=== PATIENT | female | born 1940 | race Caucasian/White ===

== ENCOUNTER 2017-12-15 08:42 | Emergency (ER) | payer MEDICARE, OTHER, SELFPAY ==
[2017-12-15 08:42] VITALS: BP 161/77; PULSE 96; RESP 15; TEMP 35.7; O2SAT 95; BMI 28.6
--- NOTE | 2017-12-15 08:59 | EKG12_ITS ---
Test Reason : REPEAT Blood Pressure : / mmHG Vent. Rate : 089 BPM Atrial Rate : 089 BPM P-R Int : 190 ms QRS Dur : 106 ms QT Int : 388 ms P-R-T Axes : 029 -43 026 degrees QTc Int : 472 ms Normal sinus rhythm Left axis deviation Voltage criteria for left ventricular hypertrophy Abnormal ECG Confirmed by KUMAR DELGADO, MEKHI ([id number]), film or videotape editor DOLORES GUZMAN ([id number]) on 12/18/2017 3:54:16 PM Referred By: MIRTA Confirmed By:MEKHI HEATH MD
--- NOTE | 2017-12-15 09:00 | RAD_ITS ---
STUDY: X-RAY CHEST REASON FOR EXAM: Female, 77 years old. Chest pain TECHNIQUE: Frontal and lateral views of the chest. COMPARISON: None. FINDINGS: The lungs are clear and expanded. There is no demonstrated pleural abnormality. Normal size heart. Normal mediastinum and douglas. Normal visualized pulmonary arteries. Normal visualized aortic arch and descending thoracic aorta. Normal visualized thoracic spine. Normal visualized ribs, clavicles, and shoulders. There is no demonstrated abnormality of the visualized soft tissue structures of the upper abdomen. RAD/Chest PA and Lateral IMPRESSION: No acute cardiopulmonary disease. Electronically Signed: Alfred Zapata DO at 9:49 EST , Service support ,
--- NOTE | 2017-12-15 09:07 | ED.DCSUM_ITS ---
- ER Visit Summary Date of Service: 12/15/17 Chief Complaint: Anxious feeling and left arm/shoulder pressure History of Present Illness: The patient is a 77 F who presents for 3 days of increased feeling of anxiousness and intermittent left arm and shoulder pressure. Patient had to call 911 for her brother 3 days ago, who then required admission in [place]. Patient has been coordinating the logistics of his hospital stay. Since then she has an anxious feeling and has been belching. She has also had an odd feeling in her left arm that is not pain but is more like an abnormal feeling/pressure. Yesterday she began having brief episodes of the pressure feeling under her left shoulder blade. She had one episode this morning. She denies any shortness of breath. No nausea, vomiting , diarrhea, fever, recent illness, recent travel or surgery. Patient has a remote history of breast cancer. She does not use any hormone replacement or smoke. History of diabetes, hypertension, osteoarthritis, left mastectomy. She has no cardiac history and is not on blood thinners. Physical Examination: Vital signs: afebrile, hemodynamically stable, no hypoxia on room air General: well nourished, well developed, in no distress Skin: warm, dry, no rash, no pallor HEENT: normocephalic and atraumatic; PERRL, EOMI, moist mucous membranes Cardiovascular: regular rate and rhythm without murmurs, 2+ pitting edema in the lower extremities, symmetric, 2+ pulses all distal extremities Respiratory: No increased work of breathing, lungs are clear to auscultation bilaterally, no rales, rhonchi or wheezing Abdominal: Abdomen is soft, nontender with normoactive bowel sounds, no guarding or rebound, no masses MSK: Moves all extremities, no deformities, normal strength Neuro: Awake and alert, oriented ?4. No facial droop, sensation and motor function intact and symmetric Test Results: Abnormal Lab Results 12/15/17 12/15/17 12/15/17 09:10 09:10 09:10 WBC 8.2 RBC 4.37 Hgb 14.7 Hct 42.2 MCV 96.6 MCH 33.6 H MCHC 34.8 RDW 13.1 RDW Differential 45.6 H Plt Count 136 L MPV 8.6 Immature Gran % (Auto) 0.200 Neut % (Auto) 65.6 Lymph % (Auto) 22.1 Hughes % (Auto) 10.0 Eos % (Auto) 1.6 Baso % (Auto) 0.5 Absolute Neuts (auto) 5.4 Absolute Lymphs (auto) 1.82 Total Counted Not Reportable D-Dimer Quant (PE/DVT) Sodium 139 Potassium 3.8 Chloride 103 Carbon Dioxide 28.0 Anion Gap 8 BUN 10 Creatinine 0.92 Estim Creat Clear Calc 44.22 Est GFR (MDRD) Af Amer 76 Est GFR (MDRD) Non-Af 62 BUN/Creatinine Ratio 10.8 Glucose 259 H Calcium 8.5 Total Bilirubin 0.70 AST 34 ALT 35 Alkaline Phosphatase 137 H Troponin I < 0.02 B-Natriuretic Peptide 53.5 Total Protein 7.7 Albumin 3.2 Globulin 4.5 H Albumin/Globulin Ratio 0.7 L TSH 0.94 12/15/17 12/15/17 09:10 12:45 WBC RBC Hgb Hct MCV MCH MCHC RDW RDW Differential Plt Count MPV Immature Gran % (Auto) Neut % (Auto) Lymph % (Auto) Hughes % (Auto) Eos % (Auto) Baso % (Auto) Absolute Neuts (auto) Absolute Lymphs (auto) Total Counted D-Dimer Quant (PE/DVT) 0.42 Sodium Potassium Chloride Carbon Dioxide Anion Gap BUN Creatinine Estim Creat Clear Calc Est GFR (MDRD) Af Amer Est GFR (MDRD) Non-Af BUN/Creatinine Ratio Glucose Calcium Total Bilirubin AST ALT Alkaline Phosphatase Troponin I < 0.02 B-Natriuretic Peptide Total Protein Albumin Globulin Albumin/Globulin Ratio TSH Emergency Department Course and Treatment: Workup for atypical presentation of acute coronary syndrome was initiated. Patient was given aspirin. Patient was also given a GI cocktail because of the complaint of belching. Given her cancer history, age and her heart rate above 90, a d-dimer was performed. She is currently low risk per well's criteria but is PERC positive. D-dimer was negative. Troponin negative. EKG showed no ischemic changes. Chest x-ray showed no acute process. Patient was feeling better but still maintained a low level of anxiousness. Because of her age, history of diabetes, and female gender, she is at a higher risk for atypical acute coronary syndrome, although an alternative diagnosis is more likely. Because of this she was discussed with her primary care doctor, who stated that she does tend to be a little, and this may just be normal for her. He wants her to follow-up on Sunday morning at 9 AM with him in the office. I performed a 3 hour delta troponin and EKG, with no changes from the prior ones. Patient was discharged home with return precautions. She will follow-up on Sunday as instructed with Dr. Ross. Treatment Plan: [] Disposition: [] Impression: Anxiety response, belching This note was generated with [employer] dictation software. It may contain incorrect words, spelling, and punctuation that were not noted in review of the chart prior to signing ED Disposition - Plan for ED Patient: Disposition: Home or Assisted Living Chief Complaint: Chest Other Instructions: [place] to Managing Stress Referrals: Kurtis Ross Chi, MD [Primary Care Provider] - 2 Days Additional Instructions: Your workup for your feelings of anxiousness and the increased belching showed no concerning findings that this is coming from your heart. Please follow-up on Sunday at [address] Ross. Please get plenty of sleep and eat a healthy diet in the meantime to help with your anxiousness. You may use [id number] medication as needed for any heartburn or reflux symptoms. If you have any worsening of your condition or any new concerning symptoms, return immediately to the emergency department for another evaluation.
[2017-12-15 09:13] VITALS: BP 165/72; PULSE 90; RESP 20; O2SAT 96
[2017-12-15] MEDS: Aspirin 81 MG TAB.CHEW 324 MG PO (09:14)
[2017-12-15 09:26] LABS: Absolute Lymphocyte Count 1.82 X10^3/ul (0.83-4.51); Absolute Neutrophil Count 5.4 X10^3/uL (2.0-7.7); Basophil# 0.04 X10^3/uL; Basophil% 0.5 % (0-1); Eosinophil# 0.13 X10^3/uL; Eosinophils% 1.6 % (0-5); Hematocrit 42.2 % (37-47); Hemoglobin 14.7 g/dl (12.0-15.0); Lymphocyte # 1.82 X10^3/ul (4.0); Lymphocyte % 22.1 % (19-41); Mean Corp Hgb Conc 34.8 g/gl (32-36); Mean Corpuscular Hgb 33.6 pg (27.0-32.0); Mean Corpuscular Volume 96.6 fL (81-99); Mean Platelet Vol. 8.6 fl (6.2-12.0); Monocyte# 0.82 X10^3/uL; Neutrophil # 5.41 X10^3/uL (2.7-7.7); Neutrophil % 65.6 % (47-70); POSITIVE COUNT NO; POSITIVE DIFFERENTIAL NO; POSITIVE MORPHOLOGY NO; Platelet Count 136 K/mm3 (150-450); RBC Distribution Width CV 13.1 % (11.6-14.6); RBC Distribution Width SD 45.6 fl (35.1-43.9); Red Blood Count 4.37 M/mm3 (4.2-5.4); White Blood Count 8.2 K/mm3 (4.4-11.0)
[2017-12-15 09:37] LABS: D-Dimer Quantitative (DVT/PE) 0.42 FEU/ug/m (0.27-0.49)
[2017-12-15 09:52] LABS: ALB/GLOB Ratio 0.7 RATIO (0.9-2.4); AST(SGOT) 34 U/L (15-37); Alanine Aminotransfer ALT/SGPT 35 U/L (13-56); Albumin, Serum 3.2 g/dL (3.2-5.0); Alkaline Phosphatase 137 U/L (45-117); Anion Gap 8 (5-15); BUN 10 mg/dL (7-18); BUN/Creat Ratio 10.8 RATIO (10-20); Calcium,Total 8.5 mg/dL (8.5-10.1); Chloride 103 mmol/L (98-107); Creatinine, Serum 0.92 mg/dL (0.55-1.02); EST Glomerular Filtration Rate 62 mL/min (>60); Est Glom Filt Rate - Afr Amer 76 mL/min (>60); Estimated Creatinine Clearance 44.22 ml/min; Globulin 4.5 g/dL (2.2-4.2); Glucose 259 mg/dL (74-106); Potassium 3.8 mmol/L (3.5-5.1); Protein, Total 7.7 g/dL (6.4-8.2); Sodium Level 139 mmol/L (136-145); Thyroid Stim Hormone (TSH) 0.94 uIU/mL (0.358-3.74)
[2017-12-15 10:49] LABS: BNP,B-Type NATRIURETIC PEPTIDE 53.5 pg/mL (0-100)
[2017-12-15 11:29] VITALS: BP 149/77; PULSE 88; RESP 16; O2SAT 98
--- NOTE | 2017-12-15 12:00 | EKG12_ITS ---
Test Reason : CP Blood Pressure : / mmHG Vent. Rate : 089 BPM Atrial Rate : 089 BPM P-R Int : 166 ms QRS Dur : 100 ms QT Int : 376 ms P-R-T Axes : 036 -40 041 degrees QTc Int : 457 ms Sinus rhythm with occasional Premature ventricular complexes Left axis deviation Voltage criteria for left ventricular hypertrophy Abnormal ECG Confirmed by KUMAR DELGADO, MEKHI ([id number]), video editor DOLORES GUZMAN ([id number]) on 12/18/2017 3:54:31 PM Referred By: MIRTA Confirmed By:MEKHI HEATH MD
[2017-12-15 13:20] VITALS: BP 153/61; PULSE 88; RESP 16; O2SAT 98
--- NOTE | 2017-12-15 14:10 | DCINST.ED_ITS ---
ED Disposition - Plan for ED Patient: Disposition: Home or Assisted Living Chief Complaint: Chest Other Instructions: [place] to Managing Stress Referrals: Kurtis Ross Chi, MD [Primary Care Provider] - 2 Days Additional Instructions: Your workup for your feelings of anxiousness and the increased belching showed no concerning findings that this is coming from your heart. Please follow-up on Sunday at [address] Ross. Please get plenty of sleep and eat a healthy diet in the meantime to help with your anxiousness. You may use [id number] medication as needed for any heartburn or reflux symptoms. If you have any worsening of your condition or any new concerning symptoms, return immediately to the emergency department for another evaluation.
[2017-12-15 14:22] VITALS: BP 154/71; PULSE 79; RESP 22; O2SAT 100
--- NOTE | 2017-12-15 14:23 | ED.RN ---
THIS NURSE REVIEWED D/C INSTRUCTIONS WITH PT. PT VERBALIZED UNDERSTANDING OF INSTRUCTIONS. IV D/C. IV CATHETER INTACT. PT TOLERATED WELL. PT DENIES FURTHER NEEDS OR QUESTIONS AT THIS TIME.
== END 2017-12-15 14:24 | disposition home or self-care (01) ==
PROVIDERS: Emergency Provider Emergency Medicine; Family Provider Family Medicine Geriatric Medicine; PCP Family Medicine Geriatric Medicine
DX: F41.9 Anxiety disorder, unspecified (principal); R14.2 Eructation; I49.3 Ventricular premature depolarization; E11.9 Type 2 diabetes mellitus without complications; I10 Essential (primary) hypertension; M19.90 Unspecified osteoarthritis, unspecified site; Z79.4 Long term (current) use of insulin; Z79.899 Other long term (current) drug therapy; Z85.3 Personal history of malignant neoplasm of breast; Z90.12 Acquired absence of left breast and nipple
CPT/HCPCS: 71046; 80053; 83880; 84443; 84484; 85025; 85379; 93005; 99285; A4216

== ENCOUNTER → 2017-12-24 06:49 | Outpatient (CLI) | payer MEDICARE, OTHER, SELFPAY ==
--- NOTE | 2017-12-24 18:02 | STRESSREP ---
Stress Test Report Pharmacologic myocardial perfusion stress test. 77-year-old lady with a history of chest pain. Stress protocol: Resting EKG demonstrates normal sinus rhythm with a rate of 93 bpm. Resting blood pressure is 168/82 mmHg. 0.4 mg regadenoson was infused per usual protocol followed Intravenous saline flush injection. Continuous EKG monitoring was performed. Rest there were no ST or T-wave changes noted suggest abnormal flow reserve at peak infusion no ST or T-wave changes were noted suggest abnormal flow reserve. The maximum heart rate was 122 bpm which was 85% of maximum predicted heart rate the maximum workload attained was 1 metabolic equivalent. The resting blood pressure is 168/82 with a final blood pressure 160/70. Myocardial perfusion protocol. 11.3 mCi of technetium 99m sestamibi was injected at rest. 0.4 mg regadenoson was infused per usual protocol peak infusion 32.7 mCi of technetium 99m sestamibi was injected stress images were obtained stress and rest images were reconstructed and compared in the short axis vertical and horizontal long axis. Gated images were also obtained. Perfusion SPECT analysis: Review of the images demonstrate normal uptake of tracer noted on the stress images in all areas of the myocardium. The resting images similarly demonstrate normal uptake of tracer noted in all areas of myocardium. No areas of reversibility are noted suggest ischemia. Gated SPECT analysis: The gated ejection fraction is noted to be was 68 % Conclusion: Normal pharmacologic myocardial perfusion stress test. Preserved ejection fraction
== END ==
PROVIDERS: Family Provider Family Medicine Geriatric Medicine; PCP Family Medicine Geriatric Medicine; Visit Provider Family Medicine Geriatric Medicine
DX: R07.9 Chest pain, unspecified (principal)
CPT/HCPCS: 78452; 93017; A9500; A4216; J2785

== ENCOUNTER → 2018-01-08 13:45 | Outpatient (CLI) | payer MEDICARE, OTHER, SELFPAY ==
[2018-01-08 16:30] LABS: Absolute Lymphocyte Count 1.79 X10^3/ul (0.83-4.51); Absolute Neutrophil Count 3.8 X10^3/uL (2.0-7.7); Basophil# 0.02 X10^3/uL; Basophil% 0.3 % (0-1); Eosinophil# 0.17 X10^3/uL; Eosinophils% 2.6 % (0-5); Hematocrit 41.4 % (37-47); Hemoglobin 13.8 g/dl (12.0-15.0); Lymphocyte # 1.79 X10^3/ul (4.0); Lymphocyte % 27.8 % (19-41); Mean Corp Hgb Conc 33.3 g/gl (32-36); Mean Corpuscular Hgb 32.8 pg (27.0-32.0); Mean Corpuscular Volume 98.3 fL (81-99); Mean Platelet Vol. 9.5 fl (6.2-12.0); Monocyte# 0.67 X10^3/uL; Monocyte% 10.4 % (0-10); Neutrophil # 3.77 X10^3/uL (2.7-7.7); Neutrophil % 58.7 % (47-70); Platelet Count 108 K/mm3 (150-450); RBC Distribution Width CV 13.5 % (11.6-14.6); RBC Distribution Width SD 47.9 fl (35.1-43.9); Red Blood Count 4.21 M/mm3 (4.2-5.4); White Blood Count 6.4 K/mm3 (4.4-11.0)
[2018-01-08 16:35] LABS: ALB/GLOB Ratio 0.9 RATIO (0.9-2.4); AST(SGOT) 24 U/L (15-37); Alanine Aminotransfer ALT/SGPT 31 U/L (13-56); Albumin, Serum 3.2 g/dL (3.2-5.0); Alkaline Phosphatase 124 U/L (45-117); Anion Gap 9 (5-15); BUN 16 mg/dL (7-18); BUN/Creat Ratio 19.3 RATIO (10-20); Calcium,Total 8.6 mg/dL (8.5-10.1); Chloride 104 mmol/L (98-107); Creatinine, Serum 0.83 mg/dL (0.55-1.02); EST Glomerular Filtration Rate 71 mL/min (>60); Est Glom Filt Rate - Afr Amer 85 mL/min (>60); Globulin 3.6 g/dL (2.2-4.2); Glucose 209 mg/dL (74-106); Potassium 3.7 mmol/L (3.5-5.1); Protein, Total 6.8 g/dL (6.4-8.2); Sodium Level 140 mmol/L (136-145); Thyroid Stim Hormone (TSH) 0.58 uIU/mL (0.358-3.74)
[2018-01-08 16:37] LABS: POSITIVE COUNT NO; POSITIVE DIFFERENTIAL NO; POSITIVE MORPHOLOGY NO
== END ==
PROVIDERS: Family Provider Family Medicine Geriatric Medicine; PCP Family Medicine Geriatric Medicine; Visit Provider Family Medicine Geriatric Medicine
DX: E11.9 Type 2 diabetes mellitus without complications (principal); I10 Essential (primary) hypertension; E55.9 Vitamin D deficiency, unspecified
CPT/HCPCS: 36415; 80053; 82306; 84443; 85025

== ENCOUNTER → 2018-03-01 13:13 | Outpatient (CLI) | payer MEDICARE, OTHER, SELFPAY ==
--- NOTE | 2018-03-01 13:17 | RAD_ITS ---
STUDY: X-RAY CHEST REASON FOR EXAM: Female, 78 years old. Cough and congestion. TECHNIQUE: PA and lateral views of the chest. COMPARISON: December 15, 2017 FINDINGS: There is left mastectomy There is hyperinflation of the lungs consistent with chronic obstructive lung disease (COPD). There is no demonstrated pleural abnormality. Normal size heart. Normal mediastinum and douglas. Normal visualized pulmonary arteries. There is atherosclerotic calcification of the aortic arch with tortuosity. There is demineralization of the osseous structures. Normal visualized ribs, clavicles, and shoulders. Surgical clips in the right upper quadrant of the abdomen. RAD/Chest PA and Lateral IMPRESSION: Degenerative changes, as described above. No demonstrated acute cardiopulmonary process. Stable appearance. Electronically Signed: Marcus Cramer MD at 9:02 EDT , Service support ,
== END ==
PROVIDERS: Family Provider Family Medicine Geriatric Medicine; PCP Family Medicine Geriatric Medicine; Visit Provider Family Medicine Geriatric Medicine
DX: J18.9 Pneumonia, unspecified organism (principal)
CPT/HCPCS: 71046

== ENCOUNTER → 2018-04-05 11:57 | Outpatient (CLI) | payer MEDICARE, OTHER, SELFPAY ==
[2018-04-05 13:39] LABS: Anion Gap 6 (5-15); BUN 13 mg/dL (7-18); BUN/Creat Ratio 16.1 RATIO (10-20); Calcium,Total 9.3 mg/dL (8.5-10.1); Chloride 105 mmol/L (98-107); Creatinine, Serum 0.81 mg/dL (0.55-1.02); EST Glomerular Filtration Rate 73 mL/min (>60); Est Glom Filt Rate - Afr Amer 88 mL/min (>60); Glucose 117 mg/dL (74-106); Potassium 3.6 mmol/L (3.5-5.1); Sodium Level 138 mmol/L (136-145)
== END ==
PROVIDERS: Family Provider Family Medicine Geriatric Medicine; PCP Family Medicine Geriatric Medicine; Visit Provider Family Medicine Geriatric Medicine
DX: N18.3 Chronic kidney disease, stage 3 (moderate) (principal)
CPT/HCPCS: 36415; 80048

== ENCOUNTER → 2018-04-10 14:28 | Outpatient (CLI) | payer MEDICARE, OTHER, SELFPAY ==
[2018-04-10 17:50] LABS: Anion Gap 10 (5-15); BUN 11 mg/dL (7-18); Calcium,Total 8.9 mg/dL (8.5-10.1); Chloride 102 mmol/L (98-107); Creatinine, Serum 0.92 mg/dL (0.55-1.02); EST Glomerular Filtration Rate 63 mL/min (>60); Est Glom Filt Rate - Afr Amer 76 mL/min (>60); Glucose 230 mg/dL (74-106); Potassium 4.1 mmol/L (3.5-5.1); Sodium Level 135 mmol/L (136-145)
== END ==
PROVIDERS: Family Provider Family Medicine Geriatric Medicine; PCP Family Medicine Geriatric Medicine; Visit Provider Family Medicine Geriatric Medicine
DX: N18.3 Chronic kidney disease, stage 3 (moderate) (principal)
CPT/HCPCS: 36415; 80048

== ENCOUNTER → 2018-06-10 11:51 | Outpatient (CLI) | payer MEDICARE, OTHER, SELFPAY ==
[2018-06-10 13:35] LABS: Absolute Lymphocyte Count 2.93 X10^3/ul (0.83-4.51); Absolute Neutrophil Count 11.4 X10^3/uL (2.0-7.7); Basophil# 0.07 X10^3/uL; Basophil% 0.4 % (0-1); Differential Indicated SCAN CRITERIA MET; Eosinophil# 0.23 X10^3/uL; Eosinophils% 1.5 % (0-5); Hematocrit 41.3 % (37-47); Hemoglobin 14.1 g/dl (12.0-15.0); Lymphocyte # 2.93 X10^3/ul (4.0); Lymphocyte % 18.5 % (19-41); Mean Corp Hgb Conc 34.1 g/gl (32-36); Mean Corpuscular Hgb 33.3 pg (27.0-32.0); Mean Corpuscular Volume 97.4 fL (81-99); Mean Platelet Vol. 9.2 fl (6.2-12.0); Monocyte# 1.21 X10^3/uL; Monocyte% 7.6 % (0-10); Neutrophil # 11.37 X10^3/uL (2.7-7.7); Neutrophil % 71.7 % (47-70); POSITIVE COUNT NO; POSITIVE DIFFERENTIAL NO; POSITIVE MORPHOLOGY YES; Platelet Count 167 K/mm3 (150-450); RBC Distribution Width CV 13.3 % (11.6-14.6); RBC Distribution Width SD 46.4 fl (35.1-43.9); Red Blood Count 4.24 M/mm3 (4.2-5.4); White Blood Count 15.9 K/mm3 (4.4-11.0)
[2018-06-10 14:01] LABS: ALB/GLOB Ratio 0.6 RATIO (0.9-2.4); AST(SGOT) 27 U/L (15-37); Alanine Aminotransfer ALT/SGPT 41 U/L (13-56); Albumin, Serum 2.9 g/dL (3.2-5.0); Alkaline Phosphatase 149 U/L (45-117); Anion Gap 14 (5-15); BUN 11 mg/dL (7-18); BUN/Creat Ratio 12.7 RATIO (10-20); Calcium,Total 8.8 mg/dL (8.5-10.1); Chloride 101 mmol/L (98-107); Creatinine, Serum 0.86 mg/dL (0.55-1.02); EST Glomerular Filtration Rate 67 mL/min (>60); Est Glom Filt Rate - Afr Amer 82 mL/min (>60); Globulin 4.7 g/dL (2.2-4.2); Glucose 216 mg/dL (74-106); Potassium 3.7 mmol/L (3.5-5.1); Protein, Total 7.6 g/dL (6.4-8.2); Sodium Level 139 mmol/L (136-145); Thyroid Stim Hormone (TSH) 0.43 uIU/mL (0.358-3.74)
[2018-06-10 14:09] LABS: Differential Comment SCANNED
== END ==
PROVIDERS: Family Provider Family Medicine Geriatric Medicine; PCP Family Medicine Geriatric Medicine; Visit Provider Family Medicine Geriatric Medicine
DX: R14.2 Eructation (principal); R53.83 Other fatigue
CPT/HCPCS: 36415; 74019; 80053; 84443; 85025

== ENCOUNTER → 2018-07-10 10:29 | Outpatient (CLI) | payer MEDICARE, OTHER, SELFPAY ==
[2018-07-10 12:37] LABS: Absolute Lymphocyte Count 2.59 X10^3/ul (0.83-4.51); Absolute Neutrophil Count 4.5 X10^3/uL (2.0-7.7); Basophil# 0.02 X10^3/uL; Basophil% 0.3 % (0-1); Eosinophil# 0.17 X10^3/uL; Eosinophils% 2.2 % (0-5); Hemoglobin 14.2 g/dl (12.0-15.0); Lymphocyte # 2.59 X10^3/ul (4.0); Lymphocyte % 32.9 % (19-41); Mean Corp Hgb Conc 33.8 g/gl (32-36); Mean Corpuscular Hgb 32.3 pg (27.0-32.0); Mean Corpuscular Volume 95.5 fL (81-99); Mean Platelet Vol. 9.5 fl (6.2-12.0); Monocyte# 0.64 X10^3/uL; Monocyte% 8.1 % (0-10); Neutrophil # 4.45 X10^3/uL (2.7-7.7); Neutrophil % 56.5 % (47-70); Platelet Count 89 K/mm3 (150-450); RBC Distribution Width CV 13.3 % (11.6-14.6); RBC Distribution Width SD 46.7 fl (35.1-43.9); White Blood Count 7.9 K/mm3 (4.4-11.0)
[2018-07-10 12:45] LABS: POSITIVE COUNT NO; POSITIVE DIFFERENTIAL NO; POSITIVE MORPHOLOGY NO
[2018-07-10 12:52] LABS: Vitamin D,25 Hydroxy 47.9 ng/mL (29.95-100.01)
[2018-07-10 12:57] LABS: ALB/GLOB Ratio 0.8 RATIO (0.9-2.4); AST(SGOT) 20 U/L (15-37); Alanine Aminotransfer ALT/SGPT 35 U/L (13-56); Alkaline Phosphatase 125 U/L (45-117); Anion Gap 9 (5-15); BUN 11 mg/dL (7-18); Chloride 102 mmol/L (98-107); Creatinine, Serum 0.91 mg/dL (0.55-1.02); EST Glomerular Filtration Rate 63 mL/min (>60); Est Glom Filt Rate - Afr Amer 77 mL/min (>60); Globulin 3.8 g/dL (2.2-4.2); Glucose 296 mg/dL (74-106); Potassium 3.3 mmol/L (3.5-5.1); Protein, Total 6.8 g/dL (6.4-8.2); Sodium Level 139 mmol/L (136-145); Thyroid Stim Hormone (TSH) 0.22 uIU/mL (0.358-3.74)
== END ==
PROVIDERS: Family Provider Family Medicine Geriatric Medicine; PCP Family Medicine Geriatric Medicine; Visit Provider Family Medicine Geriatric Medicine
DX: E11.9 Type 2 diabetes mellitus without complications (principal); I10 Essential (primary) hypertension; E55.9 Vitamin D deficiency, unspecified
CPT/HCPCS: 36415; 80053; 82306; 84443; 85025

== ENCOUNTER → 2018-07-16 11:54 | Outpatient (CLI) | payer MEDICARE, OTHER, SELFPAY ==
[2018-07-16 12:34] LABS: Absolute Lymphocyte Count 3.03 X10^3/ul (0.83-4.51); Absolute Neutrophil Count 4.3 X10^3/uL (2.0-7.7); Basophil# 0.03 X10^3/uL; Basophil% 0.4 % (0-1); Eosinophil# 0.17 X10^3/uL; Hematocrit 46.2 % (37-47); Hemoglobin 15.5 g/dl (12.0-15.0); Lymphocyte # 3.03 X10^3/ul (4.0); Lymphocyte % 36.5 % (19-41); Mean Corp Hgb Conc 33.5 g/gl (32-36); Mean Corpuscular Hgb 32.4 pg (27.0-32.0); Mean Corpuscular Volume 96.7 fL (81-99); Mean Platelet Vol. 9.5 fl (6.2-12.0); Monocyte% 9.6 % (0-10); Neutrophil # 4.27 X10^3/uL (2.7-7.7); Neutrophil % 51.4 % (47-70); POSITIVE COUNT NO; POSITIVE DIFFERENTIAL NO; POSITIVE MORPHOLOGY NO; Platelet Count 101 K/mm3 (150-450); RBC Distribution Width CV 13.3 % (11.6-14.6); RBC Distribution Width SD 47.1 fl (35.1-43.9); Red Blood Count 4.78 M/mm3 (4.2-5.4); White Blood Count 8.3 K/mm3 (4.4-11.0)
[2018-07-16 13:07] LABS: Anion Gap 8 (5-15); BUN 11 mg/dL (7-18); BUN/Creat Ratio 12.8 RATIO (10-20); Chloride 104 mmol/L (98-107); Creatinine, Serum 0.86 mg/dL (0.55-1.02); EST Glomerular Filtration Rate 68 mL/min (>60); Est Glom Filt Rate - Afr Amer 82 mL/min (>60); Glucose 171 mg/dL (74-106); Potassium 3.7 mmol/L (3.5-5.1); Sodium Level 138 mmol/L (136-145)
--- NOTE | 2018-07-16 14:00 | RAD_ITS ---
STUDY: X-RAY - ABDOMEN/PELVIS REASON FOR EXAM: Female, 78 years old. Right upper quadrant pain. TECHNIQUE: AP supine and upright views of the abdomen and pelvis. COMPARISON: None. FINDINGS: Elevation of the right hemidiaphragm. There is a moderate amount of colonic fecal material. There is no demonstrated free abdominal air. The visualized liver, spleen and kidneys are grossly normal in size and morphology. The patient is status post cholecystectomy. There are mild degenerative changes of the visualized lumbar spine. RAD/Abd Inc Decub and/or Erect IMPRESSION: Moderate amount of fecal material is seen in the colon. Electronically Signed: Micheal Guardado MD at 14:40 EDT Tel [phone], Service support ,
== END ==
LOC: POLAB3 11:54 → RAD 13:59
PROVIDERS: Family Provider Family Medicine Geriatric Medicine; PCP Family Medicine Geriatric Medicine; Referring Provider Family Medicine Geriatric Medicine; Visit Provider Family Medicine Geriatric Medicine
DX: E87.6 Hypokalemia (principal); R10.9 Unspecified abdominal pain
CPT/HCPCS: 36415; 74019; 80048; 85025

== ENCOUNTER → 2018-09-02 10:10 | Outpatient (CLI) | payer MEDICARE, OTHER, SELFPAY ==
[2018-09-02 17:39] LABS: Thyroid Stim Hormone (TSH) 1.21 uIU/mL (0.358-3.74)
== END ==
PROVIDERS: Family Provider Family Medicine Geriatric Medicine; PCP Family Medicine Geriatric Medicine; Visit Provider Family Medicine Geriatric Medicine
DX: E03.9 Hypothyroidism, unspecified (principal)
CPT/HCPCS: 36415; 84443

== ENCOUNTER → 2018-10-09 14:49 | Outpatient (CLI) | payer MEDICARE, OTHER, SELFPAY ==
[2018-10-09 18:02] LABS: Absolute Lymphocyte Count 2.22 X10^3/ul (0.83-4.51); Absolute Neutrophil Count 2.8 X10^3/uL (2.0-7.7); Basophil# 0.03 X10^3/uL; Basophil% 0.5 % (0-1); Eosinophils% 1.8 % (0-5); Hematocrit 41.5 % (37-47); Hemoglobin 13.7 g/dl (12.0-15.0); Lymphocyte # 2.22 X10^3/ul (4.0); Lymphocyte % 39.1 % (19-41); Mean Corpuscular Hgb 32.8 pg (27.0-32.0); Mean Corpuscular Volume 99.3 fL (81-99); Mean Platelet Vol. 9.3 fl (6.2-12.0); Monocyte# 0.54 X10^3/uL; Monocyte% 9.5 % (0-10); Neutrophil # 2.79 X10^3/uL (2.7-7.7); Neutrophil % 49.1 % (47-70); Platelet Count 104 K/mm3 (150-450); RBC Distribution Width CV 13.8 % (11.6-14.6); RBC Distribution Width SD 49.3 fl (35.1-43.9); Red Blood Count 4.18 M/mm3 (4.2-5.4); White Blood Count 5.7 K/mm3 (4.4-11.0)
[2018-10-09 18:09] LABS: POSITIVE COUNT NO; POSITIVE DIFFERENTIAL NO; POSITIVE MORPHOLOGY NO
[2018-10-09 18:15] LABS: ALB/GLOB Ratio 0.8 RATIO (0.9-2.4); AST(SGOT) 22 U/L (15-37); Alanine Aminotransfer ALT/SGPT 27 U/L (13-56); Albumin, Serum 3.3 g/dL (3.2-5.0); Alkaline Phosphatase 126 U/L (45-117); Anion Gap 7 (5-15); BUN 12 mg/dL (7-18); BUN/Creat Ratio 14.5 RATIO (10-20); Calcium,Total 8.8 mg/dL (8.5-10.1); Chloride 104 mmol/L (98-107); Creatinine, Serum 0.83 mg/dL (0.55-1.02); EST Glomerular Filtration Rate 71 mL/min (>60); Est Glom Filt Rate - Afr Amer 86 mL/min (>60); Globulin 3.9 g/dL (2.2-4.2); Glucose 228 mg/dL (74-106); Potassium 4.5 mmol/L (3.5-5.1); Protein, Total 7.2 g/dL (6.4-8.2); Sodium Level 137 mmol/L (136-145); Thyroid Stim Hormone (TSH) 3.08 uIU/mL (0.358-3.74)
[2018-10-09 18:18] LABS: Vitamin D,25 Hydroxy 47.4 ng/mL (29.95-100.01)
== END ==
PROVIDERS: Family Provider Family Medicine Geriatric Medicine; PCP Family Medicine Geriatric Medicine; Visit Provider Family Medicine Geriatric Medicine
DX: E11.9 Type 2 diabetes mellitus without complications (principal); I10 Essential (primary) hypertension; E55.9 Vitamin D deficiency, unspecified
CPT/HCPCS: 36415; 80053; 82306; 84443; 85025

== ENCOUNTER → 2018-11-15 10:00 | Outpatient (CLI) | payer MEDICARE, OTHER, SELFPAY ==
--- NOTE | 2018-11-15 10:06 | RAD_ITS ---
STUDY: X-RAY - LUMBAR SPINE REASON FOR EXAM: Female, 78 years old. Low back pain without known injury TECHNIQUE: 3 view(s) of the lumbar spine were obtained. COMPARISON: None FINDINGS: Normal lumbar lordosis. There is no substantial scoliosis. There is a normal alignment of the vertebrae. There is diffuse demineralization with multi-level endplate spondylosis. Mild loss of disc space at multiple lower thoracic and upper lumbar vertebral body levels with relative preservation in the mid to lower lumbar spine. Moderate facet arthropathy at L4-L5 and L5-S1. Mild compression deformity of T11 is felt to be either chronic or physiologic. No distinct fracture line is evident. There is atherosclerotic calcification of the abdominal aorta without a demonstrated aneurysm. RAD/Lumbar Spine 2 or 3 Views IMPRESSION: 1. Facet dominant degenerative changes of the lower lumbar spine. 2. Mild degenerative disc disease of the thoracolumbar spine. 3. Osteopenia. 4. Minimal compression of T11 is of doubtful clinical significance. Electronically Signed: Merlin Cedeno MD at 6:54 EST , Service support ,
== END ==
PROVIDERS: Family Provider Family Medicine Geriatric Medicine; PCP Family Medicine Geriatric Medicine; Referring Provider Family Medicine Geriatric Medicine; Visit Provider Family Medicine Geriatric Medicine
DX: M54.5 Low back pain (principal)
CPT/HCPCS: 72100

== ENCOUNTER → 2018-12-19 10:41 | Outpatient (CLI) | payer MEDICARE, OTHER, SELFPAY ==
--- NOTE | 2018-12-19 10:51 | RAD_ITS ---
STUDY: X-RAY - LUMBAR SPINE REASON FOR EXAM: Female, 78 years old. Lower back pain intermittently radiating into the right leg. No recent injury. TECHNIQUE: 3 view(s) of the lumbar spine were obtained. COMPARISON: None FINDINGS: Normal lumbar lordosis. There is no substantial scoliosis. There is a normal alignment of the vertebrae. There is generalized demineralization of the vertebral bodies. Normal disc space heights. There is no acute fracture, dislocation or destructive osseous pathology. There appears to be a compression deformity with vertebral augmentation at T11. The soft tissue structures are unremarkable. RAD/Lumbar Spine 2 or 3 Views IMPRESSION: Osteopenia of the lumbar spine without acute abnormality Electronically Signed: Sharath Matthews DO at 22:27 EST Tel [phone], Service support ,
== END ==
PROVIDERS: Family Provider Family Medicine Geriatric Medicine; PCP Family Medicine Geriatric Medicine; Referring Provider Anesthesiology Pain Medicine; Visit Provider Anesthesiology Pain Medicine
DX: M54.9 Dorsalgia, unspecified (principal)
CPT/HCPCS: 72100

== ENCOUNTER → 2018-12-26 10:04 | Outpatient (CLI) | payer MEDICARE, OTHER, SELFPAY ==
[2018-12-26 13:05] LABS: Absolute Lymphocyte Count 1.71 X10^3/ul (0.83-4.51); Absolute Neutrophil Count 4.7 X10^3/uL (2.0-7.7); Basophil# 0.03 X10^3/uL; Basophil% 0.4 % (0-1); Eosinophil# 0.09 X10^3/uL; Eosinophils% 1.2 % (0-5); Hematocrit 43.4 % (37-47); Hemoglobin 14.4 g/dl (12.0-15.0); Lymphocyte # 1.71 X10^3/ul (4.0); Lymphocyte % 23.2 % (19-41); Mean Corp Hgb Conc 33.2 g/gl (32-36); Mean Corpuscular Hgb 33.1 pg (27.0-32.0); Mean Corpuscular Volume 99.8 fL (81-99); Mean Platelet Vol. 9.4 fl (6.2-12.0); Monocyte# 0.88 X10^3/uL; Monocyte% 11.9 % (0-10); Neutrophil # 4.65 X10^3/uL (2.7-7.7); Neutrophil % 63.2 % (47-70); Platelet Count 127 K/mm3 (150-450); RBC Distribution Width CV 14.2 % (11.6-14.6); RBC Distribution Width SD 52.4 fl (35.1-43.9); Red Blood Count 4.35 M/mm3 (4.2-5.4); White Blood Count 7.4 K/mm3 (4.4-11.0)
[2018-12-26 13:09] LABS: POSITIVE COUNT NO; POSITIVE DIFFERENTIAL NO; POSITIVE MORPHOLOGY NO
[2018-12-26 13:24] LABS: Anion Gap 8 (5-15); BUN 18 mg/dL (7-18); BUN/Creat Ratio 20.2 RATIO (10-20); Calcium,Total 9.2 mg/dL (8.5-10.1); Chloride 102 mmol/L (98-107); Creatinine, Serum 0.89 mg/dL (0.55-1.02); EST Glomerular Filtration Rate 65 mL/min (>60); Est Glom Filt Rate - Afr Amer 79 mL/min (>60); Glucose 213 mg/dL (74-106); Potassium 4.4 mmol/L (3.5-5.1); Sodium Level 135 mmol/L (136-145)
== END ==
PROVIDERS: Family Provider Family Medicine Geriatric Medicine; PCP Family Medicine Geriatric Medicine; Visit Provider Family Medicine Geriatric Medicine
DX: L03.119 Cellulitis of unspecified part of limb (principal)
CPT/HCPCS: 36415; 80048; 85025

== ENCOUNTER → 2018-12-30 15:12 | Outpatient (CLI) | payer MEDICARE, OTHER, SELFPAY ==
[2018-12-30 17:19] LABS: Anion Gap 7 (5-15); BUN 20 mg/dL (7-18); Calcium,Total 8.9 mg/dL (8.5-10.1); Chloride 102 mmol/L (98-107); Creatinine, Serum 1.05 mg/dL (0.55-1.02); EST Glomerular Filtration Rate 54 mL/min (>60); Est Glom Filt Rate - Afr Amer 65 mL/min (>60); Glucose 236 mg/dL (74-106); Sodium Level 135 mmol/L (136-145)
== END ==
PROVIDERS: Family Provider Family Medicine Geriatric Medicine; PCP Family Medicine Geriatric Medicine; Visit Provider Family Medicine Geriatric Medicine
DX: N18.3 Chronic kidney disease, stage 3 (moderate) (principal)
CPT/HCPCS: 36415; 80048

== ENCOUNTER → 2019-01-03 12:53 | Outpatient (CLI) | payer MEDICARE, OTHER, SELFPAY ==
[2019-01-03 13:49] LABS: Anion Gap 7 (5-15); BUN 18 mg/dL (7-18); BUN/Creat Ratio 17.6 RATIO (10-20); Calcium,Total 9.1 mg/dL (8.5-10.1); Chloride 100 mmol/L (98-107); Creatinine, Serum 1.02 mg/dL (0.55-1.02); EST Glomerular Filtration Rate 56 mL/min (>60); Est Glom Filt Rate - Afr Amer 67 mL/min (>60); Glucose 214 mg/dL (74-106); Potassium 3.8 mmol/L (3.5-5.1); Sodium Level 133 mmol/L (136-145)
== END ==
PROVIDERS: Family Provider Family Medicine Geriatric Medicine; PCP Family Medicine Geriatric Medicine; Visit Provider Family Medicine Geriatric Medicine
DX: N18.3 Chronic kidney disease, stage 3 (moderate) (principal)
CPT/HCPCS: 36415; 80048

== ENCOUNTER → 2019-01-08 14:26 | Outpatient (CLI) | payer MEDICARE, OTHER, SELFPAY ==
[2019-01-08 15:35] LABS: Absolute Lymphocyte Count 2.21 X10^3/ul (0.83-4.51); Basophil# 0.03 X10^3/uL; Basophil% 0.4 % (0-1); Eosinophil# 0.14 X10^3/uL; Eosinophils% 1.9 % (0-5); Hematocrit 41.6 % (37-47); Hemoglobin 14.2 g/dl (12.0-15.0); Lymphocyte # 2.21 X10^3/ul (4.0); Lymphocyte % 30.7 % (19-41); Mean Corp Hgb Conc 34.1 g/gl (32-36); Mean Corpuscular Volume 96.7 fL (81-99); Mean Platelet Vol. 9.5 fl (6.2-12.0); Monocyte# 0.76 X10^3/uL; Monocyte% 10.6 % (0-10); Neutrophil # 4.04 X10^3/uL (2.7-7.7); Neutrophil % 56.3 % (47-70); Platelet Count 114 K/mm3 (150-450); RBC Distribution Width CV 13.7 % (11.6-14.6); RBC Distribution Width SD 48.5 fl (35.1-43.9); White Blood Count 7.2 K/mm3 (4.4-11.0)
[2019-01-08 15:48] LABS: POSITIVE COUNT NO; POSITIVE DIFFERENTIAL NO; POSITIVE MORPHOLOGY NO
[2019-01-08 16:10] LABS: Vitamin D,25 Hydroxy 66.2 ng/mL (29.95-100.01)
[2019-01-08 16:14] LABS: ALB/GLOB Ratio 0.8 RATIO (0.9-2.4); AST(SGOT) 31 U/L (15-37); Alanine Aminotransfer ALT/SGPT 35 U/L (13-56); Albumin, Serum 3.3 g/dL (3.2-5.0); Alkaline Phosphatase 133 U/L (45-117); Anion Gap 11 (5-15); BUN 14 mg/dL (7-18); BUN/Creat Ratio 13.2 RATIO (10-20); Calcium,Total 8.8 mg/dL (8.5-10.1); Chloride 96 mmol/L (98-107); Creatinine, Serum 1.06 mg/dL (0.55-1.02); EST Glomerular Filtration Rate 53 mL/min (>60); Est Glom Filt Rate - Afr Amer 64 mL/min (>60); Globulin 4.1 g/dL (2.2-4.2); Glucose 183 mg/dL (74-106); Protein, Total 7.4 g/dL (6.4-8.2); Sodium Level 132 mmol/L (136-145); Thyroid Stim Hormone (TSH) 8.04 uIU/mL (0.358-3.74)
== END ==
PROVIDERS: Family Provider Family Medicine Geriatric Medicine; PCP Family Medicine Geriatric Medicine; Visit Provider Family Medicine Geriatric Medicine
DX: E11.9 Type 2 diabetes mellitus without complications (principal); I10 Essential (primary) hypertension; E55.9 Vitamin D deficiency, unspecified
CPT/HCPCS: 36415; 80053; 82306; 84443; 85025

== ENCOUNTER → 2019-01-30 11:06 | Outpatient (CLI) | payer MEDICARE, OTHER, SELFPAY ==
[2019-01-30 12:32] LABS: Anion Gap 7 (5-15); BUN 18 mg/dL (7-18); BUN/Creat Ratio 16.8 RATIO (10-20); Chloride 97 mmol/L (98-107); Creatinine, Serum 1.07 mg/dL (0.55-1.02); EST Glomerular Filtration Rate 53 mL/min (>60); Est Glom Filt Rate - Afr Amer 64 mL/min (>60); Glucose 304 mg/dL (74-106); Potassium 4.5 mmol/L (3.5-5.1); Sodium Level 132 mmol/L (136-145)
== END ==
PROVIDERS: Family Provider Family Medicine Geriatric Medicine; PCP Family Medicine Geriatric Medicine; Visit Provider Family Medicine Geriatric Medicine
DX: N18.3 Chronic kidney disease, stage 3 (moderate) (principal)
CPT/HCPCS: 36415; 80048

== ENCOUNTER 2019-01-31 09:17 | Emergency (ER) | payer MEDICARE, OTHER, SELFPAY ==
[2019-01-31 09:24] VITALS: BP 153/88; PULSE 92; RESP 16; TEMP 37.1; O2SAT 98; BMI 27.5
--- NOTE | 2019-01-31 09:47 | ED.VIS.GEN ---
History of Present Illness Chief Complaint: Cellulitis Informant: Patient Onset: Days, Weeks, - - Patient is a poor informant. Redness anterior left leg noted greater than 2 weeks ago. The wound posterior left leg noted 7-10 days ago. Patient states the wound improved with Neosporin ointment. She now reports drainage. She also reports blister medial right heel noted 5-7 days ago. Timing: Continuous Quality: Lymphedema bilaterally, wound right heel and left calf Location: Previously reported Current Severity: Mild Maximum Severity: Moderate Worsened by: Improvement of wound after using Neosporin left leg Relieved by: Nothing Associated Symptoms: Elevated blood sugar after steroid injection Narrative: Patient is an elderly woman who reports swelling of both lower extremities and placed on high-dose Lasix 7-10 days ago. She also reports wound posterior left leg 7-10 days ago, which improved with Neosporin ointment. She was concerned because she has a blister that spontaneously ruptured medial right heel. She denies fever, chills night sweats. She states her blood sugar this morning was 170. She states she has had elevated blood sugar since receiving steroid injection by her pain management physician. She does report frequency secondary to Lasix. She denies dysuria or hematuria. She denies ocular, visual or auditory symptoms. Prior similar symptoms: Yes Recent Illness/Hospitalization: Yes - Past Medical History (1) History of type 1 diabetes mellitus Status: Chronic (2) Lymphedema Status: Acute Past Medical History - Allergies and Home Meds Allergies/Adverse Reactions: Allergies No Known Allergies Allergy (Verified 01/31/19 09:17) Primary Care Physician: Kurtis Ross Chi, MD [Primary Care Provider] - Prior records reviewed: Yes Surgical History: noncontributory Lives: Spouse/ Significant Other Smoking Status: Former smoker Alcohol: None Drugs: None Review of Systems General: Denies: Chills, Fever, Malaise, Subjective, Sweats, Weight loss, - Eyes: Denies: Visual changes - bilaterally, Blurred Vision - bilaterally, Diplopia ENT: Denies: Rhinorrhea, Sore throat Cardiovascular: Denies: Chest pain, Palpitations Respiratory: Denies: Dyspnea, Cough, Dyspnea on exertion Gastrointestinal: Denies: Abdominal pain, Nausea, Vomiting, Diarrhea, Melena, Hematochezia Genitourinary: Reports: Frequency. Denies: Dysuria, Hematuria Musculoskeletal: Reports: Swelling - Swelling lower extremities bilaterally. Denies: Myalgias, Arthralgias, Neck pain, Back pain, Extremity Pain Skin: Reports: Rash, Wounds. Denies: Abscess, Abrasions Neurological: Denies: Headache, Weakness, Numbness Hematologic: Denies: Easy bruising, Easy bleeding, Lymphadenopathy Allergy: Denies: Uticaria, Swelling of the mouth Physical Exam Vital Signs/Narrative: Vital Signs Temp Pulse Resp BP Pulse Ox 01/31/19 09:24 98.8 F 92 16 153/88 H 98 Inital Vital Signs reviewed: Yes General: Well nourished, Well developed, Obese, No Acute Distress Head: Normocephalic, Atraumatic Eyes: Perrl, EOMI ENT: Moist mucous membranes, No rhinorrhea Neck: Supple, Nontender Cardiovascular: Regular rate, Regular rhythm, No murmurs Respiratory: No distress, CTA bilaterally, Chest nontender Abdomen: Soft, Nontender, Nondistended, Normal bowel sounds Back: Nontender, Normal Inspection Extremities: Nontender, Edema - 3+ pitting edema bilaterally Skin: Normal color, Rash - There is a wound with pustules noted mid left calf. There is no popliteal or inguinal lymphadenopathy. There is no lymphangitis. There is erythema anteriorly without warmth, induration or lymphangitis. There is serous drainage noted. There is a Renato that spontaneous ruptured medial right heel. Fluid is clear straw-colored. There is no lymphangitis, lymphadenopathy appreciated on the right. Neurological: Alert, Oriented x3, Cranial nerves II-XII grossly intact, Normal Strength, Normal Sensation Psychological: Normal affect, Normal Mood Diagnostic/Tx/Re-eval Laboratory Results 01/31/19 01/31/19 01/31/19 10:04 10:04 10:04 WBC 8.1 RBC 4.16 L Hgb 13.9 Hct 39.8 MCV 95.7 MCH 33.4 H MCHC 34.9 RDW 13.3 RDW Differential 46.1 H Plt Count 109 L MPV 9.2 Immature Gran % (Auto) 0.200 Neut % (Auto) 70.7 H Lymph % (Auto) 17.3 L Blaine % (Auto) 10.9 H Eos % (Auto) 0.7 Baso % (Auto) 0.2 Absolute Neuts (auto) 5.7 Absolute Lymphs (auto) 1.41 Total Counted Not Reportable Sodium Cancelled Potassium Cancelled Chloride Cancelled Carbon Dioxide Cancelled Anion Gap Cancelled BUN Cancelled Creatinine Cancelled Estim Creat Clear Calc Cancelled Est GFR (MDRD) Af Amer Cancelled Est GFR (MDRD) Non-Af Cancelled BUN/Creatinine Ratio Cancelled Glucose Cancelled Lactic Acid Cancelled Calcium Cancelled 01/31/19 01/31/19 11:09 11:09 WBC RBC Hgb Hct MCV MCH MCHC RDW RDW Differential Plt Count MPV Immature Gran % (Auto) Neut % (Auto) Lymph % (Auto) Blaine % (Auto) Eos % (Auto) Baso % (Auto) Absolute Neuts (auto) Absolute Lymphs (auto) Total Counted Sodium 134 L Potassium 3.8 Chloride 97 L Carbon Dioxide 32.0 Anion Gap 5 BUN 17 Creatinine 0.90 Estim Creat Clear Calc 44.49 Est GFR (MDRD) Af Amer 78 Est GFR (MDRD) Non-Af 64 BUN/Creatinine Ratio 18.9 Glucose 226 H Lactic Acid 1.1 Calcium 9.0 - Medical Decision Making Patient has bilateral lymphedema. Patient reports the swelling is worse at night and better in the morning. She also has venous stasis changes left anterior leg. It is my opinion this is not cellulitis. I am concerned that the wound on the posterior left lower extremity is an infection. The margins were outlined. Because she is diabetic a BMP was obtained to assess electrolytes, renal function and glucose. Because of concern for infection CBC was obtained. If laboratory workup is negative she is a candidate for outpatient treatment. Patient received first dose of doxycycline department. ED Disposition - Plan for ED Patient: Disposition: Home or Assisted Living Diagnosis: Cellulitis of left leg without foot, Type 2 diabetes mellitus with hyperglycemia Instructions: Discharge Instructions for Cellulitis Prescriptions: Doxycycline 100 mg PO BID #14 capsule Referrals: Kurtis Ross Chi, MD [Primary Care Provider] - 2 Days for wound check Additional Instructions: Your prescription was electronically transmitted to [facility]. Call Dr. Ross's office to be seen on Sunday.
[2019-01-31 10:15] LABS: Absolute Lymphocyte Count 1.41 X10^3/ul (0.83-4.51); Absolute Neutrophil Count 5.7 X10^3/uL (2.0-7.7); Basophil# 0.02 X10^3/uL; Basophil% 0.2 % (0-1); Eosinophil# 0.06 X10^3/uL; Eosinophils% 0.7 % (0-5); Hematocrit 39.8 % (37-47); Hemoglobin 13.9 g/dl (12.0-15.0); Lymphocyte # 1.41 X10^3/ul (4.0); Lymphocyte % 17.3 % (19-41); Mean Corp Hgb Conc 34.9 g/gl (32-36); Mean Corpuscular Hgb 33.4 pg (27.0-32.0); Mean Corpuscular Volume 95.7 fL (81-99); Mean Platelet Vol. 9.2 fl (6.2-12.0); Monocyte# 0.89 X10^3/uL; Monocyte% 10.9 % (0-10); Neutrophil # 5.74 X10^3/uL (2.7-7.7); Neutrophil % 70.7 % (47-70); Platelet Count 109 K/mm3 (150-450); RBC Distribution Width CV 13.3 % (11.6-14.6); RBC Distribution Width SD 46.1 fl (35.1-43.9); Red Blood Count 4.16 M/mm3 (4.2-5.4); White Blood Count 8.1 K/mm3 (4.4-11.0)
[2019-01-31 10:16] LABS: POSITIVE COUNT NO; POSITIVE DIFFERENTIAL NO; POSITIVE MORPHOLOGY NO
[2019-01-31 11:36] LABS: Anion Gap 5 (5-15); BUN 17 mg/dL (7-18); BUN/Creat Ratio 18.9 RATIO (10-20); Chloride 97 mmol/L (98-107); EST Glomerular Filtration Rate 64 mL/min (>60); Est Glom Filt Rate - Afr Amer 78 mL/min (>60); Estimated Creatinine Clearance 44.49 ml/min; Glucose 226 mg/dL (74-106); Potassium 3.8 mmol/L (3.5-5.1); Sodium Level 134 mmol/L (136-145)
[2019-01-31 11:50] LABS: Lactic Acid 1.1 mmol/L (0.4-2.0)
[2019-01-31] MEDS: Doxycycline 100 MG CAPSULE PO (14:13)
== END 2019-01-31 14:22 | disposition home or self-care (01) ==
PROVIDERS: Emergency Provider Emergency Medicine; Family Provider Family Medicine Geriatric Medicine; PCP Family Medicine Geriatric Medicine
DX: L03.116 Cellulitis of left lower limb (principal); E11.65 Type 2 diabetes mellitus with hyperglycemia; I89.0 Lymphedema, not elsewhere classified; Z79.4 Long term (current) use of insulin; Z79.84 Long term (current) use of oral hypoglycemic drugs; Z79.899 Other long term (current) drug therapy
CPT/HCPCS: 36415; 80048; 83605; 85025; 99285; A4216

== ENCOUNTER → 2019-02-03 14:52 | Outpatient (CLI) | payer MEDICARE, OTHER, SELFPAY ==
[2019-01-31 09:24] VITALS: BMI 27.5
[2019-02-03 17:20] LABS: Anion Gap 8 (5-15); BUN 19 mg/dL (7-18); BUN/Creat Ratio 18.1 RATIO (10-20); Calcium,Total 9.4 mg/dL (8.5-10.1); Chloride 100 mmol/L (98-107); Creatinine, Serum 1.05 mg/dL (0.55-1.02); EST Glomerular Filtration Rate 54 mL/min (>60); Est Glom Filt Rate - Afr Amer 65 mL/min (>60); Glucose 227 mg/dL (74-106); Potassium 3.6 mmol/L (3.5-5.1); Sodium Level 133 mmol/L (136-145)
== END ==
PROVIDERS: Family Provider Family Medicine Geriatric Medicine; PCP Family Medicine Geriatric Medicine; Visit Provider Family Medicine Geriatric Medicine
DX: E87.6 Hypokalemia (principal)
CPT/HCPCS: 36415; 80048

== ENCOUNTER 2019-02-07 09:01 | Emergency (ER) | payer MEDICARE, OTHER, SELFPAY ==
[2019-02-07 09:02] VITALS: BP 158/77; PULSE 90; RESP 16; TEMP 36.6; O2SAT 99; BMI 26.8
--- NOTE | 2019-02-07 09:20 | ED.VIS.GEN ---
History of Present Illness Chief Complaint: General Illness Detail of Chief Complaint: I do not feel right Informant: Patient Onset: Days Context: Gradual Onset Timing: Continuous Quality: Not normal self Location: Generalized feeling of unwellness Current Severity: Mild Maximum Severity: Moderate Worsened by: Patient is concerned symptoms secondary to new medications Relieved by: None Associated Symptoms: Uneasiness, tremors, thirst, dry mouth, increased urination Narrative: Patient is a pleasant elderly woman who was seen last week and diagnosed with cellulitis posterior left leg and placed on antibiotics. Anabolic's were changed by Dr. Cherry. She was placed on clindamycin. She also was prescribed Lasix 40 mg, Zaroxolyn and potassium chloride. Patient states her leg appears better. She reports increased urination, increased thirst and dry mouth. She reports feeling anxious with tremors and not her normal self. She states she is unable to describe it. She states I feel something is wrong. Prior similar symptoms: No Recent Illness/Hospitalization: Yes - Past Medical History (1) Lymphedema Status: Chronic (2) History of type 1 diabetes mellitus Status: Chronic Past Medical History - Allergies and Home Meds Allergies/Adverse Reactions: Allergies No Known Allergies Allergy (Verified 02/07/19 09:02) Primary Care Physician: Kurtis Ross Chi, MD [Primary Care Provider] - Prior records reviewed: Yes Surgical History: noncontributory Lives: Spouse/ Significant Other Smoking Status: Former smoker Alcohol: None Drugs: None Review of Systems General: Denies: Chills, Fever, Malaise, Sweats Eyes: Denies: Visual changes - bilaterally, Blurred Vision - bilaterally, Diplopia ENT: Denies: Bilateral ear pain, Rhinorrhea, Sore throat Cardiovascular: Denies: Chest pain, Palpitations Respiratory: Denies: Dyspnea, Cough, Dyspnea on exertion Gastrointestinal: Denies: Abdominal pain, Nausea, Vomiting, Diarrhea, Melena, Hematochezia Genitourinary: Reports: Frequency. Denies: Dysuria, Hematuria Musculoskeletal: Denies: Myalgias, Arthralgias, Neck pain, Back pain, Extremity Pain Skin: Denies: Rash, Wounds Neurological: Reports: Weakness, Parasthesia, Numbness, - - Uneasiness and shaking Psych: Reports: Anxiety Allergy: Denies: Uticaria, Swelling of the mouth Physical Exam Vital Signs/Narrative: Vital Signs Temp Pulse Resp BP Pulse Ox 02/07/19 09:02 97.8 F 90 16 158/77 H 99 Inital Vital Signs reviewed: Yes General: Well nourished, Well developed, No Acute Distress Head: Normocephalic, Atraumatic Eyes: Perrl, EOMI. Negative for: Pale conjunctiva, Scleral icterus ENT: Moist mucous membranes, No rhinorrhea Neck: Supple, Nontender Cardiovascular: Regular rate, Regular rhythm, No murmurs, Normal S1, Normal S2 Respiratory: No distress, CTA bilaterally, Chest nontender Abdomen: Soft, Nontender, Nondistended, Normal bowel sounds Back: Nontender, Normal Inspection Extremities: Nontender, Edema - 2-3+ pitting edema with venous stasis dermatitis. Infected area has improved markedly. There is no pustules noted. There is no warmth. Skin: Pallor, Rash - Venous stasis dermatitis right and left leg Neurological: Alert, Oriented x3, Cranial nerves II-XII grossly intact, Normal Strength, Normal Sensation, Normal DTR Psychological: Normal affect Diagnostic/Tx/Re-eval Laboratory Results 02/07/19 02/07/19 09:30 09:30 WBC 7.9 RBC 4.19 L Hgb 14.0 Hct 39.2 MCV 93.6 MCH 33.4 H MCHC 35.7 RDW 13.3 RDW Differential 45.3 H Plt Count 131 L MPV 9.0 Immature Gran % (Auto) 0.300 Neut % (Auto) 65.7 Lymph % (Auto) 22.7 [place] % (Auto) 9.6 Eos % (Auto) 1.4 Baso % (Auto) 0.3 Absolute Neuts (auto) 5.2 Absolute Lymphs (auto) 1.79 Total Counted Not Reportable Sodium 135 L Potassium 2.8 L Chloride 96 L Carbon Dioxide 30.0 Anion Gap 9 BUN 21 H Creatinine 1.24 H Estim Creat Clear Calc 32.29 Est GFR (MDRD) Af Amer 54 L Est GFR (MDRD) Non-Af 44 L BUN/Creatinine Ratio 16.9 Glucose 190 H Calcium 9.4 - Medical Decision Making Patient with multiple vague generalized symptoms. Will assess electrolytes since patient was recently prescribed Lasix and Zaroxolyn. With complaint of weakness and she appears pale will obtain CBC to assess H&H. Patient's potassium is 2.8. Will administer 50 mEq of potassium liquid p.o. now and repeat in 1 hour. Since patient's creatinine has risen from 0.9-1.24 will have her discontinue Zaroxolyn. Patient tolerated p.o. potassium. She will be discharged home to have repeat blood work next week. ED Disposition - Plan for ED Patient: Disposition: Home or Assisted Living Diagnosis: Hypokalemia due to loss of potassium, Acute renal insufficiency, Mild dehydration, Lymphedema of both lower extremities Instructions: ED Potassium Deficiency, ED Lymphedema Referrals: Kurtis Ross Chi, MD [Primary Care Provider] - 5-7 Days Additional Instructions: 1. Discontinue Zaroxolyn 2. Contact wound center at [phone] evaluation to treat your lymphedema 3. Continue taking antibiotics until gone 4. Contact Dr. Ross's office for blood work next week to assess your potassium and renal function
[2019-02-07 09:43] LABS: Absolute Lymphocyte Count 1.79 X10^3/ul (0.83-4.51); Absolute Neutrophil Count 5.2 X10^3/uL (2.0-7.7); Basophil# 0.02 X10^3/uL; Basophil% 0.3 % (0-1); Eosinophil# 0.11 X10^3/uL; Eosinophils% 1.4 % (0-5); Hematocrit 39.2 % (37-47); Lymphocyte # 1.79 X10^3/ul (4.0); Lymphocyte % 22.7 % (19-41); Mean Corp Hgb Conc 35.7 g/gl (32-36); Mean Corpuscular Hgb 33.4 pg (27.0-32.0); Mean Corpuscular Volume 93.6 fL (81-99); Monocyte# 0.76 X10^3/uL; Monocyte% 9.6 % (0-10); Neutrophil # 5.19 X10^3/uL (2.7-7.7); Neutrophil % 65.7 % (47-70); Platelet Count 131 K/mm3 (150-450); RBC Distribution Width CV 13.3 % (11.6-14.6); RBC Distribution Width SD 45.3 fl (35.1-43.9); Red Blood Count 4.19 M/mm3 (4.2-5.4); White Blood Count 7.9 K/mm3 (4.4-11.0)
[2019-02-07 09:47] LABS: POSITIVE COUNT NO; POSITIVE DIFFERENTIAL NO; POSITIVE MORPHOLOGY NO
[2019-02-07 09:49] LABS: Anion Gap 9 (5-15); BUN 21 mg/dL (7-18); BUN/Creat Ratio 16.9 RATIO (10-20); Calcium,Total 9.4 mg/dL (8.5-10.1); Chloride 96 mmol/L (98-107); Creatinine, Serum 1.24 mg/dL (0.55-1.02); EST Glomerular Filtration Rate 44 mL/min (>60); Est Glom Filt Rate - Afr Amer 54 mL/min (>60); Estimated Creatinine Clearance 32.29 ml/min; Glucose 190 mg/dL (74-106); Potassium 2.8 mmol/L (3.5-5.1); Sodium Level 135 mmol/L (136-145)
[2019-02-07 12:09] VITALS: BP 121/63; PULSE 96; RESP 17; O2SAT 99
== END 2019-02-07 12:26 | disposition home or self-care (01) ==
PROVIDERS: Emergency Provider Emergency Medicine; Family Provider Family Medicine Geriatric Medicine; PCP Family Medicine Geriatric Medicine
DX: E87.6 Hypokalemia (principal); E86.0 Dehydration; N28.9 Disorder of kidney and ureter, unspecified; I89.0 Lymphedema, not elsewhere classified; E10.9 Type 1 diabetes mellitus without complications; R25.1 Tremor, unspecified; F41.9 Anxiety disorder, unspecified; Z79.4 Long term (current) use of insulin; Z79.899 Other long term (current) drug therapy; Z87.891 Personal history of nicotine dependence
CPT/HCPCS: 80048; 85025; 99284; A4216

== ENCOUNTER → 2019-02-13 11:04 | Outpatient (CLI) | payer MEDICARE, OTHER, SELFPAY ==
[2019-02-07 09:02] VITALS: BMI 26.8
[2019-02-13 13:16] LABS: Anion Gap 7 (5-15); BUN 23 mg/dL (7-18); BUN/Creat Ratio 19.8 RATIO (10-20); Calcium,Total 9.3 mg/dL (8.5-10.1); Chloride 100 mmol/L (98-107); Creatinine, Serum 1.16 mg/dL (0.55-1.02); EST Glomerular Filtration Rate 48 mL/min (>60); Est Glom Filt Rate - Afr Amer 58 mL/min (>60); Glucose 174 mg/dL (74-106); Potassium 3.4 mmol/L (3.5-5.1); Sodium Level 134 mmol/L (136-145)
== END ==
PROVIDERS: Family Provider Family Medicine Geriatric Medicine; PCP Family Medicine Geriatric Medicine; Visit Provider Family Medicine Geriatric Medicine
DX: N18.3 Chronic kidney disease, stage 3 (moderate) (principal)
CPT/HCPCS: 36415; 80048

== ENCOUNTER 2019-02-20 07:48 | Outpatient (RCR) | payer MEDICARE, OTHER, SELFPAY ==
--- NOTE | 2019-02-25 14:38 | HP.OTEVAL ---
Patient's Visit Information TORY LY is a 78 year old F, referred to Occupational Therapy by Kurtis Ross MD, with a diagnosis of bilateral LE lymphedema. Date of Evaluation: 02/20/19 Occupational Therapist: More Conway, OTR/Didi, CHT - Subjective Subjective: This 78 year old female was seen for OT eval with dx with LE lymphedema. pts dtr states she has had bigger ankles and in Oct. had increase swelling and was dx with cellulitis. pt states she is using cream on her LE, and arrives with circaid compression alternatives. would like to know how to use them. pt with dtr. - Pain bilateral LE 2 Pain Intensity Range: 0, 3 - Lymphedema (Circumferential Measure) Mid-foot: right 23cm left 23cm Ankle: right 29cm left 29cm Lower calf: right 31cm left 32cm Largest calf: right 45cm left 47cm Below knee: right 45cm left 46cm Lower Exremity Comments: pt demo with edema in bilateral LE- need of compression device to assist with mtg of LE edema - Lower Limb Functional Index Lower Extremity Functional Score: 38 - Goals Demonstrate a 20% reduction in edema by d/c: Yes Demonstrate adequate knowledge skin care/prec by 2nd week: Yes Demonstrate adequate knowledge therapeutic exercises by d/c: Yes Select approp compression garment w/donning/care/wear by d/c: Yes Voice need to replace compression garment every 4-6mo by dc: Yes - Rehabilitation General Assessment: PT demo with stage II- pt demo need for skilled OT services to ed. pt on mtg of lymphedema- pt would benefit from 1-2 visit to ensure understanding of HEP. Today pt and family were ed. on lymph stim ex, skin care and donning of compression device with velcro closures.therapist ed. pt on use of circaide- therapist voiced concerns with short compression sock that comes with the juxtalight- rec'd pt to use long compression sock to prevent digging in to her skin, dtr and pt demo understanding- pt ed. on donning circaide pt demo understanding. pt left with new compression gament on and no questions at this time. family and pt demo understanding and given handouts and agree to POC. Rehabilitation Potential: Good - Anticipated Interventions Anticipated Interventions: Education re Diagnosis, Manual Lymph Drainage, Education re Life-long lymphedema Management, Education re Self-Bandaging Techniques, Education re Skin Care and Precautions, Education re Self Massage Techniques, Education re Correct Donning Tech,Care&Wearing Sched Comp Garments - Visit Plan TEXT: Thank you for the opportunity to evaluate your patient. For Medicare and Medicare HMO plans, please review the plan of care and approve it. It will need to be FAXED BACK to us at [phone] for Medicare purposes. Please let me know if there are questions or concerns regarding this plan of care. Physician Signature: Date:
--- NOTE | 2019-04-30 15:29 | HP.OT.NRP ---
HP - Discharge Summary - Patient Information TORY LY was seen in my office for initial evaluation on 02/20/19. The following Plan of Care was established for this patient: - Anticipated Interventions Anticipated Interventions: Education re Diagnosis, Manual Lymph Drainage, Education re Life-long lymphedema Management, Education re Self-Bandaging Techniques, Education re Skin Care and Precautions, Education re Self Massage Techniques, Education re Correct Donning Tech,Care&Wearing Sched Comp Garments This patient was last seen in our office 02/20/19. Pertinent comments regarding their Occupational therapy will appear below: PT seen for OT eval only- pt did not schedule follow up visit and due to time lapse in therapy services pt d/c. At this point I will be discontinuing this patient from occupational therapy. I would be happy to see this patient again in the future if found appropriate by the physician. Thank you! More Conway, OTR/L, CHT
== END 2019-02-20 19:00 | disposition home or self-care (01) ==
LOC: OT 07:48
PROVIDERS: Family Provider Family Medicine Geriatric Medicine; PCP Family Medicine Geriatric Medicine; Referring Provider Family Medicine Geriatric Medicine; Visit Provider Family Medicine Geriatric Medicine
DX: I89.0 Lymphedema, not elsewhere classified (principal)
CPT/HCPCS: 97110; 97166; 97530

== ENCOUNTER → 2019-02-21 10:08 | Outpatient (CLI) | payer MEDICARE, OTHER, SELFPAY ==
[2019-02-07 09:02] VITALS: BMI 26.8
[2019-02-21 12:23] LABS: Anion Gap 6 (5-15); BUN 9 mg/dL (7-18); BUN/Creat Ratio 9.7 RATIO (10-20); Calcium,Total 8.5 mg/dL (8.5-10.1); Chloride 103 mmol/L (98-107); Creatinine, Serum 0.93 mg/dL (0.55-1.02); EST Glomerular Filtration Rate 62 mL/min (>60); Est Glom Filt Rate - Afr Amer 75 mL/min (>60); Glucose 208 mg/dL (74-106); Potassium 4.2 mmol/L (3.5-5.1); Sodium Level 138 mmol/L (136-145); Thyroid Stim Hormone (TSH) 3.09 uIU/mL (0.358-3.74)
== END ==
PROVIDERS: Family Provider Family Medicine Geriatric Medicine; PCP Family Medicine Geriatric Medicine; Referring Provider Family Medicine Geriatric Medicine; Visit Provider Family Medicine Geriatric Medicine
DX: E03.9 Hypothyroidism, unspecified (principal); E87.6 Hypokalemia
CPT/HCPCS: 36415; 80048; 84443

== ENCOUNTER → 2019-02-25 16:55 | Outpatient (CLI) | payer MEDICARE, OTHER, SELFPAY ==
[2019-02-07 09:02] VITALS: BMI 26.8
[2019-02-25 17:32] LABS: Erythrocyte Sedimentation Rate 20 mm/hr (0-30)
[2019-02-25 17:33] LABS: Absolute Lymphocyte Count 2.28 X10^3/ul (0.83-4.51); Basophil# 0.01 X10^3/uL; Basophil% 0.1 % (0-1); Eosinophils% 1.4 % (0-5); Hematocrit 38.2 % (37-47); Hemoglobin 12.8 g/dl (12.0-15.0); Lymphocyte # 2.28 X10^3/ul (4.0); Lymphocyte % 31.4 % (19-41); Mean Corp Hgb Conc 33.5 g/gl (32-36); Mean Corpuscular Hgb 32.2 pg (27.0-32.0); Mean Platelet Vol. 8.9 fl (6.2-12.0); Monocyte# 0.89 X10^3/uL; Monocyte% 12.3 % (0-10); Neutrophil # 3.97 X10^3/uL (2.7-7.7); Neutrophil % 54.7 % (47-70); Platelet Count 111 K/mm3 (150-450); RBC Distribution Width CV 13.2 % (11.6-14.6); RBC Distribution Width SD 46.1 fl (35.1-43.9); Red Blood Count 3.98 M/mm3 (4.2-5.4); White Blood Count 7.3 K/mm3 (4.4-11.0)
[2019-02-25 17:48] LABS: POSITIVE COUNT NO; POSITIVE DIFFERENTIAL NO; POSITIVE MORPHOLOGY NO
[2019-02-25 18:10] LABS: Anion Gap 4 (5-15); BUN 9 mg/dL (7-18); BUN/Creat Ratio 9.9 RATIO (10-20); Calcium,Total 8.8 mg/dL (8.5-10.1); Chloride 106 mmol/L (98-107); Creatinine, Serum 0.91 mg/dL (0.55-1.02); EST Glomerular Filtration Rate 63 mL/min (>60); Est Glom Filt Rate - Afr Amer 77 mL/min (>60); Glucose 130 mg/dL (74-106); Potassium 4.5 mmol/L (3.5-5.1); Sodium Level 139 mmol/L (136-145)
== END ==
PROVIDERS: Family Provider Family Medicine Geriatric Medicine; PCP Family Medicine Geriatric Medicine; Referring Provider Family Medicine Geriatric Medicine; Visit Provider Family Medicine Geriatric Medicine
DX: E87.6 Hypokalemia (principal); L03.90 Cellulitis, unspecified; N17.9 Acute kidney failure, unspecified
CPT/HCPCS: 36415; 80048; 85025; 85652; 86140

== ENCOUNTER → 2019-02-28 11:56 | Outpatient (CLI) | payer MEDICARE, OTHER, SELFPAY ==
[2019-02-07 09:02] VITALS: BMI 26.8
[2019-02-28 13:32] LABS: Anion Gap 9 (5-15); BUN 13 mg/dL (7-18); BUN/Creat Ratio 14.8 RATIO (10-20); Calcium,Total 8.6 mg/dL (8.5-10.1); Chloride 103 mmol/L (98-107); Creatinine, Serum 0.88 mg/dL (0.55-1.02); EST Glomerular Filtration Rate 66 mL/min (>60); Est Glom Filt Rate - Afr Amer 80 mL/min (>60); Glucose 172 mg/dL (74-106); Potassium 3.6 mmol/L (3.5-5.1); Sodium Level 139 mmol/L (136-145)
== END ==
PROVIDERS: Family Provider Family Medicine Geriatric Medicine; PCP Family Medicine Geriatric Medicine; Visit Provider Family Medicine Geriatric Medicine
DX: N17.9 Acute kidney failure, unspecified (principal)
CPT/HCPCS: 36415; 80048

== ENCOUNTER → 2019-03-07 10:57 | Outpatient (CLI) | payer MEDICARE, OTHER, SELFPAY ==
[2019-02-07 09:02] VITALS: BMI 26.8
[2019-03-07 12:12] LABS: Anion Gap 4 (5-15); BUN 15 mg/dL (7-18); BUN/Creat Ratio 13.8 RATIO (10-20); Chloride 102 mmol/L (98-107); Creatinine, Serum 1.09 mg/dL (0.55-1.02); EST Glomerular Filtration Rate 52 mL/min (>60); Est Glom Filt Rate - Afr Amer 62 mL/min (>60); Glucose 140 mg/dL (74-106); Potassium 4.3 mmol/L (3.5-5.1); Sodium Level 136 mmol/L (136-145)
== END ==
PROVIDERS: Family Provider Family Medicine Geriatric Medicine; PCP Family Medicine Geriatric Medicine; Referring Provider Family Medicine Geriatric Medicine; Visit Provider Family Medicine Geriatric Medicine
DX: N17.9 Acute kidney failure, unspecified (principal); E87.6 Hypokalemia
CPT/HCPCS: 36415; 80048

== ENCOUNTER → 2019-04-08 11:09 | Outpatient (CLI) | payer MEDICARE, OTHER, SELFPAY ==
[2019-04-08 12:42] LABS: Absolute Lymphocyte Count 1.69 X10^3/ul (0.83-4.51); Absolute Neutrophil Count 2.8 X10^3/uL (2.0-7.7); Basophil# 0.02 X10^3/uL; Basophil% 0.4 % (0-1); Eosinophil# 0.12 X10^3/uL; Eosinophils% 2.3 % (0-5); Hematocrit 35.9 % (37-47); Hemoglobin 12.3 g/dl (12.0-15.0); Lymphocyte # 1.69 X10^3/ul (4.0); Lymphocyte % 32.3 % (19-41); Mean Corp Hgb Conc 34.3 g/gl (32-36); Mean Corpuscular Hgb 31.5 pg (27.0-32.0); Mean Corpuscular Volume 92.1 fL (81-99); Mean Platelet Vol. 9.2 fl (6.2-12.0); Monocyte# 0.59 X10^3/uL; Monocyte% 11.3 % (0-10); Neutrophil % 53.5 % (47-70); Platelet Count 101 K/mm3 (150-450); RBC Distribution Width CV 12.7 % (11.6-14.6); RBC Distribution Width SD 41.4 fl (35.1-43.9); White Blood Count 5.2 K/mm3 (4.4-11.0)
[2019-04-08 12:45] LABS: POSITIVE COUNT NO; POSITIVE DIFFERENTIAL NO; POSITIVE MORPHOLOGY NO
[2019-04-08 13:02] LABS: Vitamin D,25 Hydroxy 40.6 ng/mL (29.95-100.01)
[2019-04-08 13:05] LABS: ALB/GLOB Ratio 0.8 RATIO (0.9-2.4); AST(SGOT) 23 U/L (15-37); Alanine Aminotransfer ALT/SGPT 17 U/L (13-56); Albumin, Serum 3.1 g/dL (3.2-5.0); Alkaline Phosphatase 120 U/L (45-117); Anion Gap 12 (5-15); BUN 20 mg/dL (7-18); BUN/Creat Ratio 15.5 RATIO (10-20); Calcium,Total 9.3 mg/dL (8.5-10.1); Chloride 99 mmol/L (98-107); Creatinine, Serum 1.29 mg/dL (0.55-1.02); EST Glomerular Filtration Rate 42 mL/min (>60); Est Glom Filt Rate - Afr Amer 51 mL/min (>60); Glucose 147 mg/dL (74-106); Potassium 4.4 mmol/L (3.5-5.1); Protein, Total 7.1 g/dL (6.4-8.2); Sodium Level 133 mmol/L (136-145); Thyroid Stim Hormone (TSH) 9.62 uIU/mL (0.358-3.74)
== END ==
PROVIDERS: Family Provider Family Medicine Geriatric Medicine; PCP Family Medicine Geriatric Medicine; Visit Provider Family Medicine Geriatric Medicine
DX: E11.9 Type 2 diabetes mellitus without complications (principal); I10 Essential (primary) hypertension; E55.9 Vitamin D deficiency, unspecified
CPT/HCPCS: 36415; 80053; 82306; 84443; 85025

== ENCOUNTER 2019-04-29 15:24 | Emergency (ER) | payer MEDICARE, OTHER, SELFPAY ==
[2019-04-29 15:25] VITALS: BP 149/7; PULSE 97; RESP 17; TEMP 37; O2SAT 98; BMI 27.3
--- NOTE | 2019-04-29 15:59 | ED.VIS.GEN ---
History of Present Illness Chief Complaint: Lower Extremity Injury Detail of Chief Complaint: Bilateral lower extremity pain Informant: Patient, Family Onset: Today Current Severity: Moderate Maximum Severity: Moderate Narrative: Patient sees Dr. Salas for management of back pain secondary to spinal stenosis. 3 months ago she had a epidural injection. Following that injection she had pain below the knees bilaterally for 3 days that slowly improved. Patient went for her second epidural injection today. Immediately following the injection she complained of severe pain below the knees bilaterally again. Patient reportedly was given Dilaudid in the office but pain was not managed and she was sent to the emergency room. She states her back feels fine and her thighs are not painful. Patient does state that before her procedure today she was having some tingling in the lower legs bilaterally. - Past Medical History (1) Spinal stenosis Status: Acute (2) Segmental and somatic dysfunction of lumbar region Status: Acute (3) Segmental and somatic dysfunction of pelvic region Status: Acute (4) Segmental and somatic dysfunction of thoracic region Status: Acute (5) DDD (degenerative disc disease), lumbar Status: Chronic (6) History of type 1 diabetes mellitus Status: Chronic (7) Lymphedema Status: Chronic Past Medical History - Allergies and Home Meds Allergies/Adverse Reactions: Allergies No Known Allergies Allergy (Verified 04/29/19 15:28) Primary Care Physician: Yonis Salas MD [STAFF PHYSICIAN] - 5-7 Days Prior records reviewed: Yes Past Medical History: - - Reviewed Surgical History: noncontributory Smoking Status: Former smoker Review of Systems General: Denies: Chills, Fever ENT: Denies: Bilateral ear pain Cardiovascular: Denies: Chest pain, Palpitations Respiratory: Denies: Dyspnea, Cough, Sputum Gastrointestinal: Denies: Abdominal pain, Nausea, Vomiting Musculoskeletal: Reports: Arthralgias. Denies: Back pain Neurological: Denies: Parasthesia Physical Exam Vital Signs/Narrative: Vital Signs Temp Pulse Resp BP Pulse Ox 04/29/19 15:25 98.6 F 97 17 149/7 H 98 General: Well nourished, Well developed ENT: Moist mucous membranes Neck: Supple Cardiovascular: Regular rate, Regular rhythm Respiratory: No distress, CTA bilaterally Abdomen: Soft, Nontender, Nondistended Extremities: - - Mild tenderness with palpation over the lower legs. She has mild skin thickening from chronic lymphedema. No sign of cellulitis. Strong distal pulses are noted. No tenderness is noted over the thighs. Neurological: Alert, Oriented x3 Diagnostic/Tx/Re-eval - Medical Decision Making Patient was initially given 0.5 mg of Dilaudid and Zofran. On repeat evaluation she reported mild improvement. She was given 300 mg of gabapentin. At this time patient states the periods of time between her spikes of pain have lengthened. She has been able to get up to the bathroom several times. At this time she will be sent home with a short course of gabapentin as well as Percocet which she will use instead of her [place]. ED Disposition - Plan for ED Patient: Disposition: Home or Assisted Living Diagnosis: Neuropathy Instructions: NEUROPATHY, Peripheral Prescriptions: Gabapentin [Neurontin] 300 mg PO DAILY #5 cap Prescription Printed Oxycodone HCl/Acetaminophen [Percocet 5/325] 1 tab PO Q6H PRN PRN 3 Days #12 tab PRN Reason: Pain Prescription Printed Referrals: Yonis Salas MD [STAFF PHYSICIAN] - 5-7 Days Additional Instructions: You can take Percocet in place of your [place], but do not take them both!
[2019-04-29] MEDS: HYDROmorphone 1 MG/ML Syringe 0.5 MG IV (16:31)
[2019-04-29 16:47] VITALS: PULSE 99; RESP 15; O2SAT 94
[2019-04-29] MEDS: Gabapentin 300 MG Capsule PO (17:30)
[2019-04-29 19:05] VITALS: BP 135/71; PULSE 66; RESP 15; O2SAT 95
== END 2019-04-29 19:06 | disposition home or self-care (01) ==
PROVIDERS: Emergency Provider Emergency Medicine; Family Provider Family Medicine Geriatric Medicine; PCP Family Medicine Geriatric Medicine
DX: G62.9 Polyneuropathy, unspecified (principal); M99.03 Segmental and somatic dysfunction of lumbar region; M99.05 Segmental and somatic dysfunction of pelvic region; M99.02 Segmental and somatic dysfunction of thoracic region; M51.36 Other intervertebral disc degeneration, lumbar region; I89.0 Lymphedema, not elsewhere classified; Z79.4 Long term (current) use of insulin; Z79.899 Other long term (current) drug therapy; Z87.891 Personal history of nicotine dependence
CPT/HCPCS: 96374; 99284; A4216

== ENCOUNTER → 2019-05-26 09:52 | Outpatient (CLI) | payer MEDICARE, OTHER, SELFPAY ==
[2019-04-29 15:25] VITALS: BMI 27.3
[2019-05-26 11:38] LABS: Thyroid Stim Hormone (TSH) 3.21 uIU/mL (0.358-3.74)
[2019-05-26 12:10] LABS: Anion Gap 5 (5-15); BUN 14 mg/dL (7-18); BUN/Creat Ratio 13.3 RATIO (10-20); Calcium,Total 8.9 mg/dL (8.5-10.1); Chloride 97 mmol/L (98-107); Creatinine, Serum 1.05 mg/dL (0.55-1.02); EST Glomerular Filtration Rate 54 mL/min (>60); Est Glom Filt Rate - Afr Amer 65 mL/min (>60); Glucose 182 mg/dL (74-106); Potassium 4.1 mmol/L (3.5-5.1); Sodium Level 131 mmol/L (136-145)
== END ==
PROVIDERS: Family Provider Family Medicine Geriatric Medicine; PCP Family Medicine Geriatric Medicine; Referring Provider Family Medicine Geriatric Medicine; Visit Provider Family Medicine Geriatric Medicine
DX: E03.9 Hypothyroidism, unspecified (principal)
CPT/HCPCS: 36415; 80048; 84443

== ENCOUNTER 2019-06-18 11:30 | Outpatient (RCR) | payer MEDICARE, OTHER, SELFPAY ==
--- NOTE | 2019-06-02 09:25 | HP.PTEVAL_ITS ---
Patient's Visit Information TORY LY is a 79 year old F referred to Physical Therapy by Yonis Salas MD with a diagnosis of Back Pain. Date of Evaluation: 05/21/19 Physical Therapist: Laura Segovia DPT - Visit Plan Frequency: 2x /Week Duration: 4 Weeks Plan: PLan to talk to JEFF about using US as pt has a history of cancer (masectomy) If applicable try US to LB Therapeutic exercises and activities targeting BLE, core and back strength, ROM and flexibiltiy. Modalities and Manual as needed to increase ROM and decrease pain. Stair and gait training for improved mobility. If patient demonstrates increased pain or decrease tolerance to land exercises discussed transitioning to pool. - Subjective Findings: Pt presents with low back pain that has been going on since October 2018. Saw a chirproctor and saw a fx had a compond to fuse it and has been receiving shots. Try to not get shots and decided to try therapy. Pain mainly in low back area and does not travel. Pain worsens in standing and prolonged si tting. Pt taking pain pill to help alleviate pain, ibuprofen. Reports no numbess or tingling down legs. Pain stays consistent throughout the day. It worsens with activity resulting in increased seated rest breaks. Pt ambulates with walker at night in the house and throughout community. She has difficulty with stairs. Pt reports Jesikai put on lifting restriction around 5# - Pain back pain (lumbar) Pain Intensity (Out of 10): 5 Pain Intensity Range: 1, 10 Comment: L worse than R - Objective Posture: sitting in chair with decreased lumbar lordosis moderate posterior pelvic rotation; increased kyphotic thoracic posturing. ROM: Lumbar ROM WFL with mild limitations in flexion, sidebending bilaterally and rotation and moderate limitation in extension: BLE WFL. Strength: BLE grossly 4/5 strength with decreased strength of B hip extension and abduction; core strength 3-/5; low back strength grossly 4/5. Palpation: Tenderness to palpation along bilateral paraspinals, L>R; tenderness along left flank area and buttock area near piriformis. Flexibility: hamstring L leg 30* flexion tightness; R leg 20* flexion tightness; moderate piriformis tightness bilaterally. Repeated movements: No change in back pain with repeated extension or flexion. Gait: Ambulating with increased lateral sway to the right and mild hip drop on the left. Stairs: Ascend/descend using step to pattern with two handhold on handrail. Functional Mobility: Picking items up from lower surfaces pt demonstrated limit LE involvement and relied on back. During the evaluation patient had no increase in pain and just change in comfort level to left side compared to right when transitioning supine to sitting, palpation and standing repeated extension - Goals Goal 1:: Pt will increase BLE, core and back strength by 1 muscle grade Goal Time Frame: 6-8 Weeks Goal 2:: Pt will ascend/descend 5+ stairs with single handrail support Goal Time Frame: 6-8 Weeks Goal 3:: Pt will increase, pain free lumbar ROM in all planes Goal Time Frame: 6-8 Weeks Goal 4:: Pt will be independent with HEP Goal Time Frame: 4-6 Weeks Goal 5:: Pt will increase B hamstring flexibility by 10* Goal Time Frame: 4-6 Weeks Goal 6:: Pt will sit with neutral pelvis position and maintain for 5 minutes Goal Time Frame: 4-6 Weeks - Rehabilitation Potential Physical Therapy Diagnosis: Muscle Weakness; Impaired Mobility Rehabilitation Potential: Good - Anticipated Interventions Patient/Client Instruction: Educate patient on: Condition, Plan of Care For the Purpose of:: To increase ROM, To improve muscle performance and motor function, To improve ability to perform ADL's, To improve performance and independence with ADL's, To improve ability of physical actions for home/community/work/leisure, To improve gait and locomotor functions, To increase flexibility/ROM, To improve endurance Therapeutic Exercise to Include: Strength training, Endurance training, Body mechanics, Postural training, Flexibilty training, Gait and locomotor training, Passive ROM, Active ROM, Dynamic Lumbar Stabilization For the Purpose of:: To increase ROM, To improve muscle performance and motor function, To improve ability to perform ADL's, To improve performance and independence with ADL's, To improve ability of physical actions for home/community/work/leisure, To improve gait and locomotor functions, To increase flexibility/ROM, To improve endurance Functional Training to Include: ADL Training For the Purpose of:: To increase tolerance to activity/condition/position, To improve performance and independence with ADL's, To improve ability of physical actions for home/community/work/leisure, To improve gait and locomotor functions Manual Therapy Techniques to Include: Mobilization, Manipulation, Passive ROM, Soft tissue mobilization Comment: massage not covered For the Purpose of:: To decrease pain, To increase ROM, To decrease soft tissue restriction Iontophoresis (with Dexamethozone, with Acetic acid): No - not covered For the Purpose of:: To decrease pain, To increase ROM, To decrease soft tissue restriction Thank you for the opportunity to evaluate your patient. For Medicare and Medicare HMO plans, please review the plan of care and approve it. It will need to be FAXED BACK to us at [phone] for Medicare purposes. For Medicare only, by signing this I certify the plan of care. Please let me know if there are questions or concerns regarding this plan of care. Physician Signature: Date:
--- NOTE | 2019-06-18 12:15 | HP.PTDCSUM ---
HP - PT D/C Summary It has been my pleasure to treat TORY LY under orders from Yonis Rothman MD, for the diagnosis of Back Pain for a total of 7 visit(s). Discharge Date: Please see the following information for a summary of their discharge status. - Subjective Subjective: PATIENT REPORTS SHE IS STILL GETTING UP TO 9/10 BACK PAIN. I DO HAVE A LEG PROBLEM - LYMPHADEMA. PATIENT REPORTS THAT TAKING CARE OF HER IS REALLY HARD ON HER AND MAKES IT HARD TO KNOW IF ANYTHING IS HELPING HER. SHE RELATES INCREASED BACK PAIN TO PULLING ON VELCRO FOR HER . SHE FEELS THERAPY INCREASES HER PAIN. PATIENT IS STILL RELUCTANT TO TRY AQUATIC THERAPY DUE TO HX OF HAVING A BREAST REMOVED AND NOT HAVING ANY CLOTHES SHE FEELS COMFORTABLE WEARING IN THE POOL. SHE DOESN'T THINK IT WILL REALLY HELP EITHER. THINKS ULTRASOUND MIGHT AGGITATE IT TOO. FOLLOWING UP WITH DR. ROTHMAN NEXT WEEK. - Pain back pain (lumbar) Pain Intensity (Out of 10): 5 - Overall Improvement % Improvement: 40 - Objective Objective/Function: PATIENT IS NOT IMPROVING. SHE IS NOT TOLERATING LIGHT EX WELL BUT HAS LEARNED SOME HOME EX'S, POSTURE CONTROL AND ACTIVITY MODIFICATIONS THAT SHE USES TOLERATED. - Goals Goal 1:: Pt will increase BLE, core and back strength by 1 muscle grade Goal Progress: Not Progressing Goal 2:: Pt will ascend/descend 5+ stairs with single handrail support Goal Progress: Not Progressing Goal 3:: Pt will increase, pain free lumbar ROM in all planes Goal Progress: Not Progressing Goal 4:: Pt will be independent with HEP Goal Progress: Not Progressing Goal 5:: Pt will increase B hamstring flexibility by 10* Goal Progress: Not Progressing Goal 6:: Pt will sit with neutral pelvis position and maintain for 5 minutes Goal Progress: Not Progressing - Plan Plan: D/C. PATIENT AGREEABLE - D/C Information If there are questions or concerns regarding this patient's physical therapy, please feel free to call me at [phone]. Thank you for the referral of this patient. Sincerely, Margarita Guillen, PT, Cert MDT
== END 2019-06-18 19:00 | disposition home or self-care (01) ==
LOC: PT 11:30
PROVIDERS: Family Provider Family Medicine Geriatric Medicine; PCP Family Medicine Geriatric Medicine; Referring Provider Anesthesiology Pain Medicine; Visit Provider Anesthesiology Pain Medicine
DX: M54.9 Dorsalgia, unspecified (principal)
CPT/HCPCS: 97035; 97110; 97161; 97162; 97530

== ENCOUNTER 2019-07-05 06:42 | Emergency (ER) | payer MEDICARE, OTHER, SELFPAY ==
[2019-07-05 06:43] VITALS: BP 173/78; PULSE 107; RESP 20; TEMP 36.7; O2SAT 97; BMI 26.4
--- NOTE | 2019-07-05 07:22 | EKG12_ITS ---
Test Reason : Blood Pressure : / mmHG Vent. Rate : 099 BPM Atrial Rate : 099 BPM P-R Int : 170 ms QRS Dur : 102 ms QT Int : 354 ms P-R-T Axes : 041 -37 052 degrees QTc Int : 454 ms Normal sinus rhythm Left axis deviation Voltage criteria for left ventricular hypertrophy Cannot rule out Septal infarct , age undetermined Abnormal ECG Confirmed by KUMAR DELGADO, MEKHI ([id number]), supervising editor news reel MONIQUE TERESA ([id number]) on 07/07/2019 8:57:37 AM Referred By: DAMASO Confirmed By:MEKHI HEATH MD
--- NOTE | 2019-07-05 07:34 | ED.VISSUMM ---
- ER Visit Summary Date of Service: 07/05/19 Chief Complaint: I do not feel well History of Present Illness: The patient is a 79 F states she has been under stress recently as her is having GI bleeding. This morning she feels like she just does not feel well. She is really unable to characterize it any further. States she was very shaky. She thought maybe her blood sugar was low but it was 74 at home and she took orange juice and for EMS blood sugar was up to 121. She has not had her Percocet this morning that she takes 3 times a day but is not due until 8:00. She denies any new pain at the current time. She has not had breakfast. No fevers. No URI symptoms. No vomiting diarrhea. No urinary symptoms Physical Examination: Afebrile vital signs are stable noted tachycardia around 100 Gen: Well-nourished well-developed Head: Normocephalic atraumatic Eyes: Perrl EOMI ENT: TMs clear no rhinorrhea moist mucous membranes Neck: Supple no lymphadenopathy no JVD nontender CVS: Regular rate tachycardic rhythm no murmurs normal S1-S2 Respiratory: No distress clear to auscultation bilaterally chest nontender Abdomen: Soft nontender nondistended normal bowel sounds no masses Back: Nontender Extremity: Nontender no edema Skin: Normal color no rash Neuro: alert orientated ?3 CN II-XII intact normal strength sensation reflexes gait cerebellar she appears to have a tremor but it resolves when she talks. Psych: Anxious Test Results: EKG demonstrates a normal sinus rhythm at a rate of 99. CBC and chemistry showed a glucose of 131. Urinalysis is normal. Chest x-ray shows no acute findings and showed chronic changes Emergency Department Course and Treatment: Patient was given a meal tray. She is feeling better heart rate is down. I think this is most likely stress reaction due to her who is being admitted for GI bleeding. Patient to return if worsening or concerns Impression: 1. Anxiety reaction This note was generated with [employer] dictation software. It may contain incorrect words, spelling, and punctuation that were not noted in review of the chart prior to signing ED Disposition - Plan for ED Patient: Disposition: Home or Assisted Living Instructions: Anxiety Reaction Referrals: Kurtis Ross Chi, MD [Primary Care Provider] - As Needed
--- NOTE | 2019-07-05 07:45 | RAD_ITS ---
STUDY: X-RAY CHEST REASON FOR EXAM: Female, 79 years old. Shaking, weakness TECHNIQUE: Single AP portable view of the chest. COMPARISON: 03/01/2018 FINDINGS: EKG leads overlie the chest. Evidence of previous left mastectomy The lungs are clear and expanded. There is no demonstrated pleural abnormality. Normal size heart. Normal mediastinum and douglas. Normal visualized pulmonary arteries. There is atherosclerotic calcification of the aortic arch with tortuosity. There are diffuse degenerative changes of the visualized thoracic spine. There is degenerative osteoarthritis of the bilateral shoulders. There is no demonstrated abnormality of the visualized soft tissue structures of the upper abdomen. RAD/Chest 1 View (Portable) IMPRESSION: No acute pulmonary process Electronically Signed: Dereck Regalado MD at 8:10 EDT , Service support ,
[2019-07-05 07:50] LABS: Absolute Lymphocyte Count 1.38 X10^3/uL (0.83-4.51); Absolute Neutrophil Count 3.5 X10^3/uL (2.0-7.7); Basophil# 0.04 X10^3/uL; Basophil% 0.7 % (0-1); Eosinophil# 0.08 X10^3/uL; Eosinophils% 1.4 % (0-5); Hematocrit 39.6 % (37-47); Hemoglobin 13.5 g/dL (12.0-15.0); Lymphocyte # 1.38 X10^3/ul (4.0); Lymphocyte % 24.6 % (19-41); Mean Corp Hgb Conc 34.1 g/dL (32-36); Mean Corpuscular Hgb 31.5 pg (27.0-32.0); Mean Corpuscular Volume 92.5 fL (81-99); Mean Platelet Vol. 8.5 fl (6.2-12.0); Monocyte# 0.62 X10^3/uL; Monocyte% 11.1 % (0-10); NRBC Flagged by Analyzer 0 % (0-5); Neutrophil # 3.48 X10^3/uL (2.7-7.7); Platelet Count 84 K/mm3 (150-450); RBC Distribution Width CV 13.8 % (11.6-14.6); RBC Distribution Width SD 47.1 fl (35.1-43.9); Red Blood Count 4.28 M/mm3 (4.2-5.4); White Blood Count 5.6 K/mm3 (4.4-11.0)
[2019-07-05] MEDS: oxyCODONE 5 MG Tablet PO (07:57)
[2019-07-05 08:02] LABS: Anion Gap 10 (5-15); BUN 14 mg/dL (7-18); Calcium,Total 9.3 mg/dL (8.5-10.1); Chloride 100 mmol/L (98-107); Creatinine, Serum 0.93 mg/dL (0.55-1.02); EST Glomerular Filtration Rate 62 mL/min (>60); Est Glom Filt Rate - Afr Amer 75 mL/min (>60); Estimated Creatinine Clearance 42.36 ml/min; Glucose 131 mg/dL (74-106); Potassium 4.1 mmol/L (3.5-5.1); Sodium Level 138 mmol/L (136-145)
[2019-07-05 08:08] LABS: Bacteria 0 SEEN /hpf (None Seen); Mucous, Urine 0 SEEN /hpf (<or=2+); Red Blood Cells-Urine 0 SEEN /hpf (0-5); Squamous Epithelial Cells - UA 0 SEEN /hpf (5-10); White Blood Cells 0 SEEN /hpf (0-5)
[2019-07-05 08:09] LABS: Color, Urine Yellow (Yellow); Glucose, Dipstick Normal (Normal); Ketone-Dipstick Negative (Negative); Leukocyte Esterase-Dipstick Negative /ul (Negative); Nitrite-Dipstick Negative (Negative); Occult Blood-Urine Negative /ul (Negative); Protein-Dipstick Negative (Negative); Urine Bilirubin Dipstick Negative (Negative); Urine Clarity Clear (Clear); Urine Urobilinogen Normal (Normal)
[2019-07-05 09:12] VITALS: BP 187/86; PULSE 90; RESP 16; O2SAT 99
== END 2019-07-05 09:13 | disposition home or self-care (01) ==
PROVIDERS: Emergency Provider Emergency Medicine; Family Provider Family Medicine Geriatric Medicine; PCP Family Medicine Geriatric Medicine
DX: F41.1 Generalized anxiety disorder (principal); E11.40 Type 2 diabetes mellitus with diabetic neuropathy, unspecified; I10 Essential (primary) hypertension; Z79.899 Other long term (current) drug therapy; Z87.891 Personal history of nicotine dependence
CPT/HCPCS: 71045; 80048; 81001; 85025; 93005; 99285

== ENCOUNTER → 2019-07-11 09:18 | Outpatient (CLI) | payer MEDICARE, OTHER, SELFPAY ==
[2019-07-05 06:43] VITALS: BMI 26.4
[2019-07-11 13:06] LABS: Absolute Lymphocyte Count 1.44 X10^3/uL (0.83-4.51); Absolute Neutrophil Count 2.3 X10^3/uL (2.0-7.7); Basophil# 0.03 X10^3/uL; Basophil% 0.6 % (0-1); Eosinophil# 0.17 X10^3/uL; Eosinophils% 3.7 % (0-5); Hematocrit 37.2 % (37-47); Hemoglobin 12.4 g/dL (12.0-15.0); Lymphocyte # 1.44 X10^3/ul (4.0); Mean Corp Hgb Conc 33.3 g/dL (32-36); Mean Platelet Vol. 9.1 fl (6.2-12.0); Monocyte# 0.67 X10^3/uL; Monocyte% 14.4 % (0-10); NRBC Flagged by Analyzer 0 % (0-5); Neutrophil # 2.31 X10^3/uL (2.7-7.7); Neutrophil % 49.9 % (47-70); Platelet Count 97 K/mm3 (150-450); RBC Distribution Width SD 47.8 fl (35.1-43.9); White Blood Count 4.6 K/mm3 (4.4-11.0)
[2019-07-11 13:22] LABS: Vitamin D,25 Hydroxy 42.1 ng/mL (29.95-100.01)
[2019-07-11 13:38] LABS: ALB/GLOB Ratio 0.9 RATIO (0.9-2.4); AST(SGOT) 19 U/L (15-37); Alanine Aminotransfer ALT/SGPT 19 U/L (13-56); Albumin, Serum 3.4 g/dL (3.2-5.0); Alkaline Phosphatase 98 U/L (45-117); Anion Gap 8 (5-15); BUN 18 mg/dL (7-18); BUN/Creat Ratio 17.6 RATIO (10-20); Chloride 96 mmol/L (98-107); Creatinine, Serum 1.02 mg/dL (0.55-1.02); EST Glomerular Filtration Rate 56 mL/min (>60); Est Glom Filt Rate - Afr Amer 67 mL/min (>60); Globulin 3.8 g/dL (2.2-4.2); Glucose 151 mg/dL (74-106); Potassium 4.5 mmol/L (3.5-5.1); Protein, Total 7.2 g/dL (6.4-8.2); Sodium Level 132 mmol/L (136-145); Thyroid Stim Hormone (TSH) 2.93 uIU/mL (0.358-3.74)
== END ==
PROVIDERS: Family Provider Family Medicine Geriatric Medicine; PCP Family Medicine Geriatric Medicine; Visit Provider Family Medicine Geriatric Medicine
DX: E11.9 Type 2 diabetes mellitus without complications (principal); E55.9 Vitamin D deficiency, unspecified; I10 Essential (primary) hypertension
CPT/HCPCS: 36415; 80053; 82306; 84443; 85025

== ENCOUNTER → 2019-07-23 10:25 | Outpatient (CLI) | payer MEDICARE, OTHER, SELFPAY ==
[2019-07-05 06:43] VITALS: BMI 26.4
[2019-07-23 11:35] LABS: Amphetamine Urine VISTA NEGATIVE (<1000 ng/mL); Barbiturate Urine VISTA NEGATIVE (< 200 ng/mL); Benzodiazepine Urine VISTA NEGATIVE (< 200 ng/mL); Cocaine Urine VISTA NEGATIVE (< 300 ng/mL); Ecstacy Urine VISTA NEGATIVE (< 500 ng/mL); Methadone Urine VISTA NEGATIVE (< 300 ng/mL); PCP Urine VISTA NEGATIVE (< 25 ng/mL); THC Urine VISTA NEGATIVE (< 50 ng/mL); Vista UDS pH Range 6
== END ==
PROVIDERS: Family Provider Family Medicine Geriatric Medicine; PCP Family Medicine Geriatric Medicine; Referring Provider Anesthesiology Pain Medicine; Visit Provider Anesthesiology Pain Medicine
DX: F11.20 Opioid dependence, uncomplicated (principal)
CPT/HCPCS: 80307

== ENCOUNTER 2019-08-26 05:50 | Day surgery (SDC) | payer MEDICARE, OTHER, SELFPAY ==
--- NOTE | 2019-08-14 04:06 | HP_ITS ---
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 Is patient in pain?: No Allergies No Known Allergies Allergy (Verified 08/14/19 13:36) Medications Ascorbic Acid [Vitamin C] 500 mg PO DAILY@0800 07/05/19 [History Confirmed 08/14/19] Atorvastatin Calcium 40 mg PO DAILY 07/05/19 [History Confirmed 08/14/19] Baclofen 5 mg PO DAILY 07/05/19 [History Confirmed 08/14/19] Calcium Citrate/Vitamin D3 [Calcium Citrate-Vit D3 Caplet] 1 ea PO DAILY 07/05/19 [History Confirmed 08/14/19] Famotidine [Pepcid] 40 mg PO DAILY 07/05/19 [History Confirmed 08/14/19] Furosemide [Lasix] 60 mg PO BID 07/05/19 [History Confirmed 08/14/19] Gabapentin [Neurontin] 300 mg PO DAILY 07/05/19 [History Confirmed 08/14/19] Glimepiride [Amaryl] 4 mg PO DAILY 07/05/19 [History Confirmed 08/14/19] Levothyroxine [Synthroid] 150 mcg PO DAILY 07/05/19 [History Confirmed 08/14/19] Metoprolol Tartrate [Lopressor (Beta Nena)] 25 mg PO BID 07/05/19 [History Confirmed 08/14/19] Multivitamins,Therapeutic [Multivitamin] 1 tab PO DAILY 07/05/19 [History Confirmed 08/14/19] Oxycodone HCl/Acetaminophen [Endocet 5-325 Tablet] 1 ea PO TID 07/05/19 [History Confirmed 08/14/19] Polyethylene Glycol 3350 [Miralax] 17 gm PO DAILY 07/05/19 [History Confirmed 08/14/19] Potassium Chloride 2 tab PO BID 07/05/19 [History Confirmed 08/14/19] Sitagliptin Phosphate [Januvia] 50 mg PO DAILY 07/05/19 [History Confirmed 08/14/19] PFS Medical History HTN (hypertension) (Chronic) Arthritis (Acute) Cancer (Acute) Kidney disease (Acute) Diabetes (Acute) Diarrhea (Acute) Thyroid disease (Acute) Hypercholesterolemia (Acute) Acid reflux (Acute) Back problem (Acute) H/O transfusion of whole blood (Acute) Breast cancer (Acute) Cataracts, bilateral (Acute) Chronic headaches (Chronic) High triglycerides (Acute) Hypothyroidism (Acute) History of type 1 diabetes mellitus (Chronic) Lymphedema (Chronic) Spinal stenosis (Acute) Segmental and somatic dysfunction of pelvic region (Acute) Segmental and somatic dysfunction of thoracic region (Acute) DDD (degenerative disc disease), lumbar (Chronic) Segmental and somatic dysfunction of lumbar region (Acute) Surgical History Hx of colonoscopy (Acute) Hx of section (Acute) H/O tubal ligation (Acute) History of hysterectomy (Acute) Hx of cholecystectomy (Acute) H/O mastectomy (Acute) History of cataract surgery (Acute) Family History Grandfather CVA (cerebral vascular accident) Mother Hypertension Breast cancer Father Diabetes Heart disease Brother CVA (cerebral vascular accident) Diabetes Dementia Social History (Updated 08/14/19 @ 16:07 by Jeremi Wu MD) Smoking Status: Former smoker second hand exposure: No alcohol intake: never substance use type: does not use caffeine: Yes what type of physical activity do you participate in: none frequency: does not exercise HPI HPI HPI: TORY LY, is a 79 F who presents to the office today for HPI HPI Surgical H&P: Yes HPI: TORY LY, is a 79 F who presents to the office today for Evaluation for endoscopy. Back in 2008 she underwent a colonoscopy in which she was noted to have polyps. She has not had any further colonoscopies or endoscopic evaluation or radiologic evaluation since then. Patient notes to complain of constipation and at times she has diarrhea all dependent on how much MiraLAX she takes. ROS General General: Yes breast cancer; no weight change, appetite, fatigue, colon cancer or weakness HEENT HEENT: Yes eye surgery; no difficulty swallowing, eye injury, swollen glands or hoarseness Endo Endocrine: Yes diabetes mellitus; no thyroid disease, thyroid cancer, Hair loss, heat intolerance or cold intolerance Skin Skin: No rash or changing moles Musc Musculoskeletal: Yes back problems and arthritis; no rheumatoid arthritis, gout or joint pain Cardio Cardiovascular: Yes high blood pressure; no murmur, pacemaker, heart disease, atrial fibrillation, heart attack, heart stent, palpitations, shortness of breat with exertion or chest pain Psych Psychiatric: No depression, anxiety or hearing voices Resp Respiratory: No shortness of breath, No sleep apnea, No cough, No COPD, No asthma, No emphysema, No wheezing Gastro Gastrointestinal: No abdominal pain, No nausea or vomiting, No diarrhea, No constipation, No blood in stool, Yes acid reflux, Yes hemorrhoids, No ulcers, No gallbladder problem, No black,tarry stools Robinson Hematologic: No blood thinners, No blood disorders, No bleeding, No anemia, No blood clots Neuro Neurologic: No system reviewed and no additional complaints, except as docu, No as per HPI, No abnormal walking, No abnormal hearing, No abnormal movements, No abnormal speech, No behavioral changes, No burning sensations, No confusion, No seizure-like activity, No unsteadiness, No dizziness, No localized weakness, No frequent falls, No headache(s), No lack of coordination, No loss of vision, No memory loss, No numbness, No other visual disturbances, No radiating pain, No restless legs, No sensory deficit, No fainting, No tingling, No tremor(s), No weakness, No other Exam Const General: no acute distress, well developed, well hydrated Orientation: oriented to person, oriented to place, oriented to time [facility] Head: normocephalic, atraumatic Ears: external ears normal Mouth: moist mucous membranes Eyes Sclera: sclerae normal Pupils: normal by confrontation Neck Neck: no lymphadenopathy noted Neck mass: No Thyroid: thyroid normal, symmetrical Chest Chest palpation & inspection: normal inspection of the chest Resp Effort & Inspection: normal respiratory effort Auscultation: clear to auscultation bilaterally Percussion: percussion normal Cardio Rate: regular rate Rhythm: regular rhythm Heart Sounds: no murmurs GI Palpation: soft, no hepatosplenomegaly, no masses, nontender Rectal Exam: other Other: Rectal exam deferred. Extrem General: normal to inspection, no clubbing, cyanosis or edema Assessment & Plan Problems 1. Personal history of colonic polyps Z86.010 Plan I have discussed the above with the patient. I have offered the patient colonoscopy for evaluation. I have explained the risks/benefits of the procedure and described the procedure. I have discussed the risks with the patient, including but not limited to: infection, bleeding, perforation of the GI tract requiring emergency surgery, inability to complete the procedure, injury to any internal organs, complications of anesthesia, etc. - the patient understands and agrees to proceed. I have answered all the patient's questions to the patient's satisfaction and the patient has no further questions. The patient has been given instructions for the colon cleansing preparation. Plan Detail Goals Decrease pain and spasm Decrease inflammation Barriers DDD Coding Level of Care Code Off vis,new,level 3 Diagnoses Personal history of colonic polyps Z86.010 08/14/19 1607 <Electronically signed by Jeremi case MD> Date _ Jeremi Wu MD I have re-examined the patient. There are no clinical changes since date of exam.
[2019-08-14 13:39] VITALS: BMI 26.4
[2019-08-19 14:08] VITALS: BMI 26.4
[2019-08-26 06:15] VITALS: BP 173/88; PULSE 85; RESP 18; TEMP 36.2; O2SAT 100; BMI 25.0
[2019-08-26] MEDS: Lactated Ringers 1,000 ML 75 ML IV (06:31)
[2019-08-26 06:35] LABS: Bedside Glucose 166 mg/dL (70-110)
[2019-08-26 07:22] VITALS: BP 118/51; BP 173/88; PULSE 83; RESP 84; TEMP 36.2; O2SAT 99
--- NOTE | 2019-08-26 07:23 | OP.COLON_ITS ---
Patient Name: Zulay Kuhn Procedure Date: 08/26/2019 6:57 AM Date of : 1940 Age: 79 Procedure: Colonoscopy Indications: High risk colon cancer surveillance: Personal history of colonic polyps Providers: Jeremi Wu MD Referring MD: Kurtis Ross MD Medicines: See the Anesthesia note for documentation of the administered medications Patient Profile: This is a 79 year old female. Refer to note in patient chart for documentation of history and physical. Last Colonoscopy: 2008. Complications: No immediate complications. Procedure: Pre-Anesthesia Assessment: - Prior to the procedure, a History and Physical was performed, and patient medications and allergies were reviewed. The patient's tolerance of previous anesthesia was also reviewed. The risks and benefits of the procedure and the sedation options and risks were discussed with the patient. All questions were answered, and informed consent was obtained. Prior Anticoagulants: The patient has taken no previous anticoagulant or antiplatelet agents. ASA Grade Assessment: III - A patient with severe systemic disease. After reviewing the risks and benefits, the patient was deemed in satisfactory condition to undergo the procedure. After I obtained informed consent, the scope was passed under direct vision. Throughout the procedure, the patient's blood pressure, pulse, and oxygen saturations were monitored continuously. The colonoscope was introduced through the anus and advanced to the cecum, identified by appendiceal orifice and ileocecal valve. The colonoscopy was performed without difficulty. The patient tolerated the procedure well. The quality of the bowel preparation was good. Scope In: 7:06:50 AM Scope Withdrawal Time 0 hours 6 minutes 20 seconds Scope Out: 7:19:37 AM Total Procedure Duration Time 0 hours 12 minutes 47 seconds Findings: Non-bleeding internal hemorrhoids were found during retroflexion. The hemorrhoids were mild and small. The exam was otherwise without abnormality. Impression: - Non-bleeding internal hemorrhoids. - The examination was otherwise normal. - No specimens collected. Recommendation: - Discharge patient to home. - Resume previous diet. - Continue present medications. - Repeat colonoscopy is not recommended for screening purposes. - Return to primary care physician in 1 week. Procedure Code(s): --- Professional --- G0105, Colorectal cancer screening; colonoscopy on individual at high risk Diagnosis Code(s): --- Professional --- Z86.010, Personal history of colonic polyps K64.8, Other hemorrhoids CPT copyright 2017 [employer]. All rights reserved. The codes documented in this report are preliminary and upon coil binder review may be revised to meet current compliance requirements. MD Jeremi Rivera MD 08/26/2019 7:22:58 AM This report has been signed electronically. Number of Addenda: 0 Note Initiated On: 08/26/2019 6:57 AM
[2019-08-26 07:30] VITALS: BP 153/59; BP 173/88; PULSE 93; RESP 16; O2SAT 98
[2019-08-26 07:35] VITALS: BP 153/59; BP 173/88; PULSE 88; RESP 16; O2SAT 99
[2019-08-26 07:37] VITALS: BP 156/66; BP 173/88; PULSE 89; RESP 16; TEMP 36.2; O2SAT 100
[2019-08-26 08:21] VITALS: BP 173/88
== END 2019-08-26 08:21 | disposition home or self-care (01) ==
LOC: EN 05:51 → AC 05:52
PROVIDERS: Family Provider Family Medicine Geriatric Medicine; PCP Family Medicine Geriatric Medicine; Referring Provider Family Medicine Geriatric Medicine; Visit Provider Surgery
PROC: 0DJD8ZZ Inspection of Lower Intestinal Tract, Via Natural or Artificial Opening Endoscopic (ICD-10-PCS; CPT 45378; principal; 2019-08-26 06:55)
DX: Z12.11 Encounter for screening for malignant neoplasm of colon (principal); Z86.010 Personal history of colon polyps; K64.8 Other hemorrhoids; K59.00 Constipation, unspecified; E11.9 Type 2 diabetes mellitus without complications; I10 Essential (primary) hypertension; E03.9 Hypothyroidism, unspecified; K21.9 Gastro-esophageal reflux disease without esophagitis; M54.5 Low back pain; M19.90 Unspecified osteoarthritis, unspecified site; Z79.84 Long term (current) use of oral hypoglycemic drugs; Z79.899 Other long term (current) drug therapy; Z87.891 Personal history of nicotine dependence
CPT/HCPCS: G0105; 82962; J7120; J1610

== ENCOUNTER → 2019-10-10 10:17 | Outpatient (CLI) | payer MEDICARE, OTHER, SELFPAY ==
[2019-10-10 12:23] LABS: Absolute Lymphocyte Count 1.34 X10^3/uL (0.83-4.51); Absolute Neutrophil Count 2.2 X10^3/uL (2.0-7.7); Basophil# 0.02 X10^3/uL; Basophil% 0.5 % (0-1); Eosinophil# 0.24 X10^3/uL; Eosinophils% 5.4 % (0-5); Hematocrit 38.2 % (37-47); Hemoglobin 12.6 g/dL (12.0-15.0); Lymphocyte # 1.34 X10^3/ul (4.0); Lymphocyte % 30.3 % (19-41); Mean Corpuscular Volume 94.1 fL (81-99); Mean Platelet Vol. 9.7 fl (6.2-12.0); Monocyte% 13.6 % (0-10); NRBC Flagged by Analyzer 0 % (0-5); Neutrophil # 2.21 X10^3/uL (2.7-7.7); POSITIVE COUNT YES; Platelet Count 88 K/mm3 (150-450); RBC Distribution Width CV 13.5 % (11.6-14.6); RBC Distribution Width SD 47.2 fl (35.1-43.9); Red Blood Count 4.06 M/mm3 (4.2-5.4); White Blood Count 4.4 K/mm3 (4.4-11.0)
[2019-10-10 12:33] LABS: Vitamin D,25 Hydroxy 36.5 ng/mL (29.95-100.01)
[2019-10-10 12:48] LABS: ALB/GLOB Ratio 0.9 RATIO (0.9-2.4); AST(SGOT) 21 U/L (15-37); Alanine Aminotransfer ALT/SGPT 22 U/L (13-56); Albumin, Serum 3.5 g/dL (3.2-5.0); Alkaline Phosphatase 96 U/L (45-117); Anion Gap 6 (5-15); BUN 21 mg/dL (7-18); BUN/Creat Ratio 20.4 RATIO (10-20); Calcium,Total 9.5 mg/dL (8.5-10.1); Chloride 102 mmol/L (98-107); Creatinine, Serum 1.03 mg/dL (0.55-1.02); EST Glomerular Filtration Rate 55 mL/min (>60); Est Glom Filt Rate - Afr Amer 66 mL/min (>60); Globulin 3.7 g/dL (2.2-4.2); Glucose 159 mg/dL (74-106); Potassium 4.7 mmol/L (3.5-5.1); Protein, Total 7.2 g/dL (6.4-8.2); Sodium Level 137 mmol/L (136-145); Thyroid Stim Hormone (TSH) 0.91 uIU/mL (0.358-3.74)
[2019-10-10 12:51] LABS: Differential Indicated SCAN CRITERIA MET
== END ==
PROVIDERS: Family Provider Family Medicine Geriatric Medicine; PCP Family Medicine Geriatric Medicine; Visit Provider Family Medicine Geriatric Medicine
DX: E11.9 Type 2 diabetes mellitus without complications (principal); E55.9 Vitamin D deficiency, unspecified; I10 Essential (primary) hypertension
CPT/HCPCS: 36415; 80053; 82306; 84443; 85025

== ENCOUNTER → 2020-01-12 09:39 | Outpatient (CLI) | payer MEDICARE, OTHER, SELFPAY ==
[2019-12-02 10:58] VITALS: BMI 25.0
[2020-01-12 12:42] LABS: Absolute Lymphocyte Count 1.42 X10^3/uL (0.83-4.51); Absolute Neutrophil Count 8.1 X10^3/uL (2.0-7.7); Basophil# 0.02 X10^3/uL; Basophil% 0.2 % (0-1); Eosinophil# 0.02 X10^3/uL; Eosinophils% 0.2 % (0-5); Hematocrit 38.6 % (37-47); Hemoglobin 13.4 g/dL (12.0-15.0); Lymphocyte # 1.42 X10^3/ul (4.0); Lymphocyte % 13.3 % (19-41); Mean Corp Hgb Conc 34.7 g/dL (32-36); Mean Corpuscular Hgb 32.2 pg (27.0-32.0); Mean Corpuscular Volume 92.8 fL (81-99); Mean Platelet Vol. 9.2 fl (6.2-12.0); Monocyte# 1.06 X10^3/uL; Monocyte% 9.9 % (0-10); NRBC Flagged by Analyzer 0 % (0-5); Neutrophil % 75.8 % (47-70); POSITIVE COUNT YES; Platelet Count 74 K/mm3 (150-450); RBC Distribution Width CV 13.4 % (11.6-14.6); RBC Distribution Width SD 45.7 fl (35.1-43.9); Red Blood Count 4.16 M/mm3 (4.2-5.4); White Blood Count 10.7 K/mm3 (4.4-11.0)
[2020-01-12 12:43] LABS: Differential Indicated SCAN CRITERIA MET
[2020-01-12 12:53] LABS: AST(SGOT) 32 U/L (15-37); Alanine Aminotransfer ALT/SGPT 43 U/L (13-56); Albumin, Serum 3.4 g/dL (3.2-5.0); Alkaline Phosphatase 82 U/L (45-117); Anion Gap 5 (5-15); BUN 17 mg/dL (7-18); BUN/Creat Ratio 16.2 RATIO (10-20); Chloride 95 mmol/L (98-107); Creatinine, Serum 1.05 mg/dL (0.55-1.02); EST Glomerular Filtration Rate 54 mL/min (>60); Est Glom Filt Rate - Afr Amer 65 mL/min (>60); Globulin 3.5 g/dL (2.2-4.2); Glucose 149 mg/dL (74-106); Potassium 4.2 mmol/L (3.5-5.1); Protein, Total 6.9 g/dL (6.4-8.2); Sodium Level 127 mmol/L (136-145); Thyroid Stim Hormone (TSH) 0.46 uIU/mL (0.358-3.74)
[2020-01-12 13:03] LABS: Platelet Estimate MOD DEC (ADEQ); Platelet Morphology LARGE
== END ==
PROVIDERS: PCP Family Medicine Geriatric Medicine; Referring Provider Family Medicine Geriatric Medicine; Visit Provider Family Medicine Geriatric Medicine
DX: N39.0 Urinary tract infection, site not specified (principal); R53.83 Other fatigue; R50.9 Fever, unspecified
CPT/HCPCS: 36415; 80053; 84443; 85025; 87077; 87086; 87088; 87186; 87633

== ENCOUNTER → 2020-01-13 11:49 | Outpatient (CLI) | payer MEDICARE, OTHER, SELFPAY ==
[2019-12-02 10:58] VITALS: BMI 25.0
[2020-01-13 12:46] LABS: Urine Sodium 77 mmol/L (Not Establ.)
[2020-01-13 12:47] LABS: Anion Gap 6 (5-15); BUN 12 mg/dL (7-18); BUN/Creat Ratio 13.9 RATIO (10-20); Calcium,Total 9.3 mg/dL (8.5-10.1); Chloride 95 mmol/L (98-107); Creatinine, Serum 0.86 mg/dL (0.55-1.02); EST Glomerular Filtration Rate 67 mL/min (>60); Est Glom Filt Rate - Afr Amer 82 mL/min (>60); Glucose 159 mg/dL (74-106); Potassium 4.5 mmol/L (3.5-5.1); Sodium Level 127 mmol/L (136-145)
[2020-01-13 13:09] LABS: Osmolality, Serum 266 mOsm/KG (280-301)
[2020-01-13 13:10] LABS: Osmolality, Urine 209 mOsm/KG
== END ==
PROVIDERS: PCP Family Medicine Geriatric Medicine; Visit Provider Family Medicine Geriatric Medicine
DX: E87.6 Hypokalemia (principal)
CPT/HCPCS: 36415; 80048; 83930; 83935; 84300

== ENCOUNTER → 2020-01-14 13:58 | Outpatient (CLI) | payer MEDICARE, OTHER, SELFPAY ==
[2019-12-02 10:58] VITALS: BMI 25.0
[2020-01-14 16:23] LABS: Anion Gap 8 (5-15); BUN 14 mg/dL (7-18); BUN/Creat Ratio 16.3 RATIO (10-20); Calcium,Total 8.5 mg/dL (8.5-10.1); Chloride 93 mmol/L (98-107); Creatinine, Serum 0.86 mg/dL (0.55-1.02); EST Glomerular Filtration Rate 68 mL/min (>60); Est Glom Filt Rate - Afr Amer 82 mL/min (>60); Glucose 164 mg/dL (74-106); Potassium 4.4 mmol/L (3.5-5.1); Sodium Level 128 mmol/L (136-145)
== END ==
PROVIDERS: PCP Family Medicine Geriatric Medicine; Visit Provider Family Medicine Geriatric Medicine
DX: E87.1 Hypo-osmolality and hyponatremia (principal)
CPT/HCPCS: 36415; 80048

== ENCOUNTER → 2020-04-12 09:18 | Outpatient (CLI) | payer MEDICARE, OTHER, SELFPAY ==
[2019-12-02 10:58] VITALS: BMI 25.0
[2020-04-12 12:48] LABS: Absolute Lymphocyte Count 2.37 X10^3/uL (0.83-4.51); Absolute Neutrophil Count 3.2 X10^3/uL (2.0-7.7); Basophil# 0.02 X10^3/uL; Basophil% 0.3 % (0-1); Eosinophil# 0.24 X10^3/uL; Eosinophils% 3.7 % (0-5); Hematocrit 44.4 % (37-47); Hemoglobin 15.1 g/dL (12.0-15.0); Lymphocyte # 2.37 X10^3/ul (4.0); Lymphocyte % 36.5 % (19-41); Mean Corpuscular Hgb 32.3 pg (27.0-32.0); Mean Corpuscular Volume 94.9 fL (81-99); Mean Platelet Vol. 9.7 fl (6.2-12.0); Monocyte# 0.66 X10^3/uL; Monocyte% 10.2 % (0-10); NRBC Flagged by Analyzer 0 % (0-5); Neutrophil # 3.18 X10^3/uL (2.7-7.7); POSITIVE COUNT YES; Platelet Count 84 K/mm3 (150-450); RBC Distribution Width CV 13.2 % (11.6-14.6); Red Blood Count 4.68 M/mm3 (4.2-5.4); White Blood Count 6.5 K/mm3 (4.4-11.0)
[2020-04-12 13:11] LABS: ALB/GLOB Ratio 0.9 RATIO (0.9-2.4); AST(SGOT) 21 U/L (15-37); Alanine Aminotransfer ALT/SGPT 28 U/L (13-56); Albumin, Serum 3.5 g/dL (3.2-5.0); Alkaline Phosphatase 85 U/L (45-117); Anion Gap 6 (5-15); BUN 11 mg/dL (7-18); BUN/Creat Ratio 13.5 RATIO (10-20); Chloride 103 mmol/L (98-107); Creatinine, Serum 0.81 mg/dL (0.55-1.02); EST Glomerular Filtration Rate 72 mL/min (>60); Est Glom Filt Rate - Afr Amer 87 mL/min (>60); Globulin 3.9 g/dL (2.2-4.2); Glucose 155 mg/dL (74-106); Potassium 4.3 mmol/L (3.5-5.1); Protein, Total 7.4 g/dL (6.4-8.2); Sodium Level 134 mmol/L (136-145); Thyroid Stim Hormone (TSH) 2.39 uIU/mL (0.358-3.74)
== END ==
PROVIDERS: PCP Family Medicine Geriatric Medicine; Visit Provider Family Medicine Geriatric Medicine
DX: E11.9 Type 2 diabetes mellitus without complications (principal); E55.9 Vitamin D deficiency, unspecified; I10 Essential (primary) hypertension
CPT/HCPCS: 36415; 80053; 82306; 84443; 85025

== ENCOUNTER → 2020-05-07 12:56 | Outpatient (CLI) | payer MEDICARE, OTHER, SELFPAY ==
[2020-05-03 11:40] VITALS: BMI 25.0
[2020-05-07 13:10] VITALS: BP 155/80; PULSE 96; RESP 16; TEMP 36.9; O2SAT 95; BMI 24.7
[2020-05-07] MEDS: DENOSUMAB 60 MG/ML SQ (13:13)
== END ==
PROVIDERS: PCP Family Medicine Geriatric Medicine; Referring Provider Internal Medicine Endocrinology, Diabetes & Metabolism; Visit Provider Internal Medicine Endocrinology, Diabetes & Metabolism
DX: M81.0 Age-related osteoporosis without current pathological fracture (principal)
CPT/HCPCS: 96372; J0897

== ENCOUNTER 2020-05-08 04:05 | Emergency (ER) | payer MEDICARE, OTHER, SELFPAY ==
[2020-05-07 13:10] VITALS: BMI 24.7
[2020-05-08 04:06] VITALS: BP 191/103; PULSE 86; RESP 22; TEMP 36.9; O2SAT 93; BMI 24.7
[2020-05-08 04:09] VITALS: BP 191/103; PULSE 83; RESP 22; TEMP 36.9; O2SAT 94
--- NOTE | 2020-05-08 04:22 | ED.VIS.GEN ---
History of Present Illness Chief Complaint: Complaint Narrative: Patient presents with frequency and slight dysuria as well as chills. She denies any fevers but she tells me her temperature is higher than normal. She denies any abdominal pain or flank pain. She has no shortness of breath chest pain cough or congestion. All this started earlier tonight. Past Medical History - Allergies and Home Meds Allergies/Adverse Reactions: Allergies No Known Allergies Allergy (Verified 05/08/20 04:09) Primary Care Physician: Kurtis Ross Chi, MD [Primary Care Provider] - Past Medical History: - - Hypertension, hypercholesterolemia. Surgical History: noncontributory Smoking Status: Former smoker Review of Systems All systems negative except as indicated General: Denies: Fever Eyes: Denies: Visual changes - bilaterally Cardiovascular: Denies: Chest pain, Palpitations Respiratory: Denies: Dyspnea, Cough, Sputum Gastrointestinal: Denies: Abdominal pain, Nausea, Vomiting Genitourinary: Reports: Dysuria, Frequency Musculoskeletal: Denies: Myalgias, Arthralgias, Back pain Skin: Denies: Rash Neurological: Denies: Headache, Weakness Psych: Denies: Depression Hematologic: Denies: Easy bruising Physical Exam Vital Signs/Narrative: Vital Signs Temp Pulse Resp BP Pulse Ox 05/08/20 04:09 98.5 F 83 22 H 191/103 H 94 05/08/20 04:06 98.5 F 86 22 H 191/103 H 93 General: - - She appears in some distress she has some chills as I am in the room. Head: Normocephalic Eyes: Perrl ENT: - - Slightly dry mucous membranes Cardiovascular: Regular rhythm, No murmurs, Tachycardia Respiratory: No distress, CTA bilaterally Abdomen: Soft, Nontender Back: Nontender, Normal Inspection. Negative for: CVA tenderness Extremities: Nontender, - - Chronic bilateral symmetric lower extremity edema Skin: Normal color, No rash Neurological: Alert, Normal Strength Psychological: Normal affect Diagnostic/Tx/Re-eval - Medical Decision Making Patient is found to have a significant urinary tract infection and I gave her Rocephin. I went and reevaluated her she has no suprapubic pain and she has no CVA tenderness therefore CT flank is not warranted even though she has blood in her urine this is likely hemorrhagic cystitis. She appears well does not have leukocytosis and wants to be discharged home. After her Rocephin finishes I will discharge her if she worsens, if she has fever chills she needs to come back right away, otherwise I will place her on oral antibiotics ED Disposition - Plan for ED Patient: Disposition: Home or Assisted Living Diagnosis: UTI (urinary tract infection) Instructions: ED CYSTITIS Female Adult, ED Hematuria Prescriptions: Smz/Tmp Ds [Bactrim Ds] 1 tab PO BID #20 tab Transmission Status: Pending to [facility] Referrals: Kurtis Ross Chi, MD [Primary Care Provider] - 3-5 Days
[2020-05-08 04:47] LABS: Bacteria 0 SEEN /hpf (None Seen); Mucous, Urine 0 SEEN /hpf (<or=2+); Squamous Epithelial Cells - UA 0 SEEN /hpf (5-10)
[2020-05-08 04:48] LABS: Color, Urine Yellow (Yellow); Glucose, Dipstick Normal (Normal); Ketone-Dipstick Negative (Negative); Leukocyte Esterase-Dipstick 500 /ul (Negative); Nitrite-Dipstick Negative (Negative); Occult Blood-Urine 250 /ul (Negative); Protein-Dipstick 100 mg/dl (Negative); Urine Bilirubin Dipstick Negative (Negative); Urine Clarity Sl. Cloudy (Clear); Urine Urobilinogen Normal (Normal); Urine pH 6.5 (5.0 - 8.0)
[2020-05-08 04:54] LABS: Red Blood Cells-Urine > 100 SEEN /hpf (0-5); White Blood Cells >100 SEEN /hpf (0-5)
[2020-05-08 05:00] LABS: Absolute Lymphocyte Count 0.85 X10^3/uL (0.83-4.51); Absolute Neutrophil Count 6.4 X10^3/uL (2.0-7.7); Basophil# 0.02 X10^3/uL; Basophil% 0.3 % (0-1); Eosinophil# 0.07 X10^3/uL; Eosinophils% 0.9 % (0-5); Hematocrit 43.8 % (37-47); Hemoglobin 15.2 g/dL (12.0-15.0); Lymphocyte # 0.85 X10^3/ul (4.0); Lymphocyte % 11.3 % (19-41); Mean Corp Hgb Conc 34.7 g/dL (32-36); Mean Corpuscular Hgb 32.7 pg (27.0-32.0); Mean Corpuscular Volume 94.2 fL (81-99); Mean Platelet Vol. 9.2 fl (6.2-12.0); Monocyte# 0.13 X10^3/uL; Monocyte% 1.7 % (0-10); NRBC Flagged by Analyzer 0 % (0-5); Neutrophil % 85.5 % (47-70); POSITIVE COUNT YES; Platelet Count 67 K/mm3 (150-450); RBC Distribution Width CV 13.3 % (11.6-14.6); RBC Distribution Width SD 45.8 fl (35.1-43.9); Red Blood Count 4.65 M/mm3 (4.2-5.4); White Blood Count 7.5 K/mm3 (4.4-11.0)
[2020-05-08 05:10] LABS: ALB/GLOB Ratio 0.9 RATIO (0.9-2.4); AST(SGOT) 35 U/L (15-37); Alanine Aminotransfer ALT/SGPT 28 U/L (13-56); Albumin, Serum 3.7 g/dL (3.2-5.0); Alkaline Phosphatase 98 U/L (45-117); Anion Gap 4 (5-15); BUN 13 mg/dL (7-18); BUN/Creat Ratio 16.2 RATIO (10-20); Calcium,Total 9.2 mg/dL (8.5-10.1); Chloride 99 mmol/L (98-107); EST Glomerular Filtration Rate 73 mL/min (>60); Est Glom Filt Rate - Afr Amer 88 mL/min (>60); Estimated Creatinine Clearance 44.36 ml/min; Globulin 3.9 g/dL (2.2-4.2); Glucose 127 mg/dL (74-106); Potassium 4.2 mmol/L (3.5-5.1); Protein, Total 7.6 g/dL (6.4-8.2); Sodium Level 135 mmol/L (136-145)
[2020-05-08] MEDS: Ceftriaxone 1 GM/50 ML BAG IV (05:39)
[2020-05-08 06:51] VITALS: BP 121/57; PULSE 119; RESP 18; TEMP 37.4; O2SAT 94
== END 2020-05-08 06:53 | disposition home or self-care (01) ==
PROVIDERS: Emergency Provider Emergency Medicine; PCP Family Medicine Geriatric Medicine
DX: N39.0 Urinary tract infection, site not specified (principal); I10 Essential (primary) hypertension; E78.00 Pure hypercholesterolemia, unspecified; Z87.891 Personal history of nicotine dependence
CPT/HCPCS: 80053; 81001; 85025; 96361; 96365; 99283; J7030

== ENCOUNTER 2020-05-09 12:15 | Emergency (ER) | payer MEDICARE, OTHER, SELFPAY ==
[2020-05-08 04:06] VITALS: BMI 24.7
[2020-05-09 12:16] VITALS: BP 160/82; PULSE 91; RESP 20; TEMP 36.4; O2SAT 96; BMI 24.3
--- NOTE | 2020-05-09 12:37 | EKG12_ITS ---
Test Reason : DYSRHYTHMIA Blood Pressure : / mmHG Vent. Rate : 092 BPM Atrial Rate : 092 BPM P-R Int : 196 ms QRS Dur : 102 ms QT Int : 356 ms P-R-T Axes : 063 -45 072 degrees QTc Int : 440 ms Normal sinus rhythm Left anterior fascicular block Voltage criteria for left ventricular hypertrophy Cannot rule out Septal infarct , age undetermined Abnormal ECG Confirmed by KUMAR DELGADO, MEKHI ([id number]), editor continuity and script DOLORES GUZMAN ([id number]) on 05/10/2020 1:20:08 PM Referred By: NILS Confirmed By:MEKHI HEATH MD
--- NOTE | 2020-05-09 12:38 | ED.VIS.GEN ---
History of Present Illness Chief Complaint: General Illness Informant: Patient Onset: Yesterday Current Severity: Mild Maximum Severity: Moderate Narrative: Patient states she woke early yesterday morning not feeling well with slight burning with urination. She was seen in the ER and diagnosed with a UTI. She was given a dose of Rocephin in the ER and felt well upon discharge. She took a dose of Bactrim last evening. She woke up at 3 AM this morning with a headache and feeling shaky. She states her blood sugar was only 67. She drank some juice and brought it up to 148. When she woke later in the morning she states she still felt shaky and had a mild headache. She called her PCP who switched her antibiotic from Bactrim to Cipro. She did take 1 dose of that and 20 minutes later started feeling shaky and had a warm tight sensation across her upper abdomen. She denies having fever or cough. No URI symptoms. She reports chronic diarrhea. No nausea or vomiting. - Past Medical History (1) Acid reflux Status: Chronic (2) Breast cancer Status: Chronic (3) Diabetes Status: Chronic (4) Diarrhea Status: Chronic (5) H/O mastectomy Status: Chronic Comment: - 2007 (6) H/O tubal ligation Status: Chronic Comment: 1969 (7) History of hysterectomy Status: Chronic Comment: 1984 (8) Hx of cholecystectomy Status: Chronic Comment: 12/2006 (9) Hypercholesterolemia Status: Chronic (10) Hypothyroidism Status: Chronic (11) HTN (hypertension) Status: Chronic (12) History of type 1 diabetes mellitus Status: Chronic Past Medical History - Allergies and Home Meds Allergies/Adverse Reactions: Allergies No Known Allergies Allergy (Verified 05/09/20 12:20) Primary Care Physician: Kurtis Ross Chi, MD [Primary Care Provider] - Prior records reviewed: Yes Surgical History: noncontributory Smoking Status: Former smoker Review of Systems General: Denies: Chills, Fever Eyes: Denies: Visual changes - bilaterally ENT: Denies: Bilateral ear pain Cardiovascular: Denies: Chest pain Respiratory: Denies: Dyspnea, Cough Gastrointestinal: Reports: Abdominal pain - Upper abdominal burning and tightness, Diarrhea - Chronic diarrhea Genitourinary: Reports: Dysuria Musculoskeletal: Reports: Back pain - Back pain, unchanged from prior. Denies: Extremity Pain Skin: Denies: Rash Neurological: Reports: Headache Hematologic: Denies: Easy bruising, Easy bleeding Allergy: Denies: Uticaria Physical Exam Vital Signs/Narrative: Vital Signs Temp Pulse Resp BP Pulse Ox 05/09/20 12:16 97.5 F L 91 20 H 160/82 H 96 Inital Vital Signs reviewed: Yes General: Well nourished, Well developed Head: Normocephalic ENT: Moist mucous membranes Neck: Supple Cardiovascular: Regular rate, Regular rhythm Respiratory: No distress, CTA bilaterally Abdomen: Soft, Nontender, Normal bowel sounds Back: Negative for: CVA tenderness Extremities: Nontender, Edema - 2+ bilateral lower extremity edema, symmetric Skin: Normal color Neurological: Alert, Oriented x3 Psychological: Normal affect Diagnostic/Tx/Re-eval Impressions Chest X-Ray 05/09/20 14:00 IMPRESSION: No acute thoracic pathology. Electronically Signed: Misael Ning, at 15:00 EDT Tel , Service support , 05/09/20 14:00 Chest 1 View (Portable) [RAD] Stat Laboratory Results 05/09/20 05/09/20 05/09/20 12:35 12:35 12:35 WBC 9.0 RBC 4.47 Hgb 14.5 Hct 41.4 MCV 92.6 MCH 32.4 H MCHC 35.0 RDW Std Deviation 45.6 H RDW Coeff of [place] 13.4 Plt Count 89 L MPV 8.7 Immature Gran % (Auto) 0.200 Neut % (Auto) 71.9 H Lymph % (Auto) 17.3 L [place] % (Auto) 8.6 Eos % (Auto) 1.8 Baso % (Auto) 0.2 Absolute Neuts (auto) 6.5 Absolute Lymphs (auto) 1.55 Nucleated RBC % 0 Sodium 129 L Potassium 3.9 Chloride 95 L Carbon Dioxide 27.0 Anion Gap 7 BUN 14 Creatinine 0.94 Estim Creat Clear Calc 39.49 Est GFR (MDRD) Af Amer 74 Est GFR (MDRD) Non-Af 61 BUN/Creatinine Ratio 14.9 Glucose 160 H Lactic Acid 1.8 Calcium 8.7 Total Bilirubin 1.00 AST 29 ALT 27 Alkaline Phosphatase 83 Troponin I 0.019 Total Protein 7.7 Albumin 3.4 Globulin 4.3 H Albumin/Globulin Ratio 0.8 L Lipase 62 L Urine Color Urine Clarity Urine pH Ur Specific Gilbert Urine Protein Urine Glucose (UA) Urine Ketones Urine Occult Blood Urine Nitrite Urine Bilirubin Urine Urobilinogen Ur Leukocyte Esterase Urine RBC Urine WBC Ur Squamous Epith Cells Urine Bacteria Urine Mucus 05/09/20 13:03 WBC RBC Hgb Hct MCV MCH MCHC RDW Std Deviation RDW Coeff of [place] Plt Count MPV Immature Gran % (Auto) Neut % (Auto) Lymph % (Auto) [place] % (Auto) Eos % (Auto) Baso % (Auto) Absolute Neuts (auto) Absolute Lymphs (auto) Nucleated RBC % Sodium Potassium Chloride Carbon Dioxide Anion Gap BUN Creatinine Estim Creat Clear Calc Est GFR (MDRD) Af Amer Est GFR (MDRD) Non-Af BUN/Creatinine Ratio Glucose Lactic Acid Calcium Total Bilirubin AST ALT Alkaline Phosphatase Troponin I Total Protein Albumin Globulin Albumin/Globulin Ratio Lipase Urine Color Yellow Urine Clarity Clear Urine pH 7.0 Ur Specific Gilbert 1.005 Urine Protein Negative Urine Glucose (UA) Normal Urine Ketones Negative Urine Occult Blood Negative Urine Nitrite Negative Urine Bilirubin Negative Urine Urobilinogen Normal Ur Leukocyte Esterase Negative Urine RBC 0 SEEN Urine WBC 0 SEEN Ur Squamous Epith Cells 0-5 SEEN Urine Bacteria 0 SEEN Urine Mucus 0 SEEN - EKG Initial EKG Interpretation: Sinus Rhythm - Sinus at 92. Left anterior fascicular block. No acute ST change noted. - Medical Decision Making Labs are repeated and compared to yesterday. White count remains normal. Renal function is good and blood sugar is 160. His urine today is clear with no bacteria. Blood and urine cultures were sent. Covid test was sent and pending at this time. At this time I suspect that her shakiness may be secondary to the antibiotics that she has been taking over the past 2 days. Daughter does raise question of the pain medication that she is taking doing this to her, however this was started last week and she did not have any symptoms until yesterday. At this time I think it is prudent to stop the antibiotic to see if her symptoms resolve. I will speak with her PCP to update him as well. ED Disposition - Plan for ED Patient: Disposition: Home or Assisted Living Diagnosis: Medication side effect Instructions: ED Drug React Adverse Other Referrals: Kurtis Ross Chi, MD [Primary Care Provider] -
[2020-05-09 13:13] LABS: Bacteria 0 SEEN /hpf (None Seen); Mucous, Urine 0 SEEN /hpf (<or=2+); Red Blood Cells-Urine 0 SEEN /hpf (0-5); White Blood Cells 0 SEEN /hpf (0-5)
[2020-05-09 13:15] LABS: Color, Urine Yellow (Yellow); Glucose, Dipstick Normal (Normal); Ketone-Dipstick Negative (Negative); Leukocyte Esterase-Dipstick Negative /ul (Negative); Nitrite-Dipstick Negative (Negative); Occult Blood-Urine Negative /ul (Negative); Protein-Dipstick Negative (Negative); Specific Gravity, Urine 1.005 (1.002-1.030); Urine Bilirubin Dipstick Negative (Negative); Urine Clarity Clear (Clear); Urine Urobilinogen Normal (Normal)
[2020-05-09 13:17] LABS: Absolute Lymphocyte Count 1.55 X10^3/uL (0.83-4.51); Absolute Neutrophil Count 6.5 X10^3/uL (2.0-7.7); Basophil# 0.02 X10^3/uL; Basophil% 0.2 % (0-1); Eosinophil# 0.16 X10^3/uL; Eosinophils% 1.8 % (0-5); Hematocrit 41.4 % (37-47); Hemoglobin 14.5 g/dL (12.0-15.0); Lymphocyte # 1.55 X10^3/ul (4.0); Lymphocyte % 17.3 % (19-41); Mean Corpuscular Hgb 32.4 pg (27.0-32.0); Mean Corpuscular Volume 92.6 fL (81-99); Mean Platelet Vol. 8.7 fl (6.2-12.0); Monocyte# 0.77 X10^3/uL; Monocyte% 8.6 % (0-10); NRBC Flagged by Analyzer 0 % (0-5); Neutrophil # 6.46 X10^3/uL (2.7-7.7); Neutrophil % 71.9 % (47-70); POSITIVE COUNT YES; Platelet Count 89 K/mm3 (150-450); RBC Distribution Width CV 13.4 % (11.6-14.6); RBC Distribution Width SD 45.6 fl (35.1-43.9); Red Blood Count 4.47 M/mm3 (4.2-5.4)
[2020-05-09 13:23] LABS: Squamous Epithelial Cells - UA 0-5 SEEN /hpf (5-10)
[2020-05-09 13:27] LABS: ALB/GLOB Ratio 0.8 RATIO (0.9-2.4); AST(SGOT) 29 U/L (15-37); Alanine Aminotransfer ALT/SGPT 27 U/L (13-56); Albumin, Serum 3.4 g/dL (3.2-5.0); Alkaline Phosphatase 83 U/L (45-117); Anion Gap 7 (5-15); BUN 14 mg/dL (7-18); BUN/Creat Ratio 14.9 RATIO (10-20); Calcium,Total 8.7 mg/dL (8.5-10.1); Chloride 95 mmol/L (98-107); Creatinine, Serum 0.94 mg/dL (0.55-1.02); EST Glomerular Filtration Rate 61 mL/min (>60); Est Glom Filt Rate - Afr Amer 74 mL/min (>60); Estimated Creatinine Clearance 39.49 ml/min; Globulin 4.3 g/dL (2.2-4.2); Glucose 160 mg/dL (74-106); Lipase 62 U/L (73-393); Potassium 3.9 mmol/L (3.5-5.1); Protein, Total 7.7 g/dL (6.4-8.2); Sodium Level 129 mmol/L (136-145)
[2020-05-09 13:35] LABS: Lactic Acid 1.8 mmol/L (0.4-1.9)
--- NOTE | 2020-05-09 14:00 | RAD_ITS ---
STUDY: X-RAY CHEST REASON FOR EXAM: Female, 80 years old. Urinary tract infection. TECHNIQUE: Frontal view of the chest COMPARISON: 07/05/2019 FINDINGS: There are stable increased interstitial markings in the lungs. The lungs are otherwise clear. There are no pleural effusions. There is no pneumothorax. The heart is stable in size. The visualized osseous structures are within normal limits. Again noted are surgical clips in the left axilla. RAD/Chest 1 View (Portable) IMPRESSION: No acute thoracic pathology. Electronically Signed: Misael Barclay, at 15:00 EDT Tel , Service support ,
[2020-05-09 15:27] LABS: Probe Check PASS; Specimen Processing Control PASS
[2020-05-09 15:47] VITALS: RESP 18; TEMP 36.8
== END 2020-05-09 15:50 | disposition home or self-care (01) ==
PROVIDERS: Emergency Provider Emergency Medicine; PCP Family Medicine Geriatric Medicine
DX: G25.1 Drug-induced tremor (principal); R51 Headache; T36.8X5A Adverse effect of other systemic antibiotics, initial encounter; Y92.9 Unspecified place or not applicable; N39.0 Urinary tract infection, site not specified; I10 Essential (primary) hypertension; E10.9 Type 1 diabetes mellitus without complications; E78.00 Pure hypercholesterolemia, unspecified; E03.9 Hypothyroidism, unspecified; K21.9 Gastro-esophageal reflux disease without esophagitis; Z79.84 Long term (current) use of oral hypoglycemic drugs; Z79.899 Other long term (current) drug therapy; Z87.891 Personal history of nicotine dependence
CPT/HCPCS: 71045; 80053; 81001; 83605; 83690; 84484; 85025; 87040; 87086; 87635; 93005; 94799; 96360; 99283; J7030; U0003

== ENCOUNTER → 2020-05-10 10:33 | Outpatient (CLI) | payer MEDICARE, OTHER, SELFPAY ==
[2020-05-09 12:16] VITALS: BMI 24.3
== END ==
PROVIDERS: PCP Family Medicine Geriatric Medicine; Visit Provider Family Medicine Geriatric Medicine
DX: N39.0 Urinary tract infection, site not specified (principal)
CPT/HCPCS: 87086

== ENCOUNTER → 2020-07-13 11:35 | Outpatient (CLI) | payer MEDICARE, OTHER, SELFPAY ==
[2020-07-13 12:38] LABS: Absolute Lymphocyte Count 1.81 X10^3/uL (0.83-4.51); Absolute Neutrophil Count 2.1 X10^3/uL (2.0-7.7); Basophil# 0.04 X10^3/uL; Basophil% 0.8 % (0-1); Eosinophil# 0.82 X10^3/uL; Eosinophils% 15.7 % (0-5); Hematocrit 40.2 % (37-47); Hemoglobin 13.9 g/dL (12.0-15.0); Lymphocyte # 1.81 X10^3/ul (4.0); Lymphocyte % 34.6 % (19-41); Mean Corp Hgb Conc 34.6 g/dL (32-36); Mean Corpuscular Hgb 32.9 pg (27.0-32.0); Mean Corpuscular Volume 95.3 fL (81-99); Monocyte# 0.49 X10^3/uL; Monocyte% 9.4 % (0-10); NRBC Flagged by Analyzer 0 % (0-5); Neutrophil # 2.06 X10^3/uL (2.7-7.7); Neutrophil % 39.3 % (47-70); POSITIVE COUNT YES; Platelet Count 90 K/mm3 (150-450); RBC Distribution Width CV 12.9 % (11.6-14.6); RBC Distribution Width SD 44.8 fl (35.1-43.9); Red Blood Count 4.22 M/mm3 (4.2-5.4); White Blood Count 5.2 K/mm3 (4.4-11.0)
[2020-07-13 12:52] LABS: Differential Indicated SCAN CRITERIA MET
[2020-07-13 13:16] LABS: ALB/GLOB Ratio 0.9 RATIO (0.9-2.4); AST(SGOT) 28 U/L (15-37); Alanine Aminotransfer ALT/SGPT 24 U/L (13-56); Albumin, Serum 3.5 g/dL (3.2-5.0); Alkaline Phosphatase 79 U/L (45-117); Anion Gap 5 (5-15); BUN 13 mg/dL (7-18); BUN/Creat Ratio 16.1 RATIO (10-20); Chloride 103 mmol/L (98-107); Creatinine, Serum 0.81 mg/dL (0.55-1.02); EST Glomerular Filtration Rate 73 mL/min (>60); Est Glom Filt Rate - Afr Amer 88 mL/min (>60); Globulin 4.1 g/dL (2.2-4.2); Glucose 138 mg/dL (74-106); Potassium 4.5 mmol/L (3.5-5.1); Protein, Total 7.6 g/dL (6.4-8.2); Sodium Level 133 mmol/L (136-145); Thyroid Stim Hormone (TSH) 3.01 uIU/mL (0.358-3.74)
[2020-07-13 13:37] LABS: Differential Comment SCANNED; Platelet Estimate MOD DEC (ADEQ)
== END ==
PROVIDERS: PCP Family Medicine Geriatric Medicine; Visit Provider Family Medicine Geriatric Medicine
DX: E11.9 Type 2 diabetes mellitus without complications (principal); E55.9 Vitamin D deficiency, unspecified; I10 Essential (primary) hypertension
CPT/HCPCS: 36415; 80053; 82306; 84443; 85025

== ENCOUNTER → 2020-10-11 09:39 | Outpatient (CLI) | payer MEDICARE, OTHER, SELFPAY ==
[2020-10-11 13:38] LABS: Absolute Neutrophil Count 2.9 X10^3/uL (2.0-7.7); Basophil# 0.02 X10^3/uL; Basophil% 0.4 % (0-1); Eosinophil# 0.18 X10^3/uL; Eosinophils% 3.4 % (0-5); Hematocrit 43.8 % (37-47); Hemoglobin 14.5 g/dL (12.0-15.0); Lymphocyte % 32.5 % (19-41); Mean Corp Hgb Conc 33.1 g/dL (32-36); Mean Corpuscular Hgb 32.1 pg (27.0-32.0); Mean Corpuscular Volume 96.9 fL (81-99); Mean Platelet Vol. 9.8 fl (6.2-12.0); Monocyte# 0.45 X10^3/uL; Monocyte% 8.6 % (0-10); NRBC Flagged by Analyzer 0 % (0-5); Neutrophil # 2.87 X10^3/uL (2.7-7.7); Neutrophil % 54.9 % (47-70); POSITIVE COUNT YES; Platelet Count 71 K/mm3 (150-450); RBC Distribution Width CV 13.6 % (11.6-14.6); RBC Distribution Width SD 48.7 fl (35.1-43.9); Red Blood Count 4.52 M/mm3 (4.2-5.4); White Blood Count 5.2 K/mm3 (4.4-11.0)
[2020-10-11 14:10] LABS: ALB/GLOB Ratio 0.9 RATIO (0.9-2.4); AST(SGOT) 27 U/L (15-37); Alanine Aminotransfer ALT/SGPT 32 U/L (13-56); Albumin, Serum 3.5 g/dL (3.2-5.0); Alkaline Phosphatase 89 U/L (45-117); Anion Gap 6 (5-15); BUN 15 mg/dL (7-18); BUN/Creat Ratio 16.9 RATIO (10-20); Calcium,Total 8.5 mg/dL (8.5-10.1); Chloride 100 mmol/L (98-107); Creatinine, Serum 0.89 mg/dL (0.55-1.02); EST Glomerular Filtration Rate 65 mL/min (>60); Est Glom Filt Rate - Afr Amer 78 mL/min (>60); Globulin 3.9 g/dL (2.2-4.2); Glucose 192 mg/dL (74-106); Potassium 4.3 mmol/L (3.5-5.1); Protein, Total 7.4 g/dL (6.4-8.2); Sodium Level 136 mmol/L (136-145)
== END ==
PROVIDERS: PCP Family Medicine Geriatric Medicine; Visit Provider Family Medicine Geriatric Medicine
DX: I10 Essential (primary) hypertension (principal); E11.9 Type 2 diabetes mellitus without complications; E55.9 Vitamin D deficiency, unspecified
CPT/HCPCS: 36415; 80053; 82306; 84443; 85025

== ENCOUNTER → 2020-11-05 12:49 | Outpatient (CLI) | payer MEDICARE, OTHER, SELFPAY ==
[2020-05-03 11:40] VITALS: BMI 25.0
[2020-11-01 11:39] VITALS: BMI 24.0
[2020-11-05 12:57] VITALS: BP 173/79; PULSE 88; RESP 16; TEMP 36.6; O2SAT 96; BMI 24.0
[2020-11-05] MEDS: DENOSUMAB 60 MG/ML SQ (13:04)
== END ==
PROVIDERS: PCP Family Medicine Geriatric Medicine; Referring Provider Internal Medicine Endocrinology, Diabetes & Metabolism; Visit Provider Internal Medicine Endocrinology, Diabetes & Metabolism
DX: M81.0 Age-related osteoporosis without current pathological fracture (principal)
CPT/HCPCS: 96372; J0897

== ENCOUNTER → 2021-01-10 10:45 | Outpatient (CLI) | payer MEDICARE, OTHER, SELFPAY ==
[2020-11-05 12:57] VITALS: BMI 24.0
[2021-01-10 12:26] LABS: Absolute Lymphocyte Count 2.36 X10^3/uL (0.83-4.51); Absolute Neutrophil Count 3.3 X10^3/uL (2.0-7.7); Basophil# 0.03 X10^3/uL; Basophil% 0.5 % (0-1); Eosinophil# 0.19 X10^3/uL; Eosinophils% 2.9 % (0-5); Hematocrit 45.2 % (37-47); Hemoglobin 14.9 g/dL (12.0-15.0); Lymphocyte # 2.36 X10^3/ul (4.0); Lymphocyte % 36.1 % (19-41); Mean Corpuscular Volume 100.2 fL (81-99); Mean Platelet Vol. 9.2 fl (6.2-12.0); Monocyte# 0.63 X10^3/uL; Monocyte% 9.6 % (0-10); NRBC Flagged by Analyzer 0.5 % (0-5); Neutrophil # 3.31 X10^3/uL (2.7-7.7); Neutrophil % 50.6 % (47-70); POSITIVE COUNT YES; Platelet Count 88 K/mm3 (150-450); RBC Distribution Width CV 13.3 % (11.6-14.6); RBC Distribution Width SD 49.4 fl (35.1-43.9); Red Blood Count 4.51 M/mm3 (4.2-5.4); White Blood Count 6.5 K/mm3 (4.4-11.0)
[2021-01-10 12:28] LABS: Differential Indicated SCAN CRITERIA MET
[2021-01-10 12:43] LABS: Vitamin D,25 Hydroxy 42.2 ng/mL
[2021-01-10 12:47] LABS: Platelet Estimate MOD DEC (ADEQ)
[2021-01-10 12:54] LABS: ALB/GLOB Ratio 0.8 RATIO (0.9-2.4); AST(SGOT) 26 U/L (15-37); Alanine Aminotransfer ALT/SGPT 35 U/L (13-56); Albumin, Serum 3.2 g/dL (3.2-5.0); Alkaline Phosphatase 85 U/L (45-117); Anion Gap 4 (5-15); BUN 12 mg/dL (7-18); Calcium,Total 8.9 mg/dL (8.5-10.1); Chloride 102 mmol/L (98-107); Creatinine, Serum 0.86 mg/dL (0.55-1.02); EST Glomerular Filtration Rate 68 mL/min (>60); Est Glom Filt Rate - Afr Amer 82 mL/min (>60); Globulin 3.9 g/dL (2.2-4.2); Glucose 147 mg/dL (74-106); Potassium 4.3 mmol/L (3.5-5.1); Protein, Total 7.1 g/dL (6.4-8.2); Sodium Level 133 mmol/L (136-145)
== END ==
PROVIDERS: PCP Family Medicine Geriatric Medicine; Visit Provider Family Medicine Geriatric Medicine
DX: E11.9 Type 2 diabetes mellitus without complications (principal); E55.9 Vitamin D deficiency, unspecified; I10 Essential (primary) hypertension
CPT/HCPCS: 36415; 80053; 82306; 84443; 85025

== ENCOUNTER → 2021-01-12 10:47 | Outpatient (CLI) | payer MEDICARE, OTHER, SELFPAY ==
[2020-11-05 12:57] VITALS: BMI 24.0
[2021-01-12 12:43] LABS: Amphetamine Urine VISTA NEGATIVE (<1000 ng/mL); Barbiturate Urine VISTA NEGATIVE (< 200 ng/mL); Benzodiazepine Urine VISTA NEGATIVE (< 200 ng/mL); Cocaine Urine VISTA NEGATIVE (< 300 ng/mL); Ecstacy Urine VISTA NEGATIVE (< 500 ng/mL); Methadone Urine VISTA NEGATIVE (< 300 ng/mL); PCP Urine VISTA NEGATIVE (< 25 ng/mL); THC Urine VISTA NEGATIVE (< 50 ng/mL); Vista UDS pH Range 6
== END ==
PROVIDERS: PCP Family Medicine Geriatric Medicine; Referring Provider Anesthesiology Pain Medicine; Visit Provider Anesthesiology Pain Medicine
DX: F11.20 Opioid dependence, uncomplicated (principal)
CPT/HCPCS: 80307

== ENCOUNTER → 2021-04-13 09:21 | Outpatient (CLI) | payer MEDICARE, OTHER, SELFPAY ==
[2020-11-05 12:57] VITALS: BMI 24.0
[2021-04-13 12:32] LABS: Absolute Lymphocyte Count 1.87 X10^3/uL (0.83-4.51); Absolute Neutrophil Count 2.3 X10^3/uL (2.0-7.7); Basophil# 0.02 X10^3/uL; Basophil% 0.4 % (0-1); Eosinophil# 0.39 X10^3/uL; Eosinophils% 7.6 % (0-5); Hematocrit 41.1 % (37-47); Hemoglobin 14.3 g/dL (12.0-15.0); Lymphocyte # 1.87 X10^3/ul (0.83-4.51); Lymphocyte % 36.7 % (19-41); Mean Corp Hgb Conc 34.8 g/dL (32-36); Mean Corpuscular Hgb 32.6 pg (27.0-32.0); Mean Corpuscular Volume 93.6 fL (81-99); Mean Platelet Vol. 9.7 fl (6.2-12.0); Monocyte# 0.47 X10^3/uL; Monocyte% 9.2 % (0-10); NRBC Flagged by Analyzer 0 % (0-5); Neutrophil # 2.34 X10^3/uL (2.7-7.7); Neutrophil % 45.9 % (47-70); POSITIVE COUNT YES; Platelet Count 83 K/mm3 (150-450); RBC Distribution Width SD 44.9 fl (35.1-43.9); Red Blood Count 4.39 M/mm3 (4.2-5.4); White Blood Count 5.1 K/mm3 (4.4-11.0)
[2021-04-13 12:47] LABS: Vitamin D,25 Hydroxy 47.4 ng/mL
[2021-04-13 12:59] LABS: ALB/GLOB Ratio 0.9 RATIO (0.9-2.4); AST(SGOT) 25 U/L (15-37); Alanine Aminotransfer ALT/SGPT 25 U/L (13-56); Albumin, Serum 3.5 g/dL (3.2-5.0); Alkaline Phosphatase 80 U/L (45-117); Anion Gap 5 (5-15); BUN 13 mg/dL (7-18); BUN/Creat Ratio 15.3 RATIO (10-20); Chloride 102 mmol/L (98-107); Creatinine, Serum 0.85 mg/dL (0.55-1.02); EST Glomerular Filtration Rate 68 mL/min (>60); Est Glom Filt Rate - Afr Amer 83 mL/min (>60); Globulin 3.8 g/dL (2.2-4.2); Glucose 161 mg/dL (74-106); Potassium 4.4 mmol/L (3.5-5.1); Protein, Total 7.3 g/dL (6.4-8.2); Sodium Level 133 mmol/L (136-145); Thyroid Stim Hormone (TSH) 3.26 uIU/mL (0.358-3.74)
== END ==
PROVIDERS: PCP Family Medicine Geriatric Medicine; Visit Provider Family Medicine Geriatric Medicine
DX: E11.9 Type 2 diabetes mellitus without complications (principal); E55.9 Vitamin D deficiency, unspecified; I10 Essential (primary) hypertension
CPT/HCPCS: 36415; 80053; 82306; 84443; 85025

== ENCOUNTER → 2021-05-06 12:52 | Outpatient (CLI) | payer MEDICARE, OTHER, SELFPAY ==
[2020-11-01 11:39] VITALS: BMI 24.0
[2021-05-02 11:06] VITALS: BMI 25.2
[2021-05-06 12:59] VITALS: BP 163/62; PULSE 80; RESP 16; TEMP 36.3; BMI 24.5
[2021-05-06] MEDS: DENOSUMAB 60 MG/ML SC (13:01)
== END ==
PROVIDERS: PCP Family Medicine Geriatric Medicine; Referring Provider Internal Medicine Endocrinology, Diabetes & Metabolism; Visit Provider Internal Medicine Endocrinology, Diabetes & Metabolism
DX: M81.0 Age-related osteoporosis without current pathological fracture (principal)
CPT/HCPCS: 96372; J0897

== ENCOUNTER 2021-06-17 02:37 | Inpatient (IN) | payer MEDICARE, OTHER, SELFPAY ==
[2021-06-17] VITALS (15 sets, daily range): BP systolic 83–168; BP diastolic 46–84; PULSE 93–135; RESP 14–24; TEMP 36.8–37.7; O2SAT 96–98; BMI 25.6; BMI 26.0
--- NOTE | 2021-06-17 02:55 | EDS_ITS ---
HPI HPI - Female History of Present Illness Chief Complaint: Complaint Informant: patient Narrative Narrative: Patient presents with urinary frequency. She states she woke up to urinate this morning. Commonly she gets up once. But she states she got up about 4 more times. This is not normal. She does not know if it was cloudy or malodorous. She is somewhat incontinent she usually urinates into a depends before she can get to the bathroom. She also about a set of chills/rigors at home. She does not know if she had a fever. Its not clear if she got diaphoretic. She denies chest pain shortness of breath or coughing. She denies any abdominal back or flank pain. She has chronic lower back pain but that is unchanged. Her sole complaint is urinary frequency and the set of chills. She is concerned that she had Covid. She had her first Materna vaccine approximately December. She did not get a second 1 because she got sick for 3 days after that. Nothing makes today's symptoms better or worse. Although her heart rate is fast she has no sensation of this. She states she does get very nervous when she is around doctors and hospitals. [facility] Medical History (Updated 06/17/21 @ 07:[address] Darrell Morse MD) Acid reflux Arthritis Back problem Breast cancer Cancer Cataracts, bilateral Chronic headaches DDD (degenerative disc disease), lumbar Diabetes Diarrhea H/O transfusion of whole blood High triglycerides History of type 1 diabetes mellitus HTN (hypertension) Hypercholesterolemia Hypothyroidism Kidney disease Lymphedema Segmental and somatic dysfunction of lumbar region Segmental and somatic dysfunction of pelvic region Segmental and somatic dysfunction of thoracic region Spinal stenosis Thyroid disease Home Medications ascorbic acid (vitamin C) 500 mg PO DAILY@0800 07/05/19 [History Last Taken Unknown] atorvastatin 40 mg PO QHS 07/05/19 [History Last Taken Unknown] baclofen 5 mg PO DAILY 07/05/19 [History Last Taken Unknown] calcium citrate-vitamin D3 1 ea PO DAILY 07/05/19 [History Last Taken Unknown] famotidine 40 mg PO DAILY 07/05/19 [History Last Taken 08/26/19] gabapentin 300 mg PO DAILY 07/05/19 [History Last Taken Unknown] metoprolol tartrate 25 mg PO BID 07/05/19 [History Last Taken 08/26/19] multivitamin with folic acid 1 tab PO DAILY 07/05/19 [History Last Taken Unknown] oxycodone-acetaminophen 5 mg-325 mg tablet 1 tab PO BID tab 12/02/19 [History Last Taken Unknown] polyethylene glycol 3350 17 gram/dose oral powder 17 g PO DAILY 05/03/20 [History Last Taken Unknown] glimepiride 2 mg tablet 1 mg PO QAM #45 tablet 01/11/21 [Rx Last Taken Unknown] levothyroxine 137 mcg tablet 137 mcg PO DAILY #90 tab 02/10/21 [Rx Last Taken Unknown] denosumab 60 mg/mL subcutaneous syringe 60 mg SUBCUT [id number] #1 ml 05/06/21 [Rx Last Taken Unknown] Allergy/AdvReac Type Severity Reaction Status Date / Time No Known Allergies Allergy Verified 06/17/21 02:42 Family History Grandfather CVA (cerebral vascular accident) Mother Hypertension Breast cancer Father Diabetes Heart disease Brother CVA (cerebral vascular accident) Diabetes Dementia Surgical History H/O mastectomy H/O tubal ligation History of cataract surgery History of hysterectomy Hx of section Hx of cholecystectomy Hx of colonoscopy Social History Smoking Status: Never smoker second hand exposure: No alcohol intake: never substance use type: does not use caffeine: Yes what type of physical activity do you participate in: none frequency: does not exercise ROS ROS ED Constitutional Constitutional ED: Reports chills, fever(s) and subjective Eyes Eyes: Denies change in vision ENT ENT ED: Denies rhinorrhea or sore throat Cardiovascular Cardiovascular: Denies chest pain, palpitations or racing heartbeat Respiratory/Chest Respiratory/Chest: Denies cough or dyspnea Gastrointestinal Gastrointestinal: Denies abdominal pain, diarrhea, nausea or vomiting Genitourinary Genitourinary ED: Reports urinary frequency; Denies dysuria or hematuria Musculoskeletal Musculoskeletal: Denies arthralgias or myalgias Integumentary Denies rash Neurologic Neurologic: Denies headache(s), paresthesias or weakness Psychiatric Psychiatric: Reports anxiety Hematologic/Lymphatic Hematologic/Lymphatic: Denies easy bruising Allergic/Immunologic Allergic/Immunologic ED: Denies urticaria EXAM Physical Exam Const Vital Signs: 06/17/21 02:39 06/17/21 02:43 06/17/21 04:49 Temperature 99.9 F H Temperature Source Oral Pulse Rate 135 H 115 H Respiratory Rate 16 24 H Respiratory Pattern Normal Blood Pressure 168/84 H 122/60 H Blood Pressure Mean 112 80 Pulse Ox 98 Oxygen Delivery Method Room Air 06/17/21 06:50 06/17/21 07:15 06/17/21 07:32 Temperature Temperature Source Pulse Rate 93 100 Respiratory Rate 18 18 18 Respiratory Pattern Blood Pressure 92/46 L 83/52 L 103/51 L Blood Pressure Mean 61 62 68 Pulse Ox 96 96 Oxygen Delivery Method Room Air Positive well nourished and well developed General Appearance ED: well developed and NAD HEENT Reports dry mucous membranes Negative for trauma or tenderness Mouth ED: Yes dry mucous membranes Mouth: dry mucous membranes Chest Wall inspection of chest normal Resp normal respiratory effort and clear to auscultation bilaterally Auscultation: Negative for rales, rhonchi or wheezes Cardio regular rhythm Rate: tachycardic GI normal to inspection, nondistended, normoactive bowel sounds, soft to palpation and non-tender no CVA tenderness Back/Spine no CVA tenderness Extremity General Extremety ED: Negative for tenderness Neuro oriented x3 Sensorium / Orientation: alert Psych mental status grossly normal Skin no rashes or lesions noted MDM MDM MDM Narrative Medical decision making narrative: Patient's blood work shows normal CBC. Electrolytes are overall unremarkable. Minimal elevation of glucose. Troponin is elevated at 101. Urine is clean. TSH was normal. Lactate was 2.0. I talk with the patient. She is not having chest pain. She just felt like she went to the bathroom multiple times and felt hot and did not feel right. It sounds like she may have had some rigors. Is very difficult to get all the specifics from her. I do not know if she was diaphoretic when she felt hot. I did do a D- dimer because she was so tachycardic. This was positive so I have added a CTA. We have given her aspirin. Her heart rate is now down to 115 then came down to about 108 with some fluids. She is on metoprolol so I was going to give her some but her heart rate is already coming down well. Patient's heart rate is about 100 now. Blood pressure is little bit down at about 100/54. She does feel better now. She again states that she had no chest pain or shortness of breath or any pulmonary or cardiac symptoms. She has no history of cardiac disease. She states sometimes her heart runs fast but does not know what rate that would be. She states her brother is does that even worse. She did see Dr. Deng for something in the past but does not recall what it was. Is also of her CTA. Her CTA shows trace pericardial effusion but this is tiny. I do not think in any way this is the cause of her symptoms. No PE. Patient has been very tachycardic. She lives with her . She was 100% sure when she took her metoprolol. We gave her a small dose because she was persistently tachycardic after fluids. Her blood pressure was great at that time. Her heart rate is now come down to about 100. But her blood pressure dropped to as low as about 89. Is now up to 108 when I was just in the room. She never had any symptoms of chest pain or dyspnea with this. This patient presented as though she could be infected. She had borderline elevated temperature but not actually a fever. She had what could have been rigors or could have been an episode of diaphoresis at home. Troponin is mildly elevated. Lactate is really just high normal. She does not have an elevated white count. She has not spiked a fever here. No sign of urine infection. She is not given antibiotics at this time. I discussed the case with hospitalist and she will be brought in to PCU. Lab Data Attestation: I reviewed the patient's lab results. Labs: Laboratory Results - last 24 hr 06/17/21 06/17/21 06/17/21 03:00 03:10 03:10 WBC 7.4 RBC 4.45 Hgb 14.8 Hct 42.5 MCV 95.5 MCH 33.3 H MCHC 34.8 RDW Std Deviation 46.8 H RDW Coeff of [place] 13.2 Plt Count 60 L MPV 8.9 Immature Gran % (Auto) 0.400 Neut % (Auto) 85.1 H Lymph % (Auto) 10.2 L [place] % (Auto) 3.5 Eos % (Auto) 0.7 Baso % (Auto) 0.1 Absolute Neuts (auto) 6.3 Absolute Lymphs (auto) 0.76 L Nucleated RBC % 0 D-Dimer Quant (PE/DVT) Sodium 136 Potassium 4.2 Chloride 99 Carbon Dioxide 30.0 Anion Gap 7 BUN 14 Creatinine 0.77 Estim Creat Clear Calc 38.10 Est GFR (MDRD) Af Amer 93 Est GFR (MDRD) Non-Af 77 BUN/Creatinine Ratio 18.3 Glucose 166 H Lactic Acid Calcium 8.9 Troponin I High Sens 101 H TSH Urine Color Yellow Urine Clarity Clear Urine pH 6.0 Ur Specific [place] 1.015 Urine Protein 15 H Urine Glucose (UA) Normal Urine Ketones Negative Urine Occult Blood 25 H Urine Nitrite Negative Urine Bilirubin Negative Urine Urobilinogen Normal Ur Leukocyte Esterase Negative Urine RBC 0-5 SEEN Urine WBC 0 SEEN Ur Squamous Epith Cells 0 SEEN Urine Bacteria 0 SEEN Urine Mucus 0 SEEN 06/17/21 06/17/21 06/17/21 03:10 03:10 04:38 WBC RBC Hgb Hct MCV MCH MCHC RDW Std Deviation RDW Coeff of [place] Plt Count MPV Immature Gran % (Auto) Neut % (Auto) Lymph % (Auto) [place] % (Auto) Eos % (Auto) Baso % (Auto) Absolute Neuts (auto) Absolute Lymphs (auto) Nucleated RBC % D-Dimer Quant (PE/DVT) 1.82 H* Sodium Potassium Chloride Carbon Dioxide Anion Gap BUN Creatinine Estim Creat Clear Calc Est GFR (MDRD) Af Amer Est GFR (MDRD) Non-Af BUN/Creatinine Ratio Glucose Lactic Acid 2.0 Calcium Troponin I High Sens TSH 0.89 Urine Color Urine Clarity Urine pH Ur Specific [place] Urine Protein Urine Glucose (UA) Urine Ketones Urine Occult Blood Urine Nitrite Urine Bilirubin Urine Urobilinogen Ur Leukocyte Esterase Urine RBC Urine WBC Ur Squamous Epith Cells Urine Bacteria Urine Mucus Radiography Diagnostic Testing: Radiology Impression Chest X-Ray 06/17/21 03:15 IMPRESSION: Mild cardiomegaly. Evidence of prior granulomatous disease. Electronically Signed: Lucia Dorsey MD at 4:52 EDT Tel , Service support , Chest CTA 06/17/21 05:12 IMPRESSION: No pulmonary embolism. There is a pulmonary nodule within the left upper lobe. There is a pulmonary nodule right lower lobe that has a spiculated border. Although these may represent sequelae of prior inflammatory change, metastatic disease should be excluded. There is nonspecific mediastinal lymphadenopathy Small pericardial effusion Cardiomegaly. Aberrant right subclavian artery. Atherosclerotic disease of the aorta with nonaneurysmal dilatation of the suprarenal aorta. There is kyphosis. There is chronic loss of height and kyphoplasty at the level of T10-T11. A comparison to a prior study would be helpful. With angulation and wedging at the level of T10. Electronically Signed: Lucia Dorsey MD at 7:31 EDT Tel , Service support , Discharge Plan Dx/Rx/DC Orders Clinical Impression: Elevated troponin, Tachycardia, Transient hypotension Disposition Disposition: Acute Care Hospital [facility]
[2021-06-17 03:06] LABS: Bacteria 0 SEEN /hpf (None Seen); Mucous, Urine 0 SEEN /hpf (<or=2+); Squamous Epithelial Cells - UA 0 SEEN /hpf (5-10); White Blood Cells 0 SEEN /hpf (0-5)
[2021-06-17 03:10] LABS: Color, Urine Yellow (Yellow); Glucose, Dipstick Normal (Normal); Ketone-Dipstick Negative (Negative); Leukocyte Esterase-Dipstick Negative /ul (Negative); Nitrite-Dipstick Negative (Negative); Occult Blood-Urine 25 /ul (Negative); Protein-Dipstick 15 mg/dl (Negative); Specific Gravity, Urine 1.015 (1.002-1.030); Urine Bilirubin Dipstick Negative (Negative); Urine Clarity Clear (Clear); Urine Urobilinogen Normal (Normal)
--- NOTE | 2021-06-17 03:15 | RAD_ITS ---
STUDY: X-RAY CHEST REASON FOR EXAM: Female, 81 years old. Fever TECHNIQUE: Single AP portable view of the chest. COMPARISON: April 09, 2020 chest x-ray FINDINGS: The patient rotated minimally towards the left. Postoperative changes in the left axilla left chest wall. There is no demonstrated pleural abnormality. There is mild cardiac enlargement. There are calcified mediastinal lymph nodes. Normal visualized pulmonary arteries. There is atherosclerotic calcification of the aortic arch with tortuosity. There are diffuse degenerative changes of the visualized thoracic spine. Normal visualized ribs, clavicles, and shoulders. There is no demonstrated abnormality of the visualized soft tissue structures of the upper abdomen. RAD/Chest 1 View (Portable) IMPRESSION: Mild cardiomegaly. Evidence of prior granulomatous disease. Electronically Signed: Lucia Dorsey MD at 4:52 EDT Tel , Service support ,
[2021-06-17 03:22] LABS: Red Blood Cells-Urine 0-5 SEEN /hpf (0-5)
[2021-06-17 03:27] LABS: Absolute Lymphocyte Count 0.76 X10^3/uL (0.83-4.51); Absolute Neutrophil Count 6.3 X10^3/uL (2.0-7.7); Basophil# 0.01 X10^3/uL; Basophil% 0.1 % (0-1); Eosinophil# 0.05 X10^3/uL; Eosinophils% 0.7 % (0-5); Hematocrit 42.5 % (37-47); Hemoglobin 14.8 g/dL (12.0-15.0); Lymphocyte # 0.76 X10^3/ul (0.83-4.51); Lymphocyte % 10.2 % (19-41); Mean Corp Hgb Conc 34.8 g/dL (32-36); Mean Corpuscular Hgb 33.3 pg (27.0-32.0); Mean Corpuscular Volume 95.5 fL (81-99); Mean Platelet Vol. 8.9 fl (6.2-12.0); Monocyte# 0.26 X10^3/uL; Monocyte% 3.5 % (0-10); NRBC Flagged by Analyzer 0 % (0-5); Neutrophil # 6.31 X10^3/uL (2.7-7.7); Neutrophil % 85.1 % (47-70); POSITIVE COUNT YES; Platelet Count 60 K/mm3 (150-450); RBC Distribution Width CV 13.2 % (11.6-14.6); RBC Distribution Width SD 46.8 fl (35.1-43.9); Red Blood Count 4.45 M/mm3 (4.2-5.4); White Blood Count 7.4 K/mm3 (4.4-11.0)
[2021-06-17 03:48] LABS: Anion Gap 7 (5-15); BUN 14 mg/dL (7-18); BUN/Creat Ratio 18.3 RATIO (10-20); Calcium,Total 8.9 mg/dL (8.5-10.1); Chloride 99 mmol/L (98-107); Creatinine, Serum 0.77 mg/dL (0.55-1.02); EST Glomerular Filtration Rate 77 mL/min (>60); Est Glom Filt Rate - Afr Amer 93 mL/min (>60); Glucose 166 mg/dL (74-106); Potassium 4.2 mmol/L (3.5-5.1); Sodium Level 136 mmol/L (136-145); Troponin-I HS 101 pg/mL (3.0-54.0)
--- NOTE | 2021-06-17 03:52 | EKG12_ITS ---
Test Reason : TACHYCARDIA Blood Pressure : / mmHG Vent. Rate : 129 BPM Atrial Rate : 129 BPM P-R Int : 160 ms QRS Dur : 104 ms QT Int : 308 ms P-R-T Axes : 038 -44 108 degrees QTc Int : 451 ms Sinus tachycardia Left axis deviation Left ventricular hypertrophy with repolarization abnormality Abnormal ECG Confirmed by CORI DELGADO, ELEN ([id number]), magazine editor MONIQUE TERESA ([id number]) on 06/21/2021 8:36:50 AM Referred By: PL Confirmed By:MARISA PERSAUD MD
[2021-06-17] MEDS: Aspirin 81 MG TAB.CHEW 324 MG PO (04:26)
[2021-06-17 04:47] LABS: Thyroid Stim Hormone (TSH) 0.89 uIU/mL (0.358-3.74)
[2021-06-17] MEDS: Metoprolol Tartrate 5 MG/5 ML Vial IV (04:52)
[2021-06-17 05:06] LABS: D-Dimer Quantitative (DVT/PE) 1.82 FEU/ug/m (0.27-0.49)
--- NOTE | 2021-06-17 05:12 | CT_ITS ---
STUDY: CTA CHEST REASON FOR EXAM: Female, 81 years old. Tachycardia elevated d-dimer -- ?PE RADIATION DOSAGE (If Supplied By Facility): CTDIvol = ( 12.71 ) mGy, DLP = ( 343.57 ) mGycm TECHNIQUE: The examination was performed with the intravenous administration of IV 75mL [id number]-370. Post-processing of the angiographic images was performed, with multiplanar reformation and 3D reconstruction. Individualized dose optimization techniques were used for this CT. COMPARISON: May 09, 2020 chest x-ray FINDINGS: Normal enhancement of the main pulmonary artery and right and left pulmonary arteries. Normal enhancement of the bilateral peripheral pulmonary arteries. There is no demonstrated pulmonary embolism. There is an aberrant right subclavian artery. There is a common takeoff of the bilateral carotid arteries. Aorta is tortuous and partially calcified is no dissection. There is mild to moderate cardiac enlargement. There are coronary calcifications. There is a small pericardial effusion. There is a lymph node measuring 1.2 and 0.7 cm in the precarinal space. Normal hilar regions. Normal visualized trachea and bronchi. There is increased AP diameter of the chest. There is severe kyphosis which is centered at the level of T11 where there is been severe loss of height and kyphoplasty material. There is a loss of height at the level of T10 is well. There is angulation. Within the anterior aspect of the left upper lobe there is a small nodule measuring 6.7 x 5.3 mm. There is a small focus of lingular atelectasis. There is a spiculated nodule within the right lower lobe measuring 7.5 x 6.7 mm. There is minimal left lower lobe atelectasis. Normal pleura. Normal chest wall structures. The bones are osteopenic. There is multilevel degenerative change. There is kyphosis centered at an abnormal focus of kyphoplasty severe loss of height at T11 and T10. The aorta at the hiatus measures 3 x 2.4 cm. Is mild bilateral left greater than right perinephric stranding that is partially visualized cyst in the right kidney measuring 1.[address]/CTA Chest W/WO Contrast IMPRESSION: No pulmonary embolism. There is a pulmonary nodule within the left upper lobe. There is a pulmonary nodule right lower lobe that has a spiculated border. Although these may represent sequelae of prior inflammatory change, metastatic disease should be excluded. There is nonspecific mediastinal lymphadenopathy Small pericardial effusion Cardiomegaly. Aberrant right subclavian artery. Atherosclerotic disease of the aorta with nonaneurysmal dilatation of the suprarenal aorta. There is kyphosis. There is chronic loss of height and kyphoplasty at the level of T10-T11. A comparison to a prior study would be helpful. With angulation and wedging at the level of T10. Electronically Signed: Lucia Dorsey MD at 7:31 EDT Tel , Service support ,
--- NOTE | 2021-06-17 07:14 | ED.RN ---
this rn assumes care. bp low. pt checked .vital checked. dr aware bp 83/42. fluids ordered and i nitiated
[2021-06-17 07:21] LABS: Reflex Lactate? Y
--- NOTE | 2021-06-17 08:02 | PCM.HP.STD ---
HPI - General HPI Narrative TORY LY, is a 81 F who presents with rigors. Woke her this morning. With the restroom to urinate and will back to bed still having rigors. Just was feeling unwell and EMS was contacted. Patient was noted to be in sinus tachycardia when she arrived did receive dose of IV metoprolol which dropped her blood pressure. Patient did receive fluids. Patient just feels unwell. She denies any chest pain or any palpitations. No shortness of breath. Patient has only been partially vaccinated for COVID-19 as she felt ill after getting the first dose of 1 during a vaccine. She denies any contact with anyone COVID-19. The hospital service was contacted because of elevated troponins and her other symptoms. The remainder of her work-up was unremarkable. [facility]LY [facility] Medical History Acid reflux Arthritis Back problem Breast cancer Cancer Cataracts, bilateral Chronic headaches DDD (degenerative disc disease), lumbar Diabetes Diarrhea H/O transfusion of whole blood High triglycerides History of type 1 diabetes mellitus HTN (hypertension) Hypercholesterolemia Hypothyroidism Kidney disease Lymphedema Segmental and somatic dysfunction of lumbar region Segmental and somatic dysfunction of pelvic region Segmental and somatic dysfunction of thoracic region Spinal stenosis Thyroid disease Home Medications ascorbic acid (vitamin C) 500 mg PO DAILY@0800 07/05/19 [History Last Taken Unknown] atorvastatin 40 mg PO QHS 07/05/19 [History Last Taken Unknown] baclofen 5 mg PO DAILY 07/05/19 [History Last Taken Unknown] calcium citrate-vitamin D3 1 ea PO DAILY 07/05/19 [History Last Taken Unknown] famotidine 40 mg PO DAILY 07/05/19 [History Last Taken 08/26/19] gabapentin 300 mg PO DAILY 07/05/19 [History Last Taken Unknown] metoprolol tartrate 25 mg PO BID 07/05/19 [History Last Taken 08/26/19] multivitamin with folic acid 1 tab PO DAILY 07/05/19 [History Last Taken Unknown] oxycodone-acetaminophen 5 mg-325 mg tablet 1 tab PO BID tab 12/02/19 [History Last Taken Unknown] polyethylene glycol 3350 17 gram/dose oral powder 17 g PO DAILY 05/03/20 [History Last Taken Unknown] glimepiride 2 mg tablet 1 mg PO QAM #45 tablet 01/11/21 [Rx Last Taken Unknown] levothyroxine 137 mcg tablet 137 mcg PO DAILY #90 tab 02/10/21 [Rx Last Taken Unknown] denosumab 60 mg/mL subcutaneous syringe 60 mg SUBCUT [id number] #1 ml 05/06/21 [Rx Last Taken Unknown] Allergy/AdvReac Type Severity Reaction Status Date / Time No Known Allergies Allergy Verified 06/17/21 02:42 Family History Grandfather CVA (cerebral vascular accident) Mother Hypertension Breast cancer Father Diabetes Heart disease Brother CVA (cerebral vascular accident) Diabetes Dementia Surgical History H/O mastectomy H/O tubal ligation History of cataract surgery History of hysterectomy Hx of section Hx of cholecystectomy Hx of colonoscopy Social History Smoking Status: Never smoker second hand exposure: No alcohol intake: never substance use type: does not use caffeine: Yes what type of physical activity do you participate in: none frequency: does not exercise ROS ROS Narrative Does have a chronic lower extremity edema which she wraps occasionally. States that usually gets better at night. Is been no other acute changes associated with that. Denies any anosmia nor dysgeusia. Denies any contacts with COVID-19 that she is aware of. All review of systems were negative except as mentioned above in the history of present illness and the other review of systems. . Vital Signs Vital Signs Vital Signs: 06/17/21 02:39 06/17/21 02:43 06/17/21 04:49 Temperature 37.7 C H Temperature Source Oral Pulse Rate 135 H 115 H Respiratory Rate 16 24 H Respiratory Pattern Normal Blood Pressure 168/84 H 122/60 H Blood Pressure Mean 112 80 Pulse Ox 98 Oxygen Delivery Method Room Air 06/17/21 06:50 06/17/21 07:15 06/17/21 07:32 Temperature Temperature Source Pulse Rate 93 100 Respiratory Rate 18 18 18 Respiratory Pattern Blood Pressure 92/46 L 83/52 L 103/51 L Blood Pressure Mean 61 62 68 Pulse Ox 96 96 Oxygen Delivery Method Room Air Weight Weight: 67.8 kg Body Mass Index (BMI) 25.6 Physical Exam Const alert Constitutional Narrative: Hard of hearing. Afebrile. General Appearance: cooperative HEENT normocephalic and head/scalp atraumatic Eyes Eyes Narrative: No scleral icterus Neck no lymphadenopathy Resp normal respiratory effort, no retractions and no use of accessory muscles Cardio regular rate, regular rhythm, S1 normal heart sound and S2 normal heart sound GI normal to inspection, nondistended, normoactive bowel sounds, soft to palpation, non-tender and non-distended Extremity Extremity Narrative: Bilateral lower extremity edema Skin Skin Narrative: Venous stasis dermatitis to the lower extremities on anterior shins. No evidence of any cellulitis. Neuro Sensorium / Orientation: awake and alert Results Medical Records Data Attestation: I reviewed the patient's medical records Lab / Micro Data Result Diagrams: 06/17/21 03:10 06/17/21 03:10 Labs: Laboratory Results - last 24 hr 06/17/21 03:00: Urine Color Yellow, Urine Clarity Clear, Urine pH 6.0, Ur Specific [place] 1.015, Urine Protein 15 H, Urine Glucose (UA) Normal, Urine Ketones Negative, Urine Occult Blood 25 H, Urine Nitrite Negative, Urine Bilirubin Negative, Urine Urobilinogen Normal, Ur Leukocyte Esterase Negative, Urine RBC 0-5 SEEN, Urine WBC 0 SEEN, Ur Squamous Epith Cells 0 SEEN, Urine Bacteria 0 SEEN, Urine Mucus 0 SEEN 06/17/21 03:10: WBC 7.4, RBC 4.45, Hgb 14.8, Hct 42.5, MCV 95.5, MCH 33.3 H, MCHC 34.8, RDW Std Deviation 46.8 H, RDW Coeff of [place] 13.2, Plt Count 60 L, MPV 8.9, Immature Gran % (Auto) 0.400, Neut % (Auto) 85.1 H, Lymph % (Auto) 10.2 L, Green % (Auto) 3.5, Eos % (Auto) 0.7, Baso % (Auto) 0.1, Absolute Neuts (auto) 6.3, Absolute Lymphs (auto) 0.76 L, Nucleated RBC % 0 06/17/21 03:10: Sodium 136, Potassium 4.2, Chloride 99, Carbon Dioxide 30.0, Anion Gap 7, BUN 14, Creatinine 0.77, Estim Creat Clear Calc 38.10, Est GFR (MDRD) Af Amer 93, Est GFR (MDRD) Non-Af 77, BUN/Creatinine Ratio 18.3, Glucose 166 H, Calcium 8.9, Troponin I High Sens 101 H 06/17/21 03:10: Lactic Acid 2.0 06/17/21 03:10: TSH 0.89 06/17/21 04:38: D-Dimer Quant (PE/DVT) 1.82 H* Micro: Microbiology 06/17/21 03:00 Nasal Secretion SARS-CoV-2 Antigen (Rapid) - Final EKG Initial EKG: Attestation: I personally reviewed and interpreted this EKG as follows: Prior EKG tracings: available for review EKG Rhythm Intrepretation: Sinus Tachycardia (LVH. No acute changes other than tachycardia from May 09, 2020.) Radiology Impression Chest X-Ray 06/17/21 03:15 IMPRESSION: Mild cardiomegaly. Evidence of prior granulomatous disease. Electronically Signed: Lucia Dorsey MD at 4:52 EDT Tel , Service support , Chest CTA 06/17/21 05:12 IMPRESSION: No pulmonary embolism. There is a pulmonary nodule within the left upper lobe. There is a pulmonary nodule right lower lobe that has a spiculated border. Although these may represent sequelae of prior inflammatory change, metastatic disease should be excluded. There is nonspecific mediastinal lymphadenopathy Small pericardial effusion Cardiomegaly. Aberrant right subclavian artery. Atherosclerotic disease of the aorta with nonaneurysmal dilatation of the suprarenal aorta. There is kyphosis. There is chronic loss of height and kyphoplasty at the level of T10-T11. A comparison to a prior study would be helpful. With angulation and wedging at the level of T10. Electronically Signed: Lucia Dorsey MD at 7:31 EDT Tel , Service support , Assessment & Plan Assessment/Plan (1) Elevated troponin: (2) Tachycardia: (3) Transient hypotension: PLAN: 1. Elevated troponins We will continue to cycle. Unclear significance at this time. We will perform a stress test as well as echocardiogram Given the patient's chronic thrombocytopenia that may be prohibitive for antiplatelet medications if she does have ACS or a non-ST elevation myocardial infarction 2. Tachycardia Unclear significance. Patient did receive IV metoprolol in the emergency room which did seem to help. Continue to monitor and work-up as above No evidence of infection at this time 3. Transient hypotension Likely iatrogenic from IV metoprolol Continue to monitor 4. Diabetes mellitus type 2 Continue with glyburide Sliding scale insulin 5. VTE prophylaxis: Not indicated at this time 6. CODE STATUS: Discussed with patient. Patient wished to be full CODE STATUS. 7. COVID-19 vaccine discussion: Patient is only partially vaccinated. Explained the patient given her age and other comorbidities as she is high risk for significant morbility mobility or even mortality with COVID-19 and advised that she get the second dose of her Moderna. 8. Thrombocytopenia: Appears chronic though lower than baseline. Continue to monitor. Charges/Coding Visit Charges OBSV E&M: 63013 Initial observation care L3
[2021-06-17 08:06] LABS: Lactic Acid 2.1 mmol/L (0.4-1.9)
--- NOTE | 2021-06-17 08:06 | NURSING ---
call from lab, Lactic acid 2.1. Dr. Morse made aware.
--- NOTE | 2021-06-17 09:16 | ECHOD_ITS ---
Reason For Study: EDEMA, TACHYCARDIA Procedure This was a 2D Doppler, Color Flow transthoracic echocardiogram. Exam performed portable in patient room. Left Ventricle Normal LV size. The estimated ejection fraction is 55 %. Unable to assess diastolic dysfunction. No regional wall motion abnormalities noted. Right Ventricle Normal RV size. Normal systolic function. Atria The left atrium is moderately enlarged. Normal right atrium. No doppler evidence for ASD. Mitral Valve Bileaflet diffuse mitral valve thickening. There is moderate mitral annular calcification. Moderate mitral valve stenosis. Mild (1+) mitral valve insufficiency. Tricuspid Valve No significant tricuspid stenosis. Trivial tricuspid valve insufficiency. Pulmonary artery systolic pressure is 30 mmHg. Aortic Valve Trisinus/trileaflet aortic valve. Moderate diffuse aortic valve thickening. Mild aortic stenosis. No aortic valve insufficiency. Pulmonic Valve There is no pulmonic valvular stenosis. Trivial pulmonic valve insufficiency. Great Vessels Normal aortic root. Pericardium/Pleural Small pericardial effusion. MMode/2D Measurements & Calculations LVIDd: 4.7 cm IVSd: 1.1 cm LVOT diam: 2.0 cm LVIDs: 3.4 cm LVPWd: 1.1 cm LVOT area: 3.0 cm2 RVDd: 3.5 cm FS: 27.9 % Ao root diam: 3.4 cm LAV(MOD-bp): 82.1 ml LVAd ap4: 28.5 cm2 LAV(MOD-bp) Indexed: 48.0 ml/m2 LVLd ap4: 7.4 cm LAV(MOD-sp2): 81.1 ml EDV(MOD-sp4): 89.0 ml LAV(MOD-sp4): 80.0 ml EDV(sp4-el): 92.9 ml LVAs ap4: 17.2 cm2 LVLs ap4: 6.1 cm ESV(MOD-sp4): 41.2 ml ESV(sp4-el): 40.8 ml EF(MOD-sp4): 53.8 % EF(sp4-el): 56.1 % LVAd ap2: 31.7 cm2 SV(MOD-sp4): 47.9 ml SV(MOD-sp2): 48.1 ml LVLd ap2: 8.0 cm EDV(MOD-sp2): 101.4 ml EDV(sp2-el): 105.9 ml LVAs ap2: 20.7 cm2 LVLs ap2: 6.7 cm ESV(MOD-sp2): 53.4 ml ESV(sp2-el): 54.5 ml EF(MOD-sp2): 47.4 % SV(sp4-el): 52.1 ml Aortic Valve Planimetry: 2.1 cm2 LA A4 area: 24.3 cm2 LA dimension(2D): 4.9 cm RA A4 area: 17.7 cm2 Time Measurements MV dec time: 0.36 sec Doppler Measurements & Calculations MV E max mack: 136.0 cm/sec Lat Peak E' Mack: 5.4 cm/sec Med Peak E' Mack: 3.2 cm/sec MV A max mack: 194.2 cm/sec E/E' lat: 25.1 E/E' med: 43.0 MV E/A: 0.70 MV V2 max: 204.6 cm/sec Ao V2 max: 173.9 cm/sec PA V2 max: 100.9 cm/sec MV max P.8 mmHg Ao max P.1 mmHg MV V2 mean: 132.2 cm/sec Ao V2 mean: 122.8 cm/sec MV mean P.8 mmHg Ao mean P.7 mmHg MV V2 VTI: 43.9 cm Ao V2 VTI: 31.5 cm PI end-d mack: 124.4 cm/sec TR max mack: 245.8 cm/sec MV P1/2t-pr_phl: 154.5 msec TR max P.2 mmHg ECHO/Echo Complete Interpretation Summary The estimated ejection fraction is 55 %. Unable to assess diastolic dysfunction. Bileaflet diffuse mitral valve thickening. Moderate mitral valve stenosis. Mild (1+) mitral valve insufficiency. Moderate diffuse aortic valve thickening. Mild aortic stenosis. Small pericardial effusion. Ordering Physician: Christian Salcedo Referring Physician: DANIELLE GONZALEZ Performed By: Nikia Rivera, RDCS, RVT
--- NOTE | 2021-06-17 09:16 | EKG12_ITS ---
Test Reason : Blood Pressure : / mmHG Vent. Rate : 094 BPM Atrial Rate : 094 BPM P-R Int : 172 ms QRS Dur : 108 ms QT Int : 374 ms P-R-T Axes : 043 -44 -18 degrees QTc Int : 467 ms Normal sinus rhythm Left axis deviation Voltage criteria for left ventricular hypertrophy Poor R wave progression Abnormal ECG Confirmed by MOUNIKA DELGADO, FREDRICK ([id number]), automobile salesman MONIQUE TERESA ([id number]) on 06/22/2021 9:35:02 AM Referred By: STEPHENIE Confirmed By:FREDRICK RIBERA MD
--- NOTE | 2021-06-17 09:17 | PCS.PANDOC ---
PANDEMIC DOCUMENTATION INITIATED: Date: 06/17/2021 Time: 916
[2021-06-17 10:03] LABS: Troponin-I HS 328 pg/mL (3.0-54.0)
[2021-06-17] MEDS: Calcium Carb/Vitamin D 1 TABLET Tablet PO (10:21)
[2021-06-17] MEDS: oxyCODONE 5 MG Tablet PO ×2 (10:21→20:06)
[2021-06-17] MEDS: Gabapentin 300 MG Capsule PO (10:21)
[2021-06-17] MEDS: Metoprolol Tartrate 25 MG Tablet PO ×2 (10:21→20:06)
[2021-06-17] MEDS: Polyethylene Glycol 3350 17 GM PACKET PO (10:21)
[2021-06-17] MEDS: Ascorbic Acid 500 MG Tablet PO (10:22)
[2021-06-17] MEDS: Multivitamins,Ther W-Minerals Tablet 1 TABLET PO (10:22)
[2021-06-17] MEDS: Famotidine 20 MG Tablet 40 MG PO (10:22)
[2021-06-17] MEDS: Baclofen 10 MG Tablet 5 MG PO (10:22)
[2021-06-17] MEDS: Glimepiride 1 MG Tablet PO (10:22)
[2021-06-17] MEDS: Levothyroxine 137 MCG Tablet PO (10:25)
[2021-06-17 10:35] LABS: Bedside Glucose 108 mg/dL (70-110)
[2021-06-17 12:02] LABS: Troponin-I HS 328 pg/mL (3.0-54.0)
--- NOTE | 2021-06-17 13:55 | PCM.CONS.C ---
Assessment & Plan Assessment/Plan (1) Elevated troponin: PLAN: The significance of her elevated troponin is unclear. Her echocardiogram showed a normal ejection fraction and no regional wall motion abnormalities. She denies chest pain or shortness of breath suggestive of angina. She states he has been active at home without symptoms prior to today. At this time, we will continue medical management with beta-andrew and statin medication. We will continue to monitor. We will continue to follow on an outpatient basis and can reconsider stress test or other testing as indicated. (2) Thrombocytopenia: PLAN: Because of her reduced platelet count, we will avoid aspirin at this time as well as not proceed with heart catheterization to assess abnormal troponin. She may benefit from outpatient hematology/oncology evaluation to assess chronically low platelets as well as CTA findings noting pulmonary nodule. (3) HTN (hypertension): QUALIFIERS: Hypertension type: unspecified Qualified Code(s): I10 - Essential (primary) hypertension PLAN: Her blood pressure has fluctuated but more recently has been well controlled. She will continue current medical therapy with metoprolol. (4) Hypercholesterolemia: PLAN: She will continue statin medication, atorvastatin 40 mg p.o. nightly. (5) Bilateral lower extremity edema: PLAN: She does acknowledge bilateral lower extreme edema that appears chronic for at least 1 year. She states previously this was felt to be lymphedema related. She denies any shortness of breath and her lung govea are clear on examination. Given her exam findings and lower blood pressure, we will not initiate diuretic therapy, but this too can be reconsidered on an outpatient basis. (6) Nonrheumatic mitral valve stenosis with insufficiency: PLAN: Her echocardiogram today showed an ejection fraction of 55% with moderate mitral valve stenosis and mild mitral valve insufficiency. At this time, she will continue beta-andrew therapy. We will adjust medications over time and consider diuretic therapy as indicated. It is encouraging that she is active without exertional symptoms. (7) Nonrheumatic aortic (valve) stenosis: PLAN: Her echocardiogram today showed mild aortic valve stenosis. She will continue current medical therapy and we will continue to follow on outpatient basis with repeat echocardiograms as needed. 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 Her initial troponin was elevated at 101. She was noted to be tachycardic with sinus tachycardia. She received IV metoprolol and subsequently had lower blood pressure. Her D-dimer was elevated. She proceeded with a chest CTA that was negative for pulmonary embolism and showed trace pericardial effusion. Her white blood cell count was normal and her platelet count was low at 60,000. She was admitted for further evaluation. Her second troponin was noted be elevated at 328 and her third troponin was also noted be elevated at 328. Originally, she was going to undergo a stress test, but this was canceled on account of increased troponin. Cardiology was consulted for input. [facility] Medical History (Updated 06/17/21 @ 14:12 by Yogesh Dawkins NP, CARDIOLOGY TEACHER-C) Acid reflux Arthritis Back problem Breast cancer Cancer Cataracts, bilateral Chronic headaches DDD (degenerative disc disease), lumbar Diabetes Diarrhea H/O transfusion of whole blood High triglycerides History of type 1 diabetes mellitus HTN (hypertension) Hypercholesterolemia Hypothyroidism Kidney disease Lymphedema Segmental and somatic dysfunction of lumbar region Segmental and somatic dysfunction of pelvic region Segmental and somatic dysfunction of thoracic region Spinal stenosis Thyroid disease Home Medications ascorbic acid (vitamin C) 500 mg PO DAILY@0800 07/05/19 [History Last Taken Unknown] atorvastatin 40 mg PO QHS 07/05/19 [History Last Taken Unknown] baclofen 5 mg PO DAILY 07/05/19 [History Last Taken Unknown] calcium citrate-vitamin D3 1 ea PO DAILY 07/05/19 [History Last Taken Unknown] famotidine 40 mg PO DAILY 07/05/19 [History Last Taken 08/26/19] gabapentin 300 mg PO DAILY 07/05/19 [History Last Taken Unknown] metoprolol tartrate 25 mg PO BID 07/05/19 [History Last Taken 08/26/19] multivitamin with folic acid 1 tab PO DAILY 07/05/19 [History Last Taken Unknown] oxycodone-acetaminophen 5 mg-325 mg tablet 1 tab PO BID tab 12/02/19 [History Last Taken Unknown] polyethylene glycol 3350 17 gram/dose oral powder 17 g PO DAILY 05/03/20 [History Last Taken Unknown] glimepiride 2 mg tablet 1 mg PO QAM #45 tablet 01/11/21 [Rx Last Taken Unknown] levothyroxine 137 mcg tablet 137 mcg PO DAILY #90 tab 02/10/21 [Rx Last Taken Unknown] denosumab 60 mg/mL subcutaneous syringe 60 mg SUBCUT [id number] #1 ml 05/06/21 [Rx Last Taken Unknown] Allergy/AdvReac Type Severity Reaction Status Date / Time No Known Allergies Allergy Verified 06/17/21 02:42 Family History Grandfather CVA (cerebral vascular accident) Mother Hypertension Breast cancer Father Diabetes Heart disease Brother CVA (cerebral vascular accident) Diabetes Dementia Surgical History H/O mastectomy H/O tubal ligation History of cataract surgery History of hysterectomy Hx of section Hx of cholecystectomy Hx of colonoscopy Social History Smoking Status: Never smoker second hand exposure: No alcohol intake: never substance use type: does not use caffeine: Yes what type of physical activity do you participate in: none frequency: does not exercise ROS Constitutional Constitutional: Reports chills; Denies fatigue or lethargy Eyes Eyes: Reports none ENT HEENT: Reports none Cardiovascular Cardiovascular: Reports edema and leg edema; Denies chest pain, chest pain at rest, chest pain with activity, claudication, diaphoresis, dizziness, dyspnea, dyspnea at rest, dyspnea on exertion, easily tiring during activity, fatigue, flutter in chest, irregular heart rhythm, lightheadedness, nausea, orthopnea, paroxysmal nocturnal dyspnea, rapid heart rate, slow heart rate or syncope Respiratory/Chest Respiratory/Chest: Denies chest tightness, cough, dyspnea, dyspnea on exertion, shortness of breath at rest or shortness of breath with exertion Gastrointestinal Gastrointestinal: Reports none Musculoskeletal Musculoskeletal: Reports none Integumentary Integumentary: Reports none Neurologic Neurologic: Reports none Psychiatric Psychiatric: Reports none Endocrine Endocrinology: Reports none Physical Exam Narrative Patient examined in room. She does appear somewhat lethargic, but answers all questions appropriately. Const alert, oriented x3 and no apparent distress Orientation / Consciousness: awake HEENT normocephalic Neck no JVD Carotids: normal carotid upstroke; Negative for bruit Lymph Lymphatic: lymphedema Chest inspection of chest normal Resp normal respiratory effort and clear to auscultation bilaterally Cardio regular rate, S2 normal heart sound, no rub, no gallops and peripheral pulses 2+ throughout; Negative for no murmurs Jugular Venous Distention: Negative for JVD Heart Sounds: murmur systolic II/ soft left sternal border Peripheral Pulses: pulses 2+ throughout Back/Spine Back/Spine Narrative: Kyphosis Extremity normal to inspection Neuro oriented x3 and moves all extremities Psych mental status grossly normal Objective Data Vital Signs: Vital Signs Temp Pulse Resp BP Pulse Ox 99.3 F H 102 H 18 116/48 L 98 06/17/21 09:25 06/17/21 10:38 06/17/21 09:25 06/17/21 10:21 06/17/21 10:00 Oxygen Delivery Method Room Air Weight: 147 lb 0.773 oz Body Mass Index (BMI) 26.0 Intake & Output: Intake and Output for Last 24 Hours 06/15/21 06/16/21 06/17/21 23:59 23:59 23:59 Intake Total 1500 / 1500 Balance 1500 / 1500 Lab / Micro Data Result Diagrams: 06/17/21 03:10 06/17/21 03:10 Labs: Laboratory Results - last 24 hr 06/17/21 03:00: Urine Color Yellow, Urine Clarity Clear, Urine pH 6.0, Ur Specific Jones 1.015, Urine Protein 15 H, Urine Glucose (UA) Normal, Urine Ketones Negative, Urine Occult Blood 25 H, Urine Nitrite Negative, Urine Bilirubin Negative, Urine Urobilinogen Normal, Ur Leukocyte Esterase Negative, Urine RBC 0-5 SEEN, Urine WBC 0 SEEN, Ur Squamous Epith Cells 0 SEEN, Urine Bacteria 0 SEEN, Urine Mucus 0 SEEN 06/17/21 03:10: WBC 7.4, RBC 4.45, Hgb 14.8, Hct 42.5, MCV 95.5, MCH 33.3 H, MCHC 34.8, RDW Std Deviation 46.8 H, RDW Coeff of [place] 13.2, Plt Count 60 L, MPV 8.9, Immature Gran % (Auto) 0.400, Neut % (Auto) 85.1 H, Lymph % (Auto) 10.2 L, [place] % (Auto) 3.5, Eos % (Auto) 0.7, Baso % (Auto) 0.1, Absolute Neuts (auto) 6.3, Absolute Lymphs (auto) 0.76 L, Nucleated RBC % 0 06/17/21 03:10: Sodium 136, Potassium 4.2, Chloride 99, Carbon Dioxide 30.0, Anion Gap 7, BUN 14, Creatinine 0.77, Estim Creat Clear Calc 38.10, Est GFR (MDRD) Af Amer 93, Est GFR (MDRD) Non-Af 77, BUN/Creatinine Ratio 18.3, Glucose 166 H, Calcium 8.9, Troponin I High Sens 101 H 06/17/21 03:10: Lactic Acid 2.0 06/17/21 03:10: TSH 0.89 06/17/21 04:38: D-Dimer Quant (PE/DVT) 1.82 H* 06/17/21 07:28: Lactic Acid 2.1 H* 06/17/21 09:30: Troponin I High Sens 328 H* 06/17/21 10:29: POC Glucose 108 06/17/21 11:30: Troponin I High Sens 328 H* Micro: Microbiology 06/17/21 03:00 Nasal Secretion SARS-CoV-2 Antigen (Rapid) - Final Cardiology Labs/Tests 06/17/21 03:00: Urine Color Yellow, Urine Clarity Clear, Urine pH 6.0, Ur Specific Jones 1.015, Urine Protein 15 H, Urine Glucose (UA) Normal, Urine Ketones Negative, Urine Occult Blood 25 H, Urine Nitrite Negative, Urine Bilirubin Negative, Urine Urobilinogen Normal, Ur Leukocyte Esterase Negative, Urine RBC 0-5 SEEN, Urine WBC 0 SEEN 06/17/21 03:10: WBC 7.4, RBC 4.45, Hgb 14.8, Hct 42.5, MCV 95.5, MCH 33.3 H, MCHC 34.8, Plt Count 60 L, MPV 8.9, Immature Gran % (Auto) 0.400, Neut % (Auto) 85.1 H, Lymph % (Auto) 10.2 L, [place] % (Auto) 3.5, Eos % (Auto) 0.7, Baso % (Auto) 0.1, Absolute Neuts (auto) 6.3, Nucleated RBC % 0 06/17/21 03:10: Sodium 136, Potassium 4.2, Chloride 99, Carbon Dioxide 30.0, Anion Gap 7, BUN 14, Creatinine 0.77, Est GFR (MDRD) Af Amer 93, Est GFR (MDRD) Non-Af 77, BUN/Creatinine Ratio 18.3, Glucose 166 H, Calcium 8.9 06/17/21 03:10: Lactic Acid 2.0 06/17/21 04:38: D-Dimer Quant (PE/DVT) 1.82 H* 06/17/21 07:28: Lactic Acid 2.1 H* Rhythm: Sinus rhythm/sinus tachycardia EKG: ECHO: 06/17/2021: Interpretation Summary The estimated ejection fraction is 55 %. Unable to assess diastolic dysfunction. [place] diffuse mitral valve thickening. Moderate mitral valve stenosis. Mild (1+) mitral valve insufficiency. Moderate diffuse aortic valve thickening. Mild aortic stenosis. Small pericardial effusion. Stress Test: Cardiac Cath: PCI: CT Surgery: Holter monitor: EPS: PPM: CXR: Chest CT Scan: Radiography Diagnostic Testing: Radiology Impression Chest X-Ray 06/17/21 03:15 IMPRESSION: Mild cardiomegaly. Evidence of prior granulomatous disease. Electronically Signed: Lucia Dorsey MD at 4:52 EDT Tel , Service support , Chest CTA 06/17/21 05:12 IMPRESSION: No pulmonary embolism. There is a pulmonary nodule within the left upper lobe. There is a pulmonary nodule right lower lobe that has a spiculated border. Although these may represent sequelae of prior inflammatory change, metastatic disease should be excluded. There is nonspecific mediastinal lymphadenopathy Small pericardial effusion Cardiomegaly. Aberrant right subclavian artery. Atherosclerotic disease of the aorta with nonaneurysmal dilatation of the suprarenal aorta. There is kyphosis. There is chronic loss of height and kyphoplasty at the level of T10-T11. A comparison to a prior study would be helpful. With angulation and wedging at the level of T10. Electronically Signed: Lucia Dorsey MD at 7:31 EDT Tel , Service support , Echocardiogram 06/17/21 09:16 Interpretation Summary The estimated ejection fraction is 55 %. Unable to assess diastolic dysfunction. [place] diffuse mitral valve thickening. Moderate mitral valve stenosis. Mild (1+) mitral valve insufficiency. Moderate diffuse aortic valve thickening. Mild aortic stenosis. Small pericardial effusion. Ordering Physician: Christian Salcedo Referring Physician: DANIELLE GONZALEZ Performed By: Nikia Rivear, DAIANACS, RVT
[2021-06-17 15:40] LABS: Troponin-I HS 264 pg/mL (3.0-54.0)
[2021-06-17] MEDS: Insulin Lispro 100 UNIT/ML INSULN.PEN SC (15:58)
[2021-06-17] MEDS: 0.9% Saline Lock 10 ML Syringe IV ×2 (15:58→20:06)
[2021-06-17 16:16] LABS: Bedside Glucose 204 mg/dL (70-110)
[2021-06-17] MEDS: Atorvastatin Calcium 40 MG Tablet PO (20:06)
[2021-06-18] VITALS (12 sets, daily range): BP systolic 108–145; BP diastolic 48–67; PULSE 80–110; RESP 12–18; TEMP 36.7–36.9; O2SAT 94–98
[2021-06-18 06:18] LABS: Absolute Lymphocyte Count 1.19 X10^3/uL (0.83-4.51); Absolute Neutrophil Count 8.7 X10^3/uL (2.0-7.7); Basophil# 0.03 X10^3/uL; Basophil% 0.3 % (0-1); Eosinophil# 0.02 X10^3/uL; Eosinophils% 0.2 % (0-5); Hematocrit 36.1 % (37-47); Hemoglobin 12.4 g/dL (12.0-15.0); Lymphocyte # 1.19 X10^3/ul (0.83-4.51); Lymphocyte % 11.1 % (19-41); Mean Corp Hgb Conc 34.3 g/dL (32-36); Mean Corpuscular Hgb 33.2 pg (27.0-32.0); Mean Corpuscular Volume 96.5 fL (81-99); Mean Platelet Vol. 9.3 fl (6.2-12.0); Monocyte% 6.5 % (0-10); NRBC Flagged by Analyzer 0 % (0-5); Neutrophil # 8.71 X10^3/uL (2.7-7.7); Neutrophil % 80.9 % (47-70); POSITIVE COUNT YES; POSITIVE MORPHOLOGY YES; Platelet Count 57 K/mm3 (150-450); RBC Distribution Width CV 13.9 % (11.6-14.6); RBC Distribution Width SD 49.5 fl (35.1-43.9); Red Blood Count 3.74 M/mm3 (4.2-5.4); White Blood Count 10.8 K/mm3 (4.4-11.0)
[2021-06-18 06:27] LABS: Differential Indicated SCAN CRITERIA MET
[2021-06-18] MEDS: Levothyroxine 137 MCG Tablet PO (06:31)
[2021-06-18 06:36] LABS: Bedside Glucose 128 mg/dL (70-110)
[2021-06-18 07:00] LABS: Differential Comment SCANNED
[2021-06-18 07:09] LABS: Cholesterol < 50 mg/dL (200); High Density Lipoprotein 41 mg/dL; Triglycerides 44 mg/dL; Very Low Density Lipoprotein 9 mg/dL (5-40)
[2021-06-18] MEDS: Gabapentin 300 MG Capsule PO (08:42)
[2021-06-18] MEDS: Metoprolol Tartrate 25 MG Tablet PO ×2 (08:42→20:53)
[2021-06-18] MEDS: Calcium Carb/Vitamin D 1 TABLET Tablet PO (08:42)
[2021-06-18] MEDS: Baclofen 10 MG Tablet 5 MG PO (08:43)
[2021-06-18] MEDS: Glimepiride 1 MG Tablet PO (08:43)
[2021-06-18] MEDS: Famotidine 20 MG Tablet 40 MG PO (08:43)
[2021-06-18] MEDS: Aspirin 81 MG TAB.CHEW PO (08:44)
[2021-06-18] MEDS: Ascorbic Acid 500 MG Tablet PO (08:44)
[2021-06-18] MEDS: Multivitamins,Ther W-Minerals Tablet 1 TABLET PO (08:44)
[2021-06-18] MEDS: oxyCODONE 5 MG Tablet PO ×2 (08:47→21:02)
--- NOTE | 2021-06-18 09:55 | CASEMGMT ---
RN MELVA Face to Face with patient for initial transition planning/care coordination assessment. RN CM introduced self and role at [facility]. Patient lying in bed, alert and oriented. Patient willing to participate in assessment and is able to answer all questions appropriately. Care providers, pharmacy, and demographics verified. Patient wishes to discharge home, denies need for home health at this time. Patient states she has no further needs or concerns at this time. CM to follow for discharge planning needs that may arise. PCP: [facility] Specialists: Josue, pain; , endocrinology; Harshal, cloth picker Preferred Pharmacy: [facility] Insurance: [employer] Prescription Benefit: yes Living Will/HPOA: none LNOK: Living Arrangements: Patient lives with in a 1.5 story home with bed and bath on first level. Patient states she is independent at home. Transportation: self/ DME/HHC: Patient states she has shower chair, cane, walker, and grab bars. Patient denies previous HHC. Disposition Plan: Patient to discharge home with family support and follow-up plans in place. Maira STEVENS, RN, CM
[2021-06-18] MEDS: Furosemide 40 MG Tablet PO (11:03)
[2021-06-18] MEDS: Insulin Lispro 100 UNIT/ML INSULN.PEN SC (11:07)
[2021-06-18 11:31] LABS: Bedside Glucose 200 mg/dL (70-110)
--- NOTE | 2021-06-18 12:07 | PN.HOSP_ITS ---
Documented by User: Yogesh PIERCE 06/18/21 12:22 Subjective Subjective Patient is an 81-year-old female comfortably resting in a chair, alert and oriented x3. Patient denies any complaints or development of symptoms in the past 24 hours. Denies chest pain, shortness of breath, palpitations, hemoptysis, sputum production, fever, chills, N/V/D. Objective Data Objective Data Vital Signs: Vital Signs Temp Pulse Resp BP Pulse Ox 98.4 F 110 H 18 132/53 H 98 06/18/21 08:56 06/18/21 08:56 06/18/21 08:56 06/18/21 08:56 06/18/21 08:56 Oxygen Delivery Method Room Air Weight: 147 lb 0.773 oz Body Mass Index (BMI) 26.0 Intake & Output: Intake and Output for Last 24 Hours 06/16/21 06/17/21 06/18/21 23:59 23:59 23:59 Intake Total 1500 / 1620 320 / 320 Output Total 300 / 300 Balance 1500 / 1320 Lab / Micro Data Result Diagrams: 06/18/21 05:17 06/17/21 03:10 Labs: Laboratory Results - last 24 hr 06/17/21 14:55: Troponin I High Sens 264 H* 06/17/21 15:52: POC Glucose 204 H 06/18/21 05:17: WBC 10.8, RBC 3.74 L, Hgb 12.4, Hct 36.1 L, MCV 96.5, MCH 33.2 H , MCHC 34.3, RDW Std Deviation 49.5 H, RDW Coeff of [place] 13.9, Plt Count 57 L, MPV 9.3, Immature Gran % (Auto) 1.000 H, Neut % (Auto) 80.9 H, Lymph % (Auto) 11.1 L, [place] % (Auto) 6.5, Eos % (Auto) 0.2, Baso % (Auto) 0.3, Absolute Neuts (auto) 8.7 H, Absolute Lymphs (auto) 1.19, Nucleated RBC % 0, Differential Comment SCANNED 06/18/21 05:17: Triglycerides 44, Cholesterol < 50, LDL Cholesterol TNP, VLDL Cholesterol 9, HDL Cholesterol 41 06/18/21 06:30: POC Glucose 128 H 06/18/21 11:06: POC Glucose 200 H Micro: Microbiology 06/17/21 03:19 Blood Culture (Wb) - Right Hand Blood Culture - Preliminary 06/17/21 03:10 Blood Culture (Wb) - Anticubital Right Blood Culture - Preliminary GNR Poss Pseudomonas sp 06/17/21 03:00 Nasal Secretion SARS-CoV-2 Antigen (Rapid) - Final Radiography Diagnostic Testing: Radiology Impression Echocardiogram 06/17/21 09:16 Interpretation Summary The estimated ejection fraction is 55 %. Unable to assess diastolic dysfunction. [place] diffuse mitral valve thickening. Moderate mitral valve stenosis. Mild (1+) mitral valve insufficiency. Moderate diffuse aortic valve thickening. Mild aortic stenosis. Small pericardial effusion. Ordering Physician: Christian Salcedo Referring Physician: DANIELLE GONZALEZ Performed By: Nikia Rivera, BRYANT, RVT Physical Exam Const alert, oriented x3 and no apparent distress HEENT head/scalp atraumatic and moist oral mucous membranes Head and Scalp: normocephalic Eyes PERRL, EOMs intact bilaterally and conjunctivae normal Neck no lymphadenopathy, supple and no JVD Resp normal respiratory effort, no retractions, no use of accessory muscles and clear to auscultation bilaterally Cardio regular rate, regular rhythm, no murmurs and no JVD GI normal to inspection, nondistended, normoactive bowel sounds, soft to palpation and non-tender Extremity normal to inspection, full ROM and no clubbing, cyanosis or edema Skin no rashes or lesions noted, no wounds, skin turgor normal and no jaundice Neuro CN's II-XII intact bilaterally Psych affect normal Assessment & Plan Assessment/Plan (1) Elevated troponin: (2) Tachycardia: (3) Transient hypotension: (4) Bacteremia due to Gram-negative bacteria: PLAN: Day 2 Discharge planning: Patient to discharge home when medically ready, no home health care needs or additional therapies identified. 1) elevated troponins Elevated on admission, unclear significance at this time. Cardiology consulted and recommends continued medical management. Echocardiogram obtained on 06/17 and demonstrated an EF of 55%, and indeterminate diastolic dysfunction, moderate aortic valve thickening and a small pericardial effusion. Plan; remain admitted to PCU for cardiac telemetry monitoring, continue metoprolol and aspirin, nitroglycerin as needed, cardiology following. 2) tachycardia As above. 3) transient hypotension Possibly secondary to metoprolol, continue to monitor. 4) DM2 Continue glipizide, Accu-Cheks with sliding scale insulin ordered. 5) bacteremia Blood cultures obtained on admission grew gram-negative rods, suspicious for Pseudomonas. Unclear significance at this time as patient's presentation is actually improved from admission. Patient is afebrile, although is with tachycardia. CBC does not demonstrate a leukocytosis. Chest imaging does demonstrate a pulmonary nodule, but does not show any acute infectious process. Plan; continue Zosyn, Continue to monitor. 6) Pulmonary nodule Chest CTA was significant for a pulmonary nodule within the left upper lobe with a spiculated border. Possible etiologies are malignancy or sequelae of prior inflammatory change. Recommend outpatient follow-up. DVT prophylaxis - low risk, not indicated. Patient seen by Yogesh Villarreal PA-C, under the supervision of Dr. Salcedo. Documented by User: Dr. Christian Salcedo, 06/18/21 13:37 Subjective Subjective Feeling better. Objective Data Lab / Micro Data Result Diagrams: 06/18/21 05:17 06/17/21 03:10 Physical Exam Narrative More comfortable today. Resp normal respiratory effort, no retractions, no use of accessory muscles and clear to auscultation bilaterally Cardio regular rate, regular rhythm, S1 normal heart sound and S2 normal heart sound GI normal to inspection, nondistended, normoactive bowel sounds, soft to palpation, non-tender and non-distended Assessment & Plan Assessment/Plan (1) Bacteremia due to Gram-negative bacteria: (2) NSTEMI, initial episode of care: PLAN: 1. Bacteremia possible Psuedomonas UA negative. Unclear source (translocation from gut?) continue pip/tazo, adjust abx accordingly 2. Sepsis POA qSOFA 2 on admission 2/2 Bacteremia improved 3. NSTEMI type 2 given bacteramia Elevated troponins We will continue to cycle. Unclear significance at this time. Echo shows EF 55% with mild and small pericardial effusion Follow up with cardiology as outpt. Continue metoprolol tartrate and atorvastatin. 4. Tachycardia Improved 2/2 Sepsis/bacteremia Unclear significance. Patient did receive IV metoprolol in the emergency room which did seem to help. Continue to monitor and work-up as above No evidence of infection at this time 5. Transient hypotension Likely iatrogenic from IV metoprolol Continue to monitor 6. Diabetes mellitus type 2 Continue with glyburide Sliding scale insulin 7. VTE prophylaxis: Not indicated at this time 8. CODE STATUS: Discussed with patient. Patient wished to be full CODE STATUS. 9. COVID-19 vaccine discussion: Patient is only partially vaccinated. Expla ined the patient given her age and other comorbidities as she is high risk for significant morbility mobility or even mortality with COVID-19 and advised that she get the second dose of her Moderna. 8. Thrombocytopenia: Continue to monitor. Charges/Coding Visit Charges Inpatient E&M: 86254 Subs Hosp L2
[2021-06-18] MEDS: Acetaminophen 325 MG Tablet 650 MG PO (12:46)
[2021-06-18] MEDS: 0.9% Saline Lock 10 ML Syringe IV (14:09)
[2021-06-18 16:35] LABS: Bedside Glucose 136 mg/dL (70-110)
[2021-06-18] MEDS: Atorvastatin Calcium 40 MG Tablet PO (20:53)
[2021-06-18 21:10] LABS: Bedside Glucose 159 mg/dL (70-110)
[2021-06-19 02:46] VITALS: BP 135/64; PULSE 91; RESP 16; TEMP 36.6; O2SAT 96
[2021-06-19] MEDS: Acetaminophen 325 MG Tablet 650 MG PO ×2 (02:58→09:19)
[2021-06-19 03:00] VITALS: PULSE 98
[2021-06-19] MEDS: Levothyroxine 137 MCG Tablet PO (06:23)
[2021-06-19 06:51] LABS: Bedside Glucose 94 mg/dL (70-110)
[2021-06-19 06:59] VITALS: PULSE 95
[2021-06-19 07:39] LABS: Absolute Lymphocyte Count 1.23 X10^3/uL (0.83-4.51); Absolute Neutrophil Count 8.6 X10^3/uL (2.0-7.7); Basophil# 0.02 X10^3/uL; Basophil% 0.2 % (0-1); Eosinophil# 0.17 X10^3/uL; Eosinophils% 1.6 % (0-5); Hematocrit 37.7 % (37-47); Lymphocyte # 1.23 X10^3/ul (0.83-4.51); Lymphocyte % 11.3 % (19-41); Mean Corp Hgb Conc 34.5 g/dL (32-36); Mean Corpuscular Hgb 32.8 pg (27.0-32.0); Mean Corpuscular Volume 95.2 fL (81-99); Mean Platelet Vol. 9.1 fl (6.2-12.0); Monocyte# 0.74 X10^3/uL; Monocyte% 6.8 % (0-10); NRBC Flagged by Analyzer 0 % (0-5); Neutrophil # 8.55 X10^3/uL (2.7-7.7); Neutrophil % 78.8 % (47-70); POSITIVE COUNT YES; Platelet Count 66 K/mm3 (150-450); RBC Distribution Width CV 13.6 % (11.6-14.6); Red Blood Count 3.96 M/mm3 (4.2-5.4); White Blood Count 10.9 K/mm3 (4.4-11.0)
[2021-06-19 08:03] LABS: Anion Gap 6 (5-15); BUN 23 mg/dL (7-18); BUN/Creat Ratio 25.9 RATIO (10-20); Calcium,Total 8.5 mg/dL (8.5-10.1); Chloride 101 mmol/L (98-107); Creatinine, Serum 0.89 mg/dL (0.55-1.02); EST Glomerular Filtration Rate 65 mL/min (>60); Est Glom Filt Rate - Afr Amer 78 mL/min (>60); Estimated Creatinine Clearance 41.01 ml/min; Glucose 93 mg/dL (74-106); Potassium 3.6 mmol/L (3.5-5.1); Sodium Level 133 mmol/L (136-145)
[2021-06-19 08:04] VITALS: PULSE 99
[2021-06-19] MEDS: Metoprolol Tartrate 25 MG Tablet PO (08:04)
[2021-06-19] MEDS: Gabapentin 300 MG Capsule PO (08:05)
[2021-06-19] MEDS: Aspirin 81 MG TAB.CHEW PO (08:05)
[2021-06-19] MEDS: Famotidine 20 MG Tablet 40 MG PO (08:05)
[2021-06-19] MEDS: Baclofen 10 MG Tablet 5 MG PO (08:05)
[2021-06-19] MEDS: Multivitamins,Ther W-Minerals Tablet 1 TABLET PO (08:05)
[2021-06-19] MEDS: Calcium Carb/Vitamin D 1 TABLET Tablet PO (08:06)
[2021-06-19] MEDS: Glimepiride 1 MG Tablet PO (08:06)
[2021-06-19] MEDS: Ascorbic Acid 500 MG Tablet PO (08:06)
[2021-06-19 08:12] VITALS: BP 149/74; PULSE 99; RESP 16; TEMP 36.9; O2SAT 98
[2021-06-19] MEDS: oxyCODONE 5 MG Tablet PO (09:22)
[2021-06-19] MEDS: levoFLOXacin 500 MG Tablet PO (10:13)
--- NOTE | 2021-06-19 10:49 | DCINST_ITS ---
Discharge Instructions Diet Discharge Diet: No restrictions Activity Discharge Activity: Return to Normal Activity Weight Bearing Status: Weight bearing as tolerated Dressing / Incision Call your doctor if you observe: Fever of 101 or Higher, Numbness or Tingling, Shortness of breath, Dizziness, Chest pain, Increased palpitations (irregular heartbeat) and Calf discomfort Follow Up Care Please Follow Up With: Primary care provider When: Within the next two weeks. Test Results: Test results from this visit will be discussed in further detail at your follow-up appointment, if applicable. Discharge Plan Admission Admit Date/Time: 06/17/21 11:45 Primary Reason for Your Visit: Elevated troponin Attending Provider: Christian Salcedo Primary Care Provider: Kurtis Ross Chi Consulting Providers: Christian Salcedo Discharge Orders/Prescriptions Prescriptions: New levofloxacin 250 mg tablet 250 mg PO DAILY Qty: 7 RF: 0 Continued polyethylene glycol 3350 [Miralax] 17 gram/dose powder 17 g PO DAILY RF: 0 atorvastatin 40 MG tablet 40 mg PO QHS RF: 0 famotidine 40 MG tablet 40 mg PO DAILY RF: 0 ascorbic acid (vitamin C) 500 MG tablet 500 mg PO DAILY@0800 RF: 0 gabapentin 300 MG capsule 300 mg PO DAILY RF: 0 metoprolol tartrate 25 MG tablet 25 mg PO BID RF: 0 calcium citrate-vitamin D3 1 EACH tablet 1 ea PO DAILY RF: 0 multivitamin with folic acid 1 TABLET tablet 1 tab PO DAILY RF: 0 baclofen 5 MG tablet 5 mg PO DAILY RF: 0 oxycodone-acetaminophen 5-325 mg tablet 1 tab PO BID RF: 0 glimepiride 2 mg tablet 1 mg PO QAM Qty: 45 RF: 1 levothyroxine 137 mcg tablet 137 mcg PO DAILY Qty: 90 RF: 2 denosumab 60 mg/mL syringe 60 mg subcut [id number] Qty: 1 RF: 1 Referrals / Follow Up: Kenan Bailey MD [STAFF PHYSICIAN] - Within 2 Weeks (See for work up of pul monary nodule seen on CT-A.) Sri Starkey MD [STAFF PHYSICIAN] - Within 2 Weeks Kurtis Ross Chi, MD [Primary Care Provider] - Within 2 Weeks Disposition Disposition (needs filled in before D/C Order can be placed): Home, Self Care
[2021-06-19] MEDS: Insulin Lispro 100 UNIT/ML INSULN.PEN SC (11:51)
[2021-06-19 12:05] LABS: Bedside Glucose 176 mg/dL (70-110)
[2021-06-19 13:30] VITALS: BP 149/74; PULSE 99; RESP 18; TEMP 36.9; O2SAT 98
--- NOTE | 2021-06-19 13:44 | DS.PCM_ITS ---
Documented by User: Yogesh PIERCE 06/19/21 13:56 Providers Date of Admission: 06/17/21 Primary Care Physician: Dr. Kurtis Ross MD Consultations 06/17/21 13:28 Consult: Cardiology Routine Consulting Provider: Christian Salcedo Reason for Consult: Elevated Troponin EMERGENT Consult: No MD Notified: Yes Date Notified: 06/17/21 Time Notified: 13:28 Method of Notification: Cortext Reason For Visit: ELEVATED TROPONIN Diagnosis Discharge Diagnosis (1) Bacteremia due to Gram-negative bacteria: Status: Acute Code(s): R78.81 - Bacteremia (2) NSTEMI, initial episode of care: Status: Acute Code(s): I21.4 - Non-ST elevation (NSTEMI) myocardial infarction Medications at Discharge Home Medications ascorbic acid (vitamin C) 500 mg PO DAILY@0800 07/05/19 atorvastatin 40 mg PO QHS 07/05/19 baclofen 5 mg PO DAILY 07/05/19 calcium citrate-vitamin D3 1 ea PO DAILY 07/05/19 famotidine 40 mg PO DAILY 07/05/19 gabapentin 300 mg PO DAILY 07/05/19 metoprolol tartrate 25 mg PO BID 07/05/19 multivitamin with folic acid 1 tab PO DAILY 07/05/19 oxycodone-acetaminophen 5 mg-325 mg tablet 1 tab PO BID tab 12/02/19 polyethylene glycol 3350 17 gram/dose oral powder 17 g PO DAILY 05/03/20 glimepiride 2 mg tablet 1 mg PO QAM #45 tablet 01/11/21 levothyroxine 137 mcg tablet 137 mcg PO DAILY #90 tab 02/10/21 denosumab 60 mg/mL subcutaneous syringe 60 mg SUBCUT [id number] #1 ml 05/06/21 levofloxacin 250 mg PO DAILY #7 tab 06/19/21 Hospital Course Procedures 2-D Echocardiogram Summary of Care Provided Minutes Spent on Discharge: 35 Hospital Course: Disposition: Patient to discharge home, no home health care needs or additional therapies identified. 1) NSTEMI Elevated troponins on admission. Cardiology consulted and recommends continued medical management. Echocardiogram obtained on 06/17 and demonstrated an EF of 55%, and indeterminate diastolic dysfunction, moderate aortic valve thickening and a small pericardial effusion. Plan; discharge home, follow-up with Dr. Harding, continue metoprolol and statin. Aspirin not initiated due to thrombocytopenia. 2) tachycardia As above. 3) transient hypotension Stable. 4) DM2 Continue glipizide, Accu-Cheks with sliding scale insulin ordered. 5) bacteremia w/ Sepsis 2/2 blood cultures obtained on admission grew Pseudomonas aeruginosa, with susceptibility to levofloxacin. qSOFA was 2 on admission. Unclear significance at this time as patient's presentation is actually improved from admission. Patient is afebrile, although is with tachycardia. CBC does not demonstrate a leukocytosis. Urine culture demonstrates no growth. chest imaging does demo nstrate a pulmonary nodule, but does not show any acute infectious process. Plan; initiate levofloxacin x7 days to complete 10-day course, follow-up with primary care provider in the next 2 weeks. 6) Pulmonary nodule Chest CTA was significant for a pulmonary nodule within the left upper lobe with a spiculated border. Possible etiologies are malignancy or sequelae of prior inflammatory change. Patient is to follow-up with Dr. Bailey for outpatient pulmonology follow-up. Patient seen by Yogesh Villarreal PA-C, under the supervision of Dr. Salcedo. Physical Exam Narrative Patient is an 81-year-old female comfortably resting in bed, alert and oriented x3. Patient reports resolution of her symptoms from mission, denies development of any new symptoms in the past 24 hours. Denies chest pain, shortness of breath, palpitations, hemoptysis, sputum production, fever, chills, N/V/D. Const alert, oriented x3 and no apparent distress HEENT normocephalic, head/scalp atraumatic and hearing grossly normal bilaterally Eyes PERRL, EOMs intact bilaterally and conjunctivae normal Neck no lymphadenopathy, supple and no JVD Resp normal respiratory effort, no retractions, no use of accessory muscles and clear to auscultation bilaterally Cardio regular rate, regular rhythm, no murmurs and no JVD GI normal to inspection, nondistended, normoactive bowel sounds, soft to palpation and non-tender Extremity normal to inspection, full ROM and no clubbing, cyanosis or edema Skin no rashes or lesions noted, no wounds and skin turgor normal Neuro CN's II-XII intact bilaterally Psych affect normal Weight / BMI Weight Weight: 147 lb 0.773 oz Body Mass Index (BMI) 26.0 ABG / Lab / Microbiology Data Result Diagrams: 06/19/21 07:03 06/19/21 07:03 Laboratory: Laboratory Results - last 24 hr 06/18/21 15:54: POC Glucose 136 H 06/18/21 21:01: POC Glucose 159 H 06/19/21 06:22: POC Glucose 94 06/19/21 07:03: WBC 10.9, RBC 3.96 L, Hgb 13.0, Hct 37.7, MCV 95.2, MCH 32.8 H, MCHC 34.5, RDW Std Deviation 48.0 H, RDW Coeff of [place] 13.6, Plt Count 66 L, MPV 9.1, Immature Gran % (Auto) 1.300 H, Neut % (Auto) 78.8 H, Lymph % (Auto) 11.3 L , [place] % (Auto) 6.8, Eos % (Auto) 1.6, Baso % (Auto) 0.2, Absolute Neuts (auto) 8.6 H, Absolute Lymphs (auto) 1.23, Nucleated RBC % 0 06/19/21 07:03: Sodium 133 L, Potassium 3.6, Chloride 101, Carbon Dioxide 26.0, Anion Gap 6, BUN 23 H, Creatinine 0.89, Estim Creat Clear Calc 41.01, Est GFR (MDRD) Af Amer 78, Est GFR (MDRD) Non-Af 65, BUN/Creatinine Ratio 25.9 H, Glucose 93, Calcium 8.5 06/19/21 11:49: POC Glucose 176 H Microbiology: Microbiology 06/17/21 03:00 Urine, Catheterized Urine Culture - Final Culture exhibits no growth. 06/17/21 03:19 Blood Culture (Wb) - Right Hand Blood Culture - Final GNR Poss Pseudomonas sp 06/17/21 03:10 Blood Culture (Wb) - Anticubital Right Blood Culture - Final Pseudomonas aeroginosa 06/17/21 03:00 Nasal Secretion SARS-CoV-2 Antigen (Rapid) - Final D/C Instructions Discharge Diet: No restrictions Weight Bearing Status: Weight bearing as tolerated Call your doctor if you observe: Fever of 101 or Higher, Numbness or Tingling, Shortness of breath, Dizziness, Chest pain, Increased palpitations (irregular heartbeat) and Calf discomfort Please Follow Up With: Primary care provider When: Within the next two weeks. Meaningful Use Info Meaningful Use Diagnoses (Choose all that apply): None applicable Discharge Plan Admission Admit Date/Time: 06/17/21 11:45 Primary Reason for Your Visit: Elevated troponin. Sepsis. Bacteremia. Attending Provider: Christian Salcedo Primary Care Provider: Kurtis Ross Chi Consulting Providers: Christian Salcedo Discharge Orders/Prescriptions Prescriptions: New levofloxacin 250 mg tablet 250 mg PO DAILY Qty: 7 RF: 0 Continued polyethylene glycol 3350 [Miralax] 17 gram/dose powder 17 g PO DAILY RF: 0 atorvastatin 40 MG tablet 40 mg PO QHS RF: 0 famotidine 40 MG tablet 40 mg PO DAILY RF: 0 ascorbic acid (vitamin C) 500 MG tablet 500 mg PO DAILY@0800 RF: 0 gabapentin 300 MG capsule 300 mg PO DAILY RF: 0 metoprolol tartrate 25 MG tablet 25 mg PO BID RF: 0 calcium citrate-vitamin D3 1 EACH tablet 1 ea PO DAILY RF: 0 multivitamin with folic acid 1 TABLET tablet 1 tab PO DAILY RF: 0 baclofen 5 MG tablet 5 mg PO DAILY RF: 0 oxycodone-acetaminophen 5-325 mg tablet 1 tab PO BID RF: 0 glimepiride 2 mg tablet 1 mg PO QAM Qty: 45 RF: 1 levothyroxine 137 mcg tablet 137 mcg PO DAILY Qty: 90 RF: 2 denosumab 60 mg/mL syringe 60 mg subcut [id number] Qty: 1 RF: 1 Referrals / Follow Up: Kenan Bailey MD [STAFF PHYSICIAN] - Within 2 Weeks (See for work up of pulmonary nodule seen on CT-A.) Sri Starkey MD [STAFF PHYSICIAN] - Within 2 Weeks Kurtis Ross Chi, MD [Primary Care Provider] - Within 2 Weeks Disposition Disposition (needs filled in before D/C Order can be placed): Home, Self Care Documented by User: Dr. Christian Salcedo DO 06/19/21 13:58 Providers Date of Admission: 06/17/21 Date of Discharge: 06/19/21 Reason For Visit: ELEVATED TROPONIN Medications at Discharge Home Medications ascorbic acid (vitamin C) 500 mg PO DAILY@0800 07/05/19 atorvastatin 40 mg PO QHS 07/05/19 baclofen 5 mg PO DAILY 07/05/19 calcium citrate-vitamin D3 1 ea PO DAILY 07/05/19 famotidine 40 mg PO DAILY 07/05/19 gabapentin 300 mg PO DAILY 07/05/19 metoprolol tartrate 25 mg PO BID 07/05/19 multivitamin with folic acid 1 tab PO DAILY 07/05/19 oxycodone-acetaminophen 5 mg-325 mg tablet 1 tab PO BID tab 12/02/19 polyethylene glycol 3350 17 gram/dose oral powder 17 g PO DAILY 05/03/20 glimepiride 2 mg tablet 1 mg PO QAM #45 tablet 01/11/21 levothyroxine 137 mcg tablet 137 mcg PO DAILY #90 tab 02/10/21 denosumab 60 mg/mL subcutaneous syringe 60 mg SUBCUT [id number] #1 ml 05/06/21 levofloxacin 250 mg PO DAILY #7 tab 06/19/21 Hospital Course Summary of Care Provided Minutes Spent on Discharge: 32 Hospital Course: Patient seen and examined independently. Data and vitals reviewed. I agree with the above note by the physician material assistant. 1. Bacteremia Psuedomonas UA negative. Unclear source (translocation from gut?) Discharged with Levaquin to complete a 10-day course of antibiotics Patient was on Pipracil and/tazobactam and then had just general malaise. That has been added to her allergy list but not as a true allergy but as an adverse reaction. Patient apparently had an issue with some other antibiotic that she does not recall. I suspect it may been a penicillin but cannot confirm. 2. Sepsis POA qSOFA 2 on admission 2/2 Bacteremia improved 3. NSTEMI type 2 given bacteramia and sepsis Elevated troponins We will continue to cycle. Unclear significance at this time. Echo shows EF 55% with mild and small pericardial effusion Follow up with cardiology as outpt. Continue metoprolol tartrate and atorvastatin. 4. Tachycardia Improved 2/2 Sepsis/bacteremia Unclear significance. Patient did receive IV metoprolol in the emergency room which did seem to help. Continue to monitor and work-up as above No evidence of infection at this time 5. Transient hypotension Likely iatrogenic from IV metoprolol Continue to monitor 6. Diabetes mellitus type 2 Continue with glyburide Sliding scale insulin 7. VTE prophylaxis: Not indicated at this time 8. CODE STATUS: Discussed with patient. Patient wished to be full CODE STATUS. 9. COVID-19 vaccine discussion: Patient is only partially vaccinated. Explained the patient given her age and other comorbidities as she is high risk for significant morbility mobility or even mortality with COVID-19 and advised that she get the second dose of her Moderna. 8. Thrombocytopenia: Continue to monitor.. Physical Exam Const alert Resp normal respiratory effort and no retractions Cardio regular rate, regular rhythm, S1 normal heart sound and S2 normal heart sound GI normal to inspection, nondistended, normoactive bowel sounds, soft to palpation, non-tender and non-distended Extremity normal to inspection ABG / Lab / Microbiology Data Result Diagrams: 06/19/21 07:03 06/19/21 07:03 Meaningful Use Info Meaningful Use Diagnoses (Choose all that apply): None applicable Discharge Plan Admission Admit Date/Time: 06/17/21 11:45 Primary Reason for Your Visit: Elevated troponin. Sepsis. Bacteremia. Attending Provider: Christian Salcedo Primary Care Provider: Kurtis Ross Chi Consulting Providers: Christian Salcedo Discharge Orders/Prescriptions Prescriptions: New levofloxacin 250 mg tablet 250 mg PO DAILY Qty: 7 RF: 0 Continued polyethylene glycol 3350 [Miralax] 17 gram/dose powder 17 g PO DAILY RF: 0 atorvastatin 40 MG tablet 40 mg PO QHS RF: 0 famotidine 40 MG tablet 40 mg PO DAILY RF: 0 ascorbic acid (vitamin C) 500 MG tablet 500 mg PO DAILY@0800 RF: 0 gabapentin 300 MG capsule 300 mg PO DAILY RF: 0 metoprolol tartrate 25 MG tablet 25 mg PO BID RF: 0 calcium citrate-vitamin D3 1 EACH tablet 1 ea PO DAILY RF: 0 multivitamin with folic acid 1 TABLET tablet 1 tab PO DAILY RF: 0 baclofen 5 MG tablet 5 mg PO DAILY RF: 0 oxycodone-acetaminophen 5-325 mg tablet 1 tab PO BID RF: 0 glimepiride 2 mg tablet 1 mg PO QAM Qty: 45 RF: 1 levothyroxine 137 mcg tablet 137 mcg PO DAILY Qty: 90 RF: 2 denosumab 60 mg/mL syringe 60 mg subcut [id number] Qty: 1 RF: 1 Referrals / Follow Up: Kenan Bailey MD [STAFF PHYSICIAN] - Within 2 Weeks (See for work up of pulmonary nodule seen on CT-A.) Sri Starkey MD [STAFF PHYSICIAN] - Within 2 Weeks Kurtis Ross Chi, MD [Primary Care Provider] - Within 2 Weeks Disposition Disposition (needs filled in before D/C Order can be placed): Home, Self Care Charges/Coding Visit Charges Inpatient E&M: 97345 Disch Hosp
--- NOTE | 2021-06-21 14:48 | CASEMGMT ---
ANNE FRYE Discharge Follow-up Phone Call: TISHIssa: Sanjiv Strata: 3 Call Date: 06/21/21 Discharge Date: 06/19/21 Time of Call: 1442 Duration: 7 min Admitting Diagnosis: Elevated troponin ANNE FRYE completed follow-up phone call after recent hospitalization. Patient states she was not feeling well yesterday and had a headache. Patient followed up today with her PCP and is doing additional testing. Patient was able to fill prescriptions without any issues. Patient has follow-up appt scheduled with rug dyer. Patient had no further questions or concerns at this time.
== END 2021-06-19 13:35 | disposition home or self-care (01) | DRG 871 ==
LOC: ED 07:49 → PCU 08:37
PROVIDERS: Physician Assistant; Emergency Provider Emergency Medicine; PCP Family Medicine Geriatric Medicine
DX: A41.9 Sepsis, unspecified organism (principal); I21.A1 Myocardial infarction type 2; I31.3 Pericardial effusion (noninflammatory); B96.5 Pseudomonas (aeruginosa) (mallei) (pseudomallei) as the cause of diseases classified elsewhere; R91.1 Solitary pulmonary nodule; R00.0 Tachycardia, unspecified; D69.6 Thrombocytopenia, unspecified; I95.89 Other hypotension; E03.9 Hypothyroidism, unspecified; I10 Essential (primary) hypertension; E78.00 Pure hypercholesterolemia, unspecified; E78.1 Pure hyperglyceridemia; F03.90 Unspecified dementia, unspecified severity, without behavioral disturbance, psychotic disturbance, mood disturbance, and anxiety; F41.9 Anxiety disorder, unspecified; G89.29 Other chronic pain; I35.0 Nonrheumatic aortic (valve) stenosis; I34.8 Other nonrheumatic mitral valve disorders; E11.36 Type 2 diabetes mellitus with diabetic cataract; I89.0 Lymphedema, not elsewhere classified; K21.9 Gastro-esophageal reflux disease without esophagitis; M51.36 Other intervertebral disc degeneration, lumbar region; M19.90 Unspecified osteoarthritis, unspecified site; M48.00 Spinal stenosis, site unspecified; M99.03 Segmental and somatic dysfunction of lumbar region; M99.02 Segmental and somatic dysfunction of thoracic region; M99.05 Segmental and somatic dysfunction of pelvic region; Z85.3 Personal history of malignant neoplasm of breast; Z79.4 Long term (current) use of insulin; Z79.899 Other long term (current) drug therapy
CPT/HCPCS: 36415; 71045; 71275; 80048; 80061; 81001; 82962; 83605; 84443; 84484; 85025; 85379; 87040; 87077; 87086; 87184; 87186; 87426; 93005; 93306; 99285; J7030; J7040; P9612; Q9967; A4216

== ENCOUNTER → 2021-06-21 11:23 | Outpatient (CLI) | payer MEDICARE, OTHER, SELFPAY | PROVIDERS: PCP Family Medicine Geriatric Medicine; Referring Provider Family Medicine Geriatric Medicine; Visit Provider Family Medicine Geriatric Medicine | DX: R19.7 Diarrhea, unspecified (principal); R78.81 Bacteremia | CPT/HCPCS: 36415; 87040; 87493 ==

== ENCOUNTER → 2021-07-19 10:34 | Outpatient (CLI) | payer MEDICARE, OTHER, SELFPAY ==
[2021-07-19 12:35] LABS: Absolute Lymphocyte Count 1.71 X10^3/uL (0.83-4.51); Absolute Neutrophil Count 2.5 X10^3/uL (2.0-7.7); Basophil# 0.04 X10^3/uL; Basophil% 0.8 % (0-1); Eosinophil# 0.18 X10^3/uL; Eosinophils% 3.7 % (0-5); Hematocrit 39.2 % (37-47); Hemoglobin 13.3 g/dL (12.0-15.0); Lymphocyte # 1.71 X10^3/ul (0.83-4.51); Lymphocyte % 34.8 % (19-41); Mean Corp Hgb Conc 33.9 g/dL (32-36); Mean Corpuscular Hgb 32.8 pg (27.0-32.0); Mean Corpuscular Volume 96.6 fL (81-99); Monocyte# 0.53 X10^3/uL; Monocyte% 10.8 % (0-10); NRBC Flagged by Analyzer 0 % (0-5); Neutrophil # 2.45 X10^3/uL (2.7-7.7); Neutrophil % 49.7 % (47-70); POSITIVE COUNT YES; Platelet Count 76 K/mm3 (150-450); RBC Distribution Width CV 13.8 % (11.6-14.6); Red Blood Count 4.06 M/mm3 (4.2-5.4); White Blood Count 4.9 K/mm3 (4.4-11.0)
[2021-07-19 12:49] LABS: Vitamin D,25 Hydroxy 36.5 ng/mL
[2021-07-19 13:02] LABS: ALB/GLOB Ratio 0.8 RATIO (0.9-2.4); AST(SGOT) 23 U/L (15-37); Alanine Aminotransfer ALT/SGPT 25 U/L (13-56); Albumin, Serum 3.2 g/dL (3.2-5.0); Alkaline Phosphatase 94 U/L (45-117); Anion Gap 8 (5-15); BUN 11 mg/dL (7-18); BUN/Creat Ratio 14.1 RATIO (10-20); Chloride 99 mmol/L (98-107); Creatinine, Serum 0.78 mg/dL (0.55-1.02); EST Glomerular Filtration Rate 75 mL/min (>60); Est Glom Filt Rate - Afr Amer 91 mL/min (>60); Globulin 4.2 g/dL (2.2-4.2); Glucose 205 mg/dL (74-106); Potassium 4.4 mmol/L (3.5-5.1); Protein, Total 7.4 g/dL (6.4-8.2); Sodium Level 135 mmol/L (136-145)
== END ==
PROVIDERS: PCP Family Medicine Geriatric Medicine; Visit Provider Family Medicine Geriatric Medicine
DX: E11.9 Type 2 diabetes mellitus without complications (principal); E55.9 Vitamin D deficiency, unspecified; I10 Essential (primary) hypertension
CPT/HCPCS: 36415; 80053; 82306; 84443; 85025

== ENCOUNTER → 2021-08-16 15:09 | Outpatient (CLI) | payer MEDICARE, OTHER, SELFPAY ==
[2021-08-16 16:26] LABS: Amphetamine Urine VISTA NEGATIVE (<1000 ng/mL); Barbiturate Urine VISTA NEGATIVE (< 200 ng/mL); Benzodiazepine Urine VISTA NEGATIVE (< 200 ng/mL); Cocaine Urine VISTA NEGATIVE (< 300 ng/mL); Ecstacy Urine VISTA NEGATIVE (< 500 ng/mL); Methadone Urine VISTA NEGATIVE (< 300 ng/mL); PCP Urine VISTA NEGATIVE (< 25 ng/mL); THC Urine VISTA NEGATIVE (< 50 ng/mL); Vista UDS pH Range 4
== END ==
PROVIDERS: PCP Family Medicine Geriatric Medicine; Visit Provider Anesthesiology Pain Medicine
DX: F11.20 Opioid dependence, uncomplicated (principal)
CPT/HCPCS: 80307

== ENCOUNTER → 2021-09-21 11:02 | Outpatient (CLI) | payer MEDICARE, OTHER, SELFPAY ==
--- NOTE | 2021-09-21 11:05 | CT_ITS ---
STUDY: CT CHEST WITHOUT CONTRAST REASON FOR EXAM: Female, 81 years old. B/L Lung Nodules RADIATION DOSAGE (If Supplied By Facility): CTDIvol = ( 7.48 ) mGy, DLP = ( 241.08 ) mGycm TECHNIQUE: Transaxial imaging was performed without the administration of intravenous contrast material. Multiplanar coronal and sagittal images were reformatted. Individualized dose optimization techniques were used for this CT. COMPARISON: Comparison is made with prior study dated 06/17/2021. FINDINGS: Stable small benign appearing bilateral axillary lymph nodes. Stable 6 mm x 5.5 mm nodule in the anterior aspect of the left upper lobe as seen on axial image #47. Stable slightly irregular nodule measuring 7 mm in the anterior lateral aspect of the right lower lobe as seen on axial image #62. There is no demonstrated pleural abnormality. There are calcifications of the coronary arteries. Small pericardial effusion. Calcification of the mitral valve annulus. There are multiple small lymph nodes within the mediastinum, which are normal in size and morphology most compatible with reactive lymph hyperplasia. Normal hilar regions. Normal unenhanced pulmonary arteries. There is atherosclerotic calcification of the aortic arch with tortuosity and elongation of the aortic arch and descending thoracic aorta. 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 There are multi-level degenerative changes of the thoracic spine. Kyphosis. Prior vertebroplasty and marked degree of loss of height of the T11 and T10 vertebrae. There is no demonstrated abnormality of the visualized upper abdomen. CT/Chest without Contrast IMPRESSION: Stable examination. A six-month follow-up examination is recommended. Electronically Signed: Micheal Guardado MD at 15:04 EST , Service support ,
== END ==
PROVIDERS: PCP Family Medicine Geriatric Medicine; Referring Provider Internal Medicine Critical Care Medicine; Visit Provider Internal Medicine Critical Care Medicine
DX: R91.1 Solitary pulmonary nodule (principal)
CPT/HCPCS: 71250

== ENCOUNTER 2021-10-26 12:01 | Outpatient (CLI) | payer MEDICARE, OTHER, SELFPAY ==
[2021-10-26 12:42] LABS: Absolute Lymphocyte Count 1.97 X10^3/uL (0.83-4.51); Absolute Neutrophil Count 4.4 X10^3/uL (2.0-7.7); Basophil# 0.03 X10^3/uL; Basophil% 0.4 % (0-1); Eosinophils% 1.4 % (0-5); Hematocrit 39.7 % (37-47); Hemoglobin 13.8 g/dL (12.0-15.0); Lymphocyte # 1.97 X10^3/ul (0.83-4.51); Lymphocyte % 27.2 % (19-41); Mean Corp Hgb Conc 34.8 g/dL (32-36); Mean Corpuscular Hgb 33.1 pg (27.0-32.0); Mean Corpuscular Volume 95.2 fL (81-99); Mean Platelet Vol. 9.4 fl (6.2-12.0); Monocyte% 9.7 % (0-10); NRBC Flagged by Analyzer 0 % (0-5); Neutrophil # 4.42 X10^3/uL (2.7-7.7); POSITIVE COUNT YES; Platelet Count 86 K/mm3 (150-450); RBC Distribution Width CV 13.4 % (11.6-14.6); RBC Distribution Width SD 47.3 fl (35.1-43.9); Red Blood Count 4.17 M/mm3 (4.2-5.4); White Blood Count 7.2 K/mm3 (4.4-11.0)
[2021-10-26 12:49] LABS: Vitamin D,25 Hydroxy 36.7 ng/mL
[2021-10-26 12:58] LABS: ALB/GLOB Ratio 0.8 RATIO (0.9-2.4); AST(SGOT) 19 U/L (15-37); Alanine Aminotransfer ALT/SGPT 34 U/L (13-56); Albumin, Serum 3.3 g/dL (3.2-5.0); Alkaline Phosphatase 84 U/L (45-117); Anion Gap 7 (5-15); BUN 16 mg/dL (7-18); BUN/Creat Ratio 18.8 RATIO (10-20); Calcium,Total 9.1 mg/dL (8.5-10.1); Chloride 99 mmol/L (98-107); Creatinine, Serum 0.85 mg/dL (0.55-1.02); EST Glomerular Filtration Rate 68 mL/min (>60); Est Glom Filt Rate - Afr Amer 82 mL/min (>60); Glucose 229 mg/dL (74-106); Potassium 4.1 mmol/L (3.5-5.1); Protein, Total 7.3 g/dL (6.4-8.2); Sodium Level 135 mmol/L (136-145); Thyroid Stim Hormone (TSH) 1.49 uIU/mL (0.358-3.74)
== END 2021-10-26 23:59 | disposition short-term general hospital (02) ==
LOC: POLAB3 12:02
PROVIDERS: PCP Family Medicine Geriatric Medicine; Visit Provider Family Medicine Geriatric Medicine
DX: E11.9 Type 2 diabetes mellitus without complications (principal); E55.9 Vitamin D deficiency, unspecified; I10 Essential (primary) hypertension
CPT/HCPCS: 36415; 80053; 82306; 84443; 85025

== ENCOUNTER 2021-11-04 12:52 | Outpatient (CLI) | payer MEDICARE, OTHER, SELFPAY ==
[2021-05-02 11:06] VITALS: BMI 25.2
[2021-11-04 13:01] VITALS: BP 149/57; PULSE 79; RESP 16; TEMP 35.9; O2SAT 100; BMI 24.7
[2021-11-04] MEDS: DENOSUMAB 60 MG/ML SC (13:06)
== END 2021-11-04 23:59 | disposition short-term general hospital (02) ==
LOC: MEDOUTP 12:55
PROVIDERS: PCP Family Medicine Geriatric Medicine; Referring Provider Internal Medicine Endocrinology, Diabetes & Metabolism; Visit Provider Internal Medicine Endocrinology, Diabetes & Metabolism
DX: M81.0 Age-related osteoporosis without current pathological fracture (principal)
CPT/HCPCS: 96372; J0897

== ENCOUNTER 2021-12-10 10:28 | Inpatient (IN) | payer MEDICARE, OTHER, SELFPAY ==
[2021-12-10] VITALS (10 sets, daily range): BP systolic 104–159; BP diastolic 49–80; PULSE 96–111; RESP 16–19; TEMP 36.3–37.9; O2SAT 95–98; BMI 26.9; BMI 27.1
--- NOTE | 2021-12-10 10:37 | EKG12_ITS ---
Test Reason : GENERAL Blood Pressure : / mmHG Vent. Rate : 109 BPM Atrial Rate : 109 BPM P-R Int : 178 ms QRS Dur : 110 ms QT Int : 336 ms P-R-T Axes : 061 -42 090 degrees QTc Int : 452 ms Sinus tachycardia Left axis deviation Left ventricular hypertrophy with repolarization abnormality Abnormal ECG Confirmed by KUMAR DELGADO, MEKHI ([id number]), design editor MONIQUE TERESA ([id number]) on 12/12/2021 12:19:12 PM Referred By: SHANI Confirmed By:MEKHI HEATH MD
--- NOTE | 2021-12-10 10:37 | RAD_ITS ---
STUDY: X-RAY CHEST REASON FOR EXAM: Female, 81 years old. Coronary artery disease. TECHNIQUE: Single AP portable view of the chest. COMPARISON: 06/17/2021. FINDINGS: Stranding/scarring in the right upper lobe unchanged. No focal filtrate is seen. There is no demonstrated pleural abnormality. There is mild cardiac enlargement. Retrocardiac calcifications again seen unchanged. Normal visualized pulmonary arteries. There is atherosclerotic calcification of the aortic arch with tortuosity. Stable soft tissues and osseous structures. Clinical clips in the left lower chest. There is no demonstrated abnormality of the visualized soft tissue structures of the upper abdomen. RAD/Chest 1 View (Portable) IMPRESSION: No significant change. No active pulmonary disease. Electronically Signed: Sohail Moreno, at 11:44 EST ,
--- NOTE | 2021-12-10 10:39 | EX.ED.DYSGE1 ---
HPI History of Present Illness Chief Complaint: General Illness Narrative Narrative: Patient presents via EMS with malaise and fatigue, generalized weakness that started today. She simply states I don't feel well. She denies any fevers or chills. No cough. No dysuria or hematuria, no urinary frequency. She denies any pain. She lives at home with her and they called EMS because states she did not feel well today. She may have had chills according to EMS but feels generally weak and not right. She states that she has received 2 of her COVID immunizations and is due for her booster shot. Additionally she is going to see her pain management doctor for her chronic back pain on Sunday. [facility] Medical History Acid reflux Arthritis Back problem Bacteremia due to Gram-negative bacteria Bilateral lower extremity edema Breast cancer Cancer Cataracts, bilateral Chronic headaches DDD (degenerative disc disease), lumbar Diabetes Diarrhea Elevated troponin H/O transfusion of whole blood High triglycerides History of type 1 diabetes mellitus HTN (hypertension) Hypercholesterolemia Hypothyroidism Kidney disease Lymphedema Nonrheumatic aortic (valve) stenosis Nonrheumatic mitral valve stenosis with insufficiency NSTEMI, initial episode of care Segmental and somatic dysfunction of lumbar region Segmental and somatic dysfunction of pelvic region Segmental and somatic dysfunction of thoracic region Spinal stenosis Thrombocytopenia Thyroid disease Home Medications ascorbic acid (vitamin C) 500 mg PO DAILY@0800 07/05/19 [History Last Taken Unknown] atorvastatin 40 mg PO QHS 07/05/19 [History Last Taken Unknown] baclofen 5 mg PO DAILY 07/05/19 [History Last Taken Unknown] calcium citrate-vitamin D3 1 ea PO DAILY 07/05/19 [History Last Taken Unknown] famotidine 40 mg PO DAILY 07/05/19 [History Last Taken 08/26/19] gabapentin 300 mg PO DAILY 07/05/19 [History Last Taken Unknown] metoprolol tartrate 25 mg PO BID 07/05/19 [History Last Taken 08/26/19] multivitamin with folic acid 1 tab PO DAILY 07/05/19 [History Last Taken Unknown] oxycodone-acetaminophen 5 mg-325 mg tablet 1 tab PO TID tab 12/02/19 [History Last Taken Unknown] polyethylene glycol 3350 17 gram/dose oral powder 17 g PO DAILY 05/03/20 [History Last Taken Unknown] denosumab 60 mg/mL subcutaneous syringe 60 mg SUBCUT [id number] #1 ml 05/06/21 [Rx Last Taken Unknown] amlodipine 2.5 mg tablet 2.5 mg PO DAILY 09/16/21 [History Last Taken Unknown] levothyroxine 137 mcg tablet 137 mcg PO DAILY #30 tab 11/28/21 [Rx Last Taken Unknown] glimepiride 2 mg PO DAILY 12/10/21 [History Last Taken Unknown] Allergy/AdvReac Type Severity Reaction Status Date / Time piperacillin [From Zosyn] AdvReac Mild malaise, Verified 12/10/21 10:34 myalgias tazobactam [From Zosyn] AdvReac Mild malaise, Verified 12/10/21 10:34 myalgias Family History Grandfather CVA (cerebral vascular accident) Mother Hypertension Breast cancer Father Diabetes Heart disease Brother CVA (cerebral vascular accident) Diabetes Dementia Surgical History H/O mastectomy H/O tubal ligation History of cataract surgery History of hysterectomy Hx of section Hx of cholecystectomy Hx of colonoscopy Social History Smoking Status: Never smoker second hand exposure: No alcohol intake: never substance use type: does not use caffeine: Yes what type of physical activity do you participate in: none frequency: does not exercise ROS ROS ED ROS Narrative Constitutional: No fever, no chills. Positive malaise, fatigue. HEENT: No sore throat. No neck pain. No loss of vision. No rhinorrhea. Cardiovascular: No chest pain. No palpitations. No pedal edema. Respiratory: No cough, no shortness of breath. Abdominal: No abdominal pain. No nausea. No vomiting. Genitourinary: No dysuria. No hematuria. Musculoskeletal: No myalgias. No arthralgias. Neurologic: No headaches. No dizziness. No lightheadedness. Generalized weakness. Skin: No rash. No change in color. Psychiatric: No depression. No anxiety. EXAM Physical Exam Narrative Exam Narrative: Afebrile. Vital signs noted. HEENT: Normocephalic. Atraumatic. PERRL, EOMI. Neck soft and supple. No point tenderness or step off. Cardiovascular: Regular rate and rhythm. No murmurs, rubs, or gallops appreciated. Respiratory: No tachypnea. Lungs clear to auscultation bilaterally. Gastrointestinal: Abdomen soft, nontender, with normoactive bowel sounds. No rebound or guarding. Neurological: Awake. Alert. Nonfocal, nonlateralizing. Skin: No rash. Chronic lymphedema skin changes bilateral lower extremities. No pallor. Musculoskeletal: Bilateral, symmetric, chronic pedal edema. Full range of motion extremities. Const Vital Signs: 12/10/21 10:29 12/10/21 10:38 12/10/21 10:52 Temperature 97.3 F L 100.3 F H Temperature Source Temporal Oral Pulse Rate 111 H Respiratory Rate 18 Respiratory Effort Normal Respiratory Pattern Normal Blood Pressure 159/69 H Blood Pressure Mean 99 Pulse Ox 97 Oxygen Delivery Method Room Air 12/10/21 12:46 Temperature 99.2 F H Temperature Source Oral Pulse Rate 100 Respiratory Rate 19 H Respiratory Effort Respiratory Pattern Blood Pressure 110/58 L Blood Pressure Mean 75 Pulse Ox 98 Oxygen Delivery Method Room Air MDM MDM MDM Narrative Medical decision making narrative: Comprehensive work-up was pursued. Patient spiked a fever of 100.3 ?F/had elevated temperature. She was administered Tylenol. She has normal white count of 5.2, hemoglobin stable at 12.8. Platelet count low at 58. She has a low sodium of 135, lactic acid elevated 2.1. LFTs are grossly unremarkable. High-sensitivity troponin negative at 29. Urinalysis shows no evidence of infection. Chest x-ray is negative. I am unsure as to the source of her elevated temperature as she has a negative Covid swab and a negative influenza swab. She was started on antibiotics in the form of vancomycin and aztreonam given her allergy to Zosyn which is more malaise and myalgias. I discussed patient with Dr. Morin. It was felt that given her elevated temperature and lactic acidosis that she could be admitted safely to the progressive care unit. Disposition is admit. Patient is in stable condition. Lab Data Labs: Laboratory Results - last 24 hr 12/10/21 12/10/21 12/10/21 10:45 10:45 10:45 WBC 5.2 RBC 3.70 L Hgb 12.8 Hct 35.7 L MCV 96.5 MCH 34.6 H MCHC 35.9 RDW Std Deviation 48.1 H RDW Coeff of [place] 13.4 Plt Count 58 L MPV 8.5 Sodium 135 L Potassium 4.8 Chloride 103 Carbon Dioxide 28.0 Anion Gap 4 L BUN 13 Creatinine 0.87 Estim Creat Clear Calc 43.79 Est GFR (MDRD) Af Amer 81 Est GFR (MDRD) Non-Af 67 BUN/Creatinine Ratio 15.0 Glucose 209 H Lactic Acid Calcium 8.6 Magnesium 1.3 L Total Bilirubin 1.20 H AST 78 H ALT 46 Alkaline Phosphatase 70 Troponin I High Sens 29 Total Protein 6.4 Albumin 2.8 L Globulin 3.6 Albumin/Globulin Ratio 0.8 L Urine Color Urine Clarity Urine pH Ur Specific [place] Urine Protein Urine Glucose (UA) Urine Ketones Urine Occult Blood Urine Nitrite Urine Bilirubin Urine Urobilinogen Ur Leukocyte Esterase Urine RBC Urine WBC Ur Squamous Epith Cells Urine Bacteria Urine Mucus 12/10/21 12/10/21 11:12 12:20 WBC RBC Hgb Hct MCV MCH MCHC RDW Std Deviation RDW Coeff of [place] Plt Count MPV Sodium Potassium Chloride Carbon Dioxide Anion Gap BUN Creatinine Estim Creat Clear Calc Est GFR (MDRD) Af Amer Est GFR (MDRD) Non-Af BUN/Creatinine Ratio Glucose Lactic Acid 2.1 H* Calcium Magnesium Total Bilirubin AST ALT Alkaline Phosphatase Troponin I High Sens Total Protein Albumin Globulin Albumin/Globulin Ratio Urine Color Yellow Urine Clarity Clear Urine pH 6.0 Ur Specific [place] 1.010 Urine Protein Negative Urine Glucose (UA) Normal Urine Ketones Negative Urine Occult Blood 10 H Urine Nitrite Negative Urine Bilirubin Negative Urine Urobilinogen Normal Ur Leukocyte Esterase 25 H Urine RBC 0 SEEN Urine WBC 0-5 SEEN Ur Squamous Epith Cells 0 SEEN Urine Bacteria 0 SEEN Urine Mucus 0 SEEN Radiography Diagnostic Testing: Clinical Impression(s) from Imaging Studies Chest X-Ray 12/10/21 10:37 IMPRESSION: No significant change. No active pulmonary disease. Electronically Signed: Sohail Moreno, at 11:44 EST , Discharge Plan Dx/Rx/DC Orders Clinical Impression: Fever, Malaise and fatigue, Lactic acidosis, Thrombocytopenia, Sepsis Disposition Disposition: Acute Care Hospital [facility] Discharge Date/Time: 12/10/21 14:16
[2021-12-10 11:01] LABS: Hematocrit 35.7 % (37-47); Hemoglobin 12.8 g/dL (12.0-15.0); Mean Corp Hgb Conc 35.9 g/dL (32-36); Mean Corpuscular Hgb 34.6 pg (27.0-32.0); Mean Corpuscular Volume 96.5 fL (81-99); Mean Platelet Vol. 8.5 fl (6.2-12.0); POSITIVE COUNT YES; Platelet Count 58 K/mm3 (150-450); RBC Distribution Width CV 13.4 % (11.6-14.6); RBC Distribution Width SD 48.1 fl (35.1-43.9); White Blood Count 5.2 K/mm3 (4.4-11.0)
[2021-12-10] MEDS: Acetaminophen 325 MG Tablet 650 MG PO (11:06)
[2021-12-10 11:19] LABS: ALB/GLOB Ratio 0.8 RATIO (0.9-2.4); AST(SGOT) 78 U/L (15-37); Alanine Aminotransfer ALT/SGPT 46 U/L (13-56); Albumin, Serum 2.8 g/dL (3.2-5.0); Alkaline Phosphatase 70 U/L (45-117); Anion Gap 4 (5-15); BUN 13 mg/dL (7-18); Calcium,Total 8.6 mg/dL (8.5-10.1); Chloride 103 mmol/L (98-107); Creatinine, Serum 0.87 mg/dL (0.55-1.02); EST Glomerular Filtration Rate 67 mL/min (>60); Est Glom Filt Rate - Afr Amer 81 mL/min (>60); Estimated Creatinine Clearance 43.79 ml/min; Globulin 3.6 g/dL (2.2-4.2); Glucose 209 mg/dL (74-106); Potassium 4.8 mmol/L (3.5-5.1); Protein, Total 6.4 g/dL (6.4-8.2); Sodium Level 135 mmol/L (136-145); Troponin-I HS 29 pg/mL (3.0-54.0)
[2021-12-10 11:48] LABS: Lactic Acid 2.1 mmol/L (0.4-1.9)
[2021-12-10 12:25] LABS: Bacteria 0 SEEN /hpf (None Seen); Mucous, Urine 0 SEEN /hpf (<or=2+); Red Blood Cells-Urine 0 SEEN /hpf (0-5); Squamous Epithelial Cells - UA 0 SEEN /hpf (5-10)
[2021-12-10 12:37] LABS: Color, Urine Yellow (Yellow); Glucose, Dipstick Normal (Normal); Ketone-Dipstick Negative (Negative); Leukocyte Esterase-Dipstick 25 /ul (Negative); Nitrite-Dipstick Negative (Negative); Occult Blood-Urine 10 /ul (Negative); Protein-Dipstick Negative (Negative); Urine Bilirubin Dipstick Negative (Negative); Urine Clarity Clear (Clear); Urine Urobilinogen Normal (Normal)
[2021-12-10 12:44] LABS: White Blood Cells 0-5 SEEN /hpf (0-5)
--- NOTE | 2021-12-10 13:52 | PCM.HP.STD ---
HPI - General General Date of Admission: 12/10/21 Date of Service: 12/10/21 Chief Complaint: Generalized weakness, fever, not feeling good HPI Narrative TORY LY, is a 81 F with multiple comorbidities as listed below, lives with her , brought by EMS for generalized weakness, malaise, fatigue, low-grade fever and nonspecific not feeling good. Patient had chills and cold and found to be febrile, T-max 100.3, 99.2 Fahrenheit Fahrenheit. She has sinus tachycardia but no hypoxia or tachypnea. Although not charted the vitals but on the bus driver/monitor patient blood pressure was 1 time 86 systolic which on recycling it is systolic 98. Patient had just 500 mL normal saline in ED. Had 1 dose of vancomycin and cefepime. Patient is awake and alert and able to give history by herself. She denies cough, URI symptoms, sinus congestion headache or increasing shortness of breath. She has chronic bilateral leg swelling which she states improved after lumbar injection given for chronic pain by Dr. Salas. She had last spinal injection in first half of October 2021. She has seen PCP less than a month ago, does not remember the exact date and had antibiotic course for presumed UTI. At that time she had burning micturition but currently she denies dysuria, increased frequency or urgency. She has chronic urinary incontinence. Preliminary work-up in ED including chest x-ray and UA does not show focus of infection. Lactic acid elevated. Labs reviewed and mentioned in assessment plan Patient was last admitted in June 2021 for gram-negative parveen bacteremia with unknown source similar presentation. Her PCP is Dr. Ross. She follows Dr. Marte for lung nodule [facility] Medical History Acid reflux Arthritis Back problem Bacteremia due to Gram-negative bacteria Bilateral lower extremity edema Breast cancer Cancer Cataracts, bilateral Chronic headaches DDD (degenerative disc disease), lumbar Diabetes Diarrhea Elevated troponin H/O transfusion of whole blood High triglycerides History of type 1 diabetes mellitus HTN (hypertension) Hypercholesterolemia Hypothyroidism Kidney disease Lymphedema Nonrheumatic aortic (valve) stenosis Nonrheumatic mitral valve stenosis with insufficiency NSTEMI, initial episode of care Segmental and somatic dysfunction of lumbar region Segmental and somatic dysfunction of pelvic region Segmental and somatic dysfunction of thoracic region Spinal stenosis Thrombocytopenia Thyroid disease Home Medications ascorbic acid (vitamin C) 500 mg PO DAILY@0800 07/05/19 [History Last Taken Unknown] atorvastatin 40 mg PO QHS 07/05/19 [History Last Taken Unknown] baclofen 5 mg PO DAILY 07/05/19 [History Last Taken Unknown] calcium citrate-vitamin D3 1 ea PO DAILY 07/05/19 [History Last Taken Unknown] famotidine 40 mg PO DAILY 07/05/19 [History Last Taken 08/26/19] gabapentin 300 mg PO DAILY 07/05/19 [History Last Taken Unknown] metoprolol tartrate 25 mg PO BID 07/05/19 [History Last Taken 08/26/19] multivitamin with folic acid 1 tab PO DAILY 07/05/19 [History Last Taken Unknown] oxycodone-acetaminophen 5 mg-325 mg tablet 1 tab PO TID tab 12/02/19 [History Last Taken Unknown] polyethylene glycol 3350 17 gram/dose oral powder 17 g PO DAILY 05/03/20 [History Last Taken Unknown] denosumab 60 mg/mL subcutaneous syringe 60 mg SUBCUT [id number] #1 ml 05/06/21 [Rx Last Taken Unknown] amlodipine 2.5 mg tablet 2.5 mg PO DAILY 09/16/21 [History Last Taken Unknown] levothyroxine 137 mcg tablet 137 mcg PO DAILY #30 tab 11/28/21 [Rx Last Taken Unknown] glimepiride 2 mg PO DAILY 12/10/21 [History Last Taken Unknown] Allergy/AdvReac Type Severity Reaction Status Date / Time piperacillin [From Zosyn] AdvReac Mild malaise, Verified 12/10/21 10:34 myalgias tazobactam [From Zosyn] AdvReac Mild malaise, Verified 12/10/21 10:34 myalgias Family History Grandfather CVA (cerebral vascular accident) Mother Hypertension Breast cancer Father Diabetes Heart disease Brother CVA (cerebral vascular accident) Diabetes Dementia Surgical History H/O mastectomy H/O tubal ligation History of cataract surgery History of hysterectomy Hx of section Hx of cholecystectomy Hx of colonoscopy Social History Smoking Status: Never smoker second hand exposure: No alcohol intake: never substance use type: does not use caffeine: Yes what type of physical activity do you participate in: none frequency: does not exercise ROS ROS Narrative Constitutional: Reports fatigue and weakness. Mild fever HEENT: Reports systems reviewed and no addt'l complaints, except as documented Respiratory/Chest: Denies chest pain, shortness of breath at rest. Mild chronic shortness of breath on exertion Gastrointestinal: Denies coffee ground emesis, hematemesis or vomiting Genitourinary: Denies burning urination or new urinary tract symptoms Musculoskeletal: Reports joint pain and limited range of motion. Chronic arthritis of hip and knee joints Extremities: Bilateral leg swelling, chronic. Neurologic: Denies seizure-like activity skin: No ulcer. No rash Endocrinology: Denies diabetes type 2 reports systems reviewed and no addt'l complaints, except as documented Hematologic/Lymphatic: Reports systems reviewed and no addt'l complaints, except as documented Rest 14 ROS are negative except as mentioned in HPI Vital Signs Vital Signs Vital Signs: 12/10/21 10:29 12/10/21 10:38 12/10/21 10:52 Temperature 97.3 F L 100.3 F H Temperature Source Temporal Oral Pulse Rate 111 H Respiratory Rate 18 Respiratory Effort Normal Respiratory Pattern Normal Blood Pressure 159/69 H Blood Pressure Mean 99 Pulse Ox 97 Oxygen Delivery Method Room Air 12/10/21 12:46 Temperature 99.2 F H Temperature Source Oral Pulse Rate 100 Respiratory Rate 19 H Respiratory Effort Respiratory Pattern Blood Pressure 110/58 L Blood Pressure Mean 75 Pulse Ox 98 Oxygen Delivery Method Room Air Weight Weight: 156 lb 11.979 oz Body Mass Index (BMI) 26.9 Physical Exam Narrative General: Alert, Oriented x3, Cooperative HEENT: Atraumatic, PERRLA, EOMI, Normocephalic. Mild hearing loss. Oral: No Gingival or Mucosal Lesions/ Ulcerations Neck: Supple, No JVD, Negative Carotid Bruits Lungs: Air entry diminished in bilateral lung bases. No crepitation/rhonchi Cardiovascular: Sinus tachycardia, Normal S1, Normal S2, early diastolic ejection systolic murmur over right and left second ICS, LLSB and cardiac apex. Grade 4/6 Abdomen: Bowel Sounds Present, Soft, Non Tender, Non-Distended : No renal angle tenderness. No suprapubic tenderness. Extremities: Bilateral pitting 2+ below-knee edema, Capillary Refill Less than 3 Seconds Skin: No rashes, No breakdown Musculoskeletal: No Tenderness to Palpation of Joints or Extremities. Bilateral hip and knee joints arthritis. ROM limited Neurological: Cranial nerves II-XII grossly intact, DTR 2+/4. No neck rigidity. Babinski sign negative Psych/Mental Status: Flat affect. Results Lab / Micro Data Result Diagrams: 12/10/21 10:45 12/10/21 10:45 Labs: Laboratory Results - last 24 hr 12/10/21 10:45: WBC 5.2, RBC 3.70 L, Hgb 12.8, Hct 35.7 L, MCV 96.5, MCH 34.6 H, MCHC 35.9, RDW Std Deviation 48.1 H, RDW Coeff of [place] 13.4, Plt Count 58 L, MPV 8.5 12/10/21 10:45: Sodium 135 L, Potassium 4.8, Chloride 103, Carbon Dioxide 28.0, Anion Gap 4 L, BUN 13, Creatinine 0.87, Estim Creat Clear Calc 43.79, Est GFR (MDRD) Af Amer 81, Est GFR (MDRD) Non-Af 67, BUN/Creatinine Ratio 15.0, Glucose 209 H, Calcium 8.6, Total Bilirubin 1.20 H, AST 78 H, ALT 46, Alkaline Phosphatase 70, Troponin I High Sens 29, Total Protein 6.4, Albumin 2.8 L, Globulin 3.6, Albumin/Globulin Ratio 0.8 L 12/10/21 11:12: Lactic Acid 2.1 H* 12/10/21 12:20: Urine Color Yellow, Urine Clarity Clear, Urine pH 6.0, Ur Specific [place] 1.010, Urine Protein Negative, Urine Glucose (UA) Normal, Urine Ketones Negative, Urine Occult Blood 10 H, Urine Nitrite Negative, Urine Bilirubin Negative, Urine Urobilinogen Normal, Ur Leukocyte Esterase 25 H, Urine RBC 0 SEEN, Urine WBC 0-5 SEEN, Ur Squamous Epith Cells 0 SEEN, Urine Bacteria 0 SEEN, Urine Mucus 0 SEEN Micro: Microbiology 12/10/21 10:45 Mucosa - Nasopharyngeal Influenza Types A,B Direct FA (ROSE) - Final 12/10/21 10:45 Nasal Secretion SARS-CoV-2 Antigen (Rapid) - Final Radiology Impression Chest X-Ray 12/10/21 10:37 IMPRESSION: No significant change. No active pulmonary disease. Electronically Signed: Sohail Moreno, at 11:44 EST , Assessment & Plan Assessment/Plan (1) Fever: PLAN: 1. Fever with suspicion of infection/bacteremia of unclear source: Patient is being admitted in PCU. qSOFA score 1 of transient hypotension corrected with IV fluid. Mild lactic acidosis, acute on chronic thrombocytopenia. I will treat Ringer lactate 1 L bolus and then 50 mill per hour. Troponin normal. UA negative for pyuria, nitrate. LE 25. PT/INR, PTT ordered. Blood cultures x2, urine culture, MRSA nasal screen ordered. Continue IV cefepime. I do not think patient is high risk of MRSA with patient had 1 dose of vancomycin in ED. Follow cultures. Patient had nonspecific reaction with Zosyn last time including feeling not well but no allergic rash, angioedema or severe reaction. Patient was last admitted in June 2021 for Pseudomonas bacteremia of unclear source and was discharged on Levaquin to complete a total of 10-day course. 2. Electrolyte abnormalities: Hypomagnesemia: Magnesium is 1.3 and is getting replaced. Serum phosphorus ordered. Serum potassium level is normal. Mild hyponatremia, chronic on baseline. Serum sodium is 135 in October 2021 and in JuneJuly 2021. 3. Diabetes mellitus type 2: Glucose is 209, uncontrolled hyperglycemia. Lantus insulin 5 units subcutaneous at bedtime daily. Hold oral hypoglycemic agent. Accu-Chek insulin is covered with below sliding scale. Titrate the dose of insulin according to Accu-Cheks 4. Chronic diastolic heart failure and valvular heart disease, aortic stenosis and MR: Patient had last echo in June 2021 which shows EF 55%, mild MR, moderate diffuse aortic valve thickening, mild aortic stenosis. LA moderately enlarged suggestive of mild chronic HFpEF/diastolic heart failure. Patient has chronic leg swelling. 5. Lung nodule: Patient had CT chest in July 05 which showed 2 subcentimeter pulmonary nodules in the left upper lobe and right lower lobe and follows Dr. Marte last seen July 2021 but she missed appointment in October 2021. 6.. Acute on chronic thrombocytopenia: Patient usually runs platelet count 75 thousand?85,000. Today 58,000. Monitor CBC daily. 7. CKD stage G3a: Patient creatinine is on baseline. Estimated creatinine clearance 43 mils per minute. UA does not show proteinuria. 8. Hypothyroidism: Levothyroxine continued. 9 multiple comorbidities including chronic disc degenerative arthritis of lumbar spine, knee and hip joints, spinal stenosis, bilateral lower extremities lymphedema, GERD, dyslipidemia history of breast cancer status post mastectomy: Home medication reconciliation done. PT and OT, rn case manager software controls engineer consult. 10. VTE prophylaxis: Lovenox 40 mg subcu daily. Discontinue if platelet count drops less than 50,000 or hemoglobin less than 8 g% Living will/advanced directive/end of life care: Patient does not have living will or advanced directive. She lives with her . Her daughter is next to kin. After discussion of benefits/risks procedures involved with full code, DNR CC arrest and DNR CC, the patient her daughter agreed for DNR CCA with no intubation. Patient doesn't want artificial life support including intubation, tube feed, ventilator and/chest compression, central venous catheter, vasopressor and DC shock if needed Total time spent in [id number] encounter in discussion of advanced directive 16 minutes. Charges/Coding Visit Charges Inpatient E&M: 02947 Init Hosp L3 Procedures Hospitalists Procedures: 32059 Advncd Care Plan 30 Min
[2021-12-10] MEDS: Lactated Ringers 1,000 ML 999 ML IV (13:58)
[2021-12-10 14:04] LABS: Magnesium 1.3 mg/dL (1.6-2.6)
[2021-12-10 14:29] LABS: CPK Total, Creatine Kinase 47 U/L (26-192)
[2021-12-10 14:40] LABS: Magnesium 1.3 mg/dL (1.6-2.6); Phosphorus 1.2 mg/dL (2.5-4.9)
[2021-12-10] MEDS: Lactated Ringers 1,000 ML 50 ML IV (14:56)
[2021-12-10] MEDS: Lactated Ringers 500 ML IV.SOLN. 1000 ML IV (14:57)
[2021-12-10 15:16] LABS: Reflex Lactate? Y
[2021-12-10 15:50] LABS: International Normalized Ratio 1.5; Partial Thromboplast Time 36.9 Seconds (24.1-36.2); Prothrombin Time (Protime)PT. 17.8 SECONDS (11.7-14.9)
[2021-12-10 16:28] LABS: Lactic Acid 2.1 mmol/L (0.4-1.9)
[2021-12-10] MEDS: Insulin Lispro 100 UNIT/ML INSULN.PEN SC ×2 (16:46→21:47)
[2021-12-10] MEDS: oxyCODONE 5 MG Tablet PO ×2 (18:11→22:08)
[2021-12-10] MEDS: Atorvastatin Calcium 40 MG Tablet PO (21:49)
[2021-12-10 22:09] LABS: M R Staph aureus DNA By PCR Negative (Negative); Probe Check PASS; Specimen Processing Control PASS
[2021-12-10 23:31] LABS: Bedside Glucose 158 mg/dL (70-110)
[2021-12-10 23:31] LABS: Bedside Glucose 213 mg/dL (70-110)
[2021-12-11] VITALS (9 sets, daily range): BP systolic 106–147; BP diastolic 48–68; PULSE 87–110; RESP 16–18; TEMP 36.7–37; O2SAT 95–100
[2021-12-11 06:22] LABS: Absolute Lymphocyte Count 2.17 X10^3/uL (0.83-4.51); Absolute Neutrophil Count 10.3 X10^3/uL (2.0-7.7); Basophil# 0.04 X10^3/uL; Basophil% 0.3 % (0-1); Eosinophil# 0.04 X10^3/uL; Eosinophils% 0.3 % (0-5); Hematocrit 31.4 % (37-47); Hemoglobin 11.1 g/dL (12.0-15.0); Lymphocyte # 2.17 X10^3/ul (0.83-4.51); Lymphocyte % 15.6 % (19-41); Mean Corp Hgb Conc 35.4 g/dL (32-36); Mean Corpuscular Hgb 33.6 pg (27.0-32.0); Mean Corpuscular Volume 95.2 fL (81-99); Mean Platelet Vol. 9.9 fl (6.2-12.0); Monocyte# 1.34 X10^3/uL; Monocyte% 9.6 % (0-10); NRBC Flagged by Analyzer 0 % (0-5); Neutrophil # 10.27 X10^3/uL (2.7-7.7); Neutrophil % 73.6 % (47-70); POSITIVE COUNT YES; Platelet Count 56 K/mm3 (150-450); RBC Distribution Width CV 13.8 % (11.6-14.6); RBC Distribution Width SD 47.9 fl (35.1-43.9)
[2021-12-11] MEDS: Levothyroxine 137 MCG Tablet PO (06:33)
[2021-12-11 06:36] LABS: ALB/GLOB Ratio 0.7 RATIO (0.9-2.4); AST(SGOT) 50 U/L (15-37); Alanine Aminotransfer ALT/SGPT 50 U/L (13-56); Albumin, Serum 2.3 g/dL (3.2-5.0); Alkaline Phosphatase 56 U/L (45-117); Anion Gap 5 (5-15); BUN 15 mg/dL (7-18); BUN/Creat Ratio 21.5 RATIO (10-20); Chloride 105 mmol/L (98-107); EST Glomerular Filtration Rate 85 mL/min (>60); Est Glom Filt Rate - Afr Amer 103 mL/min (>60); Globulin 3.1 g/dL (2.2-4.2); Glucose 86 mg/dL (74-106); Potassium 3.6 mmol/L (3.5-5.1); Protein, Total 5.4 g/dL (6.4-8.2); Sodium Level 137 mmol/L (136-145)
[2021-12-11 06:55] LABS: Bedside Glucose 97 mg/dL (70-110)
[2021-12-11] MEDS: Metoprolol Tartrate 25 MG Tablet PO ×2 (08:13→23:04)
[2021-12-11] MEDS: Gabapentin 300 MG Capsule PO (08:13)
[2021-12-11] MEDS: Polyethylene Glycol 3350 17 GM PACKET PO (08:13)
[2021-12-11] MEDS: Famotidine 20 MG Tablet PO (08:14)
[2021-12-11] MEDS: Multivitamins,Ther W-Minerals Tablet 1 TABLET PO (08:14)
[2021-12-11] MEDS: Ascorbic Acid 500 MG Tablet PO ×2 (08:14)
[2021-12-11] MEDS: oxyCODONE 5 MG Tablet PO ×3 (08:23→23:27)
[2021-12-11 08:32] LABS: Phosphorus 2.3 mg/dL (2.5-4.9)
[2021-12-11 09:04] LABS: Lactic Acid 1.4 mmol/L (0.4-1.9)
[2021-12-11] MEDS: Na Biphos/Potassium Phosphate PACKET 1 PACKET PO ×3 (10:16→23:05)
[2021-12-11] MEDS: amLODIPine 2.5 MG Tablet PO (10:17)
[2021-12-11 11:16] LABS: Bedside Glucose 149 mg/dL (70-110)
[2021-12-11] MEDS: Ceftriaxone 1 GM/50 ML BAG IV (13:14)
[2021-12-11] MEDS: Acetaminophen 325 MG Tablet 650 MG PO (14:19)
--- NOTE | 2021-12-11 14:29 | PN.HOSP_ITS ---
Subjective Subjective Seen and examined. Follow-up for generalized weakness and fever and electrolyte abnormality, hypomagnesemia and hypophosphatemia. Most likely source of infection is UTI Overall patient is feeling better with improvement in strength. No fever spike since evening of admission Objective Data Objective Data Vital Signs: Vital Signs Temp Pulse Resp BP Pulse Ox 98.1 F 91 18 138/68 H 100 12/11/21 14:15 12/11/21 14:15 12/11/21 14:15 12/11/21 14:15 12/11/21 14:15 Oxygen Delivery Method Room Air Weight: 153 lb 7.068 oz Body Mass Index (BMI) 27.1 Intake & Output: Intake and Output for Last 24 Hours 12/09/21 12/10/21 12/11/21 23:59 23:59 23:59 Intake Total 2699 / 2699 1580 / 1580 Balance 2699 / 2699 1580 / 1580 Lab / Micro Data Result Diagrams: 12/11/21 05:43 12/11/21 05:43 Labs: Laboratory Results - last 24 hr 12/10/21 14:03: Total Creatine Kinase 47 12/10/21 14:03: Phosphorus 1.2 L, Magnesium 1.3 L 12/10/21 15:32: PT 17.8 H, INR 1.5, APTT 36.9 H 12/10/21 15:32: Lactic Acid 2.1 H* 12/10/21 15:40: MRSA (PCR) Cancelled 12/10/21 16:15: MRSA (PCR) Negative 12/10/21 16:43: POC Glucose 158 H 12/10/21 21:44: POC Glucose 213 H 12/11/21 05:43: WBC 14.0 H, RBC 3.30 L, Hgb 11.1 L, Hct 31.4 L, MCV 95.2, MCH 33.6 H, MCHC 35.4, RDW Std Deviation 47.9 H, RDW Coeff of [place] 13.8, Plt Count 56 L, MPV 9.9, Immature Gran % (Auto) 0.600, Neut % (Auto) 73.6 H, Lymph % (Auto) 15.6 L, [place] % (Auto) 9.6, Eos % (Auto) 0.3, Baso % (Auto) 0.3, Absolute Neuts (auto) 10.3 H, Absolute Lymphs (auto) 2.17, Nucleated RBC % 0 12/11/21 05:43: Sodium 137, Potassium 3.6, Chloride 105, Carbon Dioxide 27.0, Anion Gap 5, BUN 15, Creatinine 0.70, Estim Creat Clear Calc 36.50, Est GFR (MDRD) Af Amer 103, Est GFR (MDRD) Non-Af 85, BUN/Creatinine Ratio 21.5 H, Glucose 86, Calcium 8.0 L, Total Bilirubin 1.10 H, AST 50 H, ALT 50, Alkaline Phosphatase 56, Total Protein 5.4 L, Albumin 2.3 L, Globulin 3.1, Albumin/Globu pollo Ratio 0.7 L 12/11/21 05:43: Phosphorus 2.3 L, Magnesium 2.0 12/11/21 06:32: POC Glucose 97 12/11/21 08:25: Lactic Acid 1.4 12/11/21 11:09: POC Glucose 149 H Micro: Microbiology 12/10/21 12:20 Urine, Clean Catch Urine Culture - Preliminary Presumptive E. coli 12/10/21 16:20 Urine, Clean Catch Legionella Antigen - Final 12/10/21 16:20 Interface Orders Streptococcus pneumoniae Antigen (M - Final 12/10/21 10:45 Mucosa - Nasopharyngeal Influenza Types A,B Direct FA (ROSE) - Final 12/10/21 10:45 Nasal Secretion SARS-CoV-2 Antigen (Rapid) - Final Physical Exam Narrative General: Alert, Oriented x3, Cooperative HEENT: Atraumatic, PERRLA, EOMI, Normocephalic. Mild hearing loss. Oral: No Gingival or Mucosal Lesions/ Ulcerations Neck: Supple, No JVD, Negative Carotid Bruits Lungs: Air entry diminished in bilateral lung bases. No crepitation/rhonchi Cardiovascular: Sinus tachycardia, Normal S1, Normal S2, early diastolic ejection systolic murmur over right and left second ICS, LLSB and cardiac apex. Grade 4/6 Abdomen: Bowel Sounds Present, Soft, Non Tender, Non-Distended : No renal angle tenderness. No suprapubic tenderness. Extremities: Bilateral pitting 2+ below-knee edema, Capillary Refill Less than 3 Seconds Skin: No rashes, No breakdown Musculoskeletal: No Tenderness to Palpation of Joints or Extremities. Bilateral hip and knee joints arthritis. ROM limited Neurological: Cranial nerves II-XII grossly intact, DTR 2+/4. No neck rigidity. Babinski sign negative Psych/Mental Status: Flat affect. Assessment & Plan Assessment/Plan (1) Fever: PLAN: 1. Fever with suspicion of infection/bacteremia of unclear source: Patient is being admitted in PCU. qSOFA score 1 of transient hypotension corrected with IV fluid. Mild lactic acidosis, acute on chronic thrombocytopenia. I will treat Ringer lactate 1 L bolus and then 50 mill per hour. Troponin normal. UA negative for pyuria, nitrate. LE 25. PT/INR, PTT ordered. Blood cultures x2, urine culture, MRSA nasal screen ordered. Continue IV cefepime. I do not think patient is high risk of MRSA with patient had 1 dose of vancomycin in ED. Follow cultures. Patient had nonspecific reaction with Zosyn last time including feeling not well but no allergic rash, angioedema or severe reaction. Patient was last admitted in June 2021 for Pseudomonas bacteremia of unclear source and was discharged on Levaquin to complete a total of 10-day course. 12/11: Preliminary Gram stain of urine culture shows more than 100,000 colonies of presumptive E. coli. IV antibiotic narrowed down to ceftriaxone. Overall improvement in symptoms of weakness. Lactic acidosis resolved. Urinary antigens for Legionella and Streptococcus are negative. Influenza rapid antigen test negative. 2. Electrolyte abnormalities: Hypomagnesemia: Magnesium is 1.3 and is getting replaced. Serum phosphorus ordered. Serum potassium level is normal. Mild hyponatremia, chronic on baseline. Serum sodium is 135 in October 2021 and in JuneJuly 2021. 12/11: Patient had severe hypophosphatemia hypomagnesemia and generalized weakness. Related to electrolyte abnormality. Serum magnesium and phosphorus are getting replaced. Repeat magnesium 2.0. Repeat phosphorus 2.3. 3. Diabetes mellitus type 2: Glucose is 209, uncontrolled hyperglycemia. Lantus insulin 5 units subcutaneous at bedtime daily. Hold oral hypoglycemic agent. Accu-Chek insulin is covered with below sliding scale. Titrate the dose of insulin according to Accu-Cheks 12/11: Glucose is controlled. 4. Chronic diastolic heart failure and valvular heart disease, aortic stenosis and MR: Patient had last echo in June 2021 which shows EF 55%, mild MR, moderate diffuse aortic valve thickening, mild aortic stenosis. LA moderately enlarged suggestive of mild chronic HFpEF/diastolic heart failure. Patient has chronic leg swelling. 5. Lung nodule: Patient had CT chest in July 05 which showed 2 subcentimeter pulmonary nodules in the left upper lobe and right lower lobe and follows Dr. Marte last seen July 2021 but she missed appointment in October 2021. 6.. Acute on chronic thrombocytopenia: Patient usually runs platelet count 75 thousand?85,000. Today 58,000. Monitor CBC daily. 12/11: Platelet count is stable at 50-56,000. Lovenox is started. Discontinue if platelet count drops less than 50,000 or hemoglobin less than 8 g% 7. CKD stage G3a: Patient creatinine is on baseline. Estimated creatinine clearance 43 mils per minute. UA does not show proteinuria. 8. Hypothyroidism: Levothyroxine continued. 9 multiple comorbidities including chronic disc degenerative arthritis of lumbar spine, knee and hip joints, spinal stenosis, bilateral lower extremities lymphedema, GERD, dyslipidemia history of breast cancer status post mastectomy: Home medication reconciliation done. PT and OT, immigration case manager hog handler consult. 10. VTE prophylaxis: Lovenox 40 mg subcu daily. Discontinue if platelet count drops less than 50,000 or hemoglobin less than 8 g% Living will/advanced directive/end of life care: Patient does not have living will or advanced directive. She lives with her . Her daughter is next to kin. After discussion of benefits/risks procedures involved with full code, DNR CC arrest and DNR CC, the patient her daughter agreed for DNR CCA with no intubation. Patient doesn't want artificial life support including intubation, tube feed, ventilator and/chest compression, central venous catheter, vasopressor and DC shock if needed Total time spent in [id number] encounter in discussion of advanced directive 16 minutes. Charges/Coding Visit Charges Inpatient E&M: 66279 Subs Hosp L2
[2021-12-11] MEDS: Enoxaparin 40 MG/0.4 ML Syringe SC (15:38)
[2021-12-11] MEDS: Insulin Lispro 100 UNIT/ML INSULN.PEN SC ×2 (16:12→23:02)
[2021-12-11 16:36] LABS: Bedside Glucose 194 mg/dL (70-110)
[2021-12-11] MEDS: 0.9% Saline Lock 10 ML Syringe IV (23:04)
[2021-12-11] MEDS: Atorvastatin Calcium 40 MG Tablet PO (23:04)
[2021-12-12] VITALS (7 sets, daily range): BP systolic 142–170; BP diastolic 72–82; PULSE 90–105; RESP 16–18; TEMP 36.2–36.6; O2SAT 94–96
[2021-12-12 01:21] LABS: Bedside Glucose 159 mg/dL (70-110)
[2021-12-12] MEDS: Levothyroxine 137 MCG Tablet PO (06:00)
[2021-12-12] MEDS: Na Biphos/Potassium Phosphate PACKET 1 PACKET PO ×2 (06:00→14:16)
[2021-12-12] MEDS: Insulin Lispro 100 UNIT/ML INSULN.PEN SC ×2 (06:36→10:59)
[2021-12-12 06:37] LABS: Absolute Lymphocyte Count 1.94 X10^3/uL (0.83-4.51); Absolute Neutrophil Count 10.1 X10^3/uL (2.0-7.7); Basophil# 0.04 X10^3/uL; Basophil% 0.3 % (0-1); Eosinophil# 0.12 X10^3/uL; Eosinophils% 0.9 % (0-5); Hematocrit 36.8 % (37-47); Lymphocyte # 1.94 X10^3/ul (0.83-4.51); Lymphocyte % 14.8 % (19-41); Mean Corp Hgb Conc 35.3 g/dL (32-36); Mean Corpuscular Hgb 33.8 pg (27.0-32.0); Mean Corpuscular Volume 95.6 fL (81-99); Monocyte# 0.83 X10^3/uL; Monocyte% 6.3 % (0-10); NRBC Flagged by Analyzer 0 % (0-5); Neutrophil # 10.09 X10^3/uL (2.7-7.7); POSITIVE COUNT YES; Platelet Count 72 K/mm3 (150-450); RBC Distribution Width CV 13.7 % (11.6-14.6); RBC Distribution Width SD 48.6 fl (35.1-43.9); Red Blood Count 3.85 M/mm3 (4.2-5.4); White Blood Count 13.1 K/mm3 (4.4-11.0)
[2021-12-12 06:41] LABS: Bedside Glucose 153 mg/dL (70-110)
[2021-12-12 06:46] LABS: Bedside Glucose 159 mg/dL (70-110)
[2021-12-12 07:12] LABS: ALB/GLOB Ratio 0.7 RATIO (0.9-2.4); AST(SGOT) 38 U/L (15-37); Alanine Aminotransfer ALT/SGPT 45 U/L (13-56); Albumin, Serum 2.6 g/dL (3.2-5.0); Alkaline Phosphatase 71 U/L (45-117); Anion Gap 6 (5-15); BUN 10 mg/dL (7-18); BUN/Creat Ratio 14.8 RATIO (10-20); Calcium,Total 8.5 mg/dL (8.5-10.1); Chloride 103 mmol/L (98-107); Creatinine, Serum 0.68 mg/dL (0.55-1.02); EST Glomerular Filtration Rate 89 mL/min (>60); Est Glom Filt Rate - Afr Amer 107 mL/min (>60); Globulin 3.7 g/dL (2.2-4.2); Glucose 156 mg/dL (74-106); Potassium 3.7 mmol/L (3.5-5.1); Protein, Total 6.3 g/dL (6.4-8.2); Sodium Level 134 mmol/L (136-145)
[2021-12-12] MEDS: Ceftriaxone 1 GM/50 ML BAG IV (08:38)
[2021-12-12] MEDS: oxyCODONE 5 MG Tablet PO ×2 (08:38→14:19)
[2021-12-12] MEDS: Metoprolol Tartrate 25 MG Tablet PO (08:38)
[2021-12-12] MEDS: Gabapentin 300 MG Capsule PO (08:38)
[2021-12-12] MEDS: Acetaminophen 325 MG Tablet 650 MG PO (08:38)
[2021-12-12] MEDS: amLODIPine 2.5 MG Tablet PO (08:38)
[2021-12-12] MEDS: Multivitamins,Ther W-Minerals Tablet 1 TABLET PO (08:38)
[2021-12-12] MEDS: Enoxaparin 40 MG/0.4 ML Syringe SC (08:44)
[2021-12-12 11:05] LABS: Bedside Glucose 229 mg/dL (70-110)
--- NOTE | 2021-12-12 11:20 | CASEMGMT ---
ANNE FRYE assessment: Face to Face with patient for initial transition planning/care coordination assessment. ANNE FRYE introduced self and role at [facility], pt voices understanding and consents to assessment. Pt is sitting up in bed in no distress on room air. Pt is A/Ox4 and answers all questions appropriately. Care providers, pharmacy, and demographics verified. Presentation: Pt states 'not feeling well' since this am. BLE edema, which pt states 'happens sometimes' Admitting dx: Weakness, fever PCP: [facility] Specialists: DIAZ Salas; janice Meraz; darren Marte; Sowmya, cardio Preferred Pharmacy: [facility] Insurance: [employer] A/B, [employer] Prescription Benefit: [employer] Living Will/HPOA: Pt states does not have LW/HPOA but would like AD info. Pt states 'My and I need to get to the compensation associate and get a will done.' LNOK: Anson Kuhn, ; Chloe Britt, daughter Living Arrangements: Pt lives with on main level of 1.5 story home and states no concerns at home. Pt states mostly independent with ADL's but and daughter assist. Transportation: Pt states does most of driving and states no transportation concerns. DME/HHC: Pt has the following DME: stairlift to basement, cane, walker, rails throughout home, and shower chair. Pt states no need for any further DME. Pt states no hx of HHC or SNF in the past. Pt declines need for HHC. Pt states no concerns with going home at time of discharge. Pt is retired. Pt states does not smoke cigarettes or drink ETOH. Pt states no further concerns/needs. CM to follow for therapy notes and for any further discharge planning/needs. Advised pt to ask for CM if any further questions/concerns/needs arise, voices understanding. Pt Goal: Home Plan[place]NE FR[place]
--- NOTE | 2021-12-12 14:23 | CHAPLAIN ---
Type of Pastoral Visit _x__ Initial Visit ___ Follow-up Visit ___ On-call Visit ___ General Patient Visit ___ Spiritual Assessment ___ Family Conference ___ Bereavement ___ Rapid Response ___ Code Blue ___ Other (describe below) Pastoral Care Referral From _x__ Patient ___ Family ___ Nurse ___ Physician ___ Scagliola Mechanic ___ Hydro Excavation Operator ___ Other (describe below) Sacrament/Intervention _x__ Active listening ___ Anointing ___ Anabaptism ___ Bereavement ___ Communion _x__ Beth exploration ___ _x__ Life review _x__ Prayer ___ Reconciliation ___ Sacrament of Sick _x__ Supportive presence ___ Wedding ___ Other (describe below) Pastoral Comments patient and daughter in room; 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
--- NOTE | 2021-12-12 14:44 | PCM.DC ---
Discharge Instructions Diet Discharge Diet: 1800 Calorie Control Diet Activity Discharge Activity: Return to Normal Activity Weight Bearing Status: Full weight bearing (with walker) Follow Up Care Test Results: Test results from this visit will be discussed in further detail at your follow-up appointment, if applicable. Discharge Plan Admission Admit Date/Time: 12/10/21 13:15 Primary Reason for Your Visit: urinary tract infection, weakness Attending Provider: Garth Dean Primary Care Provider: Kurtis Ross Chi Discharge Orders/Prescriptions Prescriptions: New cephalexin 500 mg capsule 500 mg PO BID Qty: 8 RF: 0 Continued polyethylene glycol 3350 [Miralax] 17 gram/dose powder 17 g PO DAILY RF: 0 atorvastatin 40 MG tablet 40 mg PO QHS RF: 0 famotidine 40 MG tablet 40 mg PO DAILY RF: 0 ascorbic acid (vitamin C) 500 MG tablet 500 mg PO DAILY@0800 RF: 0 gabapentin 300 MG capsule 300 mg PO DAILY RF: 0 metoprolol tartrate 25 MG tablet 25 mg PO BID RF: 0 calcium citrate-vitamin D3 1 EACH tablet 1 ea PO DAILY RF: 0 multivitamin with folic acid 1 TABLET tablet 1 tab PO DAILY RF: 0 baclofen 5 MG tablet 5 mg PO DAILY RF: 0 oxycodone-acetaminophen 5-325 mg tablet 1 tab PO TID RF: 0 glimepiride 2 mg tablet 2 mg PO DAILY RF: 0 denosumab 60 mg/mL syringe 60 mg subcut [id number] Qty: 1 RF: 1 amlodipine 2.5 mg tablet 2.5 mg PO DAILY RF: 0 levothyroxine 137 mcg tablet 137 mcg PO DAILY Qty: 30 RF: 3 Referrals / Follow Up: Kurtis Ross Chi, MD [Primary Care Provider] - Within 2 Weeks Disposition Disposition (needs filled in before D/C Order can be placed): Home, Self Care
--- NOTE | 2021-12-12 19:46 | DS.PCM_ITS ---
Providers Date of Admission: 12/10/21 Date of Discharge: 12/12/21 Primary Care Physician: Dr. Kurtis Ross MD Reason For Visit: GEN WEAKNESS, FEVER Diagnosis Discharge Diagnosis (1) Fever: Status: Acute Code(s): R50.9 - Fever, unspecified Plan: 1. Acute cystitis secondary to E. coli #2 hypomagnesemia-etiology unclear #3 type 2 diabetes #4 chronic diastolic congestive heart failure #5 valvular heart disease-aortic stenosis and mitral regurg #6 lactic acidosis-etiology unclear #7 hypophosphatemia-etiology unclear Sepsis was ruled out Medications at Discharge Home Medications ascorbic acid (vitamin C) 500 mg PO DAILY@0800 07/05/19 atorvastatin 40 mg PO QHS 07/05/19 baclofen 5 mg PO DAILY 07/05/19 calcium citrate-vitamin D3 1 ea PO DAILY 07/05/19 famotidine 40 mg PO DAILY 07/05/19 gabapentin 300 mg PO DAILY 07/05/19 metoprolol tartrate 25 mg PO BID 07/05/19 multivitamin with folic acid 1 tab PO DAILY 07/05/19 oxycodone-acetaminophen 5 mg-325 mg tablet 1 tab PO TID tab 12/02/19 polyethylene glycol 3350 17 gram/dose oral powder 17 g PO DAILY 05/03/20 denosumab 60 mg/mL subcutaneous syringe 60 mg SUBCUT [id number] #1 ml 05/06/21 amlodipine 2.5 mg tablet 2.5 mg PO DAILY 09/16/21 levothyroxine 137 mcg tablet 137 mcg PO DAILY #30 tab 11/28/21 glimepiride 2 mg PO DAILY 12/10/21 cephalexin 500 mg PO BID #8 cap 12/12/21 Hospital Course Operations None Procedures None Summary of Care Provided Minutes Spent on Discharge: 31 Hospital Course: Patient was seen in the emergency room at [facility] with fatigue, generalized weakness, and malaise. Patient denies any fevers or chills. Work-up in the ER included labs which indicated electrolyte abnormalities including hypophosphatemia, hypomagnesemia, and her urinalysis indicated she had a urinary tract infection. Patient's lactic acid was elevated, criteria for sepsis was not met however. Patient was admitted to PCU, given IV fluids, electrolyte replacement, and IV antibiotics, urine culture was positive for E. coli. On 12/12/2021, patient was seen and examined: On examination she appeared in good health and spirits, she does not appear to be in any distress. Vital signs as documented. Skin warm and dry and without overt rashes. Neck without JVD, thyr oid appears normal, trachea is midline, neck is supple. Lungs clear, normal air movement was noted. Heart exam notable for regular rhythm, normal sounds and absence of murmurs, rubs or gallops. Abdomen unremarkable and without evidence of organomegaly, masses, or abdominal aortic enlargement, bowel sounds are present in all 4 quadrants, no abdominal tenderness was noted. Extremities nonedematous, no cyanosis was noted, no clubbing was noted. Neuro: Cranial nerves II through XII are grossly intact, no focal motor deficits were noted, sensation to light touch and pinprick is intact, motor exam 5/5 throughout. Psych: Patient is alert and oriented x3, she does not appear anxious or depressed, she does not appear agitated. Patient appears stable for discharge on 12/12/2021. Weight / BMI Weight Weight: 69.9 kg Body Mass Index (BMI) 27.1 ABG / Lab / Microbiology Data Result Diagrams: 12/12/21 06:07 12/12/21 06:07 Laboratory: Laboratory Results - last 24 hr 12/11/21 23:00: POC Glucose 159 H 12/12/21 03:42: POC Glucose 153 H 12/12/21 06:02: POC Glucose 159 H 12/12/21 06:07: WBC 13.1 H, RBC 3.85 L, Hgb 13.0, Hct 36.8 L, MCV 95.6, MCH 33.8 H, MCHC 35.3, RDW Std Deviation 48.6 H, RDW Coeff of [place] 13.7, Plt Count 72 L, MPV 9.0, Immature Gran % (Auto) 0.700, Neut % (Auto) 77.0 H, Lymph % (Auto) 14.8 L, [place] % (Auto) 6.3, Eos % (Auto) 0.9, Baso % (Auto) 0.3, Absolute Neuts (auto) 10.1 H, Absolute Lymphs (auto) 1.94, Nucleated RBC % 0 12/12/21 06:07: Sodium 134 L, Potassium 3.7, Chloride 103, Carbon Dioxide 25.0, Anion Gap 6, BUN 10, Creatinine 0.68, Estim Creat Clear Calc 36.50, Est GFR (MDRD) Af Amer 107, Est GFR (MDRD) Non-Af 89, BUN/Creatinine Ratio 14.8, Glucose 156 H, Calcium 8.5, Total Bilirubin 1.30 H, AST 38 H, ALT 45, Alkaline Phosphatase 71, Total Protein 6.3 L, Albumin 2.6 L, Globulin 3.7, Albumin/Globulin Ratio 0.7 L 12/12/21 10:58: POC Glucose 229 H Microbiology: Microbiology 12/10/21 14:03 Blood Culture (Wb) - Left Wrist Blood Culture - Preliminary No growth in 48 hours. 12/10/21 11:12 Blood Culture (Wb) - Left Wrist Blood Culture - Preliminary No growth in 48 hours. 12/10/21 12:20 Urine, Clean Catch Urine Culture - Final Presumptive E. coli 12/10/21 16:20 Urine, Clean Catch Legionella Antigen - Final 12/10/21 16:20 Interface Orders Streptococcus pneumoniae Antigen (M - Final 12/10/21 10:45 Mucosa - Nasopharyngeal Influenza Types A,B Direct FA (ROSE) - Final 12/10/21 10:45 Nasal Secretion SARS-CoV-2 Antigen (Rapid) - Final D/C Instructions Discharge Diet: 1800 Calorie Control Diet Weight Bearing Status: Full weight bearing (with walker) Meaningful Use Info Meaningful Use Diagnoses (Choose all that apply): None applicable Discharge Plan Admission Admit Date/Time: 12/10/21 13:15 Primary Reason for Your Visit: urinary tract infection, weakness Attending Provider: Garth Dean Primary Care Provider: Kurtis Ross Chi Discharge Orders/Prescriptions Prescriptions: New cephalexin 500 mg capsule 500 mg PO BID Qty: 8 RF: 0 Continued polyethylene glycol 3350 [Miralax] 17 gram/dose powder 17 g PO DAILY RF: 0 atorvastatin 40 MG tablet 40 mg PO QHS RF: 0 famotidine 40 MG tablet 40 mg PO DAILY RF: 0 ascorbic acid (vitamin C) 500 MG tablet 500 mg PO DAILY@0800 RF: 0 gabapentin 300 MG capsule 300 mg PO DAILY RF: 0 metoprolol tartrate 25 MG tablet 25 mg PO BID RF: 0 calcium citrate-vitamin D3 1 EACH tablet 1 ea PO DAILY RF: 0 multivitamin with folic acid 1 TABLET tablet 1 tab PO DAILY RF: 0 baclofen 5 MG tablet 5 mg PO DAILY RF: 0 oxycodone-acetaminophen 5-325 mg tablet 1 tab PO TID RF: 0 glimepiride 2 mg tablet 2 mg PO DAILY RF: 0 denosumab 60 mg/mL syringe 60 mg subcut [id number] Qty: 1 RF: 1 amlodipine 2.5 mg tablet 2.5 mg PO DAILY RF: 0 levothyroxine 137 mcg tablet 137 mcg PO DAILY Qty: 30 RF: 3 Referrals / Follow Up: Kurtis Ross Chi, MD [Primary Care Provider] - Within 2 Weeks Disposition Disposition (needs filled in before D/C Order can be placed): Home, Self Care Charges/Coding Visit Charges Inpatient E&M: 09840 Disch Hosp
== END 2021-12-12 15:35 | disposition home or self-care (01) | DRG 690 ==
LOC: ED 13:18 → PCU 13:30
PROVIDERS: Admitting Provider Internal Medicine; Emergency Provider Emergency Medicine; PCP Family Medicine Geriatric Medicine; Visit Provider Internal Medicine
DX: N30.00 Acute cystitis without hematuria (principal); E87.2 Acidosis; E87.1 Hypo-osmolality and hyponatremia; I13.0 Hypertensive heart and chronic kidney disease with heart failure and stage 1 through stage 4 chronic kidney disease, or unspecified chronic kidney disease; I50.32 Chronic diastolic (congestive) heart failure; D69.6 Thrombocytopenia, unspecified; E83.39 Other disorders of phosphorus metabolism; E11.22 Type 2 diabetes mellitus with diabetic chronic kidney disease; E11.65 Type 2 diabetes mellitus with hyperglycemia; N18.31 Chronic kidney disease, stage 3a; B96.20 Unspecified Escherichia coli [E. coli] as the cause of diseases classified elsewhere; E03.9 Hypothyroidism, unspecified; I08.0 Rheumatic disorders of both mitral and aortic valves; K21.9 Gastro-esophageal reflux disease without esophagitis; E78.00 Pure hypercholesterolemia, unspecified; E83.42 Hypomagnesemia; M47.816 Spondylosis without myelopathy or radiculopathy, lumbar region; G89.29 Other chronic pain; R91.8 Other nonspecific abnormal finding of lung field; Z66 Do not resuscitate; Z79.84 Long term (current) use of oral hypoglycemic drugs; Z79.899 Other long term (current) drug therapy; Z85.3 Personal history of malignant neoplasm of breast
CPT/HCPCS: 36415; 71045; 80053; 81001; 82550; 82962; 83605; 83735; 84100; 84484; 85025; 85027; 85610; 85730; 87040; 87086; 87088; 87186; 87426; 87449; 87641; 87804; 93005; 97110; 97162; 97166; 97530; 97535; 99285; J7040; J7050; J7120; A4216

== ENCOUNTER 2021-12-18 12:30 | Emergency (ER) | payer MEDICARE, OTHER, SELFPAY ==
[2021-12-18 12:31] VITALS: BP 155/69; PULSE 80; RESP 18; TEMP 36.6; O2SAT 99; BMI 25.4
--- NOTE | 2021-12-18 12:53 | EDS_ITS ---
HPI History of Present Illness Chief Complaint: General Illness Informant: patient and family Onset/Context/Timing Onset: Today and Hours (2) Context: Gradual Onset Timing: Continuous Quality: Pressure, heaviness Location: Chest Worsened by: Nothing Relieved by: Analgesics Narrative Narrative: Patient presents with chest pressure that began approximately 2 hours prior to arrival. Patient was recently admitted to the hospital here for urinary tract infection. Patient states she finished her antibiotics for the urinary tract infection. Patient states she was also started on citalopram recently. Patient states that she called her primary care physician today and started having some heaviness in her chest at that time. Patient states that she took a pain medication which helped with her pain. Patient states nothing makes it worse. [facility] Medical History Acid reflux Arthritis Back problem Bacteremia due to Gram-negative bacteria Bilateral lower extremity edema Breast cancer Cancer Cataracts, bilateral Chronic headaches DDD (degenerative disc disease), lumbar Diabetes Diarrhea Elevated troponin H/O transfusion of whole blood High triglycerides History of type 1 diabetes mellitus HTN (hypertension) Hypercholesterolemia Hypothyroidism Kidney disease Lymphedema Nonrheumatic aortic (valve) stenosis Nonrheumatic mitral valve stenosis with insufficiency NSTEMI, initial episode of care Segmental and somatic dysfunction of lumbar region Segmental and somatic dysfunction of pelvic region Segmental and somatic dysfunction of thoracic region Spinal stenosis Thrombocytopenia Thyroid disease Home Medications ascorbic acid (vitamin C) 500 mg PO DAILY@0800 07/05/19 [History Last Taken Unknown] atorvastatin 40 mg PO QHS 07/05/19 [History Last Taken Unknown] baclofen 5 mg PO DAILY 07/05/19 [History Last Taken Unknown] calcium citrate-vitamin D3 1 ea PO DAILY 07/05/19 [History Last Taken Unknown] famotidine 40 mg PO DAILY 07/05/19 [History Last Taken 08/26/19] gabapentin 300 mg PO DAILY 07/05/19 [History Last Taken Unknown] metoprolol tartrate 25 mg PO BID 07/05/19 [History Last Taken 08/26/19] multivitamin with folic acid 1 tab PO DAILY 07/05/19 [History Last Taken Unknown] oxycodone-acetaminophen 5 mg-325 mg tablet 1 tab PO TID tab 12/02/19 [History Last Taken Unknown] polyethylene glycol 3350 17 gram/dose oral powder 17 g PO DAILY 05/03/20 [History Last Taken Unknown] denosumab 60 mg/mL subcutaneous syringe 60 mg SUBCUT [id number] #1 ml 05/06/21 [Rx Last Taken Unknown] amlodipine 2.5 mg tablet 2.5 mg PO DAILY 09/16/21 [History Last Taken Unknown] levothyroxine 137 mcg tablet 137 mcg PO DAILY #30 tab 11/28/21 [Rx Last Taken Unknown] glimepiride 2 mg PO DAILY 12/10/21 [History Last Taken Unknown] citalopram 10 mg PO DAILY 12/18/21 [History Last Taken Unknown] Allergy/AdvReac Type Severity Reaction Status Date / Time piperacillin [From Zosyn] AdvReac Mild malaise, Verified 12/18/21 12:35 myalgias tazobactam [From Zosyn] AdvReac Mild malaise, Verified 12/18/21 12:35 myalgias Family History Grandfather CVA (cerebral vascular accident) Mother Hypertension Breast cancer Father Diabetes Heart disease Brother CVA (cerebral vascular accident) Diabetes Dementia Surgical History H/O mastectomy H/O tubal ligation History of cataract surgery History of hysterectomy Hx of section Hx of cholecystectomy Hx of colonoscopy Social History Smoking Status: Never smoker second hand exposure: No alcohol intake: never substance use type: does not use caffeine: Yes what type of physical activity do you participate in: none frequency: does not exercise ROS ROS ED Constitutional Constitutional ED: Reports chills and subjective; Denies fever(s) Eyes Eyes: Denies blurry vision or change in vision ENT ENT ED: Denies rhinorrhea or sore throat Cardiovascular Cardiovascular: Reports chest pain; Denies palpitations Respiratory/Chest Respiratory/Chest: Denies cough or dyspnea Gastrointestinal Gastrointestinal: Denies nausea or vomiting Genitourinary Genitourinary ED: Denies dysuria or hematuria Musculoskeletal Musculoskeletal: Reports back pain; Denies neck pain Integumentary Denies abscess or rash Neurologic Neurologic: Denies headache(s) or weakness Allergic/Immunologic Allergic/Immunologic ED: Denies mouth swelling or urticaria EXAM Physical Exam Const Vital Signs: 12/18/21 12:31 12/18/21 12:54 12/18/21 13:03 Temperature 97.9 F Temperature Source Temporal Pulse Rate 80 84 Respiratory Rate 18 18 Respiratory Effort Normal Blood Pressure 155/69 H Blood Pressure Mean 97 Pulse Ox 99 98 98 Oxygen Delivery Method Room Air Room Air Room Air 12/18/21 14:30 Temperature Temperature Source Pulse Rate 81 Respiratory Rate 16 Respiratory Effort Blood Pressure 135/53 H Blood Pressure Mean 80 Pulse Ox 98 Oxygen Delivery Method Room Air Positive well nourished and well developed General Appearance ED: well developed and NAD HEENT Reports moist mucous membranes Neck supple and no JVD Resp normal respiratory effort and clear to auscultation bilaterally Cardio regular rate and regular rhythm GI normal to inspection, nondistended, normoactive bowel sounds and non-tender Palpation: soft Extremity General Extremety ED: Yes edema and tenderness General Extremity: edema Neuro oriented x3, CN's II-XII intact bilaterally and no sensory deficits noted Sensorium / Orientation: alert Motor Exam: strength 5/5 throughout Psych mental status grossly normal Skin no rashes or lesions noted MDM MDM MDM Narrative Medical decision making narrative: EKG was obtained. On my interpretation, it showed a normal sinus rhythm with a rate of 81. CA interval was slightly prolonged at 208 ms. QRS interval and QTc intervals were normal. [place] was normal. There his left ventricular hypertrophy with strain pattern. There are no acute changes. CBC was profile was within normal limits. Initial high- sensitivity troponin was normal at 31. 2-hour repeat high-sensitivity troponin was normal at 31. Urinalysis does not show any evidence of urinary tract infection. Portable chest x-ray was obtained. There is 1 view. On my interpretation, there is no acute process. There is a small left pleural effusion. Bony thorax is normal. There is no cardiomegaly. There is no infiltrate noted. Radiologist also interpreted the x-ray and agrees. Patient has a HEART score of 4 (2 for age, [address]-T wave changes due to the LVH which is unchanged, and 1 for risk factors). Patient feels better and wants to go home. Patient was advised of her findings. Patient was instructed to follow-up with her primary care physician in 3 to 5 days for further evaluation. Patient understood and was agreeable with the plan. All questions were answered. Lab Data Attestation: I reviewed the patient's lab results. Labs: Laboratory Results - last 24 hr 12/18/21 12/18/21 12/18/21 13:10 13:10 13:30 WBC 5.5 RBC 4.07 L Hgb 13.7 Hct 37.4 MCV 91.9 MCH 33.7 H MCHC 36.6 H RDW Std Deviation 44.2 H RDW Coeff of [place] 13.2 Plt Count 111 L MPV 8.7 Immature Gran % (Auto) 0.500 Neut % (Auto) 56.6 Lymph % (Auto) 32.6 [place] % (Auto) 8.3 Eos % (Auto) 1.3 Baso % (Auto) 0.7 Absolute Neuts (auto) 3.1 Absolute Lymphs (auto) 1.80 Nucleated RBC % 0 Sodium 131 L Potassium 3.9 Chloride 97 L Carbon Dioxide 27.0 Anion Gap 7 BUN 8 Creatinine 0.67 Estim Creat Clear Calc 36.50 Est GFR (MDRD) Af Amer 109 Est GFR (MDRD) Non-Af 90 BUN/Creatinine Ratio 12.0 Glucose 181 H Calcium 9.3 Troponin I High Sens 31 Urine Color Yellow Urine Clarity Clear Urine pH 7.0 Ur Specific [place] 1.010 Urine Protein Negative Urine Glucose (UA) Normal Urine Ketones Negative Urine Occult Blood Negative Urine Nitrite Negative Urine Bilirubin Negative Urine Urobilinogen Normal Ur Leukocyte Esterase Negative Urine RBC 0 SEEN Urine WBC 0 SEEN Ur Squamous Epith Cells 0 SEEN Urine Bacteria 0 SEEN Urine Mucus 0 SEEN 12/18/21 15:05 WBC RBC Hgb Hct MCV MCH MCHC RDW Std Deviation RDW Coeff of [place] Plt Count MPV Immature Gran % (Auto) Neut % (Auto) Lymph % (Auto) [place] % (Auto) Eos % (Auto) Baso % (Auto) Absolute Neuts (auto) Absolute Lymphs (auto) Nucleated RBC % Sodium Potassium Chloride Carbon Dioxide Anion Gap BUN Creatinine Estim Creat Clear Calc Est GFR (MDRD) Af Amer Est GFR (MDRD) Non-Af BUN/Creatinine Ratio Glucose Calcium Troponin I High Sens 31 Urine Color Urine Clarity Urine pH Ur Specific [place] Urine Protein Urine Glucose (UA) Urine Ketones Urine Occult Blood Urine Nitrite Urine Bilirubin Urine Urobilinogen Ur Leukocyte Esterase Urine RBC Urine WBC Ur Squamous Epith Cells Urine Bacteria Urine Mucus Radiography Chest X-Ray - ED: 1 View, Read by ED Physician, Read by Radiologist, No Acute Disease and Left Effusion Diagnostic Testing: Clinical Impression(s) from Imaging Studies Chest X-Ray 12/18/21 13:20 EKG Initial EKG: Attestation: I personally reviewed and interpreted this EKG as follows: Interpretation: Sinus Rhythm (81), No Acute Injury Pattern and Non- Specific ST Changes (LVH with strain) Prior EKG tracings: available for review Prior: Unchanged (12/10/2021) Discharge Plan Triage Chief Complaint: General Illness ED Provider: Christian Abreu Dx/Rx/DC Orders Clinical Impression: Chest pain Instructions: ED Chest Pain, Uncertain Cause Prescriptions: No Action polyethylene glycol 3350 [Miralax] 17 gram/dose powder 17 g PO DAILY RF: 0 atorvastatin 40 MG tablet 40 mg PO QHS RF: 0 famotidine 40 MG tablet 40 mg PO DAILY RF: 0 ascorbic acid (vitamin C) 500 MG tablet 500 mg PO DAILY@0800 RF: 0 gabapentin 300 MG capsule 300 mg PO DAILY RF: 0 metoprolol tartrate 25 MG tablet 25 mg PO BID RF: 0 calcium citrate-vitamin D3 1 EACH tablet 1 ea PO DAILY RF: 0 multivitamin with folic acid 1 TABLET tablet 1 tab PO DAILY RF: 0 baclofen 5 MG tablet 5 mg PO DAILY RF: 0 oxycodone-acetaminophen 5-325 mg tablet 1 tab PO TID RF: 0 glimepiride 2 mg tablet 2 mg PO DAILY RF: 0 citalopram 10 mg tablet 10 mg PO DAILY RF: 0 denosumab 60 mg/mL syringe 60 mg subcut [id number] Qty: 1 RF: 1 amlodipine 2.5 mg tablet 2.5 mg PO DAILY RF: 0 levothyroxine 137 mcg tablet 137 mcg PO DAILY Qty: 30 RF: 3 Primary Care Provider: Kurtis Ross Chi Referrals: Kurtis Ross Chi, MD [Primary Care Provider] - 3-5 Days Disposition Disposition: Home, Self Care
[2021-12-18 12:54] VITALS: PULSE 84; RESP 18; O2SAT 98
--- NOTE | 2021-12-18 13:00 | EKG12_ITS ---
Test Reason : CP Blood Pressure : / mmHG Vent. Rate : 081 BPM Atrial Rate : 081 BPM P-R Int : 208 ms QRS Dur : 110 ms QT Int : 388 ms P-R-T Axes : 057 -25 050 degrees QTc Int : 450 ms Normal sinus rhythm Left ventricular hypertrophy Abnormal ECG Confirmed by KUMAR DELGADO, MEKHI ([id number]), medical transcription editor MONIQUE TERESA ([id number]) on 12/20/2021 9:17:07 AM Referred By: ZAKIA/ZEUS Confirmed By:MEKHI HEATH MD
[2021-12-18 13:03] VITALS: O2SAT 98
[2021-12-18] MEDS: Aspirin 81 MG TAB.CHEW 324 MG PO (13:09)
--- NOTE | 2021-12-18 13:15 | ED.RN ---
pt at this time does not want nitro
[2021-12-18 13:18] LABS: Absolute Neutrophil Count 3.1 X10^3/uL (2.0-7.7); Basophil# 0.04 X10^3/uL; Basophil% 0.7 % (0-1); Eosinophil# 0.07 X10^3/uL; Eosinophils% 1.3 % (0-5); Hematocrit 37.4 % (37-47); Hemoglobin 13.7 g/dL (12.0-15.0); Lymphocyte % 32.6 % (19-41); Mean Corp Hgb Conc 36.6 g/dL (32-36); Mean Corpuscular Hgb 33.7 pg (27.0-32.0); Mean Corpuscular Volume 91.9 fL (81-99); Mean Platelet Vol. 8.7 fl (6.2-12.0); Monocyte# 0.46 X10^3/uL; Monocyte% 8.3 % (0-10); NRBC Flagged by Analyzer 0 % (0-5); Neutrophil # 3.12 X10^3/uL (2.7-7.7); Neutrophil % 56.6 % (47-70); Platelet Count 111 K/mm3 (150-450); RBC Distribution Width CV 13.2 % (11.6-14.6); RBC Distribution Width SD 44.2 fl (35.1-43.9); Red Blood Count 4.07 M/mm3 (4.2-5.4); White Blood Count 5.5 K/mm3 (4.4-11.0)
--- NOTE | 2021-12-18 13:20 | RAD_ITS ---
STUDY: X-RAY CHEST REASON FOR EXAM: Female, 81 years old. chest pain TECHNIQUE: Single view of the chest was obtained COMPARISON: 12/10/2021 FINDINGS: Small left-sided pleural effusion with postoperative changes in the left hemithorax. Reduced left-sided lung volume. Cardiac size is stable. Calcifications of the aortic knob. No acute osseous abnormalities. IMPRESSION: Interval development small left-sided pleural effusion. Electronically Signed: Ian Gómez, at 13:36 EST , RAD/Chest 1 View (Portable)
[2021-12-18 13:30] LABS: BUN 8 mg/dL (7-18); Creatinine, Serum 0.67 mg/dL (0.55-1.02); Glucose 181 mg/dL (74-106)
[2021-12-18 13:31] LABS: Anion Gap 7 (5-15); Calcium,Total 9.3 mg/dL (8.5-10.1); Chloride 97 mmol/L (98-107); EST Glomerular Filtration Rate 90 mL/min (>60); Est Glom Filt Rate - Afr Amer 109 mL/min (>60); Potassium 3.9 mmol/L (3.5-5.1); Sodium Level 131 mmol/L (136-145); Troponin-I HS 31 pg/mL (3.0-54.0)
[2021-12-18 14:07] LABS: Bacteria 0 SEEN /hpf (None Seen); Mucous, Urine 0 SEEN /hpf (<or=2+); Red Blood Cells-Urine 0 SEEN /hpf (0-5); Squamous Epithelial Cells - UA 0 SEEN /hpf (5-10); White Blood Cells 0 SEEN /hpf (0-5)
[2021-12-18 14:10] LABS: Color, Urine Yellow (Yellow); Glucose, Dipstick Normal (Normal); Ketone-Dipstick Negative (Negative); Leukocyte Esterase-Dipstick Negative /ul (Negative); Nitrite-Dipstick Negative (Negative); Occult Blood-Urine Negative /ul (Negative); Protein-Dipstick Negative (Negative); Urine Bilirubin Dipstick Negative (Negative); Urine Clarity Clear (Clear); Urine Urobilinogen Normal (Normal)
[2021-12-18 14:30] VITALS: BP 135/53; PULSE 81; RESP 16; O2SAT 98
[2021-12-18 15:33] LABS: Troponin-I HS 31 pg/mL (3.0-54.0)
[2021-12-18 16:09] VITALS: BP 148/79; PULSE 71; RESP 20; O2SAT 97
--- NOTE | 2021-12-18 16:10 | ED.RN ---
THIS NURSE REVIEWED D/C INSTRUCTIONS WITH PT AND VISITOR. BOTH VERBALIZED UNDERSTANDING OF INSTRUCTIONS. PT REQUESTING ASSISTANCE UP TO BSC AGAIN BEFORE LEAVING. RENATO RN IN THE ROOM TO ASSIST PT. PT DENIES FURTHER QUESTIONS AT THIS TIME
== END 2021-12-18 16:11 | disposition home or self-care (01) ==
PROVIDERS: Emergency Provider Emergency Medicine; PCP Family Medicine Geriatric Medicine; Visit Provider Emergency Medicine
DX: R07.9 Chest pain, unspecified (principal); E10.9 Type 1 diabetes mellitus without complications; E78.00 Pure hypercholesterolemia, unspecified; I25.2 Old myocardial infarction; I10 Essential (primary) hypertension; E03.9 Hypothyroidism, unspecified; K21.9 Gastro-esophageal reflux disease without esophagitis; Z79.84 Long term (current) use of oral hypoglycemic drugs; Z79.899 Other long term (current) drug therapy
CPT/HCPCS: 71045; 80048; 81001; 84484; 85025; 93005; 99285; A4216

== ENCOUNTER 2021-12-19 11:29 | Outpatient (CLI) | payer MEDICARE, OTHER, SELFPAY ==
[2021-12-19 12:12] LABS: Absolute Lymphocyte Count 1.66 X10^3/uL (0.83-4.51); Absolute Neutrophil Count 3.2 X10^3/uL (2.0-7.7); Basophil# 0.03 X10^3/uL; Basophil% 0.6 % (0-1); Eosinophil# 0.04 X10^3/uL; Eosinophils% 0.7 % (0-5); Hematocrit 36.3 % (37-47); Lymphocyte # 1.66 X10^3/ul (0.83-4.51); Lymphocyte % 30.8 % (19-41); Mean Corp Hgb Conc 35.8 g/dL (32-36); Mean Corpuscular Hgb 33.8 pg (27.0-32.0); Mean Corpuscular Volume 94.3 fL (81-99); Mean Platelet Vol. 8.8 fl (6.2-12.0); Monocyte# 0.46 X10^3/uL; Monocyte% 8.5 % (0-10); NRBC Flagged by Analyzer 0 % (0-5); Neutrophil # 3.19 X10^3/uL (2.7-7.7); Neutrophil % 59.2 % (47-70); Platelet Count 109 K/mm3 (150-450); RBC Distribution Width CV 13.3 % (11.6-14.6); RBC Distribution Width SD 45.3 fl (35.1-43.9); Red Blood Count 3.85 M/mm3 (4.2-5.4); White Blood Count 5.4 K/mm3 (4.4-11.0)
[2021-12-19 12:19] LABS: Anion Gap 5 (5-15); BUN 8 mg/dL (7-18); BUN/Creat Ratio 11.5 RATIO (10-20); Calcium,Total 8.5 mg/dL (8.5-10.1); Chloride 97 mmol/L (98-107); Creatinine, Serum 0.69 mg/dL (0.55-1.02); EST Glomerular Filtration Rate 86 mL/min (>60); Est Glom Filt Rate - Afr Amer 104 mL/min (>60); Glucose 181 mg/dL (74-106); Magnesium 1.8 mg/dL (1.6-2.6); Potassium 4.1 mmol/L (3.5-5.1); Sodium Level 130 mmol/L (136-145)
== END 2021-12-19 23:59 | disposition home or self-care (01) ==
LOC: POLAB3 11:30
PROVIDERS: PCP Family Medicine Geriatric Medicine; Visit Provider Family Medicine Geriatric Medicine
DX: R53.83 Other fatigue (principal)
CPT/HCPCS: 36415; 80048; 83735; 85025

== ENCOUNTER 2022-01-25 12:09 | Outpatient (CLI) | payer MEDICARE, OTHER, SELFPAY ==
[2022-01-25 14:55] LABS: Absolute Lymphocyte Count 2.07 X10^3/uL (0.83-4.51); Basophil# 0.03 X10^3/uL; Basophil% 0.6 % (0-1); Eosinophil# 0.06 X10^3/uL; Eosinophils% 1.3 % (0-5); Hematocrit 38.8 % (37-47); Hemoglobin 13.2 g/dL (12.0-15.0); Lymphocyte # 2.07 X10^3/ul (0.83-4.51); Lymphocyte % 44.5 % (19-41); Mean Corpuscular Hgb 33.5 pg (27.0-32.0); Mean Corpuscular Volume 98.5 fL (81-99); Mean Platelet Vol. 9.4 fl (6.2-12.0); Monocyte% 10.8 % (0-10); NRBC Flagged by Analyzer 0 % (0-5); Neutrophil # 1.98 X10^3/uL (2.7-7.7); Neutrophil % 42.6 % (47-70); POSITIVE COUNT YES; Platelet Count 99 K/mm3 (150-450); RBC Distribution Width CV 13.5 % (11.6-14.6); RBC Distribution Width SD 49.5 fl (35.1-43.9); Red Blood Count 3.94 M/mm3 (4.2-5.4); White Blood Count 4.7 K/mm3 (4.4-11.0)
[2022-01-25 15:08] LABS: AST(SGOT) 23 U/L (15-37); Alanine Aminotransfer ALT/SGPT 35 U/L (13-56); Albumin, Serum 3.5 g/dL (3.2-5.0); Alkaline Phosphatase 69 U/L (45-117); Anion Gap 3 (5-15); BUN 14 mg/dL (7-18); BUN/Creat Ratio 16.5 RATIO (10-20); Calcium,Total 8.9 mg/dL (8.5-10.1); Chloride 100 mmol/L (98-107); Creatinine, Serum 0.85 mg/dL (0.55-1.02); EST Glomerular Filtration Rate 68 mL/min (>60); Est Glom Filt Rate - Afr Amer 82 mL/min (>60); Globulin 3.6 g/dL (2.2-4.2); Glucose 208 mg/dL (74-106); Potassium 3.8 mmol/L (3.5-5.1); Protein, Total 7.1 g/dL (6.4-8.2); Sodium Level 134 mmol/L (136-145); Thyroid Stim Hormone (TSH) 1.85 uIU/mL (0.358-3.74)
== END 2022-01-25 23:59 | disposition home or self-care (01) ==
LOC: POLAB3 12:18
PROVIDERS: PCP Family Medicine Geriatric Medicine; Visit Provider Family Medicine Geriatric Medicine
DX: I10 Essential (primary) hypertension (principal); E11.9 Type 2 diabetes mellitus without complications; E55.9 Vitamin D deficiency, unspecified
CPT/HCPCS: 36415; 80053; 82306; 84443; 85025

== ENCOUNTER 2022-03-26 08:29 | Inpatient (IN) | payer MEDICARE, OTHER, SELFPAY ==
[2022-03-26] VITALS (10 sets, daily range): BP systolic 82–148; BP diastolic 41–71; PULSE 70–109; RESP 14–18; TEMP 35.8–36.5; O2SAT 94–100; BMI 25.4; BMI 28.8
--- NOTE | 2022-03-26 08:59 | EKG12_ITS ---
Test Reason : GI Blood Pressure : / mmHG Vent. Rate : 108 BPM Atrial Rate : 108 BPM P-R Int : 176 ms QRS Dur : 102 ms QT Int : 346 ms P-R-T Axes : 052 -42 101 degrees QTc Int : 463 ms Sinus tachycardia with Fusion complexes Left axis deviation Septal infarct , age undetermined Abnormal ECG Confirmed by KUMAR DELGADO, MEKHI ([id number]), acquisition editor MONIQUE TERESA ([id number]) on 03/27/2022 10:54:47 AM Referred By: Confirmed By:MEKHI HEATH MD
--- NOTE | 2022-03-26 08:59 | RAD_ITS ---
STUDY: X-RAY CHEST REASON FOR EXAM: Female, 82 years old. Tachypnea, tachycardia, bilateral rales, lymphedema TECHNIQUE: PA and lateral views of the chest. COMPARISON: 12/18/2021. FINDINGS: Mild left retrocardiac atelectasis. Blunting of left costophrenic angle unchanged since prior examination. No new infiltrate is seen. The cardiac silhouette remains enlarged. Normal mediastinum and douglas. Normal visualized pulmonary arteries. There is atherosclerotic calcification of the aortic arch with tortuosity. Severe compression fractures of lower thoracic vertebrae treated with vertebroplasty. Increased kyphosis of lower thoracic spine. There is no demonstrated abnormality of the visualized soft tissue structures of the upper abdomen. RAD/Chest PA and Lateral IMPRESSION: Cardiomegaly. Left retrocardiac atelectatic changes. Small left pleural effusion. Electronically Signed: Sohail Moreno MD at 10:17 EDT ,
[2022-03-26 09:31] LABS: Absolute Lymphocyte Count 0.64 X10^3/uL (0.83-4.51); Absolute Neutrophil Count 2.1 X10^3/uL (2.0-7.7); Basophil# 0.02 X10^3/uL; Basophil% 0.6 % (0-1); Eosinophil# 0.06 X10^3/uL; Eosinophils% 1.8 % (0-5); Hematocrit 33.5 % (37-47); Hemoglobin 11.7 g/dL (12.0-15.0); Lymphocyte # 0.64 X10^3/ul (0.83-4.51); Lymphocyte % 19.6 % (19-41); Mean Corp Hgb Conc 34.9 g/dL (32-36); Mean Corpuscular Volume 94.4 fL (81-99); Mean Platelet Vol. 8.8 fl (6.2-12.0); Monocyte# 0.47 X10^3/uL; Monocyte% 14.4 % (0-10); NRBC Flagged by Analyzer 0 % (0-5); Neutrophil # 2.06 X10^3/uL (2.7-7.7); Neutrophil % 63.3 % (47-70); POSITIVE COUNT YES; Platelet Count 93 K/mm3 (150-450); RBC Distribution Width CV 13.8 % (11.6-14.6); RBC Distribution Width SD 47.9 fl (35.1-43.9); Red Blood Count 3.55 M/mm3 (4.2-5.4); White Blood Count 3.3 K/mm3 (4.4-11.0)
[2022-03-26 09:46] LABS: ALB/GLOB Ratio 0.9 RATIO (0.9-2.4); AST(SGOT) 31 U/L (15-37); Alanine Aminotransfer ALT/SGPT 29 U/L (13-56); Alkaline Phosphatase 116 U/L (45-117); Anion Gap 6 (5-15); BUN 9 mg/dL (7-18); BUN/Creat Ratio 14.7 RATIO (10-20); Chloride 96 mmol/L (98-107); Creatinine, Serum 0.61 mg/dL (0.55-1.02); EST Glomerular Filtration Rate 100 mL/min (>60); Est Glom Filt Rate - Afr Amer 121 mL/min (>60); Estimated Creatinine Clearance 37.45 ml/min; Globulin 3.4 g/dL (2.2-4.2); Glucose 136 mg/dL (74-106); Potassium 3.8 mmol/L (3.5-5.1); Protein, Total 6.4 g/dL (6.4-8.2); Sodium Level 128 mmol/L (136-145); Troponin-I HS 28 pg/mL (3.0-54.0)
--- NOTE | 2022-03-26 10:03 | EX.ED.DYSGE1 ---
HPI History of Present Illness Chief Complaint: General Illness Detail of Chief Complaint: I feel terrible Informant: patient and family Onset/Context/Timing Onset: Days Context: Gradual Onset Timing: Continuous Quality: Patient states she does not feel well concerned she may have urinary tract Location: Read HPI narrative Current Severity: Unable to determine Maximum Severity: Not as active Worsened by: Nothing specific Relieved by: Nothing Associated Symptoms Associated Symptoms: Lack of energy, fatigue, increased swelling and dyspnea Narrative Narrative: Patient is an elderly woman with multiple medical problems who is a poor informant. She had to be redirected several times to answer the question that was asked. Patient's major symptoms are frequency, increased swelling with shortness of breath. Patient denies orthopnea or PND. Patient denies chest discomfort. Patient denies history of CHF. Patient has not been eating well. Patient states her in January and has lived alone since. Prior similar symptoms: No Recent Illness/Hospitalization: Yes (She states she was admitted with similar symptoms with no found etiology fo) [facility] Medical History Acid reflux Arthritis Back problem Bacteremia due to Gram-negative bacteria Bilateral lower extremity edema Breast cancer Cancer Cataracts, bilateral Chronic headaches DDD (degenerative disc disease), lumbar Diabetes Diarrhea Elevated troponin H/O transfusion of whole blood High triglycerides History of type 1 diabetes mellitus HTN (hypertension) Hypercholesterolemia Hypothyroidism Kidney disease Lymphedema Nonrheumatic aortic (valve) stenosis Nonrheumatic mitral valve stenosis with insufficiency NSTEMI, initial episode of care Segmental and somatic dysfunction of lumbar region Segmental and somatic dysfunction of pelvic region Segmental and somatic dysfunction of thoracic region Spinal stenosis Thrombocytopenia Thyroid disease Home Medications ascorbic acid (vitamin C) 500 mg PO DAILY@0800 07/05/19 [History Last Taken Unknown] atorvastatin 40 mg PO QHS 07/05/19 [History Last Taken Unknown] baclofen 5 mg PO DAILY 07/05/19 [History Last Taken Unknown] calcium citrate-vitamin D3 1 ea PO DAILY 07/05/19 [History Last Taken Unknown] famotidine 40 mg PO DAILY 07/05/19 [History Last Taken 08/26/19] gabapentin 300 mg PO DAILY 07/05/19 [History Last Taken Unknown] metoprolol tartrate 25 mg PO BID 07/05/19 [History Last Taken 08/26/19] multivitamin with folic acid 1 tab PO DAILY 07/05/19 [History Last Taken Unknown] oxycodone-acetaminophen 5 mg-325 mg tablet 1 tab PO TID tab 12/02/19 [History Last Taken Unknown] polyethylene glycol 3350 17 gram/dose oral powder 17 g PO DAILY 05/03/20 [History Last Taken Unknown] denosumab 60 mg/mL subcutaneous syringe 60 mg SUBCUT [id number] #1 ml 05/06/21 [Rx Last Taken Unknown] amlodipine 2.5 mg tablet 2.5 mg PO DAILY 09/16/21 [History Last Taken Unknown] levothyroxine 137 mcg tablet 137 mcg PO DAILY #30 tab 11/28/21 [Rx Last Taken Unknown] citalopram 10 mg PO DAILY 12/18/21 [History Last Taken Unknown] glimepiride 2 mg tablet 2 mg PO DAILY #90 tab 01/25/22 [Rx Last Taken Unknown] Allergy/AdvReac Type Severity Reaction Status Date / Time piperacillin [From Zosyn] AdvReac Mild malaise, Verified 03/26/22 08:29 myalgias tazobactam [From Zosyn] AdvReac Mild malaise, Verified 03/26/22 08:29 myalgias Family History Grandfather CVA (cerebral vascular accident) Mother Hypertension Breast cancer Father Diabetes Heart disease Brother CVA (cerebral vascular accident) Diabetes Dementia Surgical History H/O mastectomy H/O tubal ligation History of cataract surgery History of hysterectomy Hx of section Hx of cholecystectomy Hx of colonoscopy Social History (Updated 03/26/22 @ 10:[address] Kiet Klein MD) household members: none Smoking Status: Never smoker second hand exposure: No alcohol intake: never substance use type: does not use caffeine: Yes what type of physical activity do you participate in: none frequency: does not exercise ROS ROS ED Constitutional Constitutional ED: Denies chills, fever(s), subjective, sweats or weight loss Eyes Eyes: Denies blurry vision or change in vision ENT ENT ED: Reports rhinorrhea and other Details: Rhinorrhea is chronic. ; Denies ear pain or sore throat Cardiovascular Cardiovascular: Denies chest pain, orthopnea, palpitations, paroxysmal nocturnal dyspnea or racing heartbeat Respiratory/Chest Respiratory/Chest: Reports dyspnea on exertion; Denies cough, dyspnea, orthopnea, paroxysmal nocturnal dyspnea or sputum Gastrointestinal Gastrointestinal: Reports nausea; Denies abdominal pain, constipation, diarrhea or vomiting Genitourinary Genitourinary ED: Reports urinary frequency; Denies dysuria or hematuria Musculoskeletal Musculoskeletal: Reports back pain and other Details: Patient did not get relief with most recent epidural injection. Daughter states she has been less active. ; Denies arthralgias, myalgias or neck pain Integumentary Reports rash and other Details: Patient has venous stasis dermatitis of the right and left leg. ; Denies abscess or Abrasions Neurologic Neurologic: Reports weakness; Denies headache(s) or paresthesias Psychiatric Psychiatric: Reports depression Endocrine Endocrinology: Denies polydipsia, polyphagia or polyuria EXAM Physical Exam Const Vital Signs: 03/26/22 08:30 03/26/22 08:42 03/26/22 10:55 Temperature 97.5 F L Temperature Source Temporal Pulse Rate 101 H 109 H Respiratory Rate 17 14 Respiratory Effort Labored Respiratory Pattern Normal Blood Pressure 141/66 H 141/63 H Blood Pressure Mean 91 89 Pulse Ox 100 97 Oxygen Delivery Method Room Air Room Air Positive well nourished, well developed and obese General Appearance ED: well developed, NAD and pallor; Negative for cyanotic or diaphoretic Nutritional Appearance: obese HEENT Reports TM's clear and moist mucous membranes HEENT Narrative: Uvula midline. There is no erythema or exudate. Patient does have edema of the upper eyelids Negative for trauma or tenderness Tympanic Membrane ED: Yes TM's clear Eyes PERRL and EOMs intact bilaterally General Eye ED: Negative for pale conjunctiva or scleral icterus Neck no lymphadenopathy, supple and no JVD Neck Narrative: There is no JVD. Chest Wall inspection of chest normal and palpation of chest normal Resp normal respiratory effort and No clear to auscultation bilaterally Effort and Inspection: Negative for retractions or pain with movement Auscultation: rales bilateral lower and diminished lung sounds; Negative for wheezes Cardio regular rate, regular rhythm, S1 normal heart sound, S2 normal heart sound and no murmurs GI normal to inspection, nondistended, normoactive bowel sounds, non-tender and non-distended Palpation: soft Back/Spine no CVA tenderness Cervical Spine: Negative for cervical spine tenderness Thoracic Spine / Upper Back: paraspinal muscle tenderness; Negative for thoracic spinal tenderness Extremity Negative for normal to inspection Extremity Narrative: Venous stasis dermatitis. Edema of the entire right and left lower extremity. General Extremety ED: Yes edema; Negative for tenderness General Extremity: edema Neuro oriented x3, CN's II-XII intact bilaterally and no sensory deficits noted Motor Exam: strength 5/5 throughout Psych Mood & Affect: depressed Skin No no rashes or lesions noted and no wounds General Skin Exam: pallor; Negative for elasticity normal or jaundice MDM MDM MDM Narrative Medical decision making narrative: Patient has anasarca. Will need to obtain EKG, chest x-ray and appropriate laboratory results to assess for poor nutrition, new onset congestive heart failure, cardiac ischemia, Since patient has a left pleural effusion anasarca 20 mg of Lasix was ordered since she is not on a diuretic and has not never been on a diuretic. Will contact hospitalist for admission. Patient case was discussed with Dr. Morin who accepted patient. She is to be admitted to PCU. He requests an additional dose of Lasix. Lab Data Attestation: I reviewed the patient's lab results. Lab results narrative: Patient's hemoglobin is lower than baseline by approximately 1 g. Patient is neutropenic. Review of prior records indicates patient has not been neutropenic in the past. Comprehensive metabolic panel is remarkable for hyponatremia. Last sodium was approximate 2 months ago and 134. BNP is elevated at 400. Troponin is normal with days of symptoms. UA is unremarkable other than slight ketones which is consistent with her eating poorly. Labs: Laboratory Results - last 24 hr 03/26/22 03/26/22 03/26/22 09:20 09:20 09:20 WBC 3.3 L RBC 3.55 L Hgb 11.7 L Hct 33.5 L MCV 94.4 MCH 33.0 H MCHC 34.9 RDW Std Deviation 47.9 H RDW Coeff of [place] 13.8 Plt Count 93 L MPV 8.8 Immature Gran % (Auto) 0.300 Neut % (Auto) 63.3 Lymph % (Auto) 19.6 [place] % (Auto) 14.4 H Eos % (Auto) 1.8 Baso % (Auto) 0.6 Absolute Neuts (auto) 2.1 Absolute Lymphs (auto) 0.64 L Nucleated RBC % 0 Sodium 128 L Potassium 3.8 Chloride 96 L Carbon Dioxide 26.0 Anion Gap 6 BUN 9 Creatinine 0.61 Estim Creat Clear Calc 37.45 Est GFR (MDRD) Af Amer 121 Est GFR (MDRD) Non-Af 100 BUN/Creatinine Ratio 14.7 Glucose 136 H Calcium 8.0 L Total Bilirubin 1.20 H AST 31 ALT 29 Alkaline Phosphatase 116 Troponin I High Sens 28 B-Natriuretic Peptide 400.0 H Total Protein 6.4 Albumin 3.0 L Globulin 3.4 Albumin/Globulin Ratio 0.9 Urine Color Urine Clarity Urine pH Ur Specific [place] Urine Protein Urine Glucose (UA) Urine Ketones Urine Occult Blood Urine Nitrite Urine Bilirubin Urine Urobilinogen Ur Leukocyte Esterase Urine RBC Urine WBC Ur Squamous Epith Cells Urine Bacteria Urine Mucus 03/26/22 10:13 WBC RBC Hgb Hct MCV MCH MCHC RDW Std Deviation RDW Coeff of [place] Plt Count MPV Immature Gran % (Auto) Neut % (Auto) Lymph % (Auto) [place] % (Auto) Eos % (Auto) Baso % (Auto) Absolute Neuts (auto) Absolute Lymphs (auto) Nucleated RBC % Sodium Potassium Chloride Carbon Dioxide Anion Gap BUN Creatinine Estim Creat Clear Calc Est GFR (MDRD) Af Amer Est GFR (MDRD) Non-Af BUN/Creatinine Ratio Glucose Calcium Total Bilirubin AST ALT Alkaline Phosphatase Troponin I High Sens B-Natriuretic Peptide Total Protein Albumin Globulin Albumin/Globulin Ratio Urine Color Yellow Urine Clarity Clear Urine pH 6.0 Ur Specific [place] 1.015 Urine Protein Negative Urine Glucose (UA) Normal Urine Ketones 15 H Urine Occult Blood Negative Urine Nitrite Negative Urine Bilirubin Negative Urine Urobilinogen Normal Ur Leukocyte Esterase Negative Urine RBC 0 SEEN Urine WBC 0 SEEN Ur Squamous Epith Cells 0 SEEN Urine Bacteria 0 SEEN Urine Mucus 0 SEEN Radiography Chest X-Ray - ED: 1 View and Read by ED Physician (X-ray independently interpreted by me at 1010. There is evidence of kyphoplasty. There is cardiomegaly. There is an effusion on the left side. Expiratory volume is slightly diminished. There is no abnormality osseous structures.) Diagnostic Testing: Clinical Impression(s) from Imaging Studies Chest X-Ray 03/26/22 08:59 IMPRESSION: Cardiomegaly. Left retrocardiac atelectatic changes. Small left pleural effusion. Electronically Signed: Sohail Moreno MD at 10:17 EDT , EKG Initial EKG: Attestation: I personally reviewed and interpreted this EKG as follows: Interpretation: Sinus Tachycardia (Ventricular rate 108. LA interval 176 ms. Cures duration 102 ms. QT duration is 346 ms. Dobbins to left. There is decreased anterior force. There is no acute ischemic changes. Disagree that there are fusion beats.) Prior EKG tracings: available for review Prior: Unchanged (Prior EKG dated December 18, 2021) Discharge Plan Dx/Rx/DC Orders Clinical Impression: Anasarca, Pleural effusion on left, Ketosis, Hyponatremia, Anemia, unspecified Disposition Disposition: Acute Care Hospital [facility]
[2022-03-26 10:16] LABS: Bacteria 0 SEEN /hpf (None Seen); Mucous, Urine 0 SEEN /hpf (<or=2+); Red Blood Cells-Urine 0 SEEN /hpf (0-5); Squamous Epithelial Cells - UA 0 SEEN /hpf (5-10); White Blood Cells 0 SEEN /hpf (0-5)
[2022-03-26 10:18] LABS: Color, Urine Yellow (Yellow); Glucose, Dipstick Normal (Normal); Ketone-Dipstick 15 mg/dl (Negative); Leukocyte Esterase-Dipstick Negative /ul (Negative); Nitrite-Dipstick Negative (Negative); Occult Blood-Urine Negative /ul (Negative); Protein-Dipstick Negative (Negative); Specific Gravity, Urine 1.015 (1.002-1.030); Urine Bilirubin Dipstick Negative (Negative); Urine Clarity Clear (Clear); Urine Urobilinogen Normal (Normal)
[2022-03-26] MEDS: Furosemide 20 MG/2 ML VIAL IV ×2 (10:29→11:27)
[2022-03-26] MEDS: oxyCODONE 5 MG Tablet PO ×3 (10:38→17:05)
--- NOTE | 2022-03-26 11:08 | NURSING ---
DR MAIRA PRETTY
--- NOTE | 2022-03-26 11:12 | NURSING ---
PCU MAIRA ANASARCA, LEFT PLEURAL EFFUSION, HYPONATREMIA
--- NOTE | 2022-03-26 11:14 | HP.PCM.HOS_ITS ---
[facility] - General General Date of Admission: 03/26/22 Date of Service: 03/26/22 Chief Complaint: Increased leg swelling, shortness of breath for 2 to 3 weeks. HPI Narrative TORY LY, is a 82 F with multiple comorbidities came to ED for feeling sick, nauseated, increased weakness for several days and thought she has a UTI as she was admitted in November 2020 for E. coli UTI. In ED she was found short of breath with increased leg swelling, upper extremity swelling. Patient has chronic leg swelling but has worsening last 3 weeks. She denies chest pain pressure or tightness. She is not a good historian and does not remember the ch ronological order of her symptoms. She also usually sleeps on the recliner as it helps her on the back pain. She follows Dr. Salas for chronic back pain and gets epidural injection every 3 months. Her in January 2022. She denies increased frequency or urgency and does not have burning micturition. In ED, triage vitals shows heart rate 101/min, labored breathing, pulse ox 100% on room air. Initial work-up shows small left pleural effusion on chest x-ray. Twelve-lead EKG sinus tachycardia at 108/M, QTC 463 ms, LAD. No significant change from the previous EKG of December 2021. First troponin negative. Patient is further admitted after Lasix 40 mg IV in ED FOR[facility]LY [facility], [facility] Medical History Acid reflux Arthritis Back problem Bacteremia due to Gram-negative bacteria Bilateral lower extremity edema Breast cancer Cancer Cataracts, bilateral Chronic headaches DDD (degenerative disc disease), lumbar Diabetes Diarrhea Elevated troponin H/O transfusion of whole blood High triglycerides History of type 1 diabetes mellitus HTN (hypertension) Hypercholesterolemia Hypothyroidism Kidney disease Lymphedema Nonrheumatic aortic (valve) stenosis Nonrheumatic mitral valve stenosis with insufficiency NSTEMI, initial episode of care Segmental and somatic dysfunction of lumbar region Segmental and somatic dysfunction of pelvic region Segmental and somatic dysfunction of thoracic region Spinal stenosis Thrombocytopenia Thyroid disease Home Medications ascorbic acid (vitamin C) 500 mg PO DAILY@0800 07/05/19 [History Last Taken Unknown] atorvastatin 40 mg PO QHS 07/05/19 [History Last Taken Unknown] baclofen 5 mg PO DAILY 07/05/19 [History Last Taken Unknown] calcium citrate-vitamin D3 1 ea PO DAILY 07/05/19 [History Last Taken Unknown] famotidine 40 mg PO DAILY 07/05/19 [History Last Taken 08/26/19] gabapentin 300 mg PO DAILY 07/05/19 [History Last Taken Unknown] metoprolol tartrate 25 mg PO BID 07/05/19 [History Last Taken 08/26/19] multivitamin with folic acid 1 tab PO DAILY 07/05/19 [History Last Taken Unknown] oxycodone-acetaminophen 5 mg-325 mg tablet 1 tab PO TID tab 12/02/19 [History Last Taken Unknown] polyethylene glycol 3350 17 gram/dose oral powder 17 g PO DAILY 05/03/20 [History Last Taken Unknown] denosumab 60 mg/mL subcutaneous syringe 60 mg SUBCUT [id number] #1 ml 05/06/21 [Rx Last Taken Unknown] amlodipine 2.5 mg tablet 2.5 mg PO DAILY 09/16/21 [History Last Taken Unknown] levothyroxine 137 mcg tablet 137 mcg PO DAILY #30 tab 11/28/21 [Rx Last Taken Unknown] citalopram 10 mg PO DAILY 12/18/21 [History Last Taken Unknown] glimepiride 2 mg tablet 2 mg PO DAILY #90 tab 01/25/22 [Rx Last Taken Unknown] Allergy/AdvReac Type Severity Reaction Status Date / Time piperacillin [From Zosyn] AdvReac Mild malaise, Verified 03/26/22 08:29 myalgias tazobactam [From Zosyn] AdvReac Mild malaise, Verified 03/26/22 08:29 myalgias Family History Grandfather CVA (cerebral vascular accident) Mother Hypertension Breast cancer Father Diabetes Heart disease Brother CVA (cerebral vascular accident) Diabetes Dementia Surgical History H/O mastectomy H/O tubal ligation History of cataract surgery History of hysterectomy Hx of section Hx of cholecystectomy Hx of colonoscopy Social History household members: none Smoking Status: Former smoker second hand exposure: No alcohol intake: never substance use type: does not use caffeine: Yes what type of physical activity do you participate in: none frequency: does not exercise ROS ROS Narrative Constitutional: Reports fatigue and weakness. Denies fever. Mild nausea HEENT: Reports systems reviewed and no addt'l complaints, except as documented Respiratory/Chest: Dyspnea at rest. Denies chest pain/pressure or tightness Gastrointestinal: Denies coffee ground emesis, hematemesis or vomiting Genitourinary: Denies burning urination or new urinary tract symptoms Musculoskeletal: Reports chronic lower back pain, joint pain and limited range of motion. Patient has kyphosis Neurologic: Denies seizure-like activity skin: Chronic redness of both lower legs. No pain Endocrinology: Reports systems reviewed and no addt'l complaints, except as documented Hematologic/Lymphatic: Reports systems reviewed and no addt'l complaints, except as documented Rest 14 ROS are negative except as mentioned in HPI Vital Signs Vital Signs Vital Signs: 03/26/22 08:30 03/26/22 08:42 03/26/22 10:55 Temperature 97.5 F L Temperature Source Temporal Pulse Rate 101 H 109 H Respiratory Rate 17 14 Respiratory Effort Labored Respiratory Pattern Normal Blood Pressure 141/66 H 141/63 H Blood Pressure Mean 91 89 Pulse Ox 100 97 Oxygen Delivery Method Room Air Room Air Weight Weight: 148 lb Body Mass Index (BMI) 25.4 Physical Exam Narrative Physical exam General: Alert, Oriented x3, Cooperative HEENT: Bilateral hard of hearing. Atraumatic, PERRLA, EOMI, Normocephalic Oral: No Gingival or Mucosal Lesions/ Ulcerations Neck: Supple, bilateral JVD, Negative Carotid Bruits Lungs: Air entry diminished in left lung base. No crepitation/rhonchi. Dyspnea at rest, labored breathing Cardiovascular: Sinus tachycardia, Normal S1, Normal S2, grade 4/6 ESM over right second ICS, LLSB and cardiac apex Abdomen: Bowel Sounds Present, Soft, Non Tender, Non-Distended : No renal angle tenderness. No suprapubic tenderness. Extremities: Bilateral 3+ lower extremity edema above knee level thigh, Capillary Refill Less than 3 Seconds Skin: Bilateral redness over the lower legs, venous edema/Venous hypertension. No tenderness/induration therefore no cellulitis Musculoskeletal/spine:. Kyphosis thoracic spine mild tenderness to lumbar back. ROM restricted in lower extremities and back Neurological: Cranial nerves II-XII grossly intact, DTR 2+/4, muscle strength 4/5 at major joints of bilateral LE Psych/Mental Status: Flat affect. Results Lab / Micro Data Result Diagrams: 03/26/22 09:20 03/26/22 09:20 Labs: Laboratory Results - last 24 hr 03/26/22 09:20: WBC 3.3 L, RBC 3.55 L, Hgb 11.7 L, Hct 33.5 L, MCV 94.4, MCH 33.0 H, MCHC 34.9, RDW Std Deviation 47.9 H, RDW Coeff of [place] 13.8, Plt Count 93 L, MPV 8.8, Immature Gran % (Auto) 0.300, Neut % (Auto) 63.3, Lymph % (Auto) 19.6, [place] % (Auto) 14.4 H, Eos % (Auto) 1.8, Baso % (Auto) 0.6, Absolute Neuts (auto) 2.1, Absolute Lymphs (auto) 0.64 L, Nucleated RBC % 0 03/26/22 09:20: Sodium 128 L, Potassium 3.8, Chloride 96 L, Carbon Dioxide 26.0, Anion Gap 6, BUN 9, Creatinine 0.61, Estim Creat Clear Calc 37.45, Est GFR (MDRD) Af Amer 121, Est GFR (MDRD) Non-Af 100, BUN/Creatinine Ratio 14.7, Glucose 136 H, Calcium 8.0 L, Total Bilirubin 1.20 H, AST 31, ALT 29, Alkaline Phosphatase 116, Troponin I High Sens 28, Total Protein 6.4, Albumin 3.0 L, Globulin 3.4, Albumin/Globulin Ratio 0.9 03/26/22 09:20: B-Natriuretic Peptide 400.0 H 03/26/22 10:13: Urine Color Yellow, Urine Clarity Clear, Urine pH 6.0, Ur Specific [place] 1.015, Urine Protein Negative, Urine Glucose (UA) Normal, Urine Ketones 15 H, Urine Occult Blood Negative, Urine Nitrite Negative, Urine Bilirubin Negative, Urine Urobilinogen Normal, Ur Leukocyte Esterase Negative, Urine RBC 0 SEEN, Urine WBC 0 SEEN, Ur Squamous Epith Cells 0 SEEN, Urine Bacteria 0 SEEN, Urine Mucus 0 SEEN Micro: Microbiology 03/26/22 10:34 Nasal Secretion SARS-CoV-2 Antigen (Rapid) - Final Radiology Impression Chest X-Ray 03/26/22 08:59 IMPRESSION: Cardiomegaly. Left retrocardiac atelectatic changes. Small left pleural effusion. Electronically Signed: Sohail Moreno MD at 10:17 EDT , Assessment & Plan Assessment/Plan (1) Anasarca: PLAN: 1. Acute dyspnea most likely due to acute on chronic HFpEF with valvular heart disease: Patient last echo in June 2021 reported EF 55%, mild MR, moderate diffuse aortic valve thickening, mild aortic stenosis. LA moderately enlarged. Heart failure core measures including intake and output, fluid restriction less than 1500 mL, daily weight monitoring, kidney and electrolytes monitoring. Discussed with hub bander Dr. Lofton and consult requested. l repeat echo. Patient does not have chest pain or pressure and no coronary artery disease history therefore if second troponin is negative, no further troponin. Started on Lasix 40 mg IV twice daily. Will discontinue amlodipine start lisinopril 2.5 mg daily. Continue metoprolol 25 twice daily as patient is tachycardic. TSH and fasting probably tomorrow AM. Continue atorvastatin. 2. Electrolyte abnormalities: Hypotonic hypervolemic hyponatremia: Patient baseline sodium runs around 1 30-1 34. Monitor electrolytes and control the symptoms of heart failure. Magnesium 1.2, phosphorus 1.9. Electrolyte replacement ordered. Patient had hypomagnesemia and hypophosphatemia during previous admission probably heading to generalized weakness. 3. Diabetes mellitus type 2: Glucose is 136. Hold oral hypoglycemic agent. Accu-Chek insulin is covered with below sliding scale. Titrate the dose of insulin according to Accu-Cheks 4. Lung nodule: Patient had CT chest in July 05 which showed 2 subcentimeter pulmonary nodules in the left upper lobe and right lower lobe and follows Dr. Marte last seen July 2021 but she missed appointment in October and December 2021. 5. Acute on chronic thrombocytopenia anemia of chronic disease: Patient platelet count is 93,000, usually her platelet count is about 75,000?85,000. Hemoglobin is 11.7 g%. Her baseline is around 13.0. Discontinue if platelet count drops less than 50,000 or hemoglobin less than 8 g% 6. CKD stage G3b: Patient creatinine is on baseline. Estimated creatinine clearance 0.67 UA does not show proteinuria. 8. Hypothyroidism: Levothyroxine continued. TSH tomorrow 9 multiple comorbidities including chronic disc degenerative arthritis of lumbar spine, knee and hip joints, spinal stenosis, bilateral lower extremities lymphedema, GERD, dyslipidemia history of breast cancer status post mastectomy: Home medication reconciliation done. PT and OT, counseling case manager and vein pumper consult. 10. VTE prophylaxis: Lovenox 40 mg subcu daily. Living will/advanced directive/end of life care: Patient does have living will or advanced directive. Her in January 2022. Her daughter is power of assistant county attorney for health. After discussion of benefits/risks procedures involved with full code, DNR CC arrest and DNR CC, the patient opted for DNRCC arrest with no intubation Patient does not want artificial life support including intubation, tube feed, ventilator and/chest compression, central venous catheter, vasopressor and DC shock if needed Total time spent in [id number] encounter in discussion of advanced directive 16 minutes. Charges/Coding Visit Charges Inpatient E&M: 20462 Init Hosp L3 Procedures Hospitalists Procedures: 02810 Advncd Care Plan 30 Min
[2022-03-26 11:58] LABS: Magnesium 1.4 mg/dL (1.6-2.6); Phosphorus 1.9 mg/dL (2.5-4.9)
[2022-03-26] MEDS: Na Biphos/Potassium Phosphate PACKET 1 PACKET PO ×2 (12:26→20:13)
[2022-03-26] MEDS: Enoxaparin 40 MG/0.4 ML Syringe SC (12:26)
[2022-03-26] MEDS: Pantoprazole Sodium 40 MG Tablet PO (12:27)
[2022-03-26 12:47] LABS: Troponin-I HS 39 pg/mL (3.0-54.0)
[2022-03-26] MEDS: Acetaminophen 325 MG Tablet 650 MG PO ×2 (14:25→21:19)
--- NOTE | 2022-03-26 15:22 | CON.PCM.CA_ITS ---
Assessment & Plan Assessment/Plan (1) Pleural effusion on left: (2) Anasarca: (3) Hyponatremia: (4) Nonrheumatic aortic (valve) stenosis: PLAN: 82-year-old patient, presented with symptoms of shortness of breath Known cardiac history as valvular heart disease with echocardiogram showing moderate mitral stenosis with mild mitral regurgitation and mild aortic stenosis and June 17, 2021. On this admission noted patient had acute dyspnea as well has bilateral lower extremity swelling she had no symptoms of chest pain and she was started on IV Lasix and currently she is on beta-andrew and LIDIA inhibitor as well Other medical problem include history of diabetes history of acute on chronic thrombocytopenia stable with the last platelet around 93,000. Cardiac care plan recommendations; 1. Patient currently on IV Lasix we will continue to monitor electrolytes and renal function 2. Started on CHF protocol. Patient lives by herself recently her and her daughter has been close to the patient 3. Underlying cardiac rhythm is normal sinus 4. We will repeat echocardiogram and will be seen and followed by the desktop publishing associate For continuation of cardiac care. HPI Consult Data Date of Consult: 03/26/22 HPI Narrative Reason for Consultation: Acute on chronic diastolic heart failure HPI Narrative: TORY LY, is a 82 F who presents [facility] Medical History Acid reflux Arthritis Back problem Bacteremia due to Gram-negative bacteria Bilateral lower extremity edema Breast cancer Cancer Cataracts, bilateral Chronic headaches DDD (degenerative disc disease), lumbar Diabetes Diarrhea Elevated troponin H/O transfusion of whole blood High triglycerides History of type 1 diabetes mellitus HTN (hypertension) Hypercholesterolemia Hypothyroidism Kidney disease Lymphedema Nonrheumatic aortic (valve) stenosis Nonrheumatic mitral valve stenosis with insufficiency NSTEMI, initial episode of care Segmental and somatic dysfunction of lumbar region Segmental and somatic dysfunction of pelvic region Segmental and somatic dysfunction of thoracic region Spinal stenosis Thrombocytopenia Thyroid disease Home Medications atorvastatin 40 mg PO QHS 07/05/19 [History Last Taken Unknown] baclofen 5 mg PO DAILY 07/05/19 [History Last Taken Unknown] calcium citrate-vitamin D3 1 ea PO DAILY 07/05/19 [History Last Taken Unknown] famotidine 40 mg PO DAILY 07/05/19 [History Last Taken 08/26/19] gabapentin 300 mg PO DAILY 07/05/19 [History Last Taken Unknown] metoprolol tartrate 25 mg PO BID 07/05/19 [History Last Taken 08/26/19] multivitamin with folic acid 1 tab PO DAILY 07/05/19 [History Last Taken Unknown] oxycodone-acetaminophen 5 mg-325 mg tablet 1 tab PO TID tab 12/02/19 [History Last Taken Unknown] polyethylene glycol 3350 17 gram/dose oral powder 17 g PO DAILY 05/03/20 [History Last Taken Unknown] denosumab 60 mg/mL subcutaneous syringe 60 mg SUBCUT [id number] #1 ml 05/06/21 [Rx Last Taken Unknown] amlodipine 2.5 mg tablet 2.5 mg PO DAILY 09/16/21 [History Last Taken Unknown] levothyroxine 137 mcg tablet 137 mcg PO DAILY #30 tab 11/28/21 [Rx Last Taken Unknown] glimepiride 2 mg tablet 2 mg PO DAILY #90 tab 01/25/22 [Rx Last Taken Unknown] Allergy/AdvReac Type Severity Reaction Status Date / Time piperacillin [From Zosyn] AdvReac Mild malaise, Verified 03/26/22 08:29 myalgias tazobactam [From Zosyn] AdvReac Mild malaise, Verified 03/26/22 08:29 myalgias Family History Grandfather CVA (cerebral vascular accident) Mother Hypertension Breast cancer Father Diabetes Heart disease Brother CVA (cerebral vascular accident) Diabetes Dementia Surgical History H/O mastectomy H/O tubal ligation History of cataract surgery History of hysterectomy Hx of section Hx of cholecystectomy Hx of colonoscopy Social History household members: none Smoking Status: Former smoker second hand exposure: No alcohol intake: never substance use type: does not use caffeine: Yes what type of physical activity do you participate in: none frequency: does not exercise Physical Exam Narrative Patient seen and evaluated at bedside and discussed with the nursing staff Review of the library monitor normal sinus Cardiac examination S1-S2 normal, systolic murmur heard in the aortic valve area there is no diastolic murmur Chest exam; diminished air entry on the left base. Examination lower extremity chronic lower extremity edema. Risk Stratification Risk Stratification Applicable: No Objective Data Vital Signs: Vital Signs Temp Pulse Resp BP Pulse Ox 97.7 F L 107 H 18 148/59 H 94 03/26/22 12:00 03/26/22 12:00 03/26/22 12:00 03/26/22 12:00 03/26/22 12:00 Oxygen Delivery Method Room Air Weight: 161 lb Body Mass Index (BMI) 28.8 Lab / Micro Data Result Diagrams: 03/26/22 09:20 03/26/22 09:20 Labs: Laboratory Results - last 24 hr 03/26/22 09:20: WBC 3.3 L, RBC 3.55 L, Hgb 11.7 L, Hct 33.5 L, MCV 94.4, MCH 33.0 H, MCHC 34.9, RDW Std Deviation 47.9 H, RDW Coeff of [place] 13.8, Plt Count 93 L, MPV 8.8, Immature Gran % (Auto) 0.300, Neut % (Auto) 63.3, Lymph % (Auto) 19.6, [place] % (Auto) 14.4 H, Eos % (Auto) 1.8, Baso % (Auto) 0.6, Absolute Neuts (auto) 2.1, Absolute Lymphs (auto) 0.64 L, Nucleated RBC % 0 03/26/22 09:20: Sodium 128 L, Potassium 3.8, Chloride 96 L, Carbon Dioxide 26.0, Anion Gap 6, BUN 9, Creatinine 0.61, Estim Creat Clear Calc 37.45, Est GFR (MDRD) Af Amer 121, Est GFR (MDRD) Non-Af 100, BUN/Creatinine Ratio 14.7, Glucose 136 H, Calcium 8.0 L, Total Bilirubin 1.20 H, AST 31, ALT 29, Alkaline Phosphatase 116, Troponin I High Sens 28, Total Protein 6.4, Albumin 3.0 L, Globulin 3.4, Albumin/Globulin Ratio 0.9 03/26/22 09:20: B-Natriuretic Peptide 400.0 H 03/26/22 09:20: Phosphorus 1.9 L, Magnesium 1.4 L 03/26/22 10:13: Urine Color Yellow, Urine Clarity Clear, Urine pH 6.0, Ur Sp ecific [place] 1.015, Urine Protein Negative, Urine Glucose (UA) Normal, Urine Ketones 15 H, Urine Occult Blood Negative, Urine Nitrite Negative, Urine Bilirubin Negative, Urine Urobilinogen Normal, Ur Leukocyte Esterase Negative, Urine RBC 0 SEEN, Urine WBC 0 SEEN, Ur Squamous Epith Cells 0 SEEN, Urine Bacteria 0 SEEN, Urine Mucus 0 SEEN 03/26/22 12:05: Troponin I High Sens 39 Micro: Microbiology 03/26/22 10:34 Nasal Secretion SARS-CoV-2 Antigen (Rapid) - Final Cardiology Labs/Tests 03/26/22 09:20: WBC 3.3 L, RBC 3.55 L, Hgb 11.7 L, Hct 33.5 L, MCV 94.4, MCH 33.0 H, MCHC 34.9, Plt Count 93 L, MPV 8.8, Immature Gran % (Auto) 0.300, Neut % (Auto) 63.3, Lymph % (Auto) 19.6, [place] % (Auto) 14.4 H, Eos % (Auto) 1.8, Baso % (Auto) 0.6, Absolute Neuts (auto) 2.1, Nucleated RBC % 0 03/26/22 09:20: Sodium 128 L, Potassium 3.8, Chloride 96 L, Carbon Dioxide 26.0, Anion Gap 6, BUN 9, Creatinine 0.61, Est GFR (MDRD) Af Amer 121, Est GFR (MDRD) Non-Af 100, BUN/Creatinine Ratio 14.7, Glucose 136 H, Calcium 8.0 L, Total Bilirubin 1.20 H 03/26/22 09:20: B-Natriuretic Peptide 400.0 H 03/26/22 09:20: Phosphorus 1.9 L, Magnesium 1.4 L 03/26/22 10:13: Urine Color Yellow, Urine Clarity Clear, Urine pH 6.0, Ur Specific [place] 1.015, Urine Protein Negative, Urine Glucose (UA) Normal, Urine Ketones 15 H, Urine Occult Blood Negative, Urine Nitrite Negative, Urine Bilirubin Negative, Urine Urobilinogen Normal, Ur Leukocyte Esterase Negative, Urine RBC 0 SEEN, Urine WBC 0 SEEN Rhythm: EKG: ECHO: Stress Test: Cardiac Cath: PCI: CT Surgery: Holter monitor: EPS: PPM: CXR: Chest CT Scan: Radiography Diagnostic Testing: Radiology Impression Chest X-Ray 03/26/22 08:59 IMPRESSION: Cardiomegaly. Left retrocardiac atelectatic changes. Small left pleural effusion. Electronically Signed: Sohail Moreno MD at 10:17 EDT ,
[2022-03-26] MEDS: Morphine 2 MG/ML Syringe IV (16:18)
[2022-03-26] MEDS: Insulin Lispro 100 UNIT/ML INSULN.PEN SC ×2 (16:18→20:15)
[2022-03-26] MEDS: 0.9% Saline Lock 10 ML Syringe IV ×2 (16:19→17:05)
[2022-03-26 16:31] LABS: Bedside Glucose 173 mg/dL (74-106)
[2022-03-26] MEDS: Furosemide 40 MG/4 ML Vial IV (17:05)
[2022-03-26] MEDS: HYDROmorphone 1 MG/ML Syringe IV (18:38)
[2022-03-26] MEDS: Metoprolol Tartrate 25 MG Tablet PO (20:14)
[2022-03-26] MEDS: Atorvastatin Calcium 40 MG Tablet PO (20:14)
--- NOTE | 2022-03-26 20:18 | NURSING ---
Pt requesting meds be given early so she can sleep.
[2022-03-26] MEDS: tiZANidine HCl 2 MG Tablet PO (21:19)
[2022-03-26 21:21] LABS: Bedside Glucose 160 mg/dL (74-106)
[2022-03-27] VITALS (12 sets, daily range): BP systolic 83–137; BP diastolic 41–62; PULSE 71–90; RESP 12–16; TEMP 35.9–36.6; O2SAT 92–100
[2022-03-27 05:23] LABS: Absolute Lymphocyte Count 1.31 X10^3/uL (0.83-4.51); Absolute Neutrophil Count 1.4 X10^3/uL (2.0-7.7); Basophil# 0.02 X10^3/uL; Basophil% 0.6 % (0-1); Eosinophil# 0.17 X10^3/uL; Eosinophils% 4.9 % (0-5); Hematocrit 28.8 % (37-47); Hemoglobin 9.8 g/dL (12.0-15.0); Lymphocyte # 1.31 X10^3/ul (0.83-4.51); Lymphocyte % 37.6 % (19-41); Mean Platelet Vol. 8.9 fl (6.2-12.0); Monocyte# 0.53 X10^3/uL; Monocyte% 15.2 % (0-10); NRBC Flagged by Analyzer 0 % (0-5); Neutrophil # 1.43 X10^3/uL (2.7-7.7); Neutrophil % 41.1 % (47-70); POSITIVE COUNT YES; Platelet Count 86 K/mm3 (150-450); RBC Distribution Width CV 14.4 % (11.6-14.6); RBC Distribution Width SD 50.3 fl (35.1-43.9); Red Blood Count 2.97 M/mm3 (4.2-5.4); White Blood Count 3.5 K/mm3 (4.4-11.0)
[2022-03-27 05:38] LABS: Differential Indicated SCAN CRITERIA MET
[2022-03-27 06:16] LABS: Differential Comment SCANNED
[2022-03-27] MEDS: Na Biphos/Potassium Phosphate PACKET 1 PACKET PO ×3 (06:26→21:45)
[2022-03-27] MEDS: Levothyroxine 137 MCG Tablet PO (06:26)
[2022-03-27 06:35] LABS: Anion Gap 5 (5-15); BUN 9 mg/dL (7-18); Calcium,Total 7.4 mg/dL (8.5-10.1); Chloride 97 mmol/L (98-107); Cholesterol < 50 mg/dL (200); Creatinine, Serum 0.75 mg/dL (0.55-1.02); EST Glomerular Filtration Rate 79 mL/min (>60); Est Glom Filt Rate - Afr Amer 95 mL/min (>60); Estimated Creatinine Clearance 37.45 ml/min; Glucose 73 mg/dL (74-106); High Density Lipoprotein 39 mg/dL; Potassium 4.3 mmol/L (3.5-5.1); Sodium Level 129 mmol/L (136-145); Thyroid Stim Hormone (TSH) 5.37 uIU/mL (0.358-3.74); Triglycerides 31 mg/dL; Very Low Density Lipoprotein 6 mg/dL (5-40)
[2022-03-27] MEDS: HYDROmorphone 1 MG/ML Syringe IV (06:35)
[2022-03-27] MEDS: 0.9% Saline Lock 10 ML Syringe IV ×2 (06:37→21:44)
[2022-03-27 07:00] LABS: Bedside Glucose 86 mg/dL (74-106)
--- NOTE | 2022-03-27 07:55 | RAD_ITS ---
STUDY: X-RAY CHEST REASON FOR EXAM: Female, 82 years old. LEFT PLEURAL EFFUSION TECHNIQUE: AP and lateral views of the chest. COMPARISON: Comparison is made with prior study dated 03/26/2022. FINDINGS: EKG electrodes are seen. Surgical clips are seen in the left axillary region. Since prior study, there has been progressive left lower lobe infiltrate with small left pleural effusion. The right lung shows mild degree of increased interstitial markings at the right lung base. This may represent a mild degree of CHF. There is mild cardiac enlargement. Normal mediastinum and douglas. Normal visualized pulmonary arteries. There is atherosclerotic calcification of the aortic arch with tortuosity. There are diffuse degenerative changes of the visualized thoracic spine. Prior vertebroplasty of a lower dorsal vertebra. Marked degree of kyphotic deformity. Normal visualized ribs, clavicles, and shoulders. There is no demonstrated abnormality of the visualized soft tissue structures of the upper abdomen. RAD/Chest PA and Lateral IMPRESSION: Progressive pleural parenchymal changes at the left lung base. Mild degree of increased interstitial markings at the right lung base suggestive of superimposed mild CHF. Electronically Signed: Micheal Guardado MD at 12:17 EDT ,
--- NOTE | 2022-03-27 08:31 | PN.HOSP_ITS ---
Subjective Subjective Patient is an 82-year-old lady admitted with progressive shortness of breath diagnosed with acute congestive heart failure admitted to monitored bed where patient is currently being managed Objective Data Objective Data Vital Signs: Vital Signs Temp Pulse Resp BP Pulse Ox 97.1 F L 83 16 118/62 100 03/27/22 06:16 03/27/22 06:16 03/27/22 06:16 03/27/22 06:16 03/27/22 06:16 Oxygen Delivery Method Room Air Weight: 74.6 kg Body Mass Index (BMI) 28.8 Intake & Output: Intake and Output for Last 24 Hours 03/25/22 03/26/22 03/27/22 23:59 23:59 23:59 Intake Total 584 / 684 100 / 100 Output Total 1425 / 1775 550 / 550 Balance -841 / -1091 -450 / -450 Lab / Micro Data Result Diagrams: 03/27/22 04:55 03/27/22 04:55 Labs: Laboratory Results - last 24 hr 03/26/22 09:20: WBC 3.3 L, RBC 3.55 L, Hgb 11.7 L, Hct 33.5 L, MCV 94.4, MCH 33.0 H, MCHC 34.9, RDW Std Deviation 47.9 H, RDW Coeff of [place] 13.8, Plt Count 93 L, MPV 8.8, Immature Gran % (Auto) 0.300, Neut % (Auto) 63.3, Lymph % (Auto) 19.6, [place] % (Auto) 14.4 H, Eos % (Auto) 1.8, Baso % (Auto) 0.6, Absolute Neuts (auto) 2.1, Absolute Lymphs (auto) 0.64 L, Nucleated RBC % 0 03/26/22 09:20: Sodium 128 L, Potassium 3.8, Chloride 96 L, Carbon Dioxide 26.0, Anion Gap 6, BUN 9, Creatinine 0.61, Estim Creat Clear Calc 37.45, Est GFR (MDRD) Af Amer 121, Est GFR (MDRD) Non-Af 100, BUN/Creatinine Ratio 14.7, Glucose 136 H, Calcium 8.0 L, Total Bilirubin 1.20 H, AST 31, ALT 29, Alkaline Phosphatase 116, Troponin I High Sens 28, Total Protein 6.4, Albumin 3.0 L, Globulin 3.4, Albumin/Globulin Ratio 0.9 03/26/22 09:20: B-Natriuretic Peptide 400.0 H 03/26/22 09:20: Phosphorus 1.9 L, Magnesium 1.4 L 03/26/22 10:13: Urine Color Yellow, Urine Clarity Clear, Urine pH 6.0, Ur Specific [place] 1.015, Urine Protein Negative, Urine Glucose (UA) Normal, Urine Ketones 15 H, Urine Occult Blood Negative, Urine Nitrite Negative, Urine Bilirubin Negative, Urine Urobilinogen Normal, Ur Leukocyte Esterase Negative, Urine RBC 0 SEEN, Urine WBC 0 SEEN, Ur Squamous Epith Cells 0 SEEN, Urine Bacteria 0 SEEN, Urine Mucus 0 SEEN 03/26/22 12:05: Troponin I High Sens 39 03/26/22 16:17: POC Glucose 173 H 03/26/22 20:12: POC Glucose 160 H 03/27/22 04:55: WBC 3.5 L, RBC 2.97 L, Hgb 9.8 L, Hct 28.8 L, MCV 97.0, MCH 33.0 H, MCHC 34.0, RDW Std Deviation 50.3 H, RDW Coeff of [place] 14.4, Plt Count 86 L, MPV 8.9, Immature Gran % (Auto) 0.600, Neut % (Auto) 41.1 L, Lymph % (Auto) 37.6, [place] % (Auto) 15.2 H, Eos % (Auto) 4.9, Baso % (Auto) 0.6, Absolute Neuts (auto) 1.4 L, Absolute Lymphs (auto) 1.31, Nucleated RBC % 0, Differential Comment SCANNED 03/27/22 04:55: Sodium 129 L, Potassium 4.3, Chloride 97 L, Carbon Dioxide 27.0, Anion Gap 5, BUN 9, Creatinine 0.75, Estim Creat Clear Calc 37.45, Est GFR (MDRD) Af Amer 95, Est GFR (MDRD) Non-Af 79, BUN/Creatinine Ratio 12.0, Glucose 73 L, Calcium 7.4 L, Triglycerides 31, Cholesterol < 50, LDL Cholesterol TNP, VLDL Cholesterol 6, HDL Cholesterol 39 L, TSH 5.37 H 03/27/22 06:29: POC Glucose 86 Micro: Microbiology 03/26/22 10:34 Nasal Secretion SARS-CoV-2 Antigen (Rapid) - Final Radiography Diagnostic Testing: Radiology Impression Chest X-Ray 03/26/22 08:59 IMPRESSION: Cardiomegaly. Left retrocardiac atelectatic changes. Small left pleural effusion. Electronically Signed: Sohail Moreno MD at 10:17 EDT Reading Location ID and State: [facility] / [place] Tel , Service support , Physical Exam Narrative GENERAL: cooperative HEENT: Atraumatic; EYES; Anicteric, Normal Conjunctiva NECK; supple, normal thyroid, RESPIRATORY: Diminished to auscultation CARDIOVASCULAR: Regular S1 S2, GI: soft, normoactive bowel sounds, : No Renal angle tenderness; EXTREMITIES: Bipedal edema, no clubbing, MUSCULOSKELETAL: no muscle wasting NEURO: Awake; no lateralizing signs. SKIN: No Rash PSYCH; Flat affect Assessment & Plan Assessment/Plan (1) Anasarca: PLAN: Patient is an 82-year-old lady admitted with progressive shortness of breath diagnosed with acute congestive heart failure admitted to monitored bed where patient is currently being managed 1. Acute dyspnea secondary to acute on chronic congestive heart failure with preserved ejection fraction ? Echo obtained in June 2021 demonstrated EF of 55%. Patient has been managed with diuretics seen in consultation by cardiology noted recommendations reviewed 2. Hyponatremia ? Secondary to fluid overload state as a result of CHF do expect improvement wit h diuresis 3. Diabetes mellitus type II -patient's oral hypoglycemics held. Placed on long acting insulin, Accu-Cheks a.c. and at bedtime and covered with sliding scale insulin 4. Lung nodule ? Currently being followed by pulmonary medicine as outpatient 5. Anemia - Secondary to chronic disorder monitoring H&H and transfuse if patient becomes symptomatic or hemoglobin falls below 7 6. Hypothyroidism - Patient is on levothyroxine home dose continued 7. Chronic kidney disease stage IIIb ? Monitor with daily electrolytes 8. History of breast CA ? Status postmastectomy currently remission 9. Degenerative joint disease involving multiple joint ? Pain meds as needed 10. Dyslipidemia -Patient is on statin therapy, continued at home dose 11. GERD ? Patient is on famotidine 12. Osteoporosis ? Patient is on denosumab every 6 months 13. DVT prophylaxis ? SC Lovenox 14. Physical deconditioning - Requested for PT OT eval and pediatric social worker to assist with discharge planning Charges/Coding Visit Charges Inpatient E&M: 52675 Subs Hosp L2
[2022-03-27] MEDS: Ascorbic Acid 500 MG Tablet PO (09:18)
[2022-03-27] MEDS: Pantoprazole Sodium 40 MG Tablet PO (09:18)
[2022-03-27] MEDS: Lisinopril 2.5 MG Tablet PO (09:18)
[2022-03-27] MEDS: Citalopram 10 MG Tablet PO (09:18)
[2022-03-27] MEDS: Polyethylene Glycol 3350 17 GM PACKET PO (09:18)
[2022-03-27] MEDS: Metoprolol Tartrate 25 MG Tablet PO ×2 (09:18→21:45)
[2022-03-27] MEDS: Enoxaparin 40 MG/0.4 ML Syringe SC (09:18)
[2022-03-27] MEDS: Gabapentin 300 MG Capsule PO (09:20)
--- NOTE | 2022-03-27 10:47 | CASEMGMT ---
Social Work PCP: Dr Ross Specialists: Dr Meraz- Endocrinology, Dr Salas-Pain management, and Dr Deng-Cardiology Preferred Pharmacy: [facility] Insurance: Medicare and [employer] Prescription Benefit: Yes Living Will/HPOA: No. Patient is interested in completing Healthcare Power of Bathroom Tiling Professional. SW will check back with patient to complete documents. LNOK: Daughter Chloe Britt Living Arrangements: Alone Transportation: Patient does not drive DME: walker, shower chair, stair lift, and grab bars HHC/SNF: None previously Mental Health: Anxiety Substance Use: None Community Resources: None Plan: Patient was getting and Echo done so SW and patient's daughter Chloe stepped out into the hallway. Prior to this hospitalization patient was independent with all activities other than driving. Patient manages her own medications, she bathes herself, and cooks for herself. Physician did mention going to a intermediate short term. Patient is not sure about this. She is not feeling well at all today. OTTO explained OTTO and RN CM will continue to follow and help with d/c planning. Keiry [employer]
[2022-03-27] MEDS: Furosemide 40 MG/4 ML Vial IV ×2 (11:31→17:05)
[2022-03-27] MEDS: Insulin Lispro 100 UNIT/ML INSULN.PEN SC (11:32)
[2022-03-27] MEDS: Calcium Carb/Vitamin D 1 TABLET Tablet PO (11:34)
[2022-03-27] MEDS: Multivitamins,Therapeutic Tablet 1 TABLET PO (11:34)
[2022-03-27] MEDS: oxyCODONE 5 MG Tablet PO ×3 (11:36→21:44)
[2022-03-27 12:05] LABS: Bedside Glucose 160 mg/dL (74-106)
[2022-03-27 16:31] LABS: Bedside Glucose 136 mg/dL (74-106)
--- NOTE | 2022-03-27 17:17 | PCM.PN.CARD ---
Subjective Subjective Patient seen and evaluated. Appears to be stable. Objective Data Vital Signs: Vital Signs Temp Pulse Resp BP Pulse Ox 97.7 F L 80 16 137/60 H 93 03/27/22 17:02 03/27/22 17:02 03/27/22 17:02 03/27/22 17:02 03/27/22 17:02 Oxygen Delivery Method Room Air Weight: 164 lb 7.437 oz Body Mass Index (BMI) 28.8 Intake & Output: Intake and Output for Last 24 Hours 03/25/22 03/26/22 03/27/22 23:59 23:59 23:59 Intake Total 584 / 684 520 / 520 Output Total 1425 / 1775 550 / 550 Balance -841 / -1091 -30 / -30 Lab / Micro Data Result Diagrams: 03/27/22 04:55 03/27/22 04:55 Labs: Laboratory Results - last 24 hr 03/26/22 20:12: POC Glucose 160 H 03/27/22 04:55: WBC 3.5 L, RBC 2.97 L, Hgb 9.8 L, Hct 28.8 L, MCV 97.0, MCH 33.0 H, MCHC 34.0, RDW Std Deviation 50.3 H, RDW Coeff of [place] 14.4, Plt Count 86 L, MPV 8.9, Immature Gran % (Auto) 0.600, Neut % (Auto) 41.1 L, Lymph % (Auto) 37.6, [place] % (Auto) 15.2 H, Eos % (Auto) 4.9, Baso % (Auto) 0.6, Absolute Neuts (auto) 1.4 L, Absolute Lymphs (auto) 1.31, Nucleated RBC % 0, Differential Comment SCANNED 03/27/22 04:55: Sodium 129 L, Potassium 4.3, Chloride 97 L, Carbon Dioxide 27.0, Anion Gap 5, BUN 9, Creatinine 0.75, Estim Creat Clear Calc 37.45, Est GFR (MDRD) Af Amer 95, Est GFR (MDRD) Non-Af 79, BUN/Creatinine Ratio 12.0, Glucose 73 L, Calcium 7.4 L, Triglycerides 31, Cholesterol < 50, LDL Cholesterol TNP, VLDL Cholesterol 6, HDL Cholesterol 39 L, TSH 5.37 H 03/27/22 06:29: POC Glucose 86 03/27/22 11:29: POC Glucose 160 H 03/27/22 16:14: POC Glucose 136 H Cardiology Labs/Tests 03/27/22 04:55: WBC 3.5 L, RBC 2.97 L, Hgb 9.8 L, Hct 28.8 L, MCV 97.0, MCH 33.0 H, MCHC 34.0, Plt Count 86 L, MPV 8.9, Immature Gran % (Auto) 0.600, Neut % (Auto) 41.1 L, Lymph % (Auto) 37.6, [place] % (Auto) 15.2 H, Eos % (Auto) 4.9, Baso % (Auto) 0.6, Absolute Neuts (auto) 1.4 L, Nucleated RBC % 0 03/27/22 04:55: Sodium 129 L, Potassium 4.3, Chloride 97 L, Carbon Dioxide 27.0, Anion Gap 5, BUN 9, Creatinine 0.75, Est GFR (MDRD) Af Amer 95, Est GFR (MDRD) Non-Af 79, BUN/Creatinine Ratio 12.0, Glucose 73 L, Calcium 7.4 L, Triglycerides 31, Cholesterol < 50, LDL Cholesterol TNP, VLDL Cholesterol 6, HDL Cholesterol 39 L Rhythm: EKG: ECHO: Stress Test: Cardiac Cath: PCI: CT Surgery: Holter monitor: EPS: PPM: CXR: Chest CT Scan: Radiography Diagnostic Testing: Radiology Impression Chest X-Ray 03/27/22 07:55 IMPRESSION: Progressive pleural parenchymal changes at the left lung base. Mild degree of increased interstitial markings at the right lung base suggestive of superimposed mild CHF. Electronically Signed: Micheal Guardado MD at 12:17 EDT , Physical Exam Const alert, oriented x3 and no apparent distress General Appearance: cooperative HEENT hearing grossly normal bilaterally Head and Scalp: atraumatic Eyes EOMs intact bilaterally Neck General: normal visual inspection Chest inspection of chest normal and palpation of chest normal Resp normal respiratory effort Auscultation: clear to auscultation bilaterally Cardio regular rate, regular rhythm, S1 normal heart sound and S2 normal heart sound Jugular Venous Distention: JVD GI normal to inspection, nondistended, normoactive bowel sounds Extremity normal capillary refill and no pedal edema Peripheral Pulses: Yes pulses 2+ throughout and femoral pulses present Skin no rashes or lesions noted Neuro oriented x3 and CN's II-XII intact bilaterally Psych Appearance: grossly normal and appropriate Assessment & Plan Assessment/Plan (1) Nonrheumatic aortic (valve) stenosis: PLAN: She does have evidence of moderate aortic stenosis. I would recommend that we repeat the above to reassess and make sure that this is not why she is so short of breath. (2) Nonrheumatic mitral valve stenosis with insufficiency: PLAN: Her mitral valve apparatus also needs to be reevaluated at this particular time. (3) CHF (congestive heart failure), NYHA class III: PLAN: I would recommend continuing with her beta-andrew as well as intravenous diuresis and ARB. We will reevaluate her echocardiogram and depending on the findings further recommendations will be made.
[2022-03-27] MEDS: tiZANidine HCl 2 MG Tablet PO (20:32)
[2022-03-27] MEDS: Acetaminophen 325 MG Tablet 650 MG PO (21:43)
[2022-03-27] MEDS: Senna/Docusate Sodium 1 Tablet 2 TABLET PO (21:45)
[2022-03-27] MEDS: Atorvastatin Calcium 40 MG Tablet PO (21:46)
[2022-03-27 22:35] LABS: Bedside Glucose 135 mg/dL (74-106)
[2022-03-28] VITALS (10 sets, daily range): BP systolic 101–144; BP diastolic 51–61; PULSE 65–100; RESP 16–18; TEMP 36.3–36.7; O2SAT 94–96
[2022-03-28] MEDS: Na Biphos/Potassium Phosphate PACKET 1 PACKET PO (06:38)
[2022-03-28] MEDS: Levothyroxine 137 MCG Tablet PO (06:38)
[2022-03-28 06:47] LABS: Absolute Lymphocyte Count 1.07 X10^3/uL (0.83-4.51); Absolute Neutrophil Count 1.8 X10^3/uL (2.0-7.7); Basophil# 0.02 X10^3/uL; Basophil% 0.6 % (0-1); Eosinophil# 0.18 X10^3/uL; Eosinophils% 5.1 % (0-5); Hematocrit 31.8 % (37-47); Lymphocyte # 1.07 X10^3/ul (0.83-4.51); Lymphocyte % 30.3 % (19-41); Mean Corp Hgb Conc 34.6 g/dL (32-36); Mean Corpuscular Volume 95.5 fL (81-99); Mean Platelet Vol. 8.7 fl (6.2-12.0); Monocyte# 0.46 X10^3/uL; NRBC Flagged by Analyzer 0 % (0-5); Neutrophil # 1.78 X10^3/uL (2.7-7.7); Neutrophil % 50.4 % (47-70); POSITIVE COUNT YES; Platelet Count 96 K/mm3 (150-450); RBC Distribution Width CV 14.3 % (11.6-14.6); RBC Distribution Width SD 50.1 fl (35.1-43.9); Red Blood Count 3.33 M/mm3 (4.2-5.4); White Blood Count 3.5 K/mm3 (4.4-11.0)
[2022-03-28 06:56] LABS: Bedside Glucose 111 mg/dL (74-106)
[2022-03-28 07:10] LABS: Anion Gap 7 (5-15); BUN 12 mg/dL (7-18); BUN/Creat Ratio 13.5 RATIO (10-20); Calcium,Total 7.5 mg/dL (8.5-10.1); Chloride 94 mmol/L (98-107); Creatinine, Serum 0.89 mg/dL (0.55-1.02); EST Glomerular Filtration Rate 65 mL/min (>60); Est Glom Filt Rate - Afr Amer 78 mL/min (>60); Estimated Creatinine Clearance 42.08 ml/min; Glucose 100 mg/dL (74-106); Magnesium 1.7 mg/dL (1.6-2.6); Potassium 3.5 mmol/L (3.5-5.1); Sodium Level 129 mmol/L (136-145)
--- NOTE | 2022-03-28 07:16 | PCM.PN.HOSP ---
Subjective Subjective Patient seen much more interactive compared to previous day. Patient wishes to be discharged home instead of going to assisted facility. Patient may need home PT on discharge Objective Data Objective Data Vital Signs: Vital Signs Temp Pulse Resp BP Pulse Ox 97.7 F L 73 16 101/55 L 96 03/28/22 03:45 03/28/22 03:45 03/28/22 03:45 03/28/22 03:45 03/28/22 03:45 Oxygen Delivery Method Room Air Weight: 75.4 kg Body Mass Index (BMI) 28.8 Intake & Output: Intake and Output for Last 24 Hours 03/26/22 03/27/22 03/28/22 23:59 23:59 23:59 Intake Total 584 / 684 955 / 955 315 / 315 Output Total 1425 / 1775 950 / 950 100 / 100 Balance -841 / -1091 215 / 215 Lab / Micro Data Result Diagrams: 03/28/22 06:30 03/28/22 06:30 Labs: Laboratory Results - last 24 hr 03/27/22 11:29: POC Glucose 160 H 03/27/22 16:14: POC Glucose 136 H 03/27/22 21:42: POC Glucose 135 H 03/28/22 06:30: WBC 3.5 L, RBC 3.33 L, Hgb 11.0 L, Hct 31.8 L, MCV 95.5, MCH 33.0 H, MCHC 34.6, RDW Std Deviation 50.1 H, RDW Coeff of [place] 14.3, Plt Count 96 L, MPV 8.7, Immature Gran % (Auto) 0.600, Neut % (Auto) 50.4, Lymph % (Auto) 30.3, [place] % (Auto) 13.0 H, Eos % (Auto) 5.1 H, Baso % (Auto) 0.6, Absolute Neuts (auto) 1.8 L, Absolute Lymphs (auto) 1.07, Nucleated RBC % 0 03/28/22 06:30: Sodium 129 L, Potassium 3.5, Chloride 94 L, Carbon Dioxide 28.0, Anion Gap 7, BUN 12, Creatinine 0.89, Estim Creat Clear Calc 42.08, Est GFR (MDRD) Af Amer 78, Est GFR (MDRD) Non-Af 65, BUN/Creatinine Ratio 13.5, Glucose 100, Calcium 7.5 L, Magnesium 1.7 03/28/22 06:34: POC Glucose 111 H Micro: Microbiology 03/26/22 10:34 Nasal Secretion SARS-CoV-2 Antigen (Rapid) - Final Radiography Diagnostic Testing: Radiology Impression Chest X-Ray 03/27/22 07:55 IMPRESSION: Progressive pleural parenchymal changes at the left lung base. Mild degree of increased interstitial markings at the right lung base suggestive of superimposed mild CHF. Electronically Signed: Micheal Guardado MD at 12:17 EDT , Physical Exam Narrative GENERAL: cooperative HEENT: Atraumatic; EYES; Anicteric, Normal Conjunctiva NECK; supple, normal thyroid, RESPIRATORY: Diminished to auscultation CARDIOVASCULAR: Regular S1 S2, GI: soft, normoactive bowel sounds, : No Renal angle tenderness; EXTREMITIES: Bipedal edema, no clubbing, MUSCULOSKELETAL: no muscle wasting NEURO: Awake; no lateralizing signs. SKIN: No Rash PSYCH; Flat affect Assessment & Plan Assessment/Plan (1) Anasarca: PLAN: Patient is an 82-year-old lady admitted with progressive shortness of breath diagnosed with acute congestive heart failure admitted to monitored bed where patient is currently being managed 1. Acute dyspnea secondary to acute on chronic congestive heart failure with preserved ejection fraction ? Echo obtained in June 2021 demonstrated EF of 55%. Patient has been managed with diuretics seen in consultation by cardiology noted recommendations reviewed 2. Hyponatremia ? Secondary to fluid overload state as a result of CHF do expect improvement with diuresis 3. Diabetes mellitus type II -patient's oral hypoglycemics held. Placed on long acting insulin, Accu-Cheks a.c. and at bedtime and covered with sliding scale insulin 4. Lung nodule ? Currently being followed by pulmonary medicine as outpatient 5. Anemia - Secondary to chronic disorder monitoring H&H and transfuse if patient becomes symptomatic or hemoglobin falls below 7 6. Hypothyroidism - Patient is on levothyroxine home dose continued 7. Chronic kidney disease stage IIIb ? Monitor with daily electrolytes 8. History of breast CA ? Status postmastectomy currently remission 9. Degenerative joint disease involving multiple joint ? Pain meds as needed 10. Dyslipidemia -Patient is on statin therapy, continued at home dose 11. GERD ? Patient is on famotidine 12. Osteoporosis ? Patient is on denosumab every 6 months 13. DVT prophylaxis ? SC Lovenox 14. Physical deconditioning - Requested for PT OT eval and social contact worker to assist with discharge planning Charges/Coding Visit Charges Inpatient E&M: 23272 Subs Hosp L2
[2022-03-28] MEDS: Gabapentin 300 MG Capsule PO (10:13)
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
[2022-03-28] MEDS: Ascorbic Acid 500 MG Tablet PO (10:39)
[2022-03-28] MEDS: Furosemide 40 MG/4 ML Vial IV (10:39)
[2022-03-28] MEDS: Metoprolol Tartrate 25 MG Tablet PO (10:39)
[2022-03-28] MEDS: Multivitamins,Therapeutic Tablet 1 TABLET PO (10:40)
[2022-03-28] MEDS: Enoxaparin 40 MG/0.4 ML Syringe SC (10:40)
[2022-03-28] MEDS: Lisinopril 2.5 MG Tablet PO (10:40)
[2022-03-28] MEDS: Pantoprazole Sodium 40 MG Tablet PO (10:40)
--- NOTE | 2022-03-28 10:58 | CASEMGMT ---
Social Work Note SW in to speak with pt to discuss HCPOA. Pt states she was going to name Chloe to be her HCPOA. Pt states that Chloe just stepped out. SW informed pt that that pt has to be the one to complete paperwork. Pt states well she will help me with it. SW informed pt that this worker will leave document with pt and as time allows, this worker can stop back in to see if pt wants to do documents and if Chloe is present. Pt states understanding. Maira Ferrari HUMAN SERVICES WORKER, TRENCH TRIMMER FINE
--- NOTE | 2022-03-28 11:16 | PCM.DC.SUM ---
Providers Date of Admission: 03/26/22 Primary Care Physician: Dr. Kurtis Ross MD Consultations 03/26/22 11:48 Consult: Cardiology Routine Consulting Provider: Jonah Nieto Reason for Consult: CHF exa with valvular heart disease EMERGENT Consult: No MD Notified: Yes Date Notified: 03/26/22 Time Notified: 11:49 Method of Notification: Verbal Reason For Visit: ANASARCA Diagnosis Discharge Diagnosis (1) Anasarca: Status: Acute Code(s): R60.1 - Generalized edema Medications at Discharge Home Medications atorvastatin 40 mg PO QHS 07/05/19 baclofen 5 mg PO DAILY 07/05/19 calcium citrate-vitamin D3 1 ea PO DAILY 07/05/19 famotidine 40 mg PO DAILY 07/05/19 gabapentin 300 mg PO DAILY 07/05/19 metoprolol tartrate 25 mg PO BID 07/05/19 multivitamin with folic acid 1 tab PO DAILY 07/05/19 oxycodone-acetaminophen 5 mg-325 mg tablet 1 tab PO TID tab 12/02/19 polyethylene glycol 3350 17 gram/dose oral powder 17 g PO DAILY 05/03/20 denosumab 60 mg/mL subcutaneous syringe 60 mg SUBCUT [id number] #1 ml 05/06/21 levothyroxine 137 mcg tablet 137 mcg PO DAILY #30 tab 11/28/21 citalopram 10 mg PO DAILY #30 tab 03/28/22 furosemide [Lasix] 40 mg PO DAILY #60 tab 03/28/22 glimepiride 1 mg PO DAILY #135 tab 03/28/22 potassium, sodium phosphates 1 packet PO TID #30 ea 03/28/22 Hospital Course Procedures 2-D Echocardiogram Summary of Care Provided Minutes Spent on Discharge: 35 Hospital Course: Patient is an 82-year-old lady admitted with progressive shortness of breath diagnosed with acute congestive heart failure admitted to monitored bed where patient is currently being managed 1. Acute dyspnea secondary to acute on chronic congestive heart failure with preserved ejection fraction ? Echo obtained in June 2021 demonstrated EF of 55%. Patient has been managed with diuretics seen in consultation by cardiology noted recommendations reviewed 2. Hyponatremia ? Secondary to fluid overload state as a result of CHF do expect improvement with diuresis 3. Diabetes mellitus type II -patient's oral hypoglycemics held. Placed on long acting insulin, Accu-Cheks a.c. and at bedtime and covered with sliding scale insulin 4. Lung nodule ? Currently being followed by pulmonary medicine as outpatient 5. Anemia - Secondary to chronic disorder monitoring H&H and transfuse if patient becomes symptomatic or hemoglobin falls below 7 6. Hypothyroidism - Patient is on levothyroxine home dose continued 7. Chronic kidney disease stage IIIb ? Monitor with daily electrolytes 8. History of breast CA ? Status postmastectomy currently remission 9. Degenerative joint disease involving multiple joint ? Pain meds as needed 10. Dyslipidemia -Patient is on statin therapy, continued at home dose 11. GERD ? Patient is on famotidine 12. Osteoporosis ? Patient is on denosumab every 6 months 13. DVT prophylaxis ? SC Lovenox 14. Physical deconditioning - Requested for PT OT eval and director of social services to assist with discharge planning -Patient was discharged home with home therapy Physical Exam Narrative GENERAL: cooperative HEENT: Atraumatic; EYES; Anicteric, Normal Conjunctiva NECK; supple, normal thyroid, RESPIRATORY: Diminished to auscultation CARDIOVASCULAR: Regular S1 S2, GI: soft, normoactive bowel sounds, : No Renal angle tenderness; EXTREMITIES: Bipedal edema, no clubbing, MUSCULOSKELETAL: no muscle wasting NEURO: Awake; no lateralizing signs. SKIN: No Rash PSYCH; Flat affect Weight / BMI Weight Weight: 75.4 kg Body Mass Index (BMI) 28.8 ABG / Lab / Microbiology Data Result Diagrams: 03/28/22 06:30 03/28/22 06:30 Laboratory: Laboratory Results - last 24 hr 03/27/22 11:29: POC Glucose 160 H 03/27/22 16:14: POC Glucose 136 H 03/27/22 21:42: POC Glucose 135 H 03/28/22 06:30: WBC 3.5 L, RBC 3.33 L, Hgb 11.0 L, Hct 31.8 L, MCV 95.5, MCH 33.0 H, MCHC 34.6, RDW Std Deviation 50.1 H, RDW Coeff of [place] 14.3, Plt Count 96 L, MPV 8.7, Immature Gran % (Auto) 0.600, Neut % (Auto) 50.4, Lymph % (Auto) 30.3, [place] % (Auto) 13.0 H, Eos % (Auto) 5.1 H, Baso % (Auto) 0.6, Absolute Neuts (auto) 1.8 L, Absolute Lymphs (auto) 1.07, Nucleated RBC % 0 03/28/22 06:30: Sodium 129 L, Potassium 3.5, Chloride 94 L, Carbon Dioxide 28.0, Anion Gap 7, BUN 12, Creatinine 0.89, Estim Creat Clear Calc 42.08, Est GFR (MDRD) Af Amer 78, Est GFR (MDRD) Non-Af 65, BUN/Creatinine Ratio 13.5, Glucose 100, Calcium 7.5 L, Magnesium 1.7 03/28/22 06:34: POC Glucose 111 H Microbiology: Microbiology 03/26/22 10:34 Nasal Secretion SARS-CoV-2 Antigen (Rapid) - Final Radiography Diagnostic Testing: Radiology Impression Chest X-Ray 03/27/22 07:55 IMPRESSION: Progressive pleural parenchymal changes at the left lung base. Mild degree of increased interstitial markings at the right lung base suggestive of superimposed mild CHF. Electronically Signed: Micheal Guardado MD at 12:17 EDT , D/C Instructions Discharge Diet: 1800 Calorie Control Diet, 8 Cup Fluid Restriction and 2000 mg Sodium Diet Discharge Activity: Return to Normal Activity Call your doctor if you observe: Fever of 101 or Higher, Shortness of breath, Fainting spells and Chest pain Meaningful Use Info Meaningful Use Diagnoses (Choose all that apply): CHF CHF LIDIA/ARB ordered at discharge?: No Reason LIDIA/ARB not ordered?: Not indicated Documented LVEF (%): 55 Discharge Plan Admission Admit Date/Time: 03/26/22 11:09 Attending Provider: John Grider Primary Care Provider: Kurtis Ross Chi Consulting Providers: Jonah Nieto ; Mir Morin Discharge Orders/Prescriptions Prescriptions: New citalopram 10 mg Tablet 10 mg PO DAILY Qty: 30 RF: 0 potassium, sodium phosphates 280-160-250 mg Powder In Packet 1 packet PO TID Qty: 30 RF: 0 furosemide [Lasix] 40 mg tablet 40 mg PO DAILY Qty: 60 RF: 0 Continued polyethylene glycol 3350 [Miralax] 17 gram/dose powder 17 g PO DAILY RF: 0 atorvastatin 40 MG tablet 40 mg PO QHS RF: 0 famotidine 40 MG tablet 40 mg PO DAILY RF: 0 gabapentin 300 MG capsule 300 mg PO DAILY RF: 0 metoprolol tartrate 25 MG tablet 25 mg PO BID RF: 0 calcium citrate-vitamin D3 1 EACH tablet 1 ea PO DAILY RF: 0 multivitamin with folic acid 1 TABLET tablet 1 tab PO DAILY RF: 0 baclofen 5 MG tablet 5 mg PO DAILY RF: 0 oxycodone-acetaminophen 5-325 mg tablet 1 tab PO TID RF: 0 denosumab 60 mg/mL syringe 60 mg subcut [id number] Qty: 1 RF: 1 levothyroxine 137 mcg tablet 137 mcg PO DAILY Qty: 30 RF: 3 Changed glimepiride 2 mg tablet 1 mg PO DAILY Qty: 135 RF: 1 Discontinued amlodipine 2.5 mg tablet 2.5 mg PO DAILY RF: 0 Referrals / Follow Up: Kurtis Ross Chi, MD [Primary Care Provider] - In 1 Week Disposition Disposition (needs filled in before D/C Order can be placed): Home Health Service Charges/Coding Visit Charges Inpatient E&M: 69133 Disch Hosp
[2022-03-28 11:35] LABS: Bedside Glucose 188 mg/dL (74-106)
--- NOTE | 2022-03-28 12:14 | CHAPLAIN ---
Type of Pastoral Visit _x__ Initial Visit ___ Follow-up Visit ___ On-call Visit ___ General Patient Visit ___ Spiritual Assessment ___ Family Conference ___ Bereavement ___ Rapid Response ___ Code Blue ___ Other (describe below) Pastoral Care Referral From _x__ Patient ___ Family ___ Nurse ___ Physician ___ Resolute Professional ___ Change Management Manager ___ Other (describe below) Sacrament/Intervention _x__ Active listening ___ Anointing ___ Faith ___ Bereavement ___ Communion ___ Beth exploration ___ ___ Life review _x__ Prayer ___ Reconciliation ___ Sacrament of Sick _x__ Supportive presence ___ Wedding ___ Other (describe below) Pastoral Comments patient with little affect and low voice; pt states I don't really know when asked about how she is doing; pt states I'm sorry. I don't have anything to say.; pt did say it would be fine to say a prayer for her;
--- NOTE | 2022-03-28 14:50 | CASEMGMT ---
Discharge Licensed Mental Health Counselor Called [facility] at [facility]. Left a Voicemail. Faxed over referral. Will follow up. Taty Rizo Discharge Licensed Mental Health Counselor
--- NOTE | 2022-03-28 15:25 | CASEMGMT ---
Social Work SW met with pt and dgt to assist with advance directives. Pt completed Living Will and HCPOA naming her dgt Chloe Lorenza. Copy placed in pt chart and original given to pt. CATHERINE Eubanks
--- NOTE | 2022-03-28 15:45 | CASEMGMT ---
Discharge [facility] Called [facility] at [facility]. Patient was accepted. Let SW know. Taty Rizo [facility]charge [facility]
--- NOTE | 2022-03-28 15:50 | TREXTCAR_ITS ---
Diet 03/27/22 16:04 Diet: Consistent Carb - Calorie Controlled Food consistency:: Regular Liquid Consistency:: Regular/Thin Dietary Modifications:: Cardiac / Heart Healthy Sodium Restricted Type of Dietary Supplement:: Glucerna Shake Is pt able to select menu?: Yes Fluid restriction:: 1500 mL Diet Comments: 120 ml glucerna shake TID w/ meals How many daily calories?: 1600 calorie Routine Orders/Code Status Code Status: DNRCC-A Therapies Physical Therapy: Eval and Treat Occupational Therapy: Eval and Treat Problem/Diagnosis (1) Anasarca: Status: Acute Allergies/Procedures Done in Hospital Allergies piperacillin [From Zosyn] Adverse Reaction (Mild, Verified 03/26/22 08:29) malaise, myalgias tazobactam [From Zosyn] Adverse Reaction (Mild, Verified 03/26/22 08:29) malaise, myalgias Type of Care/Length of Stay Estimated LOS: Convalescent Care Less Than 30 days Type of Care Needed: Skilled Rehab Potential: Good Prognosis: Good Additional Orders/Day of Discharge Day of Discharge: 03/28/22 Dietary and Speech Recommendations Dietitian Recommendations/Changes: Will adjust diet to 1600 calorie/consistent carbohydrate; cardiac/sodium-restricted diet with 1500ml FR/day. Will adjust glucerna shake to 120 ml TID w/ meals. Increase ONS as needed once intake better established with meals. Discharge Plan Admission Admit Date/Time: 03/26/22 11:09 Attending Provider: John Grider Primary Care Provider: Kurtis Ross Chi Consulting Providers: Jonah Nieto ; Mir Morin Discharge Orders/Prescriptions Prescriptions: New citalopram 10 mg Tablet 10 mg PO DAILY Qty: 30 RF: 0 potassium, sodium phosphates 280-160-250 mg Powder In Packet 1 packet PO TID Qty: 30 RF: 0 furosemide [Lasix] 40 mg tablet 40 mg PO DAILY Qty: 60 RF: 0 Continued polyethylene glycol 3350 [Miralax] 17 gram/dose powder 17 g PO DAILY RF: 0 atorvastatin 40 MG tablet 40 mg PO QHS RF: 0 famotidine 40 MG tablet 40 mg PO DAILY RF: 0 gabapentin 300 MG capsule 300 mg PO DAILY RF: 0 metoprolol tartrate 25 MG tablet 25 mg PO BID RF: 0 calcium citrate-vitamin D3 1 EACH tablet 1 ea PO DAILY RF: 0 multivitamin with folic acid 1 TABLET tablet 1 tab PO DAILY RF: 0 baclofen 5 MG tablet 5 mg PO DAILY RF: 0 oxycodone-acetaminophen 5-325 mg tablet 1 tab PO TID RF: 0 denosumab 60 mg/mL syringe 60 mg subcut [id number] Qty: 1 RF: 1 levothyroxine 137 mcg tablet 137 mcg PO DAILY Qty: 30 RF: 3 Changed glimepiride 2 mg tablet 1 mg PO DAILY Qty: 135 RF: 1 Discontinued amlodipine 2.5 mg tablet 2.5 mg PO DAILY RF: 0 Referrals / Follow Up: Kurtis Ross Chi, MD [Primary Care Provider] - 03/29/22 10:40 am Disposition Disposition (needs filled in before D/C Order can be placed): [facility]
--- NOTE | 2022-03-28 16:31 | CASEMGMT ---
Addendum entered by Maira Ferrari 03/28/22 16:38: OTTO updated RN. Original Note: Social Work Note SW updated physician that pt has been accepted to [facility] and can discharge today. OTTO placed a call to Daisha at [facility] who confirms pt can admit. Daisha states they do not need a COVID test. Pt's daughter Chloe present at [facility]. Chloe states she is aware pt has been accepted to [facility] and can discharge there today. Chloe states that she can transport pt. Chloe states that she needs to go to pt's home and get food out of the refrigerator and then will be back to get pt to transport pt [facility]. OTTO asked Chloe about what time she will be transporting pt, Chloe states after 5:30pm. OTTO completed [facility] in [facility]. Original in SNF folder and copy on pt's chart. OTTO faxed completed discharge paperwork to [facility] including transfer to extended care facility, signed medication list, any scripts, and HENS. Original in SNF folder and copy on pt's chart. OTTO placed a call to Daisha at [facility] and updated her that pt's daughter will be transporting pt to SNF after 5:30pm tonight. Daisha states understanding. SW in to speak with pt and updated pt that she has been accepted to [facility] and when pt's daughter returns to [facility] she will transport pt to [facility]. Pt states understanding. Plan: [facility] skilled today under Convalescent stay with pt's daughter Chloe transporting pt via private vehicle after 5:30pm. Maira Ferrari TRAVELING SECRETARY, RELATIONSHIP ASSOCIATE
[2022-03-28 17:11] LABS: Bedside Glucose 165 mg/dL (74-106)
--- NOTE | 2022-03-28 17:27 | NURSING ---
report called to MILAGRO Ayala at [facility] at 1720.
== END 2022-03-28 17:18 | disposition skilled nursing facility (03) | DRG 291 ==
LOC: ED 11:18 → PCU 11:24
PROVIDERS: Admitting Provider Internal Medicine; Emergency Provider Emergency Medicine; PCP Family Medicine Geriatric Medicine; Visit Provider Internal Medicine
DX: I13.0 Hypertensive heart and chronic kidney disease with heart failure and stage 1 through stage 4 chronic kidney disease, or unspecified chronic kidney disease (principal); I50.33 Acute on chronic diastolic (congestive) heart failure; J90 Pleural effusion, not elsewhere classified; E87.1 Hypo-osmolality and hyponatremia; D69.6 Thrombocytopenia, unspecified; D63.1 Anemia in chronic kidney disease; E11.22 Type 2 diabetes mellitus with diabetic chronic kidney disease; N18.32 Chronic kidney disease, stage 3b; E78.00 Pure hypercholesterolemia, unspecified; E03.9 Hypothyroidism, unspecified; E78.5 Hyperlipidemia, unspecified; K21.9 Gastro-esophageal reflux disease without esophagitis; M16.0 Bilateral primary osteoarthritis of hip; M17.0 Bilateral primary osteoarthritis of knee; M47.816 Spondylosis without myelopathy or radiculopathy, lumbar region; I08.0 Rheumatic disorders of both mitral and aortic valves; I25.2 Old myocardial infarction; M81.0 Age-related osteoporosis without current pathological fracture; G89.29 Other chronic pain; R91.1 Solitary pulmonary nodule; Z66 Do not resuscitate; Z79.84 Long term (current) use of oral hypoglycemic drugs; Z79.891 Long term (current) use of opiate analgesic; Z79.899 Other long term (current) drug therapy; Z85.3 Personal history of malignant neoplasm of breast; Z87.891 Personal history of nicotine dependence
CPT/HCPCS: 36415; 71046; 80048; 80053; 80061; 81001; 82962; 83735; 83880; 84100; 84443; 84484; 85025; 87811; 93005; 93306; 97162; 97166; 97530; 97535; 97802; 99251; 99285; P9612; A4216; G0463; J1940

== ENCOUNTER → 2022-03-31 | Outpatient (CLI) | payer MEDICARE, OTHER, SELFPAY ==
[2022-03-31 12:01] LABS: Absolute Lymphocyte Count 1.63 X10^3/uL (0.83-4.51); Absolute Neutrophil Count 3.1 X10^3/uL (2.0-7.7); Basophil# 0.03 X10^3/uL; Basophil% 0.5 % (0-1); Eosinophil# 0.17 X10^3/uL; Eosinophils% 3.1 % (0-5); Hematocrit 34.1 % (37-47); Hemoglobin 11.9 g/dL (12.0-15.0); Lymphocyte # 1.63 X10^3/ul (0.83-4.51); Lymphocyte % 29.4 % (19-41); Mean Corp Hgb Conc 34.9 g/dL (32-36); Mean Corpuscular Hgb 33.1 pg (27.0-32.0); Mean Corpuscular Volume 94.7 fL (81-99); Mean Platelet Vol. 8.7 fl (6.2-12.0); Monocyte# 0.59 X10^3/uL; Monocyte% 10.6 % (0-10); NRBC Flagged by Analyzer 0 % (0-5); Neutrophil % 55.9 % (47-70); Platelet Count 121 K/mm3 (150-450); RBC Distribution Width CV 14.2 % (11.6-14.6); RBC Distribution Width SD 49.6 fl (35.1-43.9); White Blood Count 5.6 K/mm3 (4.4-11.0)
[2022-03-31 12:12] LABS: Anion Gap 4 (5-15); BUN 9 mg/dL (7-18); BUN/Creat Ratio 11.7 RATIO (10-20); Calcium,Total 8.3 mg/dL (8.5-10.1); Chloride 91 mmol/L (98-107); Creatinine, Serum 0.77 mg/dL (0.55-1.02); EST Glomerular Filtration Rate 76 mL/min (>60); Est Glom Filt Rate - Afr Amer 92 mL/min (>60); Glucose 119 mg/dL (74-106); Potassium 3.9 mmol/L (3.5-5.1); Sodium Level 127 mmol/L (136-145)
== END | disposition home or self-care (01) ==
LOC: LAB 11:39
PROVIDERS: PCP Family Medicine Geriatric Medicine; Referring Provider Family Medicine Geriatric Medicine; Visit Provider Family Medicine Geriatric Medicine
DX: N18.30 Chronic kidney disease, stage 3 unspecified (principal)
CPT/HCPCS: 36415; 80048; 85025

== ENCOUNTER 2022-04-03 09:16 | Emergency (ER) | payer MEDICARE, OTHER, SELFPAY ==
[2022-04-03 09:18] VITALS: BP 158/65; PULSE 99; RESP 14; TEMP 36.2; O2SAT 98; BMI 28.1
--- NOTE | 2022-04-03 09:47 | RAD_ITS ---
EXAM: XR CHEST, 1 VIEW CLINICAL INDICATION: chf TECHNIQUE: Frontal view of the chest. This report was created using [employer] report generation technology. COMPARISON: March 27, 2022 FINDINGS: LUNGS AND PLEURAL SPACES: Pulmonary venous congestion. Persistent left pleural effusion and consolidation or atelectasis of the left lower lobe. No pneumothorax. HEART: Stable moderate cardiomegaly. MEDIASTINUM: Central airways and mediastinal contour are unremarkable. BONES/JOINTS: Unremarkable. SOFT TISSUES: Unremarkable. RAD/Chest 1 View (Portable) IMPRESSION: 1. CHF. 2. Persistent left pleural effusion with pneumonia/atelectasis of the left lower lobe Electronically Signed: Walt Murray MD at 10:47 EDT ,
--- NOTE | 2022-04-03 09:48 | EKG12_ITS ---
Test Reason : GERNRAL Blood Pressure : / mmHG Vent. Rate : 099 BPM Atrial Rate : 099 BPM P-R Int : 166 ms QRS Dur : 106 ms QT Int : 360 ms P-R-T Axes : 056 -11 071 degrees QTc Int : 462 ms Sinus rhythm with Premature atrial complexes Left ventricular hypertrophy Abnormal ECG Confirmed by MOUNIKA DELGADO, FREDRICK ([id number]), sports editor MONIQUE TERESA ([id number]) on 04/04/2022 9:00:26 AM Referred By: Confirmed By:FREDRICK RIBERA MD
--- NOTE | 2022-04-03 09:51 | EDS_ITS ---
HPI History of Present Illness Chief Complaint: General Illness Informant: patient and spouse/S.O. Narrative Narrative: 82-year-old female presents to the emergency room and a concern for dehydration. Patient was recently admitted with congestive heart failure and was discharged to the [facility] due to lack of electricity at her house. She was discharged on Sunday from the [facility]. She developed diarrhea today. She notes she has had 4 episodes. She states that she is shaking and hurts all over. She also notes some chest pressure. Patient denies any fever. [facility] Medical History Acid reflux Arthritis Back problem Bacteremia due to Gram-negative bacteria Bilateral lower extremity edema Breast cancer Cancer Cataracts, bilateral Chronic headaches DDD (degenerative disc disease), lumbar Diabetes Diarrhea Elevated troponin H/O transfusion of whole blood High triglycerides History of type 1 diabetes mellitus HTN (hypertension) Hypercholesterolemia Hypothyroidism Kidney disease Lymphedema Nonrheumatic aortic (valve) stenosis Nonrheumatic mitral valve stenosis with insufficiency NSTEMI, initial episode of care Segmental and somatic dysfunction of lumbar region Segmental and somatic dysfunction of pelvic region Segmental and somatic dysfunction of thoracic region Spinal stenosis Thrombocytopenia Thyroid disease Home Medications atorvastatin 40 mg tablet 40 mg PO QHS cholesterol 07/05/19 [History Last Taken Unknown] baclofen 5 mg tablet 5 mg PO DAILY muscle spasms 07/05/19 [History Last Taken Unknown] calcium citrate 315 mg calcium-vitamin D3 6.25 mcg (250 unit) tablet 1 ea PO DAILY vitamin 07/05/19 [History Last Taken Unknown] famotidine 40 mg tablet 40 mg PO DAILY gerd 07/05/19 [History Last Taken 08/26/19] gabapentin 300 mg capsule 300 mg PO DAILY neuropathy 07/05/19 [History Last Taken Unknown] metoprolol tartrate 25 mg tablet 25 mg PO BID heart rate 07/05/19 [History Last Taken 08/26/19] multivitamin with folic acid 400 mcg tablet 1 tab PO DAILY vitamin 07/05/19 [History Last Taken Unknown] oxycodone-acetaminophen 5 mg-325 mg tablet 1 tab PO TID back pain 12/02/19 [History Last Taken Unknown] polyethylene glycol 3350 17 gram/dose oral powder (Miralax) 17 g PO DAILY stool softener 05/03/20 [History Last Taken Unknown] denosumab 60 mg/mL subcutaneous syringe 60 mg subcut [id number] #1 mL 05/06/21 [Rx Last Taken Unknown] levothyroxine 137 mcg tablet 137 mcg PO DAILY #30 tabs 11/28/21 [Rx Last Taken Unknown] citalopram 10 mg tablet 10 mg PO DAILY #30 tabs 03/28/22 [Rx Last Taken Unknown] furosemide 40 mg tablet (Lasix) 40 mg PO DAILY #60 tabs 03/28/22 [Rx Last Taken Unknown] glimepiride 2 mg tablet 1 mg PO DAILY #135 tabs 03/28/22 [Rx Last Taken Unknown] potassium, sodium phosphates 280 mg-160 mg-250 mg oral powder packet 1 packet PO TID #30 ea 03/28/22 [Rx Last Taken Unknown] Allergy/AdvReac Type Severity Reaction Status Date / Time piperacillin [From Zosyn] AdvReac Mild malaise, Verified 04/03/22 09:19 myalgias tazobactam [From Zosyn] AdvReac Mild malaise, Verified 04/03/22 09:19 myalgias Family History Grandfather CVA (cerebral vascular accident) Mother Hypertension Breast cancer Father Diabetes Heart disease Brother CVA (cerebral vascular accident) Diabetes Dementia Surgical History H/O mastectomy H/O tubal ligation History of cataract surgery History of hysterectomy Hx of section Hx of cholecystectomy Hx of colonoscopy Social History household members: none Smoking Status: Former smoker second hand exposure: No alcohol intake: never substance use type: does not use caffeine: Yes what type of physical activity do you participate in: none frequency: does not exercise ROS ROS ED Constitutional Constitutional ED: Denies chills or weight loss Eyes Eyes: Denies change in vision or diplopia ENT ENT ED: Denies ear pain, rhinorrhea or sore throat Cardiovascular Cardiovascular: Reports chest pain; Denies orthopnea, palpitations or racing heartbeat Respiratory/Chest Respiratory/Chest: Denies cough, dyspnea or orthopnea Gastrointestinal Gastrointestinal: Reports diarrhea; Denies abdominal pain, nausea or vomiting Genitourinary Genitourinary ED: Denies dysuria, hematuria or urinary frequency Musculoskeletal Musculoskeletal: Reports arthralgias, back pain and myalgias Integumentary Denies abscess or rash Neurologic Neurologic: Denies headache(s) or weakness Psychiatric Psychiatric: Denies anxiety, depression, suicidal ideation or suicidal thoughts Endocrine Endocrinology: Denies polydipsia, polyphagia or polyuria Allergic/Immunologic Allergic/Immunologic ED: Denies mouth swelling, tongue swelling or urticaria EXAM Physical Exam Const Vital Signs: 04/03/22 09:18 04/03/22 09:58 04/03/22 10:03 Temperature 97.2 F L Temperature Source Temporal Pulse Rate 99 97 Respiratory Rate 14 19 H Respiratory Effort Normal Non-Labored Respiratory Pattern Normal Blood Pressure 158/65 H 162/67 H Blood Pressure Mean 96 98 Pulse Ox 98 99 Oxygen Delivery Method Room Air Room Air Positive well nourished and well developed General Appearance ED: well developed HEENT Reports normocephalic, head/scalp atraumatic and moist mucous membranes Eyes PERRL and EOMs intact bilaterally Neck no lymphadenopathy, supple and no JVD Resp normal respiratory effort and clear to auscultation bilaterally Cardio regular rate, regular rhythm and no murmurs GI normal to inspection, nondistended, normoactive bowel sounds and non-tender Palpation: soft Back/Spine no CVA tenderness and normal ROM Extremity normal to inspection Extremity Narrative: There is bilateral pitting edema Neuro oriented x3 and CN's II-XII intact bilaterally Sensorium / Orientation: alert Motor Exam: strength 5/5 throughout Psych mental status grossly normal Mood & Affect: Negative for depressed or tearful Skin no rashes or lesions noted and no wounds MDM MDM MDM Narrative Medical decision making narrative: My impression of the chest x-ray is CHF. Blood work overall is reassuring. Noted sodium level of 120. She does appear asymptomatic from this possibly due to volume overload given how much fluid is in her legs. I do not think she is dehydrated from the 4 episodes of diarrhea. I do not think from a CHF standpoint she needs to be admitted she is not hypoxic or significantly dyspneic. Daughter worked with social work and [facility]. Recommended that they get her sodium level rechecked later this week. Lab Data Attestation: I reviewed the patient's lab results. Labs: Laboratory Results - last 24 hr 04/03/22 04/03/22 04/03/22 10:02 10:14 10:14 WBC Cancelled Corrected WBC Cancelled RBC Cancelled Hgb Cancelled Hct Cancelled MCV Cancelled MCH Cancelled MCHC Cancelled RDW Std Deviation Cancelled RDW Coeff of [place] Cancelled Plt Count Cancelled MPV Cancelled Immature Gran % (Auto) Cancelled Neut % (Auto) Cancelled Lymph % (Auto) Cancelled [place] % (Auto) Cancelled Eos % (Auto) Cancelled Baso % (Auto) Cancelled Absolute Neuts (auto) Cancelled Absolute Lymphs (auto) Cancelled Total Counted Cancelled Neutrophils % (Manual) Cancelled Band Neutrophils % Cancelled Lymphocytes % (Manual) Cancelled Monocytes % (Manual) Cancelled Eosinophils % (Manual) Cancelled Basophils % (Manual) Cancelled Metamyelocytes % Cancelled Myelocytes % Cancelled Promyelocytes % Cancelled Blast Cells % Cancelled Plasma Cell % (Manual) Cancelled Other Cells % Cancelled Nucleated RBC % Cancelled Nucleated RBCs/100 WBC Cancelled Differential Comment Cancelled Diff Path Review Cancelled Hypersegmented Neuts Cancelled Atypical Lymphocytes Cancelled Reactive Lymphocytes Cancelled Smudge Cells Cancelled Toxic Granulation Cancelled Toxic Vacuolation Cancelled Dohle Bodies Cancelled Jack Rods Cancelled Platelet Estimate Cancelled Plt Morphology Comment Cancelled RBC Morphology Cancelled Polychromasia Cancelled Hypochromasia Cancelled Poikilocytosis Cancelled Basophilic Stippling Cancelled Anisocytosis Cancelled Microcytosis Cancelled Macrocytosis Cancelled Spherocytes Cancelled Sickle Cells Cancelled Target Cells Cancelled Tear Drop Cells Cancelled Ovalocytes Cancelled Stomatocytes Cancelled [place] Bodies Cancelled Crissy Cells Cancelled Bite Cells Cancelled Crenated Cell Cancelled Acanthocytes (Spur) Cancelled Rouleaux Cancelled Schistocytes Cancelled Sodium 120 L Potassium 4.5 Chloride 85 L Carbon Dioxide 27.0 Anion Gap 8 BUN 8 Creatinine 0.78 Estim Creat Clear Calc 37.45 Est GFR (MDRD) Af Amer 91 Est GFR (MDRD) Non-Af 75 BUN/Creatinine Ratio 10.2 Glucose 155 H Calcium 8.5 Total Bilirubin 1.40 H AST 69 H ALT 35 Alkaline Phosphatase 105 Troponin I High Sens 38 Total Protein 7.0 Albumin 3.1 L Globulin 3.9 Albumin/Globulin Ratio 0.8 L Urine Color Yellow Urine Clarity Clear Urine pH 7.0 Ur Specific [place] 1.015 Urine Protein Negative Urine Glucose (UA) Normal Urine Ketones 5 H Urine Occult Blood Negative Urine Nitrite Negative Urine Bilirubin Negative Urine Urobilinogen Normal Ur Leukocyte Esterase Negative Urine RBC 0 SEEN Urine WBC 0 SEEN Ur Squamous Epith Cells 0 SEEN Urine Bacteria 0 SEEN Urine Mucus 0 SEEN 04/03/22 11:05 WBC 6.2 Corrected WBC RBC 3.65 L Hgb 12.0 Hct 33.4 L MCV 91.5 MCH 32.9 H MCHC 35.9 RDW Std Deviation 46.6 H RDW Coeff of [place] 13.8 Plt Count 129 L MPV 8.5 Immature Gran % (Auto) 0.500 Neut % (Auto) 69.5 Lymph % (Auto) 19.6 [place] % (Auto) 8.6 Eos % (Auto) 1.3 Baso % (Auto) 0.5 Absolute Neuts (auto) 4.3 Absolute Lymphs (auto) 1.21 Total Counted Neutrophils % (Manual) Band Neutrophils % Lymphocytes % (Manual) Monocytes % (Manual) Eosinophils % (Manual) Basophils % (Manual) Metamyelocytes % Myelocytes % Promyelocytes % Blast Cells % Plasma Cell % (Manual) Other Cells % Nucleated RBC % 0 Nucleated RBCs/100 WBC Differential Comment Diff Path Review Hypersegmented Neuts Atypical Lymphocytes Reactive Lymphocytes Smudge Cells Toxic Granulation Toxic Vacuolation Dohle Bodies Jack Rods Platelet Estimate Plt Morphology Comment RBC Morphology Polychromasia Hypochromasia Poikilocytosis Basophilic Stippling Anisocytosis Microcytosis Macrocytosis Spherocytes Sickle Cells Target Cells Tear Drop Cells Ovalocytes Stomatocytes [place] Bodies [place] Cells Bite Cells Crenated Cell Acanthocytes (Spur) Rouleaux Schistocytes Sodium Potassium Chloride Carbon Dioxide Anion Gap BUN Creatinine Estim Creat Clear Calc Est GFR (MDRD) Af Amer Est GFR (MDRD) Non-Af BUN/Creatinine Ratio Glucose Calcium Total Bilirubin AST ALT Alkaline Phosphatase Troponin I High Sens Total Protein Albumin Globulin Albumin/Globulin Ratio Urine Color Urine Clarity Urine pH Ur Specific [place] Urine Protein Urine Glucose (UA) Urine Ketones Urine Occult Blood Urine Nitrite Urine Bilirubin Urine Urobilinogen Ur Leukocyte Esterase Urine RBC Urine WBC Ur Squamous Epith Cells Urine Bacteria Urine Mucus Radiography Diagnostic Testing: Clinical Impression(s) from Imaging Studies Chest X-Ray 04/03/22 09:47 IMPRESSION: 1. CHF. 2. Persistent left pleural effusion with pneumonia/atelectasis of the left lower lobe Electronically Signed: Walt Murray MD at 10:47 EDT , EKG Initial EKG: Comments: Sinus rhythm with PACs and a ventricular rate of 99 bpm Discharge Plan Triage Chief Complaint: General Illness ED Provider: Jeremi Capps Dx/Rx/DC Orders Clinical Impression: Diarrhea, Chest pain, CHF (congestive heart failure), NYHA class III, Acute hyponatremia Prescriptions: No Action polyethylene glycol 3350 [Miralax] 17 gram/dose powder 17 g PO DAILY atorvastatin 40 MG tablet 40 mg PO QHS famotidine 40 MG tablet 40 mg PO DAILY gabapentin 300 MG capsule 300 mg PO DAILY metoprolol tartrate 25 MG tablet 25 mg PO BID calcium citrate-vitamin D3 1 EACH tablet 1 ea PO DAILY multivitamin with folic acid 1 TABLET tablet 1 tab PO DAILY baclofen 5 MG tablet 5 mg PO DAILY oxycodone-acetaminophen 5-325 mg tablet 1 tab PO TID citalopram 10 mg Tablet 10 mg PO DAILY Qty: 30 0RF potassium, sodium phosphates 280-160-250 mg Powder In Packet 1 packet PO TID Qty: 30 0RF furosemide [Lasix] 40 mg tablet 40 mg PO DAILY Qty: 60 0RF glimepiride 2 mg tablet 1 mg PO DAILY Qty: 135 1RF Rx Instructions: administer with breakfast denosumab 60 mg/mL syringe 60 mg subcut [id number] Qty: 1 1RF levothyroxine 137 mcg tablet 137 mcg PO DAILY Qty: 30 3RF Primary Care Provider: Kurtis Ross Chi Referrals: Kurtis Ross Chi, MD [Primary Care Provider] - Keep Isabel appointment
[2022-04-03 09:58] VITALS: BP 162/67; PULSE 97; RESP 19; O2SAT 99
[2022-04-03 10:26] LABS: Bacteria 0 SEEN /hpf (None Seen); Mucous, Urine 0 SEEN /hpf (<or=2+); Red Blood Cells-Urine 0 SEEN /hpf (0-5); Squamous Epithelial Cells - UA 0 SEEN /hpf (5-10); White Blood Cells 0 SEEN /hpf (0-5)
[2022-04-03 10:28] LABS: Color, Urine Yellow (Yellow); Glucose, Dipstick Normal (Normal); Ketone-Dipstick 5 mg/dl (Negative); Leukocyte Esterase-Dipstick Negative /ul (Negative); Nitrite-Dipstick Negative (Negative); Occult Blood-Urine Negative /ul (Negative); Protein-Dipstick Negative (Negative); Specific Gravity, Urine 1.015 (1.002-1.030); Urine Bilirubin Dipstick Negative (Negative); Urine Clarity Clear (Clear); Urine Urobilinogen Normal (Normal)
[2022-04-03 10:42] LABS: ALB/GLOB Ratio 0.8 RATIO (0.9-2.4); AST(SGOT) 69 U/L (15-37); Alanine Aminotransfer ALT/SGPT 35 U/L (13-56); Albumin, Serum 3.1 g/dL (3.2-5.0); Alkaline Phosphatase 105 U/L (45-117); Anion Gap 8 (5-15); BUN 8 mg/dL (7-18); BUN/Creat Ratio 10.2 RATIO (10-20); Calcium,Total 8.5 mg/dL (8.5-10.1); Chloride 85 mmol/L (98-107); Creatinine, Serum 0.78 mg/dL (0.55-1.02); EST Glomerular Filtration Rate 75 mL/min (>60); Est Glom Filt Rate - Afr Amer 91 mL/min (>60); Estimated Creatinine Clearance 37.45 ml/min; Globulin 3.9 g/dL (2.2-4.2); Glucose 155 mg/dL (74-106); Potassium 4.5 mmol/L (3.5-5.1); Sodium Level 120 mmol/L (136-145); Troponin-I HS 38 pg/mL (3.0-54.0)
--- NOTE | 2022-04-03 11:02 | CM.ED ---
Addendum entered by Chloe Chris 04/03/22 12:07: OTTO had called Daisha and Daisha said that the PASS needs to be completed from the community, when patient is in the ED. OTTO completed the HENS and it was faxed to [facility]. [facility] called [facility] at [facility]. [facility] OTTO updated that pt's family would like to speak to OTTO. OTTO spoke with pt's daughter Chloe outside pt's room. Chloe states she would like pt to go back to [facility] as she feels pt left too early. OTTO informed Chloe that this worker will get a referral sent over to [facility]. OTTO spoke with Physician, pt can discharge to SNF from ED. OTTO placed a call to Daisha at [facility] and provided referral. Referral faxed to [facility]. Plan: [facility] from ED Maira PADILLA, INVESTOR RELATIONS MANAGER
[2022-04-03] MEDS: Loperamide 2 MG Capsule 4 MG PO (11:05)
[2022-04-03 11:16] LABS: Absolute Lymphocyte Count 1.21 X10^3/uL (0.83-4.51); Absolute Neutrophil Count 4.3 X10^3/uL (2.0-7.7); Basophil# 0.03 X10^3/uL; Basophil% 0.5 % (0-1); Eosinophil# 0.08 X10^3/uL; Eosinophils% 1.3 % (0-5); Hematocrit 33.4 % (37-47); Lymphocyte # 1.21 X10^3/ul (0.83-4.51); Lymphocyte % 19.6 % (19-41); Mean Corp Hgb Conc 35.9 g/dL (32-36); Mean Corpuscular Hgb 32.9 pg (27.0-32.0); Mean Corpuscular Volume 91.5 fL (81-99); Mean Platelet Vol. 8.5 fl (6.2-12.0); Monocyte# 0.53 X10^3/uL; Monocyte% 8.6 % (0-10); NRBC Flagged by Analyzer 0 % (0-5); Neutrophil % 69.5 % (47-70); Platelet Count 129 K/mm3 (150-450); RBC Distribution Width CV 13.8 % (11.6-14.6); RBC Distribution Width SD 46.6 fl (35.1-43.9); Red Blood Count 3.65 M/mm3 (4.2-5.4); White Blood Count 6.2 K/mm3 (4.4-11.0)
[2022-04-03 12:15] VITALS: BP 137/62
== END 2022-04-03 12:15 | disposition home or self-care (01) ==
PROVIDERS: Emergency Provider Emergency Medicine; PCP Family Medicine Geriatric Medicine; Visit Provider Emergency Medicine
DX: R19.7 Diarrhea, unspecified (principal); I11.0 Hypertensive heart disease with heart failure; I50.9 Heart failure, unspecified; E10.9 Type 1 diabetes mellitus without complications; I25.2 Old myocardial infarction; R07.9 Chest pain, unspecified; E78.00 Pure hypercholesterolemia, unspecified; E87.1 Hypo-osmolality and hyponatremia; E03.9 Hypothyroidism, unspecified; M19.90 Unspecified osteoarthritis, unspecified site; Z79.84 Long term (current) use of oral hypoglycemic drugs; Z79.899 Other long term (current) drug therapy; Z87.891 Personal history of nicotine dependence
CPT/HCPCS: 71045; 80053; 81001; 84484; 85025; 93005; 99284; A4216

== ENCOUNTER → 2022-04-26 | Outpatient (CLI) | payer MEDICARE, OTHER, SELFPAY ==
[2022-04-26 12:29] LABS: Absolute Neutrophil Count 1.9 X10^3/uL (2.0-7.7); Basophil# 0.03 X10^3/uL; Basophil% 0.8 % (0-1); Eosinophil# 0.16 X10^3/uL; Eosinophils% 4.3 % (0-5); Hemoglobin 11.5 g/dL (12.0-15.0); Lymphocyte % 32.4 % (19-41); Mean Corp Hgb Conc 33.8 g/dL (32-36); Mean Corpuscular Hgb 33.8 pg (27.0-32.0); Mean Platelet Vol. 8.6 fl (6.2-12.0); Monocyte# 0.41 X10^3/uL; Monocyte% 11.1 % (0-10); NRBC Flagged by Analyzer 0 % (0-5); Neutrophil # 1.89 X10^3/uL (2.7-7.7); Neutrophil % 51.1 % (47-70); Platelet Count 107 K/mm3 (150-450); RBC Distribution Width CV 15.9 % (11.6-14.6); RBC Distribution Width SD 58.4 fl (35.1-43.9); White Blood Count 3.7 K/mm3 (4.4-11.0)
[2022-04-26 12:53] LABS: Vitamin D,25 Hydroxy 56.8 ng/mL
[2022-04-26 13:04] LABS: ALB/GLOB Ratio 0.8 RATIO (0.9-2.4); AST(SGOT) 33 U/L (15-37); Alanine Aminotransfer ALT/SGPT 29 U/L (13-56); Albumin, Serum 3.1 g/dL (3.2-5.0); Alkaline Phosphatase 87 U/L (45-117); Anion Gap 6 (5-15); BUN 15 mg/dL (7-18); BUN/Creat Ratio 16.6 RATIO (10-20); Calcium,Total 8.7 mg/dL (8.5-10.1); Chloride 99 mmol/L (98-107); EST Glomerular Filtration Rate 63 mL/min (>60); Est Glom Filt Rate - Afr Amer 77 mL/min (>60); Globulin 3.9 g/dL (2.2-4.2); Glucose 210 mg/dL (74-106); Phosphorus 3.9 mg/dL (2.5-4.9); Potassium 4.1 mmol/L (3.5-5.1); Sodium Level 133 mmol/L (136-145); Thyroid Stim Hormone (TSH) 6.79 uIU/mL (0.358-3.74)
== END | disposition home or self-care (01) ==
LOC: POLAB3 10:02
PROVIDERS: PCP Family Medicine Geriatric Medicine; Visit Provider Family Medicine Geriatric Medicine
DX: E11.9 Type 2 diabetes mellitus without complications (principal); E55.9 Vitamin D deficiency, unspecified; E78.5 Hyperlipidemia, unspecified; I10 Essential (primary) hypertension
CPT/HCPCS: 36415; 80053; 82306; 84100; 84443; 85025

== ENCOUNTER → 2022-05-05 | Outpatient (CLI) | payer MEDICARE, OTHER, SELFPAY ==
[2022-05-05 12:57] VITALS: BP 145/57; PULSE 80; RESP 16; TEMP 35.8; O2SAT 97
[2022-05-05] MEDS: DENOSUMAB 60 MG/ML SC (12:59)
== END | disposition home or self-care (01) ==
LOC: MEDOUTP 12:50
PROVIDERS: PCP Family Medicine Geriatric Medicine; Referring Provider Internal Medicine Endocrinology, Diabetes & Metabolism; Visit Provider Internal Medicine Endocrinology, Diabetes & Metabolism
DX: M81.0 Age-related osteoporosis without current pathological fracture (principal)
CPT/HCPCS: 96372; J0897

== ENCOUNTER → 2022-05-16 | Outpatient (CLI) | payer MEDICARE, OTHER, SELFPAY ==
[2022-05-16 12:25] LABS: Anion Gap 4 (5-15); BUN 21 mg/dL (7-18); Calcium,Total 9.2 mg/dL (8.5-10.1); Chloride 101 mmol/L (98-107); Creatinine, Serum 1.05 mg/dL (0.55-1.02); EST Glomerular Filtration Rate 53 mL/min (>60); Est Glom Filt Rate - Afr Amer 65 mL/min (>60); Glucose 182 mg/dL (74-106); Magnesium 1.8 mg/dL (1.6-2.6); Potassium 4.2 mmol/L (3.5-5.1); Sodium Level 137 mmol/L (136-145)
== END | disposition home or self-care (01) ==
LOC: LAB 11:27
PROVIDERS: PCP Family Medicine Geriatric Medicine; Visit Provider Internal Medicine Cardiovascular Disease
DX: I50.30 Unspecified diastolic (congestive) heart failure (principal)
CPT/HCPCS: 36415; 80048; 83735

== ENCOUNTER → 2022-05-31 | Outpatient (CLI) | payer MEDICARE, OTHER, SELFPAY ==
--- NOTE | 2022-05-31 13:49 | ECHOD_ITS ---
Procedure This was a 2D Doppler, Color Flow transthoracic echocardiogram. Exam performed in department. Left Ventricle Normal LV size. Left ventricular systolic function is lower limits of normal. The estimated ejection fraction is 53 %. No regional wall motion abnormalities noted. Right Ventricle Normal RV size. Normal systolic function. Atria The left atrium is moderately enlarged. Normal right atrium. Mitral Valve There is moderate mitral annular calcification. Severe focal mitral valve thickening. Mild (1+) eccentric mitral valve insufficiency. Tricuspid Valve Normal tricuspid valve. Mild tricuspid valve insufficiency. Pulmonary artery systolic pressure is 45 mmHg. Aortic Valve Trisinus/trileaflet aortic valve. Moderate focal aortic valve calcification. Pulmonic Valve Normal pulmonic valve. Pericardium/Pleural Small pericardial effusion. The largest measurement is 1.5 cm on the lateral wall of the left ventricle. There are no echocardiographic indications of cardiac tamponade. MMode/2D Measurements & Calculations LVIDd: 4.8 cm IVSd: 1.0 cm LVOT diam: 2.0 cm LVIDs: 3.3 cm LVPWd: 1.2 cm LVOT area: 3.3 cm2 RVDd: 3.0 cm FS: 30.7 % Ao root diam: 3.4 cm LAV(MOD-bp): 106.9 ml LVAd ap4: 33.0 cm2 LAV(MOD-bp) Indexed: 64.0 ml/m2 LVLd ap4: 7.5 cm LAV(MOD-sp2): 98.6 ml EDV(MOD-sp4): 116.1 ml LAV(MOD-sp4): 114.8 ml EDV(sp4-el): 122.5 ml LVAs ap4: 19.6 cm2 LVLs ap4: 6.0 cm ESV(MOD-sp4): 54.1 ml ESV(sp4-el): 54.7 ml EF(MOD-sp4): 53.4 % EF(sp4-el): 55.3 % SV(MOD-sp4): 62.0 ml SV(sp4-el): 67.8 ml LA A4 area: 29.7 cm2 LA dimension(2D): 5.6 cm RA A4 area: 16.0 cm2 Time Measurements MV dec time: 0.24 sec Doppler Measurements & Calculations MV E max mary: 199.3 cm/sec MV V2 max: 199.8 cm/sec MV A max mary: 198.7 cm/sec MV max P.0 mmHg MV dec slope: 866.7 cm/sec2 MV E/A: 1.0 MV V2 mean: 144.4 cm/sec MV mean P.0 mmHg MV V2 VTI: 63.7 cm MVA(VTI): 1.3 cm2 Ao V2 max: 228.7 cm/sec LV V1 max: 91.7 cm/sec MR max mary: 540.5 cm/sec Ao max P.1 mmHg LV V1 max P.4 mmHg MR max P.8 mmHg Ao V2 mean: 169.4 cm/sec LV V1 mean P.0 mmHg Ao mean P.8 mmHg LV V1 mean: 67.0 cm/sec Ao V2 VTI: 60.9 cm LV V1 VTI: 25.3 cm CHELITA(I,D): 1.4 cm2 CHELITA(V,D): 1.3 cm2 SV(LVOT): 82.8 ml PA V2 max: 103.1 cm/sec TR max mary: 322.7 cm/sec PA V2 mean: 73.9 cm/sec TR max P.7 mmHg ECHO/Echo Complete Interpretation Summary Normal LV size. Left ventricular systolic function is lower limits of normal. The estimated ejection fraction is 53 %. The left atrium is moderately enlarged. The largest measurement is 1.5 cm on the lateral wall of the left ventricle. Small pericardial effusion. There is moderate mitral annular calcification. Pulmonary artery systolic pressure is 45 mmHg. Ordering Physician: Jc Deng Referring Physician: Jc Deng Performed By: Manisha Nguyen RCS
== END | disposition home or self-care (01) ==
LOC: CVS 13:48
PROVIDERS: PCP Family Medicine Geriatric Medicine; Referring Provider Internal Medicine Cardiovascular Disease; Visit Provider Internal Medicine Cardiovascular Disease
DX: I34.2 Nonrheumatic mitral (valve) stenosis (principal); I34.0 Nonrheumatic mitral (valve) insufficiency; R06.02 Shortness of breath
CPT/HCPCS: 93306

== ENCOUNTER → 2022-06-05 | Outpatient (CLI) | payer MEDICARE, OTHER, SELFPAY ==
[2022-06-05 17:17] LABS: Amphetamine Urine VISTA NEGATIVE (<1000 ng/mL); Barbiturate Urine VISTA NEGATIVE (< 200 ng/mL); Benzodiazepine Urine VISTA NEGATIVE (< 200 ng/mL); Cocaine Urine VISTA NEGATIVE (< 300 ng/mL); Ecstacy Urine VISTA NEGATIVE (< 500 ng/mL); Methadone Urine VISTA NEGATIVE (< 300 ng/mL); PCP Urine VISTA NEGATIVE (< 25 ng/mL); THC Urine VISTA NEGATIVE (< 50 ng/mL); Vista UDS pH Range 7
== END | disposition home or self-care (01) ==
LOC: LAB 15:48
PROVIDERS: PCP Family Medicine Geriatric Medicine; Visit Provider Anesthesiology Pain Medicine
DX: F11.20 Opioid dependence, uncomplicated (principal)
CPT/HCPCS: 80307

== ENCOUNTER → 2022-07-20 | Outpatient (CLI) | payer MEDICARE, OTHER, SELFPAY ==
[2022-07-20 14:54] LABS: Absolute Lymphocyte Count 1.92 X10^3/uL (0.83-4.51); Absolute Neutrophil Count 3.6 X10^3/uL (2.0-7.7); Basophil# 0.03 X10^3/uL; Basophil% 0.5 % (0-1); Eosinophil# 0.06 X10^3/uL; Hematocrit 38.9 % (37-47); Hemoglobin 13.6 g/dL (12.0-15.0); Lymphocyte # 1.92 X10^3/ul (0.83-4.51); Lymphocyte % 30.8 % (19-41); Mean Corpuscular Hgb 33.9 pg (27.0-32.0); Mean Platelet Vol. 8.8 fl (6.2-12.0); Monocyte# 0.66 X10^3/uL; Monocyte% 10.6 % (0-10); NRBC Flagged by Analyzer 0 % (0-5); Neutrophil # 3.55 X10^3/uL (2.7-7.7); Neutrophil % 56.9 % (47-70); POSITIVE COUNT YES; Platelet Count 86 K/mm3 (150-450); RBC Distribution Width SD 50.3 fl (35.1-43.9); Red Blood Count 4.01 M/mm3 (4.2-5.4); White Blood Count 6.2 K/mm3 (4.4-11.0)
[2022-07-20 16:03] LABS: Vitamin D,25 Hydroxy 46.2 ng/mL
[2022-07-20 16:16] LABS: ALB/GLOB Ratio 0.8 RATIO (0.9-2.4); AST(SGOT) 20 U/L (15-37); Alanine Aminotransfer ALT/SGPT 32 U/L (13-56); Albumin, Serum 3.5 g/dL (3.2-5.0); Alkaline Phosphatase 83 U/L (45-117); Anion Gap 8 (5-15); BUN 22 mg/dL (7-18); BUN/Creat Ratio 22.6 RATIO (10-20); Calcium,Total 9.5 mg/dL (8.5-10.1); Chloride 96 mmol/L (98-107); Creatinine, Serum 0.97 mg/dL (0.55-1.02); EST Glomerular Filtration Rate 58 mL/min (>60); Est Glom Filt Rate - Afr Amer 70 mL/min (>60); Globulin 4.4 g/dL (2.2-4.2); Glucose 239 mg/dL (74-106); Potassium 4.1 mmol/L (3.5-5.1); Protein, Total 7.9 g/dL (6.4-8.2); Sodium Level 133 mmol/L (136-145); Thyroid Stim Hormone (TSH) 1.13 uIU/mL (0.358-3.74)
== END | disposition home or self-care (01) ==
LOC: POLAB3 10:52
PROVIDERS: PCP Family Medicine Geriatric Medicine; Visit Provider Family Medicine Geriatric Medicine
DX: E11.9 Type 2 diabetes mellitus without complications (principal); E55.9 Vitamin D deficiency, unspecified; I10 Essential (primary) hypertension; N39.0 Urinary tract infection, site not specified
CPT/HCPCS: 36415; 80053; 82306; 84443; 85025; 87077; 87086; 87088; 87186

== ENCOUNTER → 2022-09-14 | Outpatient (CLI) | payer MEDICARE, OTHER, SELFPAY | END | disposition home or self-care (01) | LOC: LABSPEC 12:04 | PROVIDERS: PCP Family Medicine Geriatric Medicine; Visit Provider Family Medicine Geriatric Medicine | DX: N39.0 Urinary tract infection, site not specified (principal); B95.62 Methicillin resistant Staphylococcus aureus infection as the cause of diseases classified elsewhere | CPT/HCPCS: 87070; 87077; 87086; 87088; 87186; 87205 ==

== ENCOUNTER 2022-09-29 09:26 | Outpatient (RCR) | payer MEDICARE, OTHER, SELFPAY ==
[2022-09-29 10:11] VITALS: BP 173/84; PULSE 97; RESP 16; TEMP 35.9; BMI 23.8
--- NOTE | 2022-09-29 10:25 | WC ---
PT DID NOT BRING A MED LIST AND IS UNSURE OF ALLERGIES. HARD OF HEARING. WILL CALL DR GONZALEZ'S OFFICE FOR MED LIST .
--- NOTE | 2022-09-29 11:25 | PCM.WC.HP ---
History of Present Illness Date of Service: 09/29/22 Chief Complaint: Left lateral lower leg wound History of Wound: Patient is a 82 y/o female referred to wound care by her PCP Dr. Ross for a wound on her left lateral lower leg. Dr. Ross obtained wound cultures and treated patient with rocephin, keflex, and doxycycline. She has been keeping the wound clean with soap and water and covering it with adaptic. She has been wearing tubigrips she received from [facility] (who was attending to her at the time) several months ago. She does have chronic bilateral lower extremity edema. She does have a history of heart failure with preserved ejection fraction and does take Lasix. She has diabetes but this is under good control. She smoked formerly but does not currently. She is hard of hearing. She ambulates with a walker. Patient is unsure when this wound occurred, she thinks she noticed it 1-2 weeks ago. She is not sure what might have caused it. She is not sure if it has gotten larger or smaller over the last 1 to 2 weeks. She denies history of nonhealing wounds, claudication type symptoms, fevers, chills. [facility] Medical History (HFpEF) heart failure with preserved ejection fraction Acid reflux Anemia, unspecified Arthritis Bacteremia due to Gram-negative bacteria Bilateral lower extremity edema Breast cancer Cancer Cataracts, bilateral Chronic headaches DDD (degenerative disc disease), lumbar Diabetes Elevated troponin (06/2021) Essential hypertension H/O transfusion of whole blood History of type 1 diabetes mellitus Hypercholesterolemia Hyperlipidemia Hypothyroidism Kidney disease Lower extremity edema Lymphedema Nonrheumatic mitral valve stenosis with insufficiency NSTEMI, initial episode of care Pancytopenia Segmental and somatic dysfunction of lumbar region Segmental and somatic dysfunction of pelvic region Segmental and somatic dysfunction of thoracic region Spinal stenosis Thrombocytopenia Thyroid disease Home Medications atorvastatin 40 mg tablet 40 mg PO QHS cholesterol 07/05/19 [History Last Taken Unknown] baclofen 5 mg tablet 5 mg PO DAILY muscle spasms 07/05/19 [History Last Taken Unknown] calcium citrate 315 mg calcium-vitamin D3 6.25 mcg (250 unit) tablet 1 ea PO DAILY vitamin 07/05/19 [History Last Taken Unknown] famotidine 40 mg tablet 40 mg PO DAILY gerd 07/05/19 [History Last Taken 08/26/19] gabapentin 300 mg capsule 300 mg PO DAILY neuropathy 07/05/19 [History Last Taken Unknown] metoprolol tartrate 25 mg tablet 25 mg PO BID heart rate 07/05/19 [History Last Taken 08/26/19] multivitamin with folic acid 400 mcg tablet 1 tab PO DAILY vitamin 07/05/19 [History Last Taken Unknown] oxycodone-acetaminophen 5 mg-325 mg tablet 1 tab PO TID back pain 12/02/19 [History Last Taken Unknown] polyethylene glycol 3350 17 gram/dose oral powder (Miralax) 17 g PO DAILY stool softener 05/03/20 [History Last Taken Unknown] denosumab 60 mg/mL subcutaneous syringe 60 mg subcut [id number] #1 mL 05/06/21 [Rx Last Taken Unknown] levothyroxine 137 mcg tablet 137 mcg PO DAILY #30 tabs 08/14/22 [Rx Last Taken Unknown] baclofen 10 mg tablet 10 mg PO DAILY 09/12/22 [History Last Taken Unknown] furosemide 40 mg tablet (Lasix) 20 mg PO DAILY 09/12/22 [History Last Taken Unknown] glimepiride 1 mg tablet 1 mg PO DAILY 09/12/22 [History Last Taken Unknown] glimepiride 2 mg tablet 1 mg PO DAILY 09/12/22 [History Last Taken Unknown] Allergy/AdvReac Type Severity Reaction Status Date / Time piperacillin [From Zosyn] AdvReac Mild malaise, Verified 09/12/22 13:58 myalgias tazobactam [From Zosyn] AdvReac Mild malaise, Verified 09/12/22 13:58 myalgias Family History Grandfather CVA (cerebral vascular accident) Mother Hypertension Breast cancer Father Diabetes Heart disease Brother CVA (cerebral vascular accident) Diabetes Dementia Surgical History H/O mastectomy H/O tubal ligation History of cataract surgery History of hysterectomy Hx of section Hx of cholecystectomy Hx of colonoscopy Social History household members: none Smoking Status: Former smoker second hand exposure: No alcohol intake: never substance use type: does not use caffeine: Yes what type of physical activity do you participate in: none frequency: does not exercise ROS Constitutional Constitutional: Denies change in weight, chills, fatigue, fever(s), frequent falls or weakness Eyes Eyes: Denies blurry vision or change in vision ENT HEENT: Denies bleeding gums, dizziness, epistaxis, headache(s), hoarseness or neck pain Cardiovascular Cardiovascular: Reports leg edema and pedal edema; Denies bluish discoloration of hand/feet, chest pain, claudication, cold extremities, cyanosis, diaphoresis, dizziness, dyspnea, nausea, numbness in extremities, palpitations or syncope Respiratory/Chest Respiratory/Chest: Denies chest tightness, cough or dyspnea Gastrointestinal Gastrointestinal: Denies abdominal pain, change in bowel habits, diarrhea or rectal bleeding Genitourinary Genitourinary: Denies burning urination, difficulty urinating or hematuria Musculoskeletal Musculoskeletal: Reports joint pain and joint stiffness Integumentary Integumentary: Denies pruritus, rash or unusual bruising Neurologic Neurologic: Denies abnormal movements, abnormal speech, confusion, dizziness, frequent falls, headache(s), paresthesias, syncope or weakness Vital Signs Vital Signs Vital Signs: 09/29/22 10:11 Temperature 96.7 F L Temperature Source Temporal Pulse Rate 97 Respiratory Rate 16 Blood Pressure 173/84 H Blood Pressure Mean 113 Blood Pressure Source Monitor Blood Pressure Position Sitting Blood Pressure Location Right Arm Oxygen Delivery Method Room Air Weight Weight: 139 lb Body Mass Index (BMI) 23.8 Physical Exam Const alert, oriented x3, no apparent distress, healthy appearing and well nourished HEENT head/scalp atraumatic, external ears normal and external nose normal HEENT Narrative: Patient is hard of hearing. Eyes PERRL and EOMs intact bilaterally General Eye: normal appearance of both eyes Neck full ROM General: normal visual inspection and trachea midline; Negative for anterior neck swelling Cardio regular rate and regular rhythm Heart Sounds: murmur systolic Peripheral Pulses: brachial pulses present, radial pulses present, posterior tibial pulses present bilateral diminished and dorsalis pedis pulses present Extremity Extremity Narrative: Patient has bilateral venous stasis dermatitis with lipodermatosclerosis and hemosiderin deposition. No pain to palpation. Her bilateral toes are edematous with some erythema and peeling skin but no excessive warmth, drainage, pain to palpation. Brisk capillary refill. Peripheral Pulses: Yes posterior tibial pulses present bilateral diminished and dorsalis pedis pulses present Skin no rashes or lesions noted and no mottling General Skin Exam: Negative for purpura or pallor Trauma: no lacerations or abrasions Wounds: wounds noted Wound Narrative: Small wound noted to the left lateral lower leg with surrounding callus/crust in periwound area. No surrounding erythema, warmth, induration, fluctuance. No drainage noted. No foul odor. Nails: yellow and thickened Neuro oriented x3, CN's II-XII intact bilaterally, moves all extremities, no focal motor deficits, no sensory deficits noted and gait normal Psych mental status grossly normal, thought process normal, cooperative, affect normal, speech normal and activity/motor behavior normal Debridement Note Debridement Note Wound debrided: Left lateral lower leg wound Laterality: Left Type of Debridement: Excisional debridement Anesthesia Used: 5% Lidocaine Gel Depth: Down to and including healthy tissue and in the subcutaneous layer Percentage of wound debrided: 100 Instrument Used: 3mm curette Tissue Removed: slough, nonviable tissue Severity: Fat Layer Exposed Amount of bleeding with debridement: Mild Bleeding Controlled with: Pressure Patient tolerated procedure: Patient tolerated procedure well Post-Debridement Measurements and Additional Note: Post-Debridement Measurements/Treatment - Nurse 1 - General Ulcer Assessment Start: 09/29/22 10:10 Freq: Status: Active Protocol: NILESH Activity Type Activity Date Activity User E-sign Co-sign Detail Recorded Client Recorded Date Recorded By Document 09/29/22 10:11 [facility] [id number] 09/29/22 10:23 [facility] 09/29/22 10:11 - Today's Visit Information Type of service Initial Visit Arrival Mode Ambulatory, Walker Transfer Assistance None Patient Identification Verified (Name & Yes ) Patient Requires Transmission-Based No Precautions Height and Weight Height 5 ft 4 in Weight 139 lb Weight in Pounds 139.0 lbs Body Mass Index (BMI) 23.8 BMI Classification Normal BSA - Eleanor 1.68 Vital Signs Temperature (97.8 F-99.1 F) 96.7 F L Temperature Source Temporal Pulse Rate (60-100) 97 Pulse Location Monitor Respiratory Rate (12-18) 16 Respiratory rate source Observation Oxygen Delivery Method Room Air Blood Pressure (90/60-120/80) 173/84 H Blood Pressure Mean 113 Source Monitor Position Sitting Blood Pressure Location Right Arm History Since Last Visit- (Skip if this is Patient's initial visit) Left Footwear Regular Shoe Right Footwear Regular Shoe Pain Scale: 0-10 Numeric Is Patient Pain Free? Yes Lower Extremity Assessment/ Foot Assessment/ Toe Nail Assessment Right -Posterior Tibial Palpable No -Posterior Tibial Doppler Inaudible -Dorsalis Pedis Palpable No -Dorsalis Pedis Doppler Monophasic -Extremity Color Hyperpigmented -Hair Growth on Legs No -Hair Growth on Toes No -Temperature of Extremity Warm -Capillary Refill Less than 3 Seconds -Other Deformity No -Prior Foot Ulcer No -Charcot Joint No -Prior Amputation No -Thick Yes -Discolored Yes -Deformed No -Improper Length & Hygeine No Left -Posterior Tibial Palpable No -Posterior Tibial Doppler Inaudible -Dorsalis Pedis Palpable No -Dorsalis Pedis Doppler Monophasic -Extremity Color Hyperpigmented -Hair Growth on Legs No -Hair Growth on Toes No -Temperature of Extremity Warm -Capillary Refill Less than 3 Seconds -Other Deformity No -Prior Foot Ulcer No -Charcot Joint No -Prior Amputation No -Thick Yes -Discolored Yes -Deformed No -Improper Length & Hygeine No Neuropathy Assessment Feet - Top Side and Bottom <Entered> (a) Communication Assessment Preferred language Armenian Custodian Manager Required No Able to Read Yes Able to Write Yes Right Hearing Abillity Hard of Hearing Left Hearing Abillity Hard of Hearing Visual Assistive Devices Glasses Teaching Assessment Preferences Verbal,Written, Audio/Visual, Demonstration Barriers to Learning None Readiness To Learn Excellent Willingness to Engage in Self Management High Activies Readiness to Engage in Self Management High Activities Anxiety Level Calm Cooperation Cooperative Perception Coherent Interest in Health Problem Asks Questions Education Importance Acknowledges Need Does Patient Smoke tobacco or other No substances Smoking Status Former smoker Is Patient Diabetic Yes Functional Assessment Recent Decline in Ability to Perform Denies Any Declines Culture/Synagogue/Cycle Repairer Cultural/Synagogue Needs that may affect No Treatment Plan (a) 1 - + WC - Nurse 1 - General Ulcer Measurement Start: 09/29/22 10:10 Freq: Status: Active Protocol: Activity Type Activity Date Activity User E-sign Co-sign Detail Recorded Client Recorded Date Recorded By Document 09/29/22 10:11 [facility] [id number] 09/29/22 10:23 [facility] 09/29/22 10:11 Wound Center Nurse 1 #1- L LAT LE -Combined with other wound No -Current Size (cm) - Length 0.6 -Current Size (cm) - Width 0.4 -Current Size (cm) - Depth 0.2 -Total Square Cm 0.24 -Date of Last Picture (Recall this 09/29/22 field) -Photo Taken Yes -Epithelialization None Present -Tunneling No -Undermining/Tunneling No -Circular Undermining No -Exudate Amt Small -Exudate Type Serosanguineous -Wound Margin Distinct, Outline Attached -Granulation Amt Large (67-100%) -Granulation Quality Red -Slough/Fibrin No -Necrosis Amt None Present (0 %) -Texture (Teri-wound Skin Appearance) Assessed, Scarring -Moisture (Teri-wound Skin Appearance) Assessed,Dry/ Scaly -Color (Teri-wound Skin Appearance) Assessed -Temperature (Teri-wound Skin No Abnormality Appearance) (Pt Warm) -Tenderness on Palpation (Teri-wound No Skin Appearance) -Ulcer Cleansing Rinsed/ Irrigated with Saline -Foul Odor after Cleansing No -Anesthetic Used 5% Lidocaine Gel Lower Limb Edema Present Yes Right Calf (cm) 36.5 Right Ankle (cm) 25.2 Left Calf (cm) 35 Left Ankle (cm) 26 Charges/Coding Wound Center CF Procedures [id number]: [id number] RMVL DEVITAL TIS 20 CM/< Multi Select Codes Wound Center CF Procedures [id number]: [id number] RMVL DEVITAL TIS 20 CM/< Assessment/Plan Assessment/Plan (1) Wound of left lower extremity: CODE(S): S81.802A - Unspecified open wound, left lower leg, initial encounter PLAN: Plan Debridement was performed and patient tolerated well. Will apply Magalys and cover with adaptic. She will change dressing daily or more often as needed to keep clean and dry. We will apply single layer tubigrips for compression given bilateral lower extremity edema. Patient did complete antibiotic therapy as prescribed by PCP. No signs or symptoms of infection today. Do not feel repeat cultures indicated at this time. Patient is not interested in pursuing any vascular testing at this time, especially as she would not want to do anything invasive even if vascular issues were identified. We discussed that we will not do any imaging at this time but may reconsider if delayed wound healing or other concerns arise. We discussed the importance of good nutrition and increased protein intake in wound healing. We discussed the importance of good, consistent compression and elevation of legs while at rest with managing the edema. She will return to the clinic in 1 week for follow-up care. She will return sooner or present to the ED if current symptoms worsen or new symptoms arise.
== END 2022-10-14 23:59 | disposition home or self-care (01) ==
LOC: WC 09:26
PROVIDERS: PCP Family Medicine Geriatric Medicine; Visit Provider Physician Assistant
DX: E10.622 Type 1 diabetes mellitus with other skin ulcer (principal); L97.312 Non-pressure chronic ulcer of right ankle with fat layer exposed; I11.0 Hypertensive heart disease with heart failure; I50.32 Chronic diastolic (congestive) heart failure; S81.802A Unspecified open wound, left lower leg, initial encounter; X58.XXXA Exposure to other specified factors, initial encounter; I83.11 Varicose veins of right lower extremity with inflammation; I83.12 Varicose veins of left lower extremity with inflammation; H91.90 Unspecified hearing loss, unspecified ear; M99.02 Segmental and somatic dysfunction of thoracic region; M99.03 Segmental and somatic dysfunction of lumbar region; E78.00 Pure hypercholesterolemia, unspecified; E03.9 Hypothyroidism, unspecified; R60.0 Localized edema; I25.2 Old myocardial infarction; Z79.84 Long term (current) use of oral hypoglycemic drugs; Z79.890 Hormone replacement therapy; Z79.899 Other long term (current) drug therapy; Z87.891 Personal history of nicotine dependence
CPT/HCPCS: 11042; 99213; G0463

== ENCOUNTER → 2022-10-19 | Outpatient (CLI) | payer MEDICARE, OTHER, SELFPAY ==
[2022-10-19 12:58] LABS: Absolute Lymphocyte Count 1.47 X10^3/uL (0.83-4.51); Absolute Neutrophil Count 2.1 X10^3/uL (2.0-7.7); Basophil# 0.02 X10^3/uL; Basophil% 0.5 % (0-1); Eosinophil# 0.11 X10^3/uL; Eosinophils% 2.6 % (0-5); Hematocrit 34.4 % (37-47); Hemoglobin 11.5 g/dL (12.0-15.0); Lymphocyte # 1.47 X10^3/ul (0.83-4.51); Lymphocyte % 35.1 % (19-41); Mean Corp Hgb Conc 33.4 g/dL (32-36); Mean Corpuscular Hgb 33.9 pg (27.0-32.0); Mean Corpuscular Volume 101.5 fL (81-99); Mean Platelet Vol. 9.9 fl (6.2-12.0); Monocyte# 0.43 X10^3/uL; Monocyte% 10.3 % (0-10); NRBC Flagged by Analyzer 0 % (0-5); Neutrophil # 2.14 X10^3/uL (2.7-7.7); POSITIVE COUNT YES; Platelet Count 82 K/mm3 (150-450); RBC Distribution Width CV 14.6 % (11.6-14.6); RBC Distribution Width SD 54.3 fl (35.1-43.9); Red Blood Count 3.39 M/mm3 (4.2-5.4); White Blood Count 4.2 K/mm3 (4.4-11.0)
[2022-10-19 13:13] LABS: Vitamin D,25 Hydroxy 46.6 ng/mL
[2022-10-19 13:21] LABS: ALB/GLOB Ratio 0.9 RATIO (0.9-2.4); AST(SGOT) 30 U/L (15-37); Alanine Aminotransfer ALT/SGPT 21 U/L (13-56); Albumin, Serum 3.6 g/dL (3.2-5.0); Alkaline Phosphatase 78 U/L (45-117); Anion Gap 6 (5-15); BUN 24 mg/dL (7-18); BUN/Creat Ratio 20.3 RATIO (10-20); Calcium,Total 9.4 mg/dL (8.5-10.1); Chloride 98 mmol/L (98-107); Creatinine, Serum 1.18 mg/dL (0.55-1.02); EST Glomerular Filtration Rate 47 mL/min (>60); Est Glom Filt Rate - Afr Amer 56 mL/min (>60); Globulin 4.1 g/dL (2.2-4.2); Glucose 261 mg/dL (74-106); Potassium 4.4 mmol/L (3.5-5.1); Protein, Total 7.7 g/dL (6.4-8.2); Sodium Level 132 mmol/L (136-145); Thyroid Stim Hormone (TSH) 1.45 uIU/mL (0.358-3.74)
== END | disposition home or self-care (01) ==
LOC: POLAB3 09:24
PROVIDERS: PCP Family Medicine Geriatric Medicine; Visit Provider Family Medicine Geriatric Medicine
DX: E55.9 Vitamin D deficiency, unspecified (principal); E11.65 Type 2 diabetes mellitus with hyperglycemia; I10 Essential (primary) hypertension
CPT/HCPCS: 36415; 80053; 82306; 84443; 85025

== ENCOUNTER 2022-11-03 11:00 | Outpatient (RCR) | payer MEDICARE, OTHER, SELFPAY ==
[2022-10-15 00:37] VITALS: BP 173/84; PULSE 97; RESP 16; TEMP 35.9; BMI 23.8
[2022-10-20 10:50] VITALS: BP 145/72; PULSE 70; TEMP 35.6; BMI 23.8
--- NOTE | 2022-10-20 13:45 | PN.PCM_ITS ---
History of Present Illness Date of Service: 10/20/22 Chief Complaint: Left lateral lower leg wound History of Wound: Patient is a 82 y/o female referred to wound care by her PCP Dr. Ross for a wound on her left lateral lower leg. Dr. Ross obtained wound cultures and treated patient with rocephin, keflex, and doxycycline. She has been keeping the wound clean with soap and water and covering it with adaptic. She has been wearing tubigrips she received from [facility] (who was attending to her at the time) several months ago. She does have chronic bilateral lower extremity edema. She does have a history of heart failure with preserved ejection fraction and does take Lasix. She has diabetes but this is under good control. She smoked formerly but does not currently. She is hard of hearing. She ambulates with a walker. Patient is unsure when this wound occurred, she thinks she noticed it 1-2 weeks ago. She is not sure what might have caused it. She is not sure if it has gotten larger or smaller over the last 1 to 2 weeks. She denies history of nonhealing wounds, claudication type symptoms, fevers, chills. Subjective Subjective Patient is doing well overall. She has been managing the dressing changes at [facility] without issue. She is tolerating compression without issue. She did not receive the supplies we ordered for her at last visit, she is almost out of Magalys and will need more. She denies any increased drainage, foul odor, pain, N/V, F/C, redness. She has no complaints today. The wound appears to be improving to her. Objective Data Objective Data Vital Signs: Vital Signs Temp Pulse Resp BP 96.1 F L 70 16 145/72 H 10/20/22 10:50 10/20/22 10:50 10/15/22 00:37 10/20/22 10:50 Weight: 139 lb Body Mass Index (BMI) 23.8 Charges/Coding Wound Center CF Procedures [id number]: [id number] RMVL DEVITAL TIS 20 CM/< Multi Select Codes Wound Center CF Procedures [id number]: [id number] RMVL DEVITAL TIS 20 CM/< Physical Exam Const alert, oriented x3, no apparent distress, healthy appearing and well nourished HEENT head/scalp atraumatic, external ears normal and external nose normal HEENT Narrative: Patient is hard of hearing. Eyes PERRL and EOMs intact bilaterally General Eye: normal appearance of both eyes Neck full ROM General: normal visual inspection and trachea midline; Negative for anterior neck swelling Cardio regular rate and regular rhythm Peripheral Pulses: brachial pulses present, radial pulses present, posterior tibial pulses present bilateral diminished and dorsalis pedis pulses present Extremity Extremity Narrative: Patient has bilateral venous stasis dermatitis with lipodermatosclerosis and hemosiderin deposition. No pain to palpation. Peripheral Pulses: Yes posterior tibial pulses present bilateral diminished Skin no rashes or lesions noted and no mottling General Skin Exam: Negative for purpura or pallor Trauma: no lacerations or abrasions Wounds: wounds noted Wound Narrative: Left lateral leg wound with slough noted. No significant callus/crust as noted at last visit. No surrounding erythema, warmth, induration, fluctuance. No drainage noted. No foul odor. Neuro oriented x3, CN's II-XII intact bilaterally, moves all extremities, no focal motor deficits, no sensory deficits noted and gait normal Psych mental status grossly normal, thought process normal, cooperative, affect normal, speech normal and activity/motor behavior normal Debridement Note Debridement Note Wound debrided: Left lateral lower leg wound Laterality: Left Type of Debridement: Excisional debridement Anesthesia Used: 5% Lidocaine Gel Depth: Down to and including healthy tissue and in the subcutaneous layer Percentage of wound debrided: 100 Instrument Used: 3mm curette Tissue Removed: slough, nonviable tissue Severity: Fat Layer Exposed Amount of bleeding with debridement: Mild Bleeding Controlled with: Pressure Patient tolerated procedure: Patient tolerated procedure well Post-Debridement Measurements and Additional Note: Post-Debridement Measurements/Treatment - Nurse 1 - General Ulcer Assessment Start: 10/20/22 10:50 Freq: Status: Active Protocol: DOUG.LOWEXHumaira Activity Type Activity Date Activity User E-sign Co-sign Detail Recorded Client Recorded Date Recorded By Document 10/20/22 10:50 OSKAR [id number] 10/20/22 10:52 OSKAR 10/20/22 10:50 - Today's Visit Information Type of service Follow-up Visit (Physician/YEAST WASHER ) Arrival Mode Ambulatory, Walker Patient Identification Verified (Name & No ) Patient Requires Transmission-Based No Precautions Height and Weight Body Mass Index (BMI) 23.8 BMI Classification Normal Vital Signs Temperature (97.8 F-99.1 F) 96.1 F L Temperature Source Temporal Pulse Rate (60-100) 70 Pulse Location Monitor Blood Pressure (90/60-120/80) 145/72 H Blood Pressure Mean (mm Hg) 96 Source Monitor History Since Last Visit- (Skip if this is Patient's initial visit) Have you changed medications since your No last visit? Any new allergies or adverse reactions No Had a fall/change in ADL's that may No increase risk of falls Signs or symptoms of abuse and/or No neglect since last visit Have you been in the hospital since your No last visit? Has dressing in place as prescribed Yes Has compression in place as prescribed Yes Has offloadiing in place as prescribed N/A Experienced any changes in pain level or No management Left Footwear Regular Shoe Right Footwear Regular Shoe Pain Scale: 0-10 Numeric Is Patient Pain Free? Yes WC - Nurse 1 - General Ulcer Measurement Start: 10/20/22 10:50 Freq: Status: Active Protocol: Activity Type Activity Date Activity User E-sign Co-sign Detail Recorded Client Recorded Date Recorded By Document 10/20/22 10:50 OSKAR [id number] 10/20/22 10:52 OSKAR 10/20/22 10:50 Wound Center Nurse 1 #1- L LAT LE -Combined with other wound No -Current Size (cm) - Length 0.5 -Current Size (cm) - Width 0.3 -Current Size (cm) - Depth 0.2 -Total Square Cm 0.15 -Photo Taken Yes -Epithelialization None Present -Tunneling No -Undermining/Tunneling No -Circular Undermining No -Change in Wound Grade/Stage No -Exudate Amt Medium -Exudate Type Serosanguineous -Wound Margin Distinct, Outline Attached -Granulation Amt None Present (0 %) -Granulation Quality [place] -Slough/Fibrin Yes -Necrosis Amt Large (67-100%) -Necrotic Tissue Type Adherent Slough -Structure Exposed N/A -Texture (Teri-wound Skin Appearance) No Abnormality, Assessed -Moisture (Teri-wound Skin Appearance) No Abnormality, Assessed -Color (Teri-wound Skin Appearance) No Abnormality, Assessed -Temperature (Teri-wound Skin No Abnormality Appearance) (Pt Warm) -Tenderness on Palpation (Teri-wound No Skin Appearance) -Ulcer Cleansing Rinsed/ Irrigated with Saline -Foul Odor after Cleansing No -Anesthetic Used 5% Lidocaine Gel Lower Limb Edema Present No Left Calf (cm) 33 Left Ankle (cm) 26 WC - Nurse 2 - General Ulcer CM Notes Start: 10/20/22 10:50 Freq: Status: Active Protocol: Activity Type Activity Date Activity User E-sign Co-sign Detail Recorded Client Recorded Date Recorded By Document 10/20/22 12:38 PL [id number] 10/20/22 12:39 PL 10/20/22 12:38 Wound Center Nurse 2 #1- L LAT LE -Time 11:26 -Correct Patient Yes -Correct Side, Site, Position Yes -Correct Procedure Yes -Procedure Performed Yes -Type of Procedure Debridement -Clinical Debridement Subcutaneous -Tissue Removed Subcutaneous -Post Debridement (cm) - Length 0.8 -Post Debridement (cm) - Width 0.4 -Post Debridement (cm) - Depth 0.2 -Total Square (Post) (cm) 0.32 -Area of Debridement (cm) - Length 0.8 -Area of Debridement (cm) - Width 0.4 -Total Square (Area) (cm) 0.32 -Tunneling No -Undermining/Tunneling No -Circular Undermining No -Wound/Ulcer Outcome Not Healed -Ulcer Cleansing Rinsed/ Irrigated with Saline -Foul Odor after Cleansing No -Bioengineered Tissue No -Bleeding Controlled with Pressure -Treatment Response Procedure Tolerated Well -Debridement - Subq, 1st 20sq cm Yes Pain Scale: 0-10 Numeric Is Patient Pain Free? Yes - Nurse 3 - General Ulcer D/C NN Start: 10/20/22 10:50 Freq: Status: Active Protocol: Activity Type Activity Date Activity User E-sign Co-sign Detail Recorded Client Recorded Date Recorded By Document 10/20/22 11:44 [place] [id number] 10/20/22 11:45 [facility] 10/20/22 11:44 Wound Care Nurse 3 #1- L LAT LE -Ulcer Cleansing Rinsed/ Irrigated with Saline -Foul Odor after Cleansing No -Primary Dressing Applied NonAdherent Contact Layer, Promogran -Primary Dressing Covered/Secured with Dry Gauze,Dry Gauze & Roll Gauze,Secured with Tape -Promogran 1 Left -Tubular Bandage Double Layer -Size of Tubigrip Used Size E -Size E ($) 2 Pain Scale: 0-10 Numeric Is Patient Pain Free? Yes WC - Visit Discharge Discharge Condition Stable Ambulatory Status Ambulatory, Walker Transportation Private Auto Medication Reconcilliation completed & Yes provided to patient/care provider Assessment/Plan Assessment/Plan (1) Wound of left lower extremity: CODE(S): S81.802A - Unspecified open wound, left lower leg, initial encounter PLAN: Plan Debridement was performed and patient tolerated well. Wound is making positive progress. Will continue with Magalys and cover with adaptic. She will change dressing daily or more often as needed to keep clean and dry. We will apply single layer tubigrips for compression given bilateral lower extremity edema. No signs/symptoms of active infection. Will continue to defer any vascular testing unless regression or stalled healing. We discussed the importance of good nutrition and increased protein intake in wound healing. We discussed the importance of good, consistent compression and elevation of legs while at rest with managing the edema. She will return to the clinic in 1 week for follow-up care. She will return sooner or present to the ED if current symptoms worsen or new symptoms arise.
[2022-10-26 13:02] VITALS: BP 161/69; PULSE 89; RESP 16; TEMP 35.7; BMI 23.8
--- NOTE | 2022-10-26 16:24 | PCM.WC.PN ---
History of Present Illness Date of Service: 10/26/22 Chief Complaint: Left lateral lower leg wound History of Wound: Patient is a 82 y/o female referred to wound care by her PCP Dr. Ross for a wound on her left lateral lower leg. Dr. Ross obtained wound cultures and treated patient with rocephin, keflex, and doxycycline. She has been keeping the wound clean with soap and water and covering it with adaptic. She has been wearing tubigrips she received from [facility] (who was attending to her at the time) several months ago. She does have chronic bilateral lower extremity edema. She does have a history of heart failure with preserved ejection fraction and does take Lasix. She has diabetes but this is under good control. She smoked formerly but does not currently. She is hard of hearing. She ambulates with a walker. Patient is unsure when this wound occurred, she thinks she noticed it 1-2 weeks before presenting to [facility]. She is not sure what might have caused it. She denies history of nonhealing wounds, claudication type symptoms, fevers, chills. Subjective Subjective Patient is doing well, she continues to manage dressing changes at home with no issue. She continues to tolerate compression and has been wearing consistently. She did receive her supplies. No F/C, N/V, increased drainage, foul odor, redness, pain. She has no complaints today. Objective Data Objective Data Vital Signs: Vital Signs Temp Pulse Resp BP O2 Del Method 96.2 F L 89 16 161/69 H Room Air 10/26/22 13:02 10/26/22 13:02 10/26/22 13:02 10/26/22 13:02 10/26/22 13:02 Oxygen Delivery Method Room Air Weight: 139 lb Body Mass Index (BMI) 23.8 Charges/Coding Wound Center CF Procedures 96XXX-98XXX: 21056 RMVL DEVITAL TIS 20 CM/< Multi Select Codes Wound Center CF Procedures 96XXX-98XXX: 33524 RMVL DEVITAL TIS 20 CM/< Physical Exam Const alert, oriented x3, no apparent distress, healthy appearing and well nourished HEENT head/scalp atraumatic, external ears normal and external nose normal HEENT Narrative: Patient is hard of hearing. Eyes PERRL and EOMs intact bilaterally General Eye: normal appearance of both eyes Neck full ROM General: normal visual inspection and trachea midline; Negative for anterior neck swelling Cardio regular rate and regular rhythm Peripheral Pulses: brachial pulses present, radial pulses present, posterior tibial pulses present bilateral diminished and dorsalis pedis pulses present Extremity Extremity Narrative: Patient has bilateral venous stasis dermatitis with lipodermatosclerosis and hemosiderin deposition. No pain to palpation. Peripheral Pulses: Yes posterior tibial pulses present bilateral diminished Skin no rashes or lesions noted and no mottling General Skin Exam: Negative for purpura or pallor Trauma: no lacerations or abrasions Wounds: wounds noted Wound Narrative: Left lateral leg wound with slough noted. No significant callus/crust. No surrounding erythema, warmth, induration, fluctuance. No drainage noted. No foul odor. Neuro oriented x3, CN's II-XII intact bilaterally, moves all extremities, no focal motor deficits, no sensory deficits noted and gait normal Psych mental status grossly normal, thought process normal, cooperative, affect normal, speech normal and activity/motor behavior normal Debridement Note Debridement Note Wound debrided: Left lateral lower leg wound Laterality: Left Type of Debridement: Excisional debridement Anesthesia Used: 5% Lidocaine Gel Depth: Down to and including healthy tissue and in the subcutaneous layer Percentage of wound debrided: 100 Instrument Used: 3mm curette Tissue Removed: slough, nonviable tissue Severity: Fat Layer Exposed Amount of bleeding with debridement: Mild Bleeding Controlled with: Pressure Patient tolerated procedure: Patient tolerated procedure well Post-Debridement Measurements and Additional Note: Post-Debridement Measurements/Treatment - Nurse 1 - General Ulcer Assessment Start: 10/20/22 10:50 Freq: Status: Active Protocol: NILESH Activity Type Activity Date Activity User E-sign Co-sign Detail Recorded Client Recorded Date Recorded By Document 10/20/22 10:50 UT [id number] 10/20/22 10:52 AK Document 10/26/22 13:02 [facility] [id number] 10/26/22 13:10 [facility] 10/20/22 10/26/22 10:50 13:02 - Today's Visit Information Type of service Follow-up Visit Follow-up Visit (Physician/PRODUCTION TRAINER (Physician/PRODUCTION TRAINER ) ) Arrival Mode Ambulatory, Ambulatory, Walker Walker Transfer Assistance None Patient Identification Verified (Name & No Yes ) Patient Requires Transmission-Based No No Precautions Height and Weight Body Mass Index (BMI) 23.8 23.8 BMI Classification Normal Normal Vital Signs Temperature (97.8 F-99.1 F) 96.1 F L 96.2 F L Temperature Source Temporal Temporal Pulse Rate (60-100) 70 89 Pulse Location Monitor Monitor Respiratory Rate (12-18) 16 Respiratory rate source Observation Oxygen Delivery Method Room Air Blood Pressure (90/60-120/80) 145/72 H 161/69 H Blood Pressure Mean (mm Hg) 96 99 Source Monitor Monitor Position Sitting Blood Pressure Location Left Arm History Since Last Visit- (Skip if this is Patient's initial visit) Have you changed medications since your No No last visit? Any new allergies or adverse reactions No No Had a fall/change in ADL's that may No No increase risk of falls Signs or symptoms of abuse and/or No No neglect since last visit Have you been in the hospital since your No No last visit? Has dressing in place as prescribed Yes Yes Has compression in place as prescribed Yes Yes Has offloadiing in place as prescribed N/A N/A Experienced any changes in pain level or No No management Left Footwear Regular Shoe Regular Shoe Right Footwear Regular Shoe Regular Shoe Pain Scale: 0-10 Numeric Is Patient Pain Free? Yes Yes WC - Nurse 1 - General Ulcer Measurement Start: 10/20/22 10:50 Freq: Status: Active Protocol: Activity Type Activity Date Activity User E-sign Co-sign Detail Recorded Client Recorded Date Recorded By Document 10/20/22 10:50 UT [id number] 10/20/22 10:52 UT Document 10/26/22 13:02 [facility] [id number] 10/26/22 13:10 [facility] 10/20/22 10/26/22 10:50 13:02 Wound Center Nurse 1 #1- L LAT LE -Combined with other wound No No -Current Size (cm) - Length 0.5 0.8 -Current Size (cm) - Width 0.3 0.3 -Current Size (cm) - Depth 0.2 0.3 -Total Square Cm 0.15 0.24 -Date of Last Picture (Recall this 10/26/22 field) -Photo Taken Yes Yes -Epithelialization None Present None Present -Tunneling No No -Undermining/Tunneling No No -Circular Undermining No No -Change in Wound Grade/Stage No -Exudate Amt Medium Small -Exudate Type Serosanguineous Serosanguineous -Wound Margin Distinct, Distinct, Outline Outline Attached Attached -Granulation Amt None Present (0 Medium (34-66%) %) -Granulation Quality Pax Red -Slough/Fibrin Yes Yes -Necrosis Amt Large (67-100%) Small (1-33%) -Necrotic Tissue Type Adherent Slough Adherent Slough -Structure Exposed N/A -Texture (Teri-wound Skin Appearance) No Abnormality, Assessed, Assessed Scarring -Moisture (Teri-wound Skin Appearance) No Abnormality, Assessed Assessed -Color (Teri-wound Skin Appearance) No Abnormality, Assessed Assessed -Temperature (Teri-wound Skin No Abnormality No Abnormality Appearance) (Pt Warm) (Pt Warm) -Tenderness on Palpation (Teri-wound No No Skin Appearance) -Ulcer Cleansing Rinsed/ Rinsed/ Irrigated with Irrigated with Saline Saline -Foul Odor after Cleansing No No -Anesthetic Used 5% Lidocaine 5% Lidocaine Gel Gel Lower Limb Edema Present No Left Calf (cm) 33 33 Left Ankle (cm) 26 22.6 WC - Nurse 2 - General Ulcer CM Notes Start: 10/20/22 10:50 Freq: Status: Active Protocol: Activity Type Activity Date Activity User E-sign Co-sign Detail Recorded Client Recorded Date Recorded By Document 10/20/22 12:38 PL [id number] 10/20/22 12:39 PL Document 10/26/22 13:32 MW [id number] 10/26/22 13:39 MW 10/20/22 10/26/22 12:38 13:32 Wound Center Nurse 2 #1- L LAT LE -Time 11:26 13:33 -Correct Patient Yes Yes -Correct Side, Site, Position Yes Yes -Correct Procedure Yes Yes -Procedure Performed Yes Yes -Type of Procedure Debridement Debridement -Clinical Debridement Subcutaneous Subcutaneous -Tissue Removed Subcutaneous Subcutaneous -Post Debridement (cm) - Length 0.8 0.8 -Post Debridement (cm) - Width 0.4 0.4 -Post Debridement (cm) - Depth 0.2 0.2 -Total Square (Post) (cm) 0.32 0.32 -Area of Debridement (cm) - Length 0.8 0.8 -Area of Debridement (cm) - Width 0.4 0.4 -Total Square (Area) (cm) 0.32 0.32 -Tunneling No No -Undermining/Tunneling No No -Circular Undermining No No -Wound/Ulcer Outcome Not Healed Not Healed -Ulcer Cleansing Rinsed/ Rinsed/ Irrigated with Irrigated with Saline Saline -Foul Odor after Cleansing No No -Bioengineered Tissue No No -Bleeding Controlled with Pressure Pressure -Treatment Response Procedure Procedure Tolerated Well Tolerated Well -Offloading No -Debridement - Subq, 1st 20sq cm Yes Yes Pain Scale: 0-10 Numeric Is Patient Pain Free? Yes Yes - Nurse 3 - General Ulcer D/C NN Start: 10/20/22 10:50 Freq: Status: Active Protocol: Activity Type Activity Date Activity User E-sign Co-sign Detail Recorded Client Recorded Date Recorded By Document 10/20/22 11:44 AK [id number] 10/20/22 11:45 AK Document 10/26/22 13:53 DL [id number] 10/26/22 13:55 DL 10/20/22 10/26/22 11:44 13:53 Wound Care Nurse 3 #1- L LAT LE -Ulcer Cleansing Rinsed/ Rinsed/ Irrigated with Irrigated with Saline Saline -Foul Odor after Cleansing No No -Primary Dressing Applied NonAdherent NonAdherent Contact Layer, Contact Layer, Promogran Promogran Magalys Matter -Primary Dressing Covered/Secured with Dry Gauze,Dry Dry Gauze,Dry Gauze & Roll Gauze & Roll Gauze,Secured Gauze,Secured with Tape with Tape -Promogran 1 -Promogran Magalys Matter 1 Left -Tubular Bandage Double Layer -Size of Tubigrip Used Size E -Size E ($) 2 -Other tubigrip Treatment Response Procedure Tolerated Well Pain Scale: 0-10 Numeric Is Patient Pain Free? Yes Yes WC - Visit Discharge Discharge Condition Stable Stable Ambulatory Status Ambulatory, Ambulatory Walker Transportation Private Auto Private Auto Medication Reconcilliation completed & Yes provided to patient/care provider Facility Type Home Health Orders Sent Yes Assessment/Plan Assessment/Plan (1) Wound of left lower extremity: CODE(S): S81.802A - Unspecified open wound, left lower leg, initial encounter PLAN: Plan Debridement was performed and patient tolerated well. Wound is stable overall. Will continue with moistened Magalys and cover with adaptic. She will change dressing daily or more often as needed to keep clean and dry. Continue to apply tubigrips for compression. No signs/symptoms of active infection. Will continue to defer any vascular testing unless regression or stalled healing. We discussed the importance of good nutrition and increased protein intake in wound healing. We discussed the importance of good, consistent compression and elevation of legs while at rest with managing the edema. She will return to the clinic in 1 week for follow-up care. She will return sooner or present to the ED if current symptoms worsen or new symptoms arise.
[2022-11-03 10:57] VITALS: BP 149/82; PULSE 102; RESP 20; TEMP 36.2; BMI 23.8
--- NOTE | 2022-11-03 13:06 | PN.PCM_ITS ---
History of Present Illness Date of Service: 11/03/22 Chief Complaint: Left lateral lower leg wound History of Wound: Patient is a 82 y/o female referred to wound care by her PCP Dr. Ross for a wound on her left lateral lower leg. Dr. Ross obtained wound cultures and treated patient with rocephin, keflex, and doxycycline. She does have chronic bilateral lower extremity edema. She does have a history of heart failure with preserved ejection fraction and does take Lasix. She has diabetes but this is under good control. She smoked formerly but does not currently. She is hard of hearing. She ambulates with a walker. Subjective Subjective Patient is doing well, she continues to manage dressing changes at home with no issue. She continues to tolerate compression and has been wearing consistently. No F/C, N/V, increased drainage, foul odor, redness, pain. She has no complaints today. Objective Data Objective Data Vital Signs: Vital Signs Temp Pulse Resp BP O2 Del Method 97.2 F L 102 H 20 H 149/82 H Room Air 11/03/22 10:57 11/03/22 10:57 11/03/22 10:57 11/03/22 10:57 10/26/22 13:02 Oxygen Delivery Method Room Air Weight: 139 lb Body Mass Index (BMI) 23.8 Charges/Coding Wound Center CF Procedures 96XXX-98XXX: 90687 RMVL DEVITAL TIS 20 CM/< Multi Select Codes Wound Center CF Procedures 96XXX-98XXX: 56254 RMVL DEVITAL TIS 20 CM/< Physical Exam Const alert, oriented x3, no apparent distress, healthy appearing and well nourished HEENT head/scalp atraumatic, external ears normal and external nose normal HEENT Narrative: Patient is hard of hearing. Eyes PERRL and EOMs intact bilaterally General Eye: normal appearance of both eyes Neck full ROM General: normal visual inspection and trachea midline; Negative for anterior neck swelling Cardio regular rate and regular rhythm Peripheral Pulses: brachial pulses present, radial pulses present, posterior tibial pulses present bilateral diminished and dorsalis pedis pulses present Extremity Extremity Narrative: Patient has bilateral venous stasis dermatitis with lipodermatosclerosis and hemosiderin deposition. No pain to palpation. Peripheral Pulses: Yes posterior tibial pulses present bilateral diminished Skin no rashes or lesions noted and no mottling General Skin Exam: Negative for purpura or pallor Trauma: no lacerations or abrasions Wounds: wounds noted Wound Narrative: Left lateral leg wound with slough noted. No significant callus/crust. No surrounding erythema, warmth, induration, fluctuance. No drainage noted. No foul odor. Neuro oriented x3, CN's II-XII intact bilaterally, moves all extremities, no focal motor deficits, no sensory deficits noted and gait normal Psych mental status grossly normal, thought process normal, cooperative, affect normal, speech normal and activity/motor behavior normal Debridement Note Debridement Note Wound debrided: Left lateral lower leg wound Laterality: Left Type of Debridement: Excisional debridement Anesthesia Used: 5% Lidocaine Gel Depth: Down to and including healthy tissue and in the subcutaneous layer Percentage of wound debrided: 100 Instrument Used: 3mm curette Tissue Removed: slough, nonviable tissue Severity: Fat Layer Exposed Amount of bleeding with debridement: Mild Bleeding Controlled with: Pressure Patient tolerated procedure: Patient tolerated procedure well Post-Debridement Measurements and Additional Note: Post-Debridement Measurements/Treatment - Nurse 1 - General Ulcer Assessment Start: 10/20/22 10:50 Freq: Status: Active Protocol: DOUG.SHONNA Activity Type Activity Date Activity User E-sign Co-sign Detail Recorded Client Recorded Date Recorded By Document 10/20/22 10:50 IA [id number] 10/20/22 10:52 IA Document 10/26/22 13:02 [facility] [id number] 10/26/22 13:10 [facility] Document 11/03/22 10:57 DL [id number] 11/03/22 11:04 DL 10/20/22 10/26/22 11/03/22 10:50 13:02 10:57 - Today's Visit Information Type of service Follow-up Visit Follow-up Visit Follow-up Visit (Physician/SUSTAINABLE AGRICULTURE SPECIALIST (Physician/SUSTAINABLE AGRICULTURE SPECIALIST (Physician/SUSTAINABLE AGRICULTURE SPECIALIST ) ) ) Arrival Mode Ambulatory, Ambulatory, Ambulatory, Walker Walker Walker Transfer Assistance None None Patient Identification Verified (Name & No Yes Yes ) Patient Requires Transmission-Based No No No Precautions Finger Stick Blood Sugar(mg/dl) (if 110 indicated): Blood Sugar Stated by Patient Height and Weight Body Mass Index (BMI) 23.8 23.8 23.8 BMI Classification Normal Normal Normal Vital Signs Temperature (97.8 F-99.1 F) 96.1 F L 96.2 F L 97.2 F L Temperature Source Temporal Temporal Temporal Pulse Rate (60-100) 70 89 102 H Pulse Location Monitor Monitor Monitor Respiratory Rate (12-18) 16 20 H Respiratory rate source Observation Observation Oxygen Delivery Method Room Air Blood Pressure (90/60-120/80) 145/72 H 161/69 H 149/82 H Blood Pressure Mean (mm Hg) 96 99 104 Source Monitor Monitor Monitor Position Sitting Blood Pressure Location Left Arm History Since Last Visit- (Skip if this is Patient's initial visit) Have you changed medications since your No No No last visit? Any new allergies or adverse reactions No No No Had a fall/change in ADL's that may No No No increase risk of falls Signs or symptoms of abuse and/or No No No neglect since last visit Have you been in the hospital since your No No No last visit? Has dressing in place as prescribed Yes Yes No Has compression in place as prescribed Yes Yes Yes Has offloadiing in place as prescribed N/A N/A N/A Experienced any changes in pain level or No No No management Left Footwear Regular Shoe Regular Shoe Right Footwear Regular Shoe Regular Shoe Pain Scale: 0-10 Numeric Is Patient Pain Free? Yes Yes Yes WC - Nurse 1 - General Ulcer Measurement Start: 10/20/22 10:50 Freq: Status: Active Protocol: Activity Type Activity Date Activity User E-sign Co-sign Detail Recorded Client Recorded Date Recorded By Document 10/20/22 10:50 AK [id number] 10/20/22 10:52 AK Document 10/26/22 13:02 [facility] [id number] 10/26/22 13:10 [facility] Document 11/03/22 10:57 DL [id number] 11/03/22 11:04 DL 10/20/22 10/26/22 11/03/22 10:50 13:02 10:57 Wound Center Nurse 1 #1- L LAT LE -Combined with other wound No No -Current Size (cm) - Length 0.5 0.8 0.3 -Current Size (cm) - Width 0.3 0.3 0.2 -Current Size (cm) - Depth 0.2 0.3 0.2 -Total Square Cm 0.15 0.24 0.06 -Date of Last Picture (Recall this 10/26/22 field) -Photo Taken Yes Yes No -Epithelialization None Present None Present -Tunneling No No -Undermining/Tunneling No No -Circular Undermining No No -Change in Wound Grade/Stage No -Exudate Amt Medium Small Small -Exudate Type Serosanguineous Serosanguineous -Wound Margin Distinct, Distinct, Distinct, Outline Outline Outline Attached Attached Attached -Granulation Amt None Present (0 Medium (34-66%) Large (67-100%) %) -Granulation Quality Carmen Red Carmen -Slough/Fibrin Yes Yes -Necrosis Amt Large (67-100%) Small (1-33%) None Present (0 %) -Necrotic Tissue Type Adherent Slough Adherent Slough -Structure Exposed N/A N/A -Texture (Teri-wound Skin Appearance) No Abnormality, Assessed, Scarring Assessed Scarring -Moisture (Teri-wound Skin Appearance) No Abnormality, Assessed No Abnormality Assessed -Color (Teri-wound Skin Appearance) No Abnormality, Assessed Hemosiderin Assessed Staining -Temperature (Teri-wound Skin No Abnormality No Abnormality Appearance) (Pt Warm) (Pt Warm) -Tenderness on Palpation (Teri-wound No No No Skin Appearance) -Ulcer Cleansing Rinsed/ Rinsed/ Rinsed/ Irrigated with Irrigated with Irrigated with Saline Saline Saline -Foul Odor after Cleansing No No -Anesthetic Used 5% Lidocaine 5% Lidocaine 5% Lidocaine Gel Gel Gel Lower Limb Edema Present No Left Calf (cm) 33 33 33.3 Left Ankle (cm) 26 22.6 24 WC - Nurse 2 - General Ulcer CM Notes Start: 10/20/22 10:50 Freq: Status: Active Protocol: Activity Type Activity Date Activity User E-sign Co-sign Detail Recorded Client Recorded Date Recorded By Document 10/20/22 12:38 PL [id number] 10/20/22 12:39 PL Document 10/26/22 13:32 MW [id number] 10/26/22 13:39 MW 10/20/22 10/26/22 12:38 13:32 Wound Center Nurse 2 #1- L LAT LE -Time 11:26 13:33 -Correct Patient Yes Yes -Correct Side, Site, Position Yes Yes -Correct Procedure Yes Yes -Procedure Performed Yes Yes -Type of Procedure Debridement Debridement -Clinical Debridement Subcutaneous Subcutaneous -Tissue Removed Subcutaneous Subcutaneous -Post Debridement (cm) - Length 0.8 0.8 -Post Debridement (cm) - Width 0.4 0.4 -Post Debridement (cm) - Depth 0.2 0.2 -Total Square (Post) (cm) 0.32 0.32 -Area of Debridement (cm) - Length 0.8 0.8 -Area of Debridement (cm) - Width 0.4 0.4 -Total Square (Area) (cm) 0.32 0.32 -Tunneling No No -Undermining/Tunneling No No -Circular Undermining No No -Wound/Ulcer Outcome Not Healed Not Healed -Ulcer Cleansing Rinsed/ Rinsed/ Irrigated with Irrigated with Saline Saline -Foul Odor after Cleansing No No -Bioengineered Tissue No No -Bleeding Controlled with Pressure Pressure -Treatment Response Procedure Procedure Tolerated Well Tolerated Well -Offloading No -Debridement - Subq, 1st 20sq cm Yes Yes Pain Scale: 0-10 Numeric Is Patient Pain Free? Yes Yes WC - Nurse 3 - General Ulcer D/C NN Start: 10/20/22 10:50 Freq: Status: Active Protocol: Activity Type Activity Date Activity User E-sign Co-sign Detail Recorded Client Recorded Date Recorded By Document 10/20/22 11:44 AK [id number] 10/20/22 11:45 AK Document 10/26/22 13:53 DL [id number] 10/26/22 13:55 DL Document 11/03/22 11:57 DL [id number] 11/03/22 11:57 DL 10/20/22 10/26/22 11/03/22 11:44 13:53 11:57 Wound Care Nurse 3 #1- L LAT LE -Ulcer Cleansing Rinsed/ Rinsed/ Rinsed/ Irrigated with Irrigated with Irrigated with Saline Saline Saline -Foul Odor after Cleansing No No No -Primary Dressing Applied NonAdherent NonAdherent NonAdherent Contact Layer, Contact Layer, Contact Layer, Promogran Promogran Promogran Magalys Matter Magalys Matter -Primary Dressing Covered/Secured with Dry Gauze,Dry Dry Gauze,Dry Dry Gauze & Gauze & Roll Gauze & Roll Roll Gauze, Gauze,Secured Gauze,Secured Secured with with Tape with Tape Tape -Promogran 1 -Promogran Magalys Matter 1 1 Left -Tubular Bandage Double Layer Single Layer -Size of Tubigrip Used Size E Size D -Size D ($) 1 -Size E ($) 2 -Other tubigrip Treatment Response Procedure Procedure Tolerated Well Tolerated Well Pain Scale: 0-10 Numeric Is Patient Pain Free? Yes Yes Yes WC - Visit Discharge Discharge Condition Stable Stable Stable Ambulatory Status Ambulatory, Ambulatory Ambulatory, Walker Walker Transportation Private Auto Private Auto Private Auto Accompanied by daughter Medication Reconcilliation completed & Yes provided to patient/care provider Facility Type Home Health Orders Sent Yes Assessment/Plan Assessment/Plan (1) Wound of left lower extremity: CODE(S): S81.802A - Unspecified open wound, left lower leg, initial encounter PLAN: Plan Debridement was performed and patient tolerated well. Continue with moistened Magalys and cover with adaptic. She will change dressing daily or more often as needed to keep clean and dry. Continue to apply tubigrips for compression. No signs/symptoms of active infection. Will continue to defer any vascular testing unless regression or stalled healing. We discussed the importance of good nutrition and increased protein intake in wound healing. We discussed the importance of good, consistent compression and elevation of legs while at rest with managing the edema. She has another appointment she needs to go to next Sunday. She will return to the clinic in 2 weeks for follow-up care. She will return sooner or present to the ED if current symptoms worsen or new symptoms arise.
== END 2022-11-14 23:59 | disposition home or self-care (01) ==
LOC: WC 11:00
PROVIDERS: PCP Family Medicine Geriatric Medicine; Visit Provider Physician Assistant
DX: E11.622 Type 2 diabetes mellitus with other skin ulcer (principal); L97.312 Non-pressure chronic ulcer of right ankle with fat layer exposed; I50.32 Chronic diastolic (congestive) heart failure; S81.802A Unspecified open wound, left lower leg, initial encounter; X58.XXXA Exposure to other specified factors, initial encounter; I83.11 Varicose veins of right lower extremity with inflammation; I83.12 Varicose veins of left lower extremity with inflammation; R60.0 Localized edema; H91.90 Unspecified hearing loss, unspecified ear; Z79.84 Long term (current) use of oral hypoglycemic drugs; Z79.890 Hormone replacement therapy; Z79.899 Other long term (current) drug therapy
CPT/HCPCS: 11042

== ENCOUNTER → 2022-11-10 | Outpatient (CLI) | payer MEDICARE, OTHER, SELFPAY ==
[2022-11-10 12:59] VITALS: BP 173/81; PULSE 91; RESP 16; TEMP 35.8; O2SAT 93; BMI 23.6
[2022-11-10] MEDS: DENOSUMAB 60 MG/ML SC (13:03)
== END | disposition home or self-care (01) ==
LOC: MEDOUTP 12:50
PROVIDERS: PCP Family Medicine Geriatric Medicine; Referring Provider Internal Medicine Endocrinology, Diabetes & Metabolism; Visit Provider Internal Medicine Endocrinology, Diabetes & Metabolism
DX: M81.0 Age-related osteoporosis without current pathological fracture (principal)
CPT/HCPCS: 96372; J0897

== ENCOUNTER 2022-12-01 11:30 | Outpatient (RCR) | payer MEDICARE, OTHER, SELFPAY ==
[2022-11-15 00:36] VITALS: BP 149/82; PULSE 102; RESP 20; TEMP 36.2; BMI 23.8
[2022-11-17 11:23] VITALS: BP 137/75; PULSE 96; RESP 16; BMI 23.8
--- NOTE | 2022-11-17 11:48 | PCM.WC.PN ---
History of Present Illness Date of Service: 11/17/22 Chief Complaint: Left lateral lower leg wound History of Wound: Patient is a 82 y/o female referred to wound care by her PCP Dr. Ross for a wound on her left lateral lower leg. Dr. Ross obtained wound cultures and treated patient with rocephin, keflex, and doxycycline. She does have chronic bilateral lower extremity edema. She does have a history of heart failure with preserved ejection fraction and does take Lasix. She has diabetes but this is under good control. She smoked formerly but does not currently. She is hard of hearing. She ambulates with a walker. Subjective Subjective Patient is doing well, she continues to manage dressing changes at home with no issue. She continues to tolerate compression and has been wearing consistently. No F/C, N/V, increased drainage, foul odor, redness, pain. She has no complaints today. Objective Data Objective Data Vital Signs: Vital Signs Temp Pulse Resp BP O2 Del Method 97.2 F L 96 16 137/75 H Room Air 11/15/22 00:36 11/17/22 11:23 11/17/22 11:23 11/17/22 11:23 11/17/22 11:23 Oxygen Delivery Method Room Air Weight: 139 lb Body Mass Index (BMI) 23.8 Charges/Coding Wound Center CF Procedures 96XXX-98XXX: 86531 RMVL DEVITAL TIS 20 CM/< Multi Select Codes Wound Center CF Procedures 96XXX-98XXX: 52462 RMVL DEVITAL TIS 20 CM/< Physical Exam Const alert, oriented x3, no apparent distress, healthy appearing and well nourished HEENT head/scalp atraumatic, external ears normal and external nose normal HEENT Narrative: Patient is hard of hearing. Eyes PERRL and EOMs intact bilaterally General Eye: normal appearance of both eyes Neck full ROM General: normal visual inspection and trachea midline; Negative for anterior neck swelling Cardio regular rate and regular rhythm Peripheral Pulses: brachial pulses present, radial pulses present, posterior tibial pulses present bilateral diminished and dorsalis pedis pulses present Extremity Extremity Narrative: Patient has bilateral venous stasis dermatitis with lipodermatosclerosis and hemosiderin deposition. No pain to palpation. Peripheral Pulses: Yes posterior tibial pulses present bilateral diminished Skin no rashes or lesions noted and no mottling General Skin Exam: Negative for purpura or pallor Trauma: no lacerations or abrasions Wounds: wounds noted Wound Narrative: Left lateral leg wound with slough noted. No significant callus/crust. No surrounding erythema, warmth, induration, fluctuance. No drainage noted. No foul odor. Neuro oriented x3, CN's II-XII intact bilaterally, moves all extremities, no focal motor deficits, no sensory deficits noted and gait normal Psych mental status grossly normal, thought process normal, cooperative, affect normal, speech normal and activity/motor behavior normal Debridement Note Debridement Note Wound debrided: Left lateral lower leg wound Laterality: Left Type of Debridement: Excisional debridement Anesthesia Used: 5% Lidocaine Gel Depth: Down to and including healthy tissue and in the subcutaneous layer Percentage of wound debrided: 100 Instrument Used: 3mm curette Tissue Removed: slough, nonviable tissue Severity: Fat Layer Exposed Amount of bleeding with debridement: Mild Bleeding Controlled with: Pressure Patient tolerated procedure: Patient tolerated procedure well Post-Debridement Measurements and Additional Note: Post-Debridement Measurements/Treatment - Nurse 1 - General Ulcer Assessment Start: 11/17/22 11:23 Freq: Status: Active Protocol: DOUG.SHONNA Activity Type Activity Date Activity User E-sign Co-sign Detail Recorded Client Recorded Date Recorded By Document 11/17/22 11:23 [facility] [id number] 11/17/22 11:32 [facility] 11/17/22 11:23 - Today's Visit Information Type of service Follow-up Visit (Physician/NUTRITION DIRECTOR ) Arrival Mode Ambulatory, Walker Transfer Assistance None Accompanied by DAUGHTER Patient Identification Verified (Name & Yes ) Patient Requires Transmission-Based No Precautions Height and Weight Body Mass Index (BMI) 23.8 BMI Classification Normal Vital Signs Pulse Rate (60-100) 96 Pulse Location Monitor Respiratory Rate (12-18) 16 Respiratory rate source Observation Oxygen Delivery Method Room Air Blood Pressure (90/60-120/80) 137/75 H Blood Pressure Mean (mm Hg) 95 Source Monitor Position Sitting Blood Pressure Location Left Arm History Since Last Visit- (Skip if this is Patient's initial visit) Have you changed medications since your No last visit? Any new allergies or adverse reactions No Had a fall/change in ADL's that may No increase risk of falls Signs or symptoms of abuse and/or No neglect since last visit Pain Scale: 0-10 Numeric Is Patient Pain Free? Yes WC - Nurse 1 - General Ulcer Measurement Start: 11/17/22 11:23 Freq: Status: Active Protocol: Activity Type Activity Date Activity User E-sign Co-sign Detail Recorded Client Recorded Date Recorded By Document 11/17/22 11:23 [facility] [id number] 11/17/22 11:32 [facility] 11/17/22 11:23 Wound Center Nurse 1 #1- L LAT LE -Combined with other wound No -Current Size (cm) - Length 0.5 -Current Size (cm) - Width 0.2 -Current Size (cm) - Depth 0.3 -Total Square Cm 0.10 -Date of Last Picture (Recall this 11/17/22 field) -Photo Taken Yes -Epithelialization Small 1-33% -Tunneling No -Undermining/Tunneling No -Circular Undermining No -Exudate Amt Small -Exudate Type Serosanguineous -Wound Margin Distinct, Outline Attached -Granulation Amt Large (67-100%) -Granulation Quality Red -Slough/Fibrin Yes -Necrosis Amt Small (1-33%) -Necrotic Tissue Type Adherent Slough -Texture (Teri-wound Skin Appearance) Assessed, Scarring -Moisture (Teri-wound Skin Appearance) Assessed -Color (Teri-wound Skin Appearance) Assessed -Temperature (Teri-wound Skin No Abnormality Appearance) (Pt Warm) -Tenderness on Palpation (Teri-wound No Skin Appearance) -Ulcer Cleansing Rinsed/ Irrigated with Saline -Anesthetic Used 5% Lidocaine Gel Lower Limb Edema Present Yes Left Calf (cm) 35 Left Ankle (cm) 25 Assessment/Plan Assessment/Plan (1) Wound of left lower extremity: CODE(S): S81.802A - Unspecified open wound, left lower leg, initial encounter PLAN: Plan Debridement was performed and patient tolerated well. Continue with moistened Magalys and cover with adaptic. She will change dressing daily or more often as needed to keep clean and dry. Continue to apply tubigrips for compression. No signs/symptoms of active infection. We discussed the importance of good nutrition and increased protein intake in wound healing. We discussed the importance of good, consistent compression and elevation of legs while at rest with managing the edema. She would like to continue with every 2 week f/u, I think this is reasonable. Return to the clinic in 2 weeks for follow-up or sooner as needed.
[2022-12-01 11:40] VITALS: BP 149/71; PULSE 85; RESP 18; TEMP 36.1; BMI 23.8
--- NOTE | 2022-12-01 12:02 | PCM.WC.PN ---
History of Present Illness Date of Service: 12/01/22 Chief Complaint: Left lateral lower leg wound History of Wound: Patient is a 82 y/o female referred to wound care by her PCP Dr. Ross for a wound on her left lateral lower leg. Dr. Ross obtained wound cultures and treated patient with rocephin, keflex, and doxycycline. She does have chronic bilateral lower extremity edema. She does have a history of heart failure with preserved ejection fraction and does take Lasix. She has diabetes but this is under good control. She smoked formerly but does not currently. She is hard of hearing. She ambulates with a walker. Subjective Subjective Patient is doing well, she continues to manage dressing changes at home with no issue. She continues to tolerate compression and has been wearing consistently. No F/C, N/V, increased drainage, foul odor, redness, pain. She has no complaints today. Objective Data Objective Data Vital Signs: Vital Signs Temp Pulse Resp BP O2 Del Method 97 F L 85 18 149/71 H Room Air 12/01/22 11:40 12/01/22 11:40 12/01/22 11:40 12/01/22 11:40 12/01/22 11:40 Oxygen Delivery Method Room Air Weight: 139 lb Body Mass Index (BMI) 23.8 Charges/Coding Wound Center CF Procedures 96XXX-98XXX: 76236 RMVL DEVITAL TIS 20 CM/< Multi Select Codes Wound Center CF Procedures 96XXX-98XXX: 42632 RMVL DEVITAL TIS 20 CM/< Physical Exam Const alert, oriented x3, no apparent distress, healthy appearing and well nourished HEENT head/scalp atraumatic, external ears normal and external nose normal HEENT Narrative: Patient is hard of hearing. Eyes PERRL and EOMs intact bilaterally General Eye: normal appearance of both eyes Neck full ROM General: normal visual inspection and trachea midline; Negative for anterior neck swelling Cardio regular rate and regular rhythm Peripheral Pulses: brachial pulses present, radial pulses present, posterior tibial pulses present bilateral diminished and dorsalis pedis pulses present Extremity Extremity Narrative: Patient has bilateral venous stasis dermatitis with lipodermatosclerosis and hemosiderin deposition. No pain to palpation. Peripheral Pulses: Yes posterior tibial pulses present bilateral diminished Skin no rashes or lesions noted and no mottling General Skin Exam: Negative for purpura or pallor Trauma: no lacerations or abrasions Wounds: wounds noted Wound Narrative: Left lateral leg wound with slough noted. No significant callus/crust. No surrounding erythema, warmth, induration, fluctuance. No drainage noted. No foul odor. Neuro oriented x3, CN's II-XII intact bilaterally, moves all extremities, no focal motor deficits, no sensory deficits noted and gait normal Psych mental status grossly normal, thought process normal, cooperative, affect normal, speech normal and activity/motor behavior normal Debridement Note Debridement Note Wound debrided: Left lateral lower leg wound Laterality: Left Type of Debridement: Excisional debridement Anesthesia Used: 5% Lidocaine Gel Depth: Down to and including healthy tissue and in the subcutaneous layer Percentage of wound debrided: 100 Instrument Used: 3mm curette Tissue Removed: slough, nonviable tissue Severity: Fat Layer Exposed Amount of bleeding with debridement: Mild Bleeding Controlled with: Pressure Patient tolerated procedure: Patient tolerated procedure well Post-Debridement Measurements and Additional Note: Post-Debridement Measurements/Treatment - Nurse 1 - General Ulcer Assessment Start: 11/17/22 11:23 Freq: Status: Active Protocol: DOUG.SHONNA Activity Type Activity Date Activity User E-sign Co-sign Detail Recorded Client Recorded Date Recorded By Document 11/17/22 11:23 [facility] [id number] 11/17/22 11:32 [facility] Document 12/01/22 11:40 [place] [id number] 12/01/22 11:50 [place] 11/17/22 12/01/22 11:23 11:40 - Today's Visit Information Type of service Follow-up Visit Initial Visit (Physician/INVESTIGATION LIEUTENANT ) Arrival Mode Ambulatory, Ambulatory, Walker Walker Transfer Assistance None Accompanied by DAUGHTER [email or web address] Patient Identification Verified (Name & Yes Yes ) Patient Requires Transmission-Based No Precautions Safety Precautions Fall Prevention Height and Weight Body Mass Index (BMI) 23.8 23.8 BMI Classification Normal Normal Vital Signs Temperature (97.8 F-99.1 F) 97 F L Temperature Source Temporal Pulse Rate (60-100) 96 85 Pulse Location Monitor Monitor Respiratory Rate (12-18) 16 18 Respiratory rate source Observation Observation Oxygen Delivery Method Room Air Room Air Blood Pressure (90/60-120/80) 137/75 H 149/71 H Blood Pressure Mean (mm Hg) 95 97 Source Monitor Monitor Position Sitting Sitting Blood Pressure Location Left Arm Left Arm History Since Last Visit- (Skip if this is Patient's initial visit) Have you changed medications since your No last visit? Any new allergies or adverse reactions No Had a fall/change in ADL's that may No increase risk of falls Signs or symptoms of abuse and/or No neglect since last visit Have you been in the hospital since your No last visit? Has dressing in place as prescribed Yes Has compression in place as prescribed Yes Has offloadiing in place as prescribed Yes Experienced any changes in pain level or Yes management Left Footwear Regular Shoe Right Footwear Regular Shoe Pain Scale: 0-10 Numeric Is Patient Pain Free? Yes Yes WC - Nurse 1 - General Ulcer Measurement Start: 11/17/22 11:23 Freq: Status: Active Protocol: Activity Type Activity Date Activity User E-sign Co-sign Detail Recorded Client Recorded Date Recorded By Document 11/17/22 11:23 [facility] [id number] 11/17/22 11:32 [facility] Document 12/01/22 11:40 [place] [id number] 12/01/22 11:50 [place] 11/17/22 12/01/22 11:23 11:40 Wound Center Nurse 1 #1- L LAT LE -Combined with other wound No -Current Size (cm) - Length 0.5 0.4 -Current Size (cm) - Width 0.2 0.7 -Current Size (cm) - Depth 0.3 0.2 -Total Square Cm 0.10 0.28 -Date of Last Picture (Recall this 11/17/22 12/01/22 field) -Photo Taken Yes Yes -Epithelialization Small 1-33% -Tunneling No -Undermining/Tunneling No -Circular Undermining No -Exudate Amt Small Small -Exudate Type Serosanguineous Serosanguineous -Wound Margin Distinct, Thickened Outline Attached -Granulation Amt Large (67-100%) Medium (34-66%) -Granulation Quality Red Pale,[place] -Slough/Fibrin Yes -Necrosis Amt Small (1-33%) Medium (34-66%) -Necrotic Tissue Type Adherent Slough Adherent Slough -Texture (Teri-wound Skin Appearance) Assessed, Assessed, Scarring Localized Edema -Moisture (Teri-wound Skin Appearance) Assessed Assessed -Color (Teri-wound Skin Appearance) Assessed Assessed -Temperature (Teri-wound Skin No Abnormality No Abnormality Appearance) (Pt Warm) (Pt Warm) -Tenderness on Palpation (Teri-wound No No Skin Appearance) -Ulcer Cleansing Rinsed/ Soap and Water Irrigated with Saline -Foul Odor after Cleansing No -Anesthetic Used 5% Lidocaine 4% Lidocaine Gel Solution Lower Limb Edema Present Yes Left Calf (cm) 35 37.5 Left Ankle (cm) 25 27.5 WC - Nurse 2 - General Ulcer CM Notes Start: 11/17/22 11:23 Freq: Status: Active Protocol: Activity Type Activity Date Activity User E-sign Co-sign Detail Recorded Client Recorded Date Recorded By Document 11/17/22 11:59 [address] [id number] 11/17/22 11:59 PL 11/17/22 11:59 Wound Center Nurse 2 #1- L LAT LE -Time 11:35 -Correct Patient Yes -Correct Side, Site, Position Yes -Correct Procedure Yes -Procedure Performed Yes -Type of Procedure Debridement -Clinical Debridement Subcutaneous -Tissue Removed Subcutaneous -Post Debridement (cm) - Length 0.6 -Post Debridement (cm) - Width 0.4 -Post Debridement (cm) - Depth 0.2 -Total Square (Post) (cm) 0.24 -Area of Debridement (cm) - Length 0.6 -Area of Debridement (cm) - Width 0.4 -Total Square (Area) (cm) 0.24 -Tunneling No -Undermining/Tunneling No -Circular Undermining No -Wound/Ulcer Outcome Not Healed -Ulcer Cleansing Rinsed/ Irrigated with Saline -Foul Odor after Cleansing No -Bioengineered Tissue No -Bleeding Controlled with Pressure -Treatment Response Procedure Tolerated Well -Debridement - Subq, 1st 20sq cm Yes Pain Scale: 0-10 Numeric Is Patient Pain Free? Yes - Nurse 3 - General Ulcer D/C NN Start: 11/17/22 11:23 Freq: Status: Active Protocol: Activity Type Activity Date Activity User E-sign Co-sign Detail Recorded Client Recorded Date Recorded By Document 11/17/22 11:49 [facility] [id number] 11/17/22 11:50 BM 11/17/22 11:49 Wound Care Center Nurse 3 #1- L LAT LE -Ulcer Cleansing Rinsed/ Irrigated with Saline -Foul Odor after Cleansing No -Other Dressing MIGNON -Primary Dressing Covered/Secured with Dry Gauze & Roll Gauze, Secured with Tape -Other Covering ALSO SECURED W/ COBAN PER PT REQUEST Left -Other PTS OWN SINGLE LAYER TUBI APPLIED Treatment Response Procedure Tolerated Well Pain Scale: 0-10 Numeric Is Patient Pain Free? Yes WC - Visit Discharge Discharge Condition Stable Ambulatory Status Ambulatory, Walker Transportation Private Auto Accompanied by PAYAM Assessment/Plan Assessment/Plan (1) Wound of left lower extremity: CODE(S): S81.802A - Unspecified open wound, left lower leg, initial encounter PLAN: Plan Debridement was performed and patient tolerated well. Continue with moistened Mignon and cover with adaptic. Apply foam dressing over top. Continue with tubigrips and add LIDIA wrap for increased compression. She will change dressing daily or more often as needed to keep clean and dry. No signs/symptoms of active infection. We discussed the importance of good nutrition and increased protein intake in wound healing. We discussed the importance of good, consistent compression and elevation of legs while at rest with managing the edema. She would like to continue with every 2 week f/u, I think this is reasonable. Return to the clinic in 2 weeks for follow-up or sooner as needed.
== END 2022-12-12 23:59 | disposition home or self-care (01) ==
LOC: WC 11:30
PROVIDERS: PCP Family Medicine Geriatric Medicine; Visit Provider Physician Assistant
DX: E11.622 Type 2 diabetes mellitus with other skin ulcer (principal); L97.312 Non-pressure chronic ulcer of right ankle with fat layer exposed; I50.32 Chronic diastolic (congestive) heart failure; H91.90 Unspecified hearing loss, unspecified ear
CPT/HCPCS: 11042

== ENCOUNTER 2022-12-05 04:56 | Inpatient (IN) | payer MEDICARE, OTHER, SELFPAY ==
[2022-12-05] VITALS (13 sets, daily range): BP systolic 104–168; BP diastolic 51–114; PULSE 81–113; RESP 14–29; TEMP 36.4–36.8; O2SAT 87–99; BMI 25.3; BMI 23.7
--- NOTE | 2022-12-05 04:58 | RAD_ITS ---
EXAM: XR CHEST, 1 VIEW CLINICAL INDICATION: chest pain TECHNIQUE: Frontal view of the chest. This report was created using [employer] report generation technology. COMPARISON: 04/03/2022 FINDINGS: LUNGS AND PLEURAL SPACES: Patchy bilateral airspace opacities as well as dense left basilar consolidation. No pneumothorax. No effusion. HEART: Moderate enlargement of the cardiac silhouette. MEDIASTINUM: Central airways and mediastinal contour are unremarkable. BONES/JOINTS: Unremarkable. SOFT TISSUES: Unremarkable. RAD/Chest 1 View (Portable) IMPRESSION: Patchy bilateral airspace opacities as well as dense left basilar consolidation. Findings may indicate atelectasis or infection. Electronically Signed: Joo Quinonez MD at 5:31 EST ,
--- NOTE | 2022-12-05 04:58 | EKG12_ITS ---
Test Reason : DYSRHYTHMIA Blood Pressure : / mmHG Vent. Rate : 100 BPM Atrial Rate : 100 BPM P-R Int : 178 ms QRS Dur : 106 ms QT Int : 342 ms P-R-T Axes : 053 -38 072 degrees QTc Int : 441 ms Normal sinus rhythm Left axis deviation Voltage criteria for left ventricular hypertrophy Nonspecific ST and T wave abnormality Abnormal ECG Confirmed by MOUNIKA DELGADO, FREDRICK ([id number]), pictures editor MONIQUE TERESA ([id number]) on 12/06/2022 8:45:42 AM Referred By: KARINA Confirmed By:FREDRICK RIBERA MD
--- NOTE | 2022-12-05 05:02 | EDS_ITS ---
HPI History of Present Illness Chief Complaint: Chest Pain Narrative Narrative: 82-year-old female presenting with chest pain. She states that she woke up to go to the restroom and noted she was having retrosternal chest pain. Patient describes it as a pressure. She states it is a heavy feeling. Its been on and off for about 2 hours now. Patient does have history of mitral valve stenosis, hypertension, hyperlipidemia, CHF with preserved ejection fraction. She follows with Dr. Deng. Patient also stating that she has shortness of breath associated with this. No fevers, chills. PFSH [facility] Medical History (HFpEF) heart failure with preserved ejection fraction Acid reflux Anemia, unspecified Arthritis Bacteremia due to Gram-negative bacteria Bilateral lower extremity edema Breast cancer Cancer Cataracts, bilateral Chronic headaches DDD (degenerative disc disease), lumbar Diabetes Elevated troponin (06/2021) Essential hypertension H/O transfusion of whole blood History of type 1 diabetes mellitus Hypercholesterolemia Hyperlipidemia Hypothyroidism Kidney disease Lower extremity edema Lymphedema Nonrheumatic mitral valve stenosis with insufficiency NSTEMI, initial episode of care Pancytopenia Segmental and somatic dysfunction of lumbar region Segmental and somatic dysfunction of pelvic region Segmental and somatic dysfunction of thoracic region Spinal stenosis Thrombocytopenia Thyroid disease Home Medications atorvastatin 40 mg tablet 40 mg PO QHS cholesterol 07/05/19 [History Last Taken Unknown] baclofen 5 mg tablet 5 mg PO DAILY muscle spasms 07/05/19 [History Last Taken Unknown] calcium citrate 315 mg calcium-vitamin D3 6.25 mcg (250 unit) tablet 1 ea PO DAILY vitamin 07/05/19 [History Last Taken Unknown] famotidine 40 mg tablet 40 mg PO DAILY gerd 07/05/19 [History Last Taken 08/26/19] gabapentin 300 mg capsule 300 mg PO DAILY neuropathy 07/05/19 [History Last Taken Unknown] metoprolol tartrate 25 mg tablet 25 mg PO BID heart rate 07/05/19 [History Last Taken 08/26/19] multivitamin with folic acid 400 mcg tablet 1 tab PO DAILY vitamin 07/05/19 [History Last Taken Unknown] oxycodone-acetaminophen 5 mg-325 mg tablet 1 tab PO TID back pain 12/02/19 [History Last Taken Unknown] polyethylene glycol 3350 17 gram/dose oral powder (Miralax) 17 g PO DAILY stool softener 05/03/20 [History Last Taken Unknown] levothyroxine 137 mcg tablet 137 mcg PO DAILY #30 tabs 08/14/22 [Rx Last Taken Unknown] furosemide 40 mg tablet (Lasix) 20 mg PO DAILY 09/12/22 [History Last Taken Unknown] glimepiride 1 mg tablet 1 mg PO DAILY 09/12/22 [History Last Taken Unknown] Allergy/AdvReac Type Severity Reaction Status Date / Time piperacillin [From Zosyn] AdvReac Mild malaise, Verified 12/05/22 05:00 myalgias tazobactam [From Zosyn] AdvReac Mild malaise, Verified 12/05/22 05:00 myalgias Family History Grandfather CVA (cerebral vascular accident) Mother Hypertension Breast cancer Father Diabetes Heart disease Brother CVA (cerebral vascular accident) Diabetes Dementia Surgical History H/O mastectomy H/O tubal ligation History of cataract surgery History of hysterectomy Hx of section Hx of cholecystectomy Hx of colonoscopy Social History household members: none Smoking Status: Former smoker second hand exposure: No alcohol intake: never substance use type: does not use caffeine: Yes what type of physical activity do you participate in: none frequency: does not exercise ROS ROS ED Constitutional Constitutional ED: Denies chills, fever(s) or sweats Eyes Eyes: Denies blurry vision or change in vision ENT ENT ED: Denies ear pain or sore throat Cardiovascular Cardiovascular: Reports chest pain; Denies palpitations or racing heartbeat Respiratory/Chest Respiratory/Chest: Reports dyspnea; Denies cough or sputum Gastrointestinal Gastrointestinal: Denies abdominal pain, constipation, diarrhea, nausea or vomiting Genitourinary Genitourinary ED: Denies dysuria, hematuria or urinary frequency Musculoskeletal Musculoskeletal: Denies arthralgias, myalgias or neck pain Integumentary Denies abscess, Abrasions or rash Neurologic Neurologic: Denies headache(s), paresthesias or weakness Psychiatric Psychiatric: Denies anxiety, depression, suicidal ideation or suicidal thoughts Endocrine Endocrinology: Denies polydipsia or polyuria EXAM Physical Exam Const Vital Signs: 12/05/22 04:57 12/05/22 05:00 12/05/22 05:02 Temperature 97.6 F L Temperature Source Temporal Pulse Rate 101 H Respiratory Rate 17 Respiratory Effort Normal Respiratory Pattern Normal Blood Pressure 164/114 H Blood Pressure Mean 130 Pulse Ox 92 Oxygen Delivery Method Room Air Room Air Oxygen Flow Rate (L/min) 12/05/22 05:13 12/05/22 05:13 12/05/22 06:50 Temperature Temperature Source Pulse Rate 95 Respiratory Rate 17 Respiratory Effort Respiratory Pattern Blood Pressure 166/80 H Blood Pressure Mean 108 Pulse Ox 87 96 95 Oxygen Delivery Method Room Air Nasal Cannula Nasal Cannula Oxygen Flow Rate (L/min) 2 12/05/22 07:20 Temperature Temperature Source Pulse Rate 109 H Respiratory Rate 29 H Respiratory Effort Respiratory Pattern Blood Pressure 163/77 H Blood Pressure Mean 105 Pulse Ox Oxygen Delivery Method Oxygen Flow Rate (L/min) Positive well nourished General Appearance ED: NAD HEENT Reports TM's clear and moist mucous membranes Tympanic Membrane ED: Yes TM's clear Eyes PERRL and EOMs intact bilaterally Cardio regular rate Rate: tachycardic GI normal to inspection, nondistended, normoactive bowel sounds Extremity normal to inspection Neuro oriented x3 and CN's II-XII intact bilaterally Sensorium / Orientation: awake and alert Psych mental status grossly normal Heart Score History: Slightly/Non-Suspicious ECG: Normal Age: >/= 65 years Risk Factors: >/= 3 Risk Factors or History of CAD Troponin: </= Normal Limit Score: 4 MDM MDM MDM Narrative Medical decision making narrative: Patient presenting with chest pain. EKG was performed and on my interpretation this is a normal sinus rhythm with a ventricular rate of 100 bpm without sign of ischemic change. There is voltage criteria for LVH. Differential includes but is not limited to ACS, PE, aortic dissection, pneumonia, costochondritis. Less likely to be aortic dissection she is not having ripping tearing pain. Is not rating to the back. She is hypertensive however. CBC to assess white blood cell count, hemoglobin, platelets, differential. BMP to assess renal function and electrolytes. Chest x-ray high-sensitivity troponin will be added as well. D-dimer as the patient is tachycardic I cannot use the PERC criteria. Patient is not anticoagulated. Patient does have lower extremity edema bilaterally. I will obtain a BNP as well due to her history of heart failure. She is now hypoxic in the mid 80s. She does not appear to be in distress. Patient was placed on oxygen. CBC does not show an elevated white blood cell count. Hemoglobin 10.7 today. Patient has a history of pancytopenia. Her platelets are also low today at 79. This was 82 in October. Patient's creatinine is normal however her sodium is slightly low at 130. This is also a chronic issue. Glucose 124 without anion gap. BNP is elevated at 499. Chest x-ray my interpretation shows findings of CHF with left lower effusion. Radiologist interpret this as bilateral infiltrates with left basilar consolidation. She has had this finding on multiple chest x-rays in the past. High-sensitivity troponin came back at 37 initially. D-dimer came back elevated at over 13. Patient will have a CTA of the chest. I will discuss her with the hospitalist for admission as she is hypoxic. Impression: 1. Chest pain 2. Hypoxia 3. Elevated D-dimer Lab Data Attestation: I reviewed the patient's lab results. Labs: Laboratory Results - last 24 hr 12/05/22 12/05/22 12/05/22 05:11 05:11 05:11 WBC 5.8 RBC 3.21 L Hgb 10.7 L Hct 31.9 L MCV 99.4 H MCH 33.3 H MCHC 33.5 RDW Std Deviation 58.3 H RDW Coeff of [place] 16.0 H Plt Count 79 L MPV 9.6 Immature Gran % (Auto) 0.700 Neut % (Auto) 54.5 Lymph % (Auto) 27.2 [place] % (Auto) 13.8 H Eos % (Auto) 3.3 Baso % (Auto) 0.5 Absolute Neuts (auto) 3.2 Absolute Lymphs (auto) 1.58 Nucleated RBC % 0 Sodium 130 L Potassium 3.9 Chloride 93 L Carbon Dioxide 27.0 Anion Gap 10 BUN 14 Creatinine 0.82 Estim Creat Clear Calc 45.68 Est GFR (MDRD) Af Amer 86 Est GFR (MDRD) Non-Af 71 BUN/Creatinine Ratio 17.1 Glucose 124 H Calcium 9.4 Troponin I High Sens 37 B-Natriuretic Peptide 499.8 H Radiography Diagnostic Testing: Clinical Impression(s) from Imaging Studies Chest X-Ray 12/05/22 04:58 IMPRESSION: Patchy bilateral airspace opacities as well as dense left basilar consolidation. Findings may indicate atelectasis or infection. Electronically Signed: Joo Quinonez MD at 5:31 EST , Discharge Plan Triage Chief Complaint: Chest Pain ED Provider: Jordan Jones Dx/Rx/DC Orders Prescriptions: No Action polyethylene glycol 3350 [Miralax] 17 gram/dose powder 17 g PO DAILY glimepiride 1 mg tablet 1 mg PO DAILY furosemide [Lasix] 40 mg tablet 20 mg PO DAILY atorvastatin 40 MG tablet 40 mg PO QHS famotidine 40 MG tablet 40 mg PO DAILY gabapentin 300 MG capsule 300 mg PO DAILY metoprolol tartrate 25 MG tablet 25 mg PO BID calcium citrate-vitamin D3 1 EACH tablet 1 ea PO DAILY multivitamin with folic acid 1 TABLET tablet 1 tab PO DAILY baclofen 5 MG tablet 5 mg PO DAILY oxycodone-acetaminophen 5-325 mg tablet 1 tab PO TID levothyroxine 137 mcg tablet 137 mcg PO DAILY Qty: 30 3RF Primary Care Provider: Kurtis Ross Chi Referrals: Kurtis Ross Chi, MD [Primary Care Provider] -
[2022-12-05 05:34] LABS: Absolute Lymphocyte Count 1.58 X10^3/uL (0.83-4.51); Absolute Neutrophil Count 3.2 X10^3/uL (2.0-7.7); Basophil# 0.03 X10^3/uL; Basophil% 0.5 % (0-1); Eosinophil# 0.19 X10^3/uL; Eosinophils% 3.3 % (0-5); Hematocrit 31.9 % (37-47); Hemoglobin 10.7 g/dL (12.0-15.0); Lymphocyte # 1.58 X10^3/ul (0.83-4.51); Lymphocyte % 27.2 % (19-41); Mean Corp Hgb Conc 33.5 g/dL (32-36); Mean Corpuscular Hgb 33.3 pg (27.0-32.0); Mean Corpuscular Volume 99.4 fL (81-99); Mean Platelet Vol. 9.6 fl (6.2-12.0); Monocyte% 13.8 % (0-10); NRBC Flagged by Analyzer 0 % (0-5); Neutrophil # 3.16 X10^3/uL (2.7-7.7); Neutrophil % 54.5 % (47-70); POSITIVE COUNT YES; Platelet Count 79 K/mm3 (150-450); RBC Distribution Width SD 58.3 fl (35.1-43.9); Red Blood Count 3.21 M/mm3 (4.2-5.4); White Blood Count 5.8 K/mm3 (4.4-11.0)
[2022-12-05] MEDS: Aspirin 81 MG TAB.CHEW 324 MG PO (05:40)
[2022-12-05 05:52] LABS: Anion Gap 10 (5-15); BUN 14 mg/dL (7-18); BUN/Creat Ratio 17.1 RATIO (10-20); Calcium,Total 9.4 mg/dL (8.5-10.1); Chloride 93 mmol/L (98-107); Creatinine, Serum 0.82 mg/dL (0.55-1.02); EST Glomerular Filtration Rate 71 mL/min (>60); Est Glom Filt Rate - Afr Amer 86 mL/min (>60); Estimated Creatinine Clearance 45.68 ml/min; Glucose 124 mg/dL (74-106); Potassium 3.9 mmol/L (3.5-5.1); Sodium Level 130 mmol/L (136-145); Troponin-I HS (w/2H Reflex) 37 pg/mL (3.0-54.0)
[2022-12-05 06:09] LABS: BNP,B-Type NATRIURETIC PEPTIDE 499.8 pg/mL (0-100)
--- NOTE | 2022-12-05 07:08 | CT_ITS ---
STUDY: CTA CHEST REASON FOR EXAM: Female, 82 years old. Chest pain. Shortness of breath. Hypoxia. History of breast cancer. RADIATION DOSAGE (If Supplied By Facility): CTDIvol = ( 8.34 ) mGy, DLP = ( 291.85 ) mGycm TECHNIQUE: The examination was performed with the intravenous administration of IV 75mL [id number]-370. Post-processing of the angiographic images was performed, with multiplanar reformation and 3D reconstruction. Individualized dose optimization techniques were used for this CT. COMPARISON: Comparison is made with prior study date 06/17/2021. FINDINGS: Normal enhancement of the main pulmonary artery and right and left pulmonary arteries. Normal enhancement of the bilateral peripheral pulmonary arteries. There is no demonstrated pulmonary embolism. There is atherosclerotic calcification of the aortic arch with tortuosity. There is no demonstrated aortic dissection. There are calcifications of the coronary arteries. Small pericardial effusion. Normal mediastinum. Normal hilar regions. Normal visualized trachea and bronchi. Loss of volume in the left hemithorax. Consolidation in the left lower lobe. Moderate size left pleural effusion. Tiny right pleural effusion. Patchy increased markings in the anterior aspect of the left upper lobe as well as in the right upper lobe. Normal chest wall structures. There are degenerative changes of thoracic spine. Kyphotic deformity in the lower thoracic spine with almost complete collapse of the T10 vertebrae and prior vertebroplasty. Normal visualized upper abdomen. CT/CTA Chest W/WO Contrast IMPRESSION: No evidence of pulmonary embolism. Bilateral pleural effusions left greater than right with a left lower lobe consolidation and patchy infiltrates in both lungs as described. This is superimposed on scarring. Small pericardial effusion. Electronically Signed: Micheal Guardado MD at 8:29 EST ,
--- NOTE | 2022-12-05 07:24 | NURSING ---
DR WHITAKER FOR DR GARCIA
--- NOTE | 2022-12-05 07:24 | NURSING ---
MED SURG JULIANNE CHEST PAIN, HYPOXIA
[2022-12-05 07:29] LABS: Reflex Troponin-HS? (from REC) Y
--- NOTE | 2022-12-05 07:30 | HP.PCM.HOS_ITS ---
HPI - General General Date of Admission: 12/05/22 Date of Service: 12/05/22 Chief Complaint: Chest pain HPI Narrative TORY LY, is a 82 F who presented to the emergency department was coming hospital on 12/05/2022 after she was awakened at 2:57 AM with substernal chest pressure. It has since resolved. She denied any associated shortness of breath, nausea, vomiting or diaphoresis. She reported she never had this before. And has no other complaints. She states she has chronic leg swelling but feels that her legs are not any more swollen than they typically are. She states she tries to watch her fluid intake and salt content in her diet. She lives alone but has a daughter that checks on her frequently. Her cardiac history includes mitral valve stenosis with insufficiency, aortic valve stenosis with insufficiency and heart failure with preserved ejection fraction. Upon presentation the emergency department she was found to be hypoxic with oxygen saturations 87% on room air. Temperature was 97.6, heart rate has been anywhere from 95-109, blood pressure 164/114 and respiratory rate is any been anywhere from 17-29. CBC shows normal white count with chronic stable anemia with a hemoglobin of 10.7 and a thrombocytopenia that is chronic and stable at 79,000. Chemistry panel shows hyponatremia and hypochloremia at 11/13/1992 respectively. Renal function is normal. Troponin was 37 and her BNP was 499.8. A D-dimer was obtained with her hypoxia and chest pressure and was found to be 13.50. A CTA of her chest is pending. Chest x-ray shows patchy airspace consolidation/opacities as well as a left basilar consolidation. EKG shows mild sinus tachycardia with heart rate 100, intervals are normal, no ST-T wave changes consistent with acute ischemia. [facility] Medical History (HFpEF) heart failure with preserved ejection fraction Acid reflux Anemia, unspecified Arthritis Bacteremia due to Gram-negative bacteria Bilateral lower extremity edema Breast cancer Cancer Cataracts, bilateral Chronic headaches DDD (degenerative disc disease), lumbar Diabetes Elevated troponin (06/2021) Essential hypertension H/O transfusion of whole blood History of type 1 diabetes mellitus Hypercholesterolemia Hyperlipidemia Hypothyroidism Kidney disease Lower extremity edema Lymphedema Nonrheumatic mitral valve stenosis with insufficiency NSTEMI, initial episode of care Pancytopenia Segmental and somatic dysfunction of lumbar region Segmental and somatic dysfunction of pelvic region Segmental and somatic dysfunction of thoracic region Spinal stenosis Thrombocytopenia Thyroid disease Home Medications atorvastatin 40 mg tablet 40 mg PO QHS cholesterol 07/05/19 [History Last Taken Unknown] baclofen 5 mg tablet 5 mg PO DAILY muscle spasms 07/05/19 [History Last Taken Unknown] calcium citrate 315 mg calcium-vitamin D3 6.25 mcg (250 unit) tablet 1 ea PO DAILY vitamin 07/05/19 [History Last Taken Unknown] famotidine 40 mg tablet 40 mg PO DAILY gerd 07/05/19 [History Last Taken 08/26/19] gabapentin 300 mg capsule 300 mg PO DAILY neuropathy 07/05/19 [History Last T aken Unknown] metoprolol tartrate 25 mg tablet 25 mg PO BID heart rate 07/05/19 [History Last Taken 08/26/19] multivitamin with folic acid 400 mcg tablet 1 tab PO DAILY vitamin 07/05/19 [History Last Taken Unknown] oxycodone-acetaminophen 5 mg-325 mg tablet 1 tab PO TID back pain 12/02/19 [History Last Taken Unknown] polyethylene glycol 3350 17 gram/dose oral powder (Miralax) 17 g PO DAILY stool softener 05/03/20 [History Last Taken Unknown] levothyroxine 137 mcg tablet 137 mcg PO DAILY #30 tabs 08/14/22 [Rx Last Taken Unknown] furosemide 40 mg tablet (Lasix) 20 mg PO DAILY 09/12/22 [History Last Taken Unknown] glimepiride 1 mg tablet 1 mg PO DAILY 09/12/22 [History Last Taken Unknown] Allergy/AdvReac Type Severity Reaction Status Date / Time piperacillin [From Zosyn] AdvReac Mild malaise, Verified 12/05/22 05:00 myalgias tazobactam [From Zosyn] AdvReac Mild malaise, Verified 12/05/22 05:00 myalgias Family History Grandfather CVA (cerebral vascular accident) Mother Hypertension Breast cancer Father Diabetes Heart disease Brother CVA (cerebral vascular accident) Diabetes Dementia Surgical History H/O mastectomy H/O tubal ligation History of cataract surgery History of hysterectomy Hx of section Hx of cholecystectomy Hx of colonoscopy Social History household members: none Smoking Status: Former smoker second hand exposure: No alcohol intake: never substance use type: does not use caffeine: Yes what type of physical activity do you participate in: none frequency: does not exercise ROS Constitutional Constitutional: Denies anorexia, change in weight, chills, fatigue, fever(s), malaise, night sweats, weakness or other Eyes Eyes: Denies blurry vision, change in eye color, change in vision, discharge from eye(s), double vision, erythema, eye pain, loss of vision or other ENT HEENT: Denies abnormal hearing, dysphagia, ear pain, epistaxis, headache(s), hearing loss, nasal congestion, nasal discharge, post nasal drip, sinus pressure, sore throat or other Cardiovascular Cardiovascular: Reports chest pain, edema and other Details: Substernal chest pressure ; Denies claudication, dyspnea on exertion, lightheadedness, orthopnea, palpitat ions, paroxysmal nocturnal dyspnea, rapid heart rate or syncope Respiratory/Chest Respiratory/Chest: Denies cough, dyspnea, excessive phlegm production, hemoptysis, productive cough, shortness of breath at rest, shortness of breath with exertion, wheezing or other Gastrointestinal Gastrointestinal: Denies abdominal pain, coffee ground emesis, constipation, diarrhea, dyspepsia, hematemesis, hematochezia, loose stools, melena, nausea, vomiting or other Genitourinary Genitourinary: Denies burning urination, difficulty urinating, dysuria, hematuria, nocturia, urinary frequency, urinary hesitancy, urinary incontinence, urinary urgency or other Musculoskeletal Musculoskeletal: Reports back pain, joint pain and joint stiffness; Denies arthralgias, joint swelling, myalgias, neck pain or other Neurologic Neurologic: Denies abnormal gait, abnormal speech, confusion, disequilibrium, dizziness, focal weakness, headache(s), numbness, paresthesias, seizure-like activity, seizures, syncope, tingling, tremor(s) or other Psychiatric Psychiatric: Denies anxiety, depression, homicidal ideation, suicidal ideation or other Endocrine Endocrinology: Denies change in body appearance, cold intolerance, excessive sweating, heat intolerance, polydipsia, polyuria or other Hematologic/Lymphatic Hematologic/Lymphatic: Denies anemia, easy bleeding, easy bruising, lymphadenopathy or other Allergic/Immunologic Allergic/Immunologic: Denies rhinitis, hives, eczemia, asthma or other Vital Signs Vital Signs Vital Signs: 12/05/22 04:57 12/05/22 05:00 12/05/22 05:02 Temperature 97.6 F L Temperature Source Temporal Pulse Rate 101 H Respiratory Rate 17 Respiratory Effort Normal Respiratory Pattern Normal Blood Pressure 164/114 H Blood Pressure Mean 130 Pulse Ox 92 Oxygen Delivery Method Room Air Room Air Oxygen Flow Rate (L/min) 12/05/22 05:13 12/05/22 05:13 12/05/22 06:50 Temperature Temperature Source Pulse Rate 95 Respiratory Rate 17 Respiratory Effort Respiratory Pattern Blood Pressure 166/80 H Blood Pressure Mean 108 Pulse Ox 87 96 95 Oxygen Delivery Method Room Air Nasal Cannula Nasal Cannula Oxygen Flow Rate (L/min) 2 12/05/22 07:20 Temperature Temperature Source Pulse Rate 109 H Respiratory Rate 29 H Respiratory Effort Respiratory Pattern Blood Pressure 163/77 H Blood Pressure Mean 105 Pulse Ox Oxygen Delivery Method Oxygen Flow Rate (L/min) Weight Weight: 66.9 kg Body Mass Index (BMI) 25.3 Physical Exam Const alert, oriented x3, no apparent distress, average body habitus and well nourished Constitutional Narrative: Elderly white female sitting up in bed, appears comfortable, nontoxic, currently requiring 2 L of supplemental oxygen maintain sats greater than 88%. General Appearance: cooperative HEENT normocephalic, head/scalp atraumatic and moist oral mucous membranes; Negative for hearing grossly normal bilaterally HEENT Narrative: Dentures in place, Mallampati 2, no thrush, mild to moderate hearing loss Eyes PERRL, EOMs intact bilaterally and conjunctivae normal Eyes Narrative: No scleral icterus Neck no lymphadenopathy, supple, No no JVD and no carotid bruits Neck Narrative: Acute midline, no thyroid enlargement, +JVD Resp No normal respiratory effort, no retractions and no use of accessory muscles Resp Narrative: Diffuse scattered crackles, mild tachypnea, no signs of extremis Auscultation: crackles; Negative for rhonchi or wheezes Cardio regular rhythm, S1 normal heart sound, S2 normal heart sound, no murmurs, no rub, no gallops and no clicks Cardio Narrative: Mild tachycardia GI normal to inspection, nondistended, normoactive bowel sounds, soft to palpation and non-tender Extremity Extremity Narrative: 2-3+ pitting edema bilateral lower extremities, no cyanosis or clubbing Skin no wounds, skin turgor normal, no jaundice, no petechiae and no mottling Skin Narrative: Small pencil eraser sized wound on the lateral aspect of her left distal lower extremity Neuro oriented x3, CN's II-XII intact bilaterally, moves all extremities and no focal motor deficits Neuro Narrative: General weakness noted Sensorium / Orientation: awake, alert, oriented to person, oriented to place and oriented to time Speech: speech normal Psych affect normal Psych Narrative: Very pleasant, appropriately interactive Results Lab / Micro Data Attestation: I reviewed the patient's lab results. Result Diagrams: 12/05/22 05:11 12/05/22 05:11 Labs: Laboratory Results - last 24 hr 12/05/22 05:11: WBC 5.8, RBC 3.21 L, Hgb 10.7 L, Hct 31.9 L, MCV 99.4 H, MCH 33.3 H, MCHC 33.5, RDW Std Deviation 58.3 H, RDW Coeff of [place] 16.0 H, Plt Count 79 L, MPV 9.6, Immature Gran % (Auto) 0.700, Neut % (Auto) 54.5, Lymph % (Auto) 27.2, Dukes % (Auto) 13.8 H, Eos % (Auto) 3.3, Baso % (Auto) 0.5, Absolute Neuts (auto) 3.2, Absolute Lymphs (auto) 1.58, Nucleated RBC % 0 12/05/22 05:11: Sodium 130 L, Potassium 3.9, Chloride 93 L, Carbon Dioxide 27.0, Anion Gap 10, BUN 14, Creatinine 0.82, Estim Creat Clear Calc 45.68, Est GFR (MDRD) Af Amer 86, Est GFR (MDRD) Non-Af 71, BUN/Creatinine Ratio 17.1, Glucose 124 H, Calcium 9.4, Troponin I High Sens 37 12/05/22 05:11: B-Natriuretic Peptide 499.8 H Micro: Microbiology 12/05/22 05:58 Nasal Secretion SARS-CoV-2 & FLU Antigen (Rapid) - Final Radiology Impression Chest X-Ray 12/05/22 04:58 IMPRESSION: Patchy bilateral airspace opacities as well as dense left basilar consolidation. Findings may indicate atelectasis or infection. Electronically Signed: Joo Quinonez MD at 5:31 EST , Assessment & Plan Assessment/Plan (1) Hypoxia: (2) Acute diastolic CHF (congestive heart failure): (3) Elevated d-dimer: (4) Tachycardia: (5) Hyponatremia: (6) Lower extremity edema: PLAN: Plan Acute hypoxia secondary to acute exacerbation of HFpEF/+-Acute PE -D-dimer elevated -CT of the chest is pending -Cycle cardiac enzymes -Start Bumex 1mg IV push twice daily -Daily weights -1500 cc fluid restriction -Salt restricted diet -Check echocardiogram -Last echo demonstrates EF of 53% with a moderately enlarged left atrium small pericardial effusion, moderate mitral annular calcification, pulmonary artery systolic pressure 45 mmHg (05/31/2022) -If CTA is negative we will check bilateral lower extremity Dopplers with D- dimer being that elevated -Patient with chronic edema -If requires initiation of anticoagulation will start heparin and have oncology see her as she is chronically anemic and thrombocytopenic -I do not see that a work-up of this is ever been pursued Bilateral lower extremity edema -Patient reports this is chronic -Diuretics as above -With D-dimer elevation if CT is negative we will check bilateral lower extremity Dopplers Hyponatremia/hypochloremia -Appears to be chronic however slightly lower than baseline of 132-137 -Monitor closely with diuresis -Overall improved with diuretics if it is hypervolemic Tachycardia -Continue home metoprolol -Work-up as above -Labetalol 10 mg IV push x1 dose given the emergency department -Check TSH Elevated D-dimer -As above Anemia/thrombocytopenia -Chronic -Check peripheral smear -Check guaiac -Check iron studies -Counts are stable at this point -Does not appear that previous work-up has been pursued -If patient needs full anticoagulation will have hematology weigh in as her platelets are below 100,000 -Repeat CBC in a.m. HTN/HPL/valvular disease/HFpEF -Continue home atorvastatin -Continue home metoprolol -Hold home furosemide 20 mg daily DM-2 -Hold home glimepiride -Sliding scale insulin Accu-Cheks as ordered -Check hemoglobin A1c Hypothyroidism -Continue home levothyroxine -Check TSH Diabetic neuropathy -Continue home gabapentin GERD -Continue home famotidine -Chronic pain -Continue oxycodone -Continue home baclofen Constipation -Continue home MiraLAX daily History of breast cancer -In remission DVT prophylaxis -Lovenox CODE STATUS -DNR CCA with no intubation per discussion prior to admission Charges/Coding Visit Charges Inpatient E&M: 98774 Init Hosp L3
[2022-12-05] MEDS: Furosemide 40 MG/4 ML Vial IV (07:43)
[2022-12-05] MEDS: oxyCODONE 5 MG Tablet PO (09:04)
[2022-12-05 09:43] LABS: Ferritin 245 ng/mL (8-252); Iron 78 ug/dL (50-170); Iron Binding Capacity,Total 239 ug/dL (250-450); PERCENT IRON SATURATION 32.6 % (15.0-55.0); Troponin-I HS 49 pg/mL (3.0-54.0)
[2022-12-05 09:45] LABS: Hemoglobin A1c 6.4 % (3.8-5.6)
--- NOTE | 2022-12-05 09:56 | ECHOD_ITS ---
Reason For Study: CHF Procedure This was a 2D Doppler, Color Flow transthoracic echocardiogram. The study was technically difficult. Exam performed portable in patient room. Left Ventricle Normal LV size. Left ventricular systolic function is normal. The estimated ejection fraction is 55 %. Stage 2 diastolic dysfunction. Right Ventricle Normal RV size. Normal systolic function. Atria The left atrium is moderately enlarged. Normal right atrium. Agitated saline contrast study considered faintly positive for a right to left interatrial shunt potentially compatible with a small PFO. Mitral Valve There is moderate mitral annular calcification. Extension of the mitral annular calcification onto the base of the posterior mitral valve leaflet. Severe diffuse mitral valve thickening. The mitral valve chordae are thickened and/or calcified. Moderate mitral valve stenosis. Moderate (2+) eccentric mitral valve insufficiency. Tricuspid Valve Normal tricuspid valve. Mild tricuspid valve insufficiency. Right ventricular systolic pressure estimated to be 53 mmHg. Aortic Valve Trisinus/trileaflet aortic valve. Moderate diffuse aortic valve thickening. Moderate diffuse aortic valve calcification. Moderate aortic stenosis. Pulmonic Valve The pulmonic valve is not well visualized. Mild (1+) pulmonic valve insufficiency. Great Vessels Calcified aortic root. Pericardium/Pleural Small pericardial effusion. There are no echocardiographic indications of cardiac tamponade. Echolucency compatible with a pleural effusion. Medication Performed a rapid injection of agitated mix of 9 cc saline and 1cc air to assess for atrial septal defect. MMode/2D Measurements & Calculations LVIDd: 4.5 cm IVSd: 1.2 cm LVOT diam: 2.0 cm LVIDs: 3.4 cm LVPWd: 1.1 cm RVDd: 4.1 cm FS: 25.2 % LVOT area: 3.3 cm2 LA dimension: 5.1 cm LAV(MOD-sp4): 100.3 ml Aortic Valve Planimetry: 0.85 cm2 LA A4 area: 28.3 cm2 RA A4 area: 18.2 cm2 Doppler Measurements & Calculations MV E max mack: 224.4 cm/sec Lat Peak E' Mack: 8.8 cm/sec Med Peak E' Mack: 6.3 cm/sec MV A max mack: 191.3 cm/sec E/E' lat: 25.6 E/E' med: 35.9 MV E/A: 1.2 MV V2 max: 233.4 cm/sec MV P1/2t max mack: 216.9 cm/sec Ao V2 max: 286.2 cm/sec MV max P.8 mmHg MV P1/2t: 57.9 msec Ao max P.8 mmHg MV V2 mean: 175.8 cm/sec MV dec slope: 1096 cm/sec2 Ao V2 mean: 196.4 cm/sec MV mean P.5 mmHg Ao mean P.5 mmHg MV V2 VTI: 48.5 cm MVA(P1/2t): 3.8 cm2 Ao V2 VTI: 58.3 cm MVA(VTI): 1.5 cm2 AV (velocity ratio): 0.38 CHELITA(I,D): 1.3 cm2 CHELITA(V,D): 1.2 cm2 LV V1 max: 104.6 cm/sec MR max mack: 597.3 cm/sec SV(LVOT): 73.8 ml LV V1 max P.4 mmHg MR max P.7 mmHg LV V1 mean P.4 mmHg MR mean mack: 427.3 cm/sec LV V1 mean: 72.4 cm/sec MR mean P.7 mmHg LV V1 VTI: 22.4 cm MR VTI: 166.2 cm PA V2 max: 126.8 cm/sec TR max mack: 354.1 cm/sec PI dec slope: 383.5 cm/sec2 TR max P.1 mmHg ECHO/Echo Complete Interpretation Summary The study was technically difficult. Left ventricular systolic function is normal. The estimated ejection fraction is 55 %. The left atrium is moderately enlarged. There is moderate mitral annular calcification. Extension of the mitral annular calcification onto the base of the posterior mi tral valve leaflet. Severe diffuse mitral valve thickening. The mitral valve chordae are thickened and/or calcified. Moderate mitral valve stenosis. Moderate (2+) eccentric mitral valve insufficiency. Mild tricuspid valve insufficiency. Moderate aortic stenosis. Mild (1+) pulmonic valve insufficiency. Calcified aortic root. Small pericardial effusion. There are no echocardiographic indications of cardiac tamponade. Echolucency compatible with a pleural effusion. Right ventricular systolic pressure estimated to be 53 mmHg. Stage 2 diastolic dysfunction. Agitated saline contrast study considered faintly positive for a right to left interatrial shunt potentially compatible with a small PFO. Ordering Physician: Cyndi Andrade Referring Physician: Kurtis Ross Chi Performed By: Brodwolf, Ruddy, RCS
--- NOTE | 2022-12-05 10:06 | VDLE_ITS ---
Reason For Study: Elevated D-dimer RIGHT LEFT GSV is normal. GSV is normal. CFV is compressible, spontaneous, phasic, CFV is compressible, spontaneous, phasic, competent and demonstrates normal competent, and demonstrates normal augmentation. augmentation. FV is compressible, spontaneous, phasic, FV is compressible, spontaneous, phasic, competent and demonstrates normal competent and demonstrates normal augmentation. augmentation. POP V is compressible, spontaneous, phasic, POP V is compressible, spontaneous, phasic, competent and demonstrates normal competent and demonstrates normal augmentation. augmentation. T/P Trunk is compressible. T/P Trunk is compressible. PTV is compressible. PTV is compressible. RT PerV is compressible. LT PerV is compressible. Procedure This is a venous duplex using B-mode, color flow and spectral Doppler. Exam performed portable in patient room. A preliminary report was called and/or faxed to PCU application dba. VL/Venous Duplex US - Brad Extrem Interpretation Summary Deep veins of the bilateral lower extremities are patent and compressible segme ntally. There is no evidence of bilateral lower extremity deep vein thrombosis. The bilateral great saphenous veins appear patent and compressible segmentally. Ordering Physician: Cyndi Andrade Referring Physician: Kurtis Ross Chi Performed By: Maira Westbrook RVT
[2022-12-05 10:46] LABS: Bedside Glucose 151 mg/dL (74-106)
[2022-12-05] MEDS: Labetalol (Prefilled) 20 MG/4 ML 10 MG IV (12:01)
[2022-12-05] MEDS: Enoxaparin 40 MG/0.4 ML Syringe SC (12:02)
[2022-12-05] MEDS: Baclofen 10 MG Tablet 5 MG PO (12:03)
[2022-12-05] MEDS: Bumetanide 1 MG/4 ML Vial IV ×2 (12:03→18:29)
[2022-12-05] MEDS: Levothyroxine 137 MCG Tablet PO (12:03)
[2022-12-05] MEDS: Gabapentin 300 MG Capsule PO (12:04)
[2022-12-05] MEDS: Famotidine 20 MG Tablet 40 MG PO (12:04)
[2022-12-05] MEDS: Metoprolol Tartrate 25 MG Tablet PO ×2 (12:05→22:00)
[2022-12-05] MEDS: 0.9% Saline Lock 10 ML Syringe IV ×2 (12:18→18:29)
[2022-12-05 12:31] LABS: Troponin-I HS 63 pg/mL (3.0-54.0)
[2022-12-05] MEDS: Isosorbide Mononitrate 30 MG Tablet PO (13:40)
[2022-12-05] MEDS: Insulin Lispro 100 UNIT/ML INSULN.PEN SC (16:17)
[2022-12-05 16:40] LABS: Bedside Glucose 195 mg/dL (74-106)
[2022-12-05] MEDS: oxyCODONE 5 MG Tablet 2.5 MG PO (18:34)
[2022-12-05] MEDS: Atorvastatin Calcium 40 MG Tablet PO (22:00)
[2022-12-05 22:56] LABS: Bedside Glucose 171 mg/dL (74-106)
[2022-12-06] VITALS (9 sets, daily range): BP systolic 98–134; BP diastolic 48–62; PULSE 85–89; RESP 18–20; TEMP 36.7–36.8; O2SAT 91–100
[2022-12-06] MEDS: oxyCODONE 5 MG Tablet 2.5 MG PO ×3 (03:27→21:18)
[2022-12-06] MEDS: Levothyroxine 137 MCG Tablet PO (05:11)
[2022-12-06 06:39] LABS: Absolute Lymphocyte Count 1.18 X10^3/uL (0.83-4.51); Absolute Neutrophil Count 3.7 X10^3/uL (2.0-7.7); Basophil# 0.03 X10^3/uL; Basophil% 0.5 % (0-1); Eosinophil# 0.15 X10^3/uL; Eosinophils% 2.7 % (0-5); Hematocrit 26.3 % (37-47); Hemoglobin 8.7 g/dL (12.0-15.0); Lymphocyte # 1.18 X10^3/ul (0.83-4.51); Lymphocyte % 20.8 % (19-41); Mean Corp Hgb Conc 33.1 g/dL (32-36); Mean Corpuscular Hgb 33.3 pg (27.0-32.0); Mean Corpuscular Volume 100.8 fL (81-99); Mean Platelet Vol. 9.3 fl (6.2-12.0); Monocyte# 0.61 X10^3/uL; Monocyte% 10.8 % (0-10); NRBC Flagged by Analyzer 0 % (0-5); Neutrophil # 3.67 X10^3/uL (2.7-7.7); Neutrophil % 64.8 % (47-70); POSITIVE COUNT YES; Platelet Count 74 K/mm3 (150-450); RBC Distribution Width CV 17.2 % (11.6-14.6); RBC Distribution Width SD 62.9 fl (35.1-43.9); Red Blood Count 2.61 M/mm3 (4.2-5.4); White Blood Count 5.7 K/mm3 (4.4-11.0)
[2022-12-06 07:06] LABS: Bedside Glucose 130 mg/dL (74-106)
[2022-12-06 07:26] LABS: ALB/GLOB Ratio 0.7 RATIO (0.9-2.4); AST(SGOT) 37 U/L (15-37); Alanine Aminotransfer ALT/SGPT 15 U/L (13-56); Albumin, Serum 2.5 g/dL (3.2-5.0); Alkaline Phosphatase 74 U/L (45-117); Anion Gap 8 (5-15); BUN 17 mg/dL (7-18); BUN/Creat Ratio 16.3 RATIO (10-20); Calcium,Total 8.2 mg/dL (8.5-10.1); Chloride 92 mmol/L (98-107); Creatinine, Serum 1.04 mg/dL (0.55-1.02); EST Glomerular Filtration Rate 54 mL/min (>60); Est Glom Filt Rate - Afr Amer 65 mL/min (>60); Estimated Creatinine Clearance 36.01 ml/min; Globulin 3.4 g/dL (2.2-4.2); Glucose 128 mg/dL (74-106); Magnesium 1.3 mg/dL (1.6-2.6); Potassium 4.3 mmol/L (3.5-5.1); Protein, Total 5.9 g/dL (6.4-8.2); Sodium Level 128 mmol/L (136-145); Thyroid Stim Hormone (TSH) 1.25 uIU/mL (0.358-3.74)
[2022-12-06] MEDS: 0.9% Saline Lock 10 ML Syringe IV ×3 (08:35→14:46)
--- NOTE | 2022-12-06 08:52 | NURSING ---
Right hand peripheral IV taken out. Once IV out large hematoma formed. Applied pressure for [address] Andrade. Bleeding stopped,hematoma flat, ecchymosis noted. Bandaged with 2x2 and tape. Will continue to monitor.
[2022-12-06] MEDS: Isosorbide Mononitrate 30 MG Tablet PO (09:14)
[2022-12-06] MEDS: Famotidine 20 MG Tablet 40 MG PO (09:14)
[2022-12-06] MEDS: Multivitamins,Therapeutic Tablet 1 TABLET PO (09:14)
[2022-12-06] MEDS: Baclofen 10 MG Tablet 5 MG PO (09:15)
[2022-12-06] MEDS: Polyethylene Glycol 3350 17 GM PACKET PO (09:16)
[2022-12-06] MEDS: Metoprolol Tartrate 25 MG Tablet PO ×2 (09:17→21:18)
[2022-12-06] MEDS: Calcium Carb/Vitamin D 1 TABLET Tablet PO (09:17)
[2022-12-06] MEDS: Enoxaparin 40 MG/0.4 ML Syringe SC (09:18)
[2022-12-06] MEDS: Furosemide 20 MG Tablet PO ×2 (09:21→18:18)
[2022-12-06] MEDS: Gabapentin 300 MG Capsule PO (09:22)
--- NOTE | 2022-12-06 10:25 | CASEMGMT ---
RN MELVA Face to Face with patient for initial transition planning/care coordination assessment. RN CM introduced self and role at [facility]. Patient lying in bed, alert and oriented, daughter at bedside. Patient willing to participate in assessment and is able to answer all questions appropriately. Care providers, pharmacy, and demographics verified. Patient wishes to discharge home but willing to go to SNF if recommended by therapy, will monitor progress with therapy. Patient states she has no further needs or concerns at this time. CM to follow for discharge planning needs that may arise. PCP: Cody Specialists: Sowmya, electronic pagination system operator; King director mortgage Preferred Pharmacy: [facility] Insurance: [employer], [employer] Prescription Benefit: yes Living Will/HPOA: yes, daughter Chloe Britt LNOK: daughter Living Arrangements: Patient lives alone in 2 story home with bed and bath on the first floor, 2 steps and railing to enter the home. Patient states she is independent at home. Transportation: daughter DME/HHC: Patient states she has shower chair, raised toilet, cane, walker, grab bars, and walker at home. Patient prefers [employer] for DME, will monitor for home oxygen. Patient has had [facility] in the past. Patient has been to [facility] in the past. Disposition Plan: TBD, anticipate HHC vs SNF pending progress with therapy. Maira STEVENS, RN, CM
--- NOTE | 2022-12-06 10:28 | NURSING ---
Patient right hand bruised. Dressing intact, dry, clean. Bleeding has stopped. Will continue to monitor.
--- NOTE | 2022-12-06 10:33 | NURSING ---
Titrated patient down to 1L NC per doctors orders. Will continue to titrate down if patient O2 levels remain stable.
[2022-12-06] MEDS: Magnesium Sulfate 4gm/100mL 4 GM/100 ML IV.SOLN. IV (10:46)
[2022-12-06] MEDS: Acetaminophen 325 MG Tablet 650 MG PO ×2 (10:49→21:18)
[2022-12-06 11:35] LABS: Bedside Glucose 185 mg/dL (74-106)
[2022-12-06] MEDS: Furosemide 20 MG/2 ML VIAL IV (11:40)
[2022-12-06] MEDS: Insulin Lispro 100 UNIT/ML INSULN.PEN SC ×2 (11:40→16:32)
[2022-12-06 13:26] LABS: Pathologist Review Reviewed
--- NOTE | 2022-12-06 13:40 | NURSING ---
Patient off nasal cannula, currently sating at 92% on room air.
--- NOTE | 2022-12-06 14:41 | PCM.PN.HOSP ---
Reason for Visit Reason for Visit: chest discomfort Subjective Subjective Patient states she is feeling better today. No chest discomfort overnight. Has been -1180 cc since admission. Lower extremity edema is felt to be improved and hypoxia is resolving. Daughter is at bedside and states that her Lasix had been cut at [address] Ross. Her daughter had her take it but at half the dose and she feels her mother was likely not taking it on a regular basis causing the increase in fluid collection. Objective Data Objective Data Vital Signs: Vital Signs Temp Pulse Resp BP Pulse Ox O2 Del Method O2 Flow Rate 98.2 F 88 20 H 134/62 H 97 Room Air 1 12/06/22 08:58 12/06/22 09:17 12/06/22 08:58 12/06/22 09:17 12/06/22 11:41 12/06/22 11:41 12/06/22 09:30 Oxygen Flow Rate (L/min) 1 Oxygen Delivery Method Room Air Weight: 62.7 kg Body Mass Index (BMI) 23.7 Intake & Output: Intake and Output for Last 24 Hours 12/04/22 12/05/22 12/06/22 23:59 23:59 23:59 Intake Total 480 / 480 502.92 / 502.92 Output Total 1700 / 1700 750 / 750 Balance -1220 / -1220 -247.08 / -247.08 Lab / Micro Data Result Diagrams: 12/06/22 05:39 12/06/22 05:39 Labs: Laboratory Results - last 24 hr 12/05/22 05:11: Diff Path Review Reviewed 12/05/22 16:17: POC Glucose 195 H 12/05/22 21:50: POC Glucose 171 H 12/06/22 05:39: WBC 5.7, RBC 2.61 L, Hgb 8.7 L, Hct 26.3 L, MCV 100.8 H, MCH 33.3 H, MCHC 33.1, RDW Std Deviation 62.9 H, RDW Coeff of [place] 17.2 H, Plt Count 74 L, MPV 9.3, Immature Gran % (Auto) 0.400, Neut % (Auto) 64.8, Lymph % (Auto) 20.8, [place] % (Auto) 10.8 H, Eos % (Auto) 2.7, Baso % (Auto) 0.5, Absolute Neuts (auto) 3.7, Absolute Lymphs (auto) 1.18, Nucleated RBC % 0 12/06/22 05:39: Sodium 128 L, Potassium 4.3, Chloride 92 L, Carbon Dioxide 28.0, Anion Gap 8, BUN 17, Creatinine 1.04 H, Estim Creat Clear Calc 36.01, Est GFR (MDRD) Af Amer 65, Est GFR (MDRD) Non-Af 54 L, BUN/Creatinine Ratio 16.3, Glucose 128 H, Calcium 8.2 L, Phosphorus 4.0, Magnesium 1.3 L, Total Bilirubin 1.10 H, AST 37, ALT 15, Alkaline Phosphatase 74, Total Protein 5.9 L, Albumin 2.5 L, Globulin 3.4, Albumin/Globulin Ratio 0.7 L, TSH 1.25 12/06/22 06:30: POC Glucose 130 H 12/06/22 11:16: POC Glucose 185 H Micro: Microbiology 12/05/22 05:58 Nasal Secretion SARS-CoV-2 & FLU Antigen (Rapid) - Final Physical Exam Const alert, oriented x3, no apparent distress, average body habitus and well nourished Constitutional Narrative: Elderly white female sitting up in bed, daughter at bedside, appears comfortable, nontoxic, at the time my evaluation her oxygen had been weaned to 1 L General Appearance: cooperative HEENT normocephalic, head/scalp atraumatic and moist oral mucous membranes; Negative for hearing grossly normal bilaterally Resp normal respiratory effort, no retractions and no use of accessory muscles Resp Narrative: No tachypnea, very few scattered crackles-much improved Auscultation: crackles; Negative for rhonchi or wheezes Cardio regular rate, regular rhythm, S1 normal heart sound, S2 normal heart sound, no murmurs, no rub, no gallops and no clicks GI normal to inspection, nondistended, normoactive bowel sounds, soft to palpation and non-tender Extremity Extremity Narrative: 1+ pitting edema bilateral lower extremities, no cyanosis or clubbing Neuro oriented x3, moves all extremities and no focal motor deficits Neuro Narrative: General weakness noted Speech: speech normal Psych affect normal Psych Narrative: Very pleasant, appropriately interactive Assessment & Plan Assessment/Plan (1) Hypoxia: (2) Acute diastolic CHF (congestive heart failure): (3) Elevated d-dimer: (4) Tachycardia: (5) Hyponatremia: (6) Lower extremity edema: PLAN: Plan Acute hypoxia secondary to acute exacerbation of HFpEF/+-Acute PE -Required 2 L supplemental oxygen on admission to maintain sats greater than 88% -Oxygen has since been weaned to off and sats are currently 97% on room air -D-dimer elevated -CT of the chest was negative for pulmonary embolism but does show bilateral pleural effusions left greater than right with left lower lobe consolidation and atelectasis, small pericardial effusion -Cardiac enzymes did slightly trend up however I suspect this is likely related to her heart failure -No wall motion noted on echocardiogram -Will repeat Trop in a.m. -Transition back to oral Lasix 20 mg p.o. twice daily with 1 dose IV again today at 20 mg -Daily weights -1500 cc fluid restriction -Salt restricted diet -Echocardiogram performed and shows not much change since her previous echocardiogram--> EF is 55% with moderately enlarged LA, severe diffuse mitral valve thickening, moderate mitral valve stenosis, moderate aortic valve stenosis, stage II diastolic dysfunction, right ventricular systolic pressures of 53 mmHg and a positive left to right shunt suspicious for PFO -Lower extremity Dopplers were negative -We will refer patient for outpatient cardiology follow-up after discharge Bilateral lower extremity edema -Patient reports this is chronic -Diuretics as above -Negative lower extremity Dopplers Hyponatremia/hypochloremia -Appears to be chronic however slightly lower than baseline of 132-137 -Monitor closely with diuresis -Slight trend down -Repeat BMP in a.m. Mitral valve/aortic valve stenosis -Moderate -Refer to cardiology at discharge Hypophosphatemia -IV Phos replacement ordered -Check a.m. Phos level Tachycardia -Resolved -Continue home metoprolol -Likely related to acute decompensation on presentation Elevated D-dimer -As above -CTA and lower extremity Dopplers are negative Anemia/thrombocytopenia -Chronic -Peripheral smear is pending -Guaiac pending -Iron studies are more consistent with anemia of chronic disease -Counts remain stable -Repeat CBC in a.m. -Consider outpatient hematology referral HTN/HPL/valvular disease/HFpEF -Continue home atorvastatin -Continue home metoprolol -Hold home furosemide 20 mg daily DM-2 -Hold home glimepiride -Sliding scale insulin -Accu-Cheks as ordered -A1c was 6.7 on admission indicating good glycemic control at baseline Hypothyroidism -Continue home levothyroxine -TSH is 1.25 Diabetic neuropathy -Continue home gabapentin GERD -Continue home famotidine -Chronic pain -Continue oxycodone -Continue home baclofen Constipation -Continue home MiraLAX daily History of breast cancer -In remission DVT prophylaxis -Lovenox CODE STATUS -DNR CCA with no intubation per discussion prior to admission Disposition: -Patient is improving -Anticipate discharge in the next 24 hours. Charges/Coding Visit Charges Inpatient E&M: 82335 Subs Hosp L2
--- NOTE | 2022-12-06 14:50 | NURSING ---
Per student nurse, oxygen saturation on room air patient was 88%. Put 1L back on, patient now at 96%.
--- NOTE | 2022-12-06 14:55 | PCM.PN.HOSP ---
Reason for Visit Reason for Visit: Shortness of breath Subjective Subjective Overall doing better. Weaned to 4 L supplemental oxygen via high flow nasal cannula. Had 1 episode of anxiety through the night at which time she received from IV Ativan with improvement. No complaints at this time. Objective Data Objective Data Vital Signs: Vital Signs Temp Pulse Resp BP Pulse Ox O2 Del Method O2 Flow Rate 98.2 F 88 20 H 134/62 H 97 Room Air 1 12/06/22 08:58 12/06/22 09:17 12/06/22 08:58 12/06/22 09:17 12/06/22 11:41 12/06/22 11:41 12/06/22 09:30 Oxygen Flow Rate (L/min) 1 Oxygen Delivery Method Room Air Weight: 62.7 kg Body Mass Index (BMI) 23.7 Intake & Output: Intake and Output for Last 24 Hours 12/04/22 12/05/22 12/06/22 23:59 23:59 23:59 Intake Total 480 / 480 580.00 / 580.00 Output Total 1700 / 1700 750 / 750 Balance -1220 / -1220 -170.00 / -170.00 Lab / Micro Data Result Diagrams: 12/06/22 05:39 12/06/22 05:39 Labs: Laboratory Results - last 24 hr 12/05/22 05:11: Diff Path Review Reviewed 12/05/22 16:17: POC Glucose 195 H 12/05/22 21:50: POC Glucose 171 H 12/06/22 05:39: WBC 5.7, RBC 2.61 L, Hgb 8.7 L, Hct 26.3 L, MCV 100.8 H, MCH 33.3 H, MCHC 33.1, RDW Std Deviation 62.9 H, RDW Coeff of [place] 17.2 H, Plt Count 74 L, MPV 9.3, Immature Gran % (Auto) 0.400, Neut % (Auto) 64.8, Lymph % (Auto) 20.8, [place] % (Auto) 10.8 H, Eos % (Auto) 2.7, Baso % (Auto) 0.5, Absolute Neuts (auto) 3.7, Absolute Lymphs (auto) 1.18, Nucleated RBC % 0 12/06/22 05:39: Sodium 128 L, Potassium 4.3, Chloride 92 L, Carbon Dioxide 28.0, Anion Gap 8, BUN 17, Creatinine 1.04 H, Estim Creat Clear Calc 36.01, Est GFR (MDRD) Af Amer 65, Est GFR (MDRD) Non-Af 54 L, BUN/Creatinine Ratio 16.3, Glucose 128 H, Calcium 8.2 L, Phosphorus 4.0, Magnesium 1.3 L, Total Bilirubin 1.10 H, AST 37, ALT 15, Alkaline Phosphatase 74, Total Protein 5.9 L, Albumin 2.5 L, Globulin 3.4, Albumin/Globulin Ratio 0.7 L, TSH 1.25 12/06/22 06:30: POC Glucose 130 H 12/06/22 11:16: POC Glucose 185 H Micro: Microbiology 12/05/22 05:58 Nasal Secretion SARS-CoV-2 & FLU Antigen (Rapid) - Final Physical Exam Const alert, oriented x3, no apparent distress, average body habitus and well nourished Constitutional Narrative: Elderly white female sitting up in bed, at bedside, appears comfortable nontoxic, very pleasant, currently on 4 L supplemental nasal cannula General Appearance: cooperative HEENT normocephalic, head/scalp atraumatic and moist oral mucous membranes; Negative for hearing grossly normal bilaterally HEENT Narrative: Mallampati 2-3, no thrush Resp normal respiratory effort, no retractions and no use of accessory muscles Resp Narrative: Continues to have scattered fine crackles Auscultation: crackles; Negative for rhonchi or wheezes Cardio S1 normal heart sound, S2 normal heart sound, no murmurs, no rub, no gallops and no clicks Cardio Narrative: Mild tachycardia-heart rates in the 90s to 110 range, irregularly irregular GI normal to inspection, nondistended, normoactive bowel sounds, soft to palpation and non-tender Extremity Extremity Narrative: 1+ pitting edema bilateral lower extremities, no cyanosis or clubbing Neuro oriented x3, CN's II-XII intact bilaterally, moves all extremities and no focal motor deficits Neuro Narrative: General weakness noted Sensorium / Orientation: awake, alert, oriented to person, oriented to place and oriented to time Speech: speech normal Psych affect normal Psych Narrative: Very pleasant, appropriately interactive Assessment & Plan Assessment/Plan (1) Hypoxia: (2) Acute diastolic CHF (congestive heart failure): (3) Elevated d-dimer: (4) Tachycardia: (5) Hyponatremia: (6) Lower extremity edema: PLAN: Plan Acute hypoxia secondary to acute exacerbation of HFpEF/+-Acute PE -Required 2 L supplemental oxygen on admission to maintain sats greater than 88% -Oxygen has since been weaned to off and sats are currently 97% on room air -D-dimer elevated -CT of the chest was negative for pulmonary embolism but does show bilateral pleural effusions left greater than right with left lower lobe consolidation and atelectasis, small pericardial effusion -Cardiac enzymes did slightly trend up however I suspect this is likely related to her heart failure -No wall motion noted on echocardiogram -Will repeat Trop in a.m. -Transition back to oral Lasix 20 mg p.o. twice daily with 1 dose IV again today at 20 mg -Daily weights -1500 cc fluid restriction -Salt restricted diet -Echocardiogram performed and shows not much change since her previous echocardiogram--> EF is 55% with moderately enlarged LA, severe diffuse mitral valve thickening, moderate mitral valve stenosis, moderate aortic valve stenosis, stage II diastolic dysfunction, right ventricular systolic pressures of 53 mmHg and a positive left to right shunt suspicious for PFO -Lower extremity Dopplers were negative -We will refer patient for outpatient cardiology follow-up after discharge Bilateral lower extremity edema -Patient reports this is chronic -Diuretics as above -Negative lower extremity Dopplers Hyponatremia/hypochloremia -Appears to be chronic however slightly lower than baseline of 132-137 -Monitor closely with diuresis -Slight trend down -Repeat BMP in a.m. Mitral valve/aortic valve stenosis -Moderate -Refer to cardiology at discharge Hypophosphatemia -IV Phos replacement ordered -Check a.m. Phos level Tachycardia -Resolved -Continue home metoprolol -Likely related to acute decompensation on presentation Elevated D-dimer -As above -CTA and lower extremity Dopplers are negative Anemia/thrombocytopenia -Chronic -Peripheral smear is pending -Guaiac pending -Iron studies are more consistent with anemia of chronic disease -Counts remain stable -Repeat CBC in a.m. -Consider outpatient hematology referral HTN/HPL/valvular disease/HFpEF -Continue home atorvastatin -Continue home metoprolol -Hold home furosemide 20 mg daily DM-2 -Hold home glimepiride -Sliding scale insulin -Accu-Cheks as ordered -A1c was 6.7 on admission indicating good glycemic control at baseline Hypothyroidism -Continue home levothyroxine -TSH is 1.25 Diabetic neuropathy -Continue home gabapentin GERD -Continue home famotidine -Chronic pain -Continue oxycodone -Continue home baclofen Constipation -Continue home MiraLAX daily History of breast cancer -In remission DVT prophylaxis -Lovenox CODE STATUS -DNR CCA with no intubation per discussion prior to admission Disposition: -Patient is improving -Anticipate discharge in the next 24 hours.
--- NOTE | 2022-12-06 15:06 | WOUNDNOTE ---
wound photo: left lateral lower leg
[2022-12-06 16:56] LABS: Bedside Glucose 175 mg/dL (74-106)
[2022-12-06] MEDS: Atorvastatin Calcium 40 MG Tablet PO (21:18)
[2022-12-06 23:16] LABS: Bedside Glucose 167 mg/dL (74-106)
[2022-12-07 03:00] VITALS: BP 128/57; PULSE 83; RESP 16; TEMP 36.8; O2SAT 96
[2022-12-07] MEDS: oxyCODONE 5 MG Tablet 2.5 MG PO ×2 (04:02→11:37)
[2022-12-07] MEDS: Levothyroxine 137 MCG Tablet PO (04:21)
[2022-12-07 06:50] LABS: Bedside Glucose 135 mg/dL (74-106)
[2022-12-07 06:56] LABS: Anion Gap 8 (5-15); BUN 22 mg/dL (7-18); BUN/Creat Ratio 19.3 RATIO (10-20); Calcium,Total 8.3 mg/dL (8.5-10.1); Chloride 92 mmol/L (98-107); Creatinine, Serum 1.14 mg/dL (0.55-1.02); EST Glomerular Filtration Rate 48 mL/min (>60); Est Glom Filt Rate - Afr Amer 59 mL/min (>60); Estimated Creatinine Clearance 32.85 ml/min; Glucose 138 mg/dL (74-106); Phosphorus 5.4 mg/dL (2.5-4.9); Potassium 4.1 mmol/L (3.5-5.1); Sodium Level 130 mmol/L (136-145); Troponin-I HS 32 pg/mL (3.0-54.0)
[2022-12-07 09:10] VITALS: BP 125/50; PULSE 89; RESP 17; TEMP 36.4; O2SAT 96
[2022-12-07] MEDS: Famotidine 20 MG Tablet 40 MG PO (09:15)
[2022-12-07] MEDS: Baclofen 10 MG Tablet 5 MG PO (09:16)
[2022-12-07 09:17] VITALS: PULSE 89
[2022-12-07] MEDS: Furosemide 20 MG Tablet PO (09:17)
[2022-12-07] MEDS: Isosorbide Mononitrate 30 MG Tablet PO (09:17)
[2022-12-07] MEDS: Calcium Carb/Vitamin D 1 TABLET Tablet PO (09:17)
[2022-12-07] MEDS: Multivitamins,Therapeutic Tablet 1 TABLET PO (09:17)
[2022-12-07] MEDS: Metoprolol Tartrate 25 MG Tablet PO (09:17)
[2022-12-07] MEDS: Gabapentin 300 MG Capsule PO (09:18)
[2022-12-07] MEDS: Polyethylene Glycol 3350 17 GM PACKET PO (09:18)
[2022-12-07 09:49] VITALS: O2SAT 87
--- NOTE | 2022-12-07 11:00 | RAD_ITS ---
STUDY: X-RAY CHEST REASON FOR EXAM: Female, 82 years old. History of heart failure. Hypoxia. TECHNIQUE: Single AP portable view of the chest. COMPARISON: Comparison is made with prior study dated 12/05/2022. FINDINGS: EKG electrodes are seen. There is evidence of vascular congestion and mild CHF. Infiltration in the left lower lobe. Blunting of the left costophrenic angle. Normal size heart. Normal mediastinum and d[place]. Normal visualized pulmonary arteries. There is atherosclerotic calcification of the aortic arch with tortuosity. There are diffuse degenerative changes of the visualized thoracic spine. There is degenerative osteoarthritis of the bilateral shoulders. There is no demonstrated abnormality of the visualized soft tissue structures of the upper abdomen. RAD/Chest 1 View (Portable) IMPRESSION: Cardiomegaly and CHF. Left basilar infiltrate with small left pleural effusion. Electronically Signed: Micheal Guardado MD at 12:14 EST ,
[2022-12-07 11:18] VITALS: O2SAT 91; O2SAT 96
[2022-12-07 11:30] VITALS: O2SAT 94
--- NOTE | 2022-12-07 11:35 | DS.PCM_ITS ---
Providers Date of Admission: 12/05/22 Date of Discharge: 12/07/22 Primary Care Physician: Dr. 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 Routine Comment: Reason for Consult:: wound lle, has been seen at wound center Reason For Visit: HYPOXIA Diagnosis Discharge Diagnosis (1) Hypoxia: Status: Acute Code(s): R09.02 - Hypoxemia (2) Acute diastolic CHF (congestive heart failure): Status: Acute Code(s): I50.31 - Acute diastolic (congestive) heart failure (3) Elevated d-dimer: Status: Acute Code(s): R79.89 - Other specified abnormal findings of blood chemistry (4) Tachycardia: Status: Acute Code(s): R00.0 - Tachycardia, unspecified (5) Hyponatremia: Status: Acute Code(s): E87.1 - Hypo-osmolality and hyponatremia (6) Lower extremity edema: Status: Acute Code(s): R60.0 - Localized edema Medications at Discharge Home Medications atorvastatin 40 mg tablet 40 mg PO QHS cholesterol 07/05/19 baclofen 5 mg tablet 5 mg PO DAILY muscle spasms 07/05/19 calcium citrate 315 mg calcium-vitamin D3 6.25 mcg (250 unit) tablet 1 ea PO DAILY vitamin 07/05/19 famotidine 40 mg tablet 40 mg PO DAILY gerd 07/05/19 gabapentin 300 mg capsule 300 mg PO DAILY neuropathy 07/05/19 metoprolol tartrate 25 mg tablet 25 mg PO BID heart rate 07/05/19 multivitamin with folic acid 400 mcg tablet 1 tab PO DAILY vitamin 07/05/19 oxycodone-acetaminophen 5 mg-325 mg tablet 1 tab PO TID back pain 12/02/19 polyethylene glycol 3350 17 gram/dose oral powder (Miralax) 17 g PO DAILY stool softener 05/03/20 levothyroxine 137 mcg tablet 137 mcg PO DAILY #30 tabs 08/14/22 glimepiride 1 mg tablet 1 mg PO DAILY diabetes 09/12/22 furosemide 40 mg tablet (Lasix) 40 mg PO DAILY #30 tabs 12/07/22 isosorbide mononitrate 30 mg tablet,extended release 24 hr 30 mg PO DAILY #30 tabs 12/07/22 Hospital Course Operations None Procedures 2-D Echocardiogram, EKG and - (Chest x-ray/CTA of the chest) Summary of Care Provided Minutes Spent on Discharge: 37 Hospital Course: Mrs. Kuhn is an 82-year-old white female who presented to the emergency d epartment at [facility] on 12/05/2021 after she was awakened at 2:57 AM with substernal chest pressure. It resolved since coming to the hospital. She denied any associated shortness of breath, nausea, vomiting, or diaphoresis. She reported that she never had symptoms like that before. She had no other complaints. She reported chronic leg swelling but felt that her legs are not any more swollen than they typically are. She states she is tries to watch her fluid intake and salt content in her diet. She lives alone but her daughter checks on her frequently. Her cardiac history includes mitral valve stenosis with insufficiency, aortic valve stenosis with insufficiency and heart failure with preserved ejection fraction. After admission I was able to talk to the daughter and apparently her primary care physician had discontinued her diuretics. The daughter reported she felt like she needed to continue diuresis so they just decrease the dose in half however her mother was managing these and she feels that she might not be taking this on a regular basis. Upon present ation the emergency department she was found to be hypoxic with oxygen saturations 87% on room air.? Temperature was 97.6, heart rate has been anywhere from 95-109, blood pressure 164/114 and respiratory rate is any been anywhere from 17-29.? CBC shows normal white count with chronic stable anemia with a hemoglobin of 10.7 and a thrombocytopenia that is chronic and stable at 79,000.? Chemistry panel shows hyponatremia and hypochloremia at 11/13/1992 respectively.? Renal function is normal.? Troponin was 37 and her BNP was 499.8.? A D-dimer was obtained with her hypoxia and chest pressure and was found to be 13.50.? A CTA of her chest demonstrated no PE or dissection, bilateral pleural effusions left greater than right, patchy bilateral infiltrates and a small pericardial effusion. Chest x-ray shows patchy airspace consolidation/opacities as well as a left basilar consolidation.? EKG shows mild sinus tachycardia with heart rate 100, intervals are normal, no ST-T wave changes consistent with acute ischemia. She was admitted the telemetry floor placed on IV Lasix, I's and O's were sergio tored closely, fluid restricted and sodium restricted diet or pursued and an echocardiogram was obtained. Overall echo appears stable when compared to previous showing an ejection fraction of 55%, moderate mitral and aortic valve stenosis was present, small pericardial effusion, stage II diastolic dysfunction and she did have a positive PFO noted with agitated saline contrast study. Right ventricular systolic pressure was found to be 53 mmHg. I suspect this is the etiology of her lower extremity chronic edema. She diuresed well. With her D-dimer elevation, we did obtain bilateral lower extremity Dopplers both of which were negative as well. With diuresis she slowly improved with regards to her volume status. Her blood pressure was elevated on admission and remained so 24 hours after admission so I did start isosorbide mononitrate 30 mg daily. Overall her blood pressures were much better and I suspect this will help with her heart failure as well. Chest x-ray was performed on the day of discharge. She does have some residual left effusion however it does appear to be slightly better. I suspect with ongoing diuresis this should continue to prove however if it does not and a repeat chest x-ray is obtained she will potentially need an outpatient thoracentesis. I have asked her to follow-up with cardiology within the next 2 weeks as able and with Dr. Ross within the next 2 weeks. I have asked her as well to call Dr. Ross's office to obtain a BMP to be done in a week to reassess her potassium levels and renal function given the change in her diuretics at home. She was found to be anemic and thrombocytopenic. This appears to be chronic and may warrant outpatient hematology referral at discharge. Iron studies were obtained and were found consistent with anemia of chronic disease. She was discharged home in stable condition on room air at rest and with exertion on 12/07/2022. Discharge diagnoses: Acute hypoxia secondary to acute exacerbation of HFpEF Bilateral lower extremity edema Chronic hyponatremia/hypochloremia Mitral valve stenosis Aortic valve stenosis Hypophosphatemia-replaced Tachycardia-resolved Elevated D-dimer Hypertension Hyperlipidemia HFpEF DM-2 Hypothyroidism Diabetic neuropathy GERD Constipation History of breast cancer Chronic chronic anemia Thrombocytopenia Physical Exam Const alert, oriented x3, no apparent distress, average body habitus and well nourished Constitutional Narrative: Elderly white female sitting up in a chair at the bedside, daughters at the bedside, patient appears comfortable and nontoxic General Appearance: cooperative, comfortable, well kempt and well developed Orientation / Consciousness: awake, oriented to person, oriented to place and oriented to time Exam Limitations: no limitations HEENT normocephalic, head/scalp atraumatic and moist oral mucous membranes; Negative for hearing grossly normal bilaterally HEENT Narrative: Dentures in place, Mallampati 2, no thrush, mild hearing loss Eyes PERRL, EOMs intact bilaterally and conjunctivae normal Eyes Narrative: No scleral icterus Neck no lymphadenopathy, supple, no JVD and no carotid bruits Neck Narrative: Trachea midline, no thyroid enlargement Resp normal respiratory effort, no retractions, no use of accessory muscles and clear to auscultation bilaterally Resp Narrative: Slightly diminished in left base compared to right Cardio regular rate, regular rhythm, S1 normal heart sound, S2 normal heart sound, no murmurs, no rub, no gallops and no clicks GI normal to inspection, nondistended, normoactive bowel sounds, soft to palpation and non-tender Extremity Extremity Narrative: 1+ bilateral lower extremity pitting edema markedly improved since admission no cyanosis or clubbing, small wound that appears to be healing on the left distal aspect of the lower leg laterally Skin No no wounds, skin turgor normal and no jaundice Skin Narrative: As above Neuro oriented x3, CN's II-XII intact bilaterally, moves all extremities and no focal motor deficits Neuro Narrative: Mild generalized weakness with no focal deficits-proximal greater than distal Speech: speech normal Psych affect normal Psych Narrative: Extremely pleasant, nontoxic Weight / BMI Weight Weight: 62.7 kg Body Mass Index (BMI) 23.7 ABG / Lab / Microbiology Data Result Diagrams: 12/06/22 05:39 12/07/22 06:09 Laboratory: Laboratory Results - last 24 hr 12/05/22 05:11: Diff Path Review Reviewed 12/06/22 11:16: POC Glucose 185 H 12/06/22 16:32: POC Glucose 175 H 12/06/22 21:22: POC Glucose 167 H 12/07/22 06:09: Sodium 130 L, Potassium 4.1, Chloride 92 L, Carbon Dioxide 30.0, Anion Gap 8, BUN 22 H, Creatinine 1.14 H, Estim Creat Clear Calc 32.85, Est GFR (MDRD) Af Amer 59 L, Est GFR (MDRD) Non-Af 48 L, BUN/Creatinine Ratio 19.3, Glucose 138 H, Calcium 8.3 L, Phosphorus 5.4 H, Troponin I High Sens 32 12/07/22 06:26: POC Glucose 135 H Microbiology: Microbiology 12/05/22 05:58 Nasal Secretion SARS-CoV-2 & FLU Antigen (Rapid) - Final D/C Instructions Discharge Diet: No restrictions and 2000 mg Sodium Diet Discharge Activity: Return to Normal Activity Meaningful Use Info Meaningful Use Diagnoses (Choose all that apply): CHF CHF LIDIA/ARB ordered at discharge?: No Reason LIDIA/ARB not ordered?: Not indicated Documented LVEF (%): 55 Discharge Plan Admission Admit Date/Time: 12/05/22 07:19 Primary Reason for Your Visit: chest pain Attending Provider: Cyndi Andrade Primary Care Provider: Kurtis Ross Chi Instructions Additional Instructions / Restrictions: 1. Call your primary care physician's office and have them order a basic metabolic profile to be performed 1 week from the time of discharge to recheck your potassium level and kidney function Discharge Orders/Prescriptions Prescriptions: New isosorbide mononitrate 30 mg Tablet Extended Release 24 Hr 30 mg PO DAILY Qty: 30 1RF Continued polyethylene glycol 3350 [Miralax] 17 gram/dose powder 17 g PO DAILY glimepiride 1 mg tablet 1 mg PO DAILY atorvastatin 40 MG tablet 40 mg PO QHS famotidine 40 MG tablet 40 mg PO DAILY gabapentin 300 MG capsule 300 mg PO DAILY metoprolol tartrate 25 MG tablet 25 mg PO BID calcium citrate-vitamin D3 1 EACH tablet 1 ea PO DAILY multivitamin with folic acid 1 TABLET tablet 1 tab PO DAILY baclofen 5 MG tablet 5 mg PO DAILY oxycodone-acetaminophen 5-325 mg tablet 1 tab PO TID levothyroxine 137 mcg tablet 137 mcg PO DAILY Qty: 30 3RF Changed furosemide [Lasix] 40 mg tablet 40 mg PO DAILY Qty: 30 0RF Referrals / Follow Up: Kurtis Ross Chi, MD [Primary Care Provider] - Within 2 Weeks Yogesh Dawkins NP, DIGITAL RESEARCH ANALYST-C [Med Staff - Adv Practice Prof] - Within 2 Weeks (Call as soon as you can after discharge to set up an appointment to be seen as soon as his appointment availability) Disposition Disposition (needs filled in before D/C Order can be placed): Home, Self Care Charges/Coding Visit Charges Inpatient E&M: 47615 Disch Hosp >30min
[2022-12-07] MEDS: Insulin Lispro 100 UNIT/ML INSULN.PEN SC (11:38)
[2022-12-07] MEDS: Acetaminophen 325 MG Tablet 650 MG PO (11:38)
[2022-12-07 11:51] LABS: Bedside Glucose 190 mg/dL (74-106)
--- NOTE | 2022-12-07 14:00 | CASEMGMT ---
RN CM in to discuss discharge needs with patient and daughter, both declining needs at this time. RN CM updated patient and daughter that should they reconsider to follow up with PCP for setup for HHC or DME. Patient and daughter voiced understanding. Patient and daughter had no further questions or concerns at this time.
--- NOTE | 2022-12-08 10:28 | CASEMGMT ---
ANNE FRYE received call from [facility] stating that patient called and wanting help in the home. ANNE FRYE called daughter Chloe to inquire about patient. Per Chloe, she thinks patient realizes she is weak and may need some help. ANNE FRYE instructed patient that Dr. Ross prefers to see patient prior to [facility] setup, daughter states she will call and schedule appointment. ANNE FRYE instructed daughter to update Dr. Ross at appointment that they would like [facility] for [facility] as daughter states that is their preferences. Daughter voiced understanding and states she will call Dr. Ross's office now and had no further questions or concerns at this time.
== END 2022-12-07 14:25 | disposition home or self-care (01) | DRG 291 ==
LOC: ED 05:34 → PCU 09:12
PROVIDERS: Admitting Provider Internal Medicine; Emergency Provider Student in an Organized Health Care Education/Training Program; PCP Family Medicine Geriatric Medicine; Visit Provider Internal Medicine
DX: I11.0 Hypertensive heart disease with heart failure (principal); I50.33 Acute on chronic diastolic (congestive) heart failure; E87.1 Hypo-osmolality and hyponatremia; E10.40 Type 1 diabetes mellitus with diabetic neuropathy, unspecified; D69.6 Thrombocytopenia, unspecified; D63.8 Anemia in other chronic diseases classified elsewhere; E83.39 Other disorders of phosphorus metabolism; I08.0 Rheumatic disorders of both mitral and aortic valves; E78.00 Pure hypercholesterolemia, unspecified; K21.9 Gastro-esophageal reflux disease without esophagitis; E03.9 Hypothyroidism, unspecified; E87.8 Other disorders of electrolyte and fluid balance, not elsewhere classified; K59.00 Constipation, unspecified; I25.2 Old myocardial infarction; R00.0 Tachycardia, unspecified; R09.02 Hypoxemia; R79.1 Abnormal coagulation profile; Z66 Do not resuscitate; Z79.84 Long term (current) use of oral hypoglycemic drugs; Z79.899 Other long term (current) drug therapy; Z85.3 Personal history of malignant neoplasm of breast; Z87.891 Personal history of nicotine dependence
CPT/HCPCS: 36415; 71045; 71275; 80048; 80053; 82728; 82962; 83036; 83540; 83550; 83735; 83880; 84100; 84443; 84484; 85025; 85379; 87428; 93005; 93306; 93970; 94668; 97162; 97166; 97530; 97535; 99252; 99285; J7050; Q9967; A4216; G0463; J1940

== ENCOUNTER 2022-12-15 08:18 | Inpatient (IN) | payer MEDICARE, OTHER, SELFPAY ==
[2022-12-15] VITALS (12 sets, daily range): BP systolic 90–156; BP diastolic 54–115; PULSE 81–112; RESP 12–40; TEMP 36.5–37.1; O2SAT 95–100; BMI 29.2; BMI 26.9
--- NOTE | 2022-12-15 08:40 | EKG12_ITS ---
Test Reason : SOB Blood Pressure : / mmHG Vent. Rate : 110 BPM Atrial Rate : 110 BPM P-R Int : 190 ms QRS Dur : 108 ms QT Int : 328 ms P-R-T Axes : 040 -38 019 degrees QTc Int : 443 ms Sinus tachycardia with occasional Premature ventricular complexes and Fusion complexes Left axis deviation Minimal voltage criteria for LVH, may be normal variant ( Sunburst product ) Septal infarct , age undetermined , cannot be excluded Abnormal ECG Confirmed by MOUNIKA DELGADO, FREDRICK ([id number]), copy editor MONIQUE TERESA ([id number]) on 12/18/2022 11:23:16 AM Referred By: Confirmed By:FREDRICK RIBERA MD
--- NOTE | 2022-12-15 08:41 | ED.VIS.DYS ---
HPI History of Present Illness Chief Complaint: Shortness of Breath Informant: patient and family Narrative Narrative: History is from patient daughter and granddaughter who actually is a community mental health social worker at the [facility] the patient currently resides. I also reviewed directly recent EKG from 05 December 2022 in our system and I also reviewed a echocardiogram from 12/05/2022 also. This does show aortic stenosis ejection fraction of 55%, mitral stenosis tricuspid insufficiency and a small pericardial effusion but no evidence of tamponade. Patient presents with dyspnea. She was recently in the hospital for congestive heart failure. She was treated with Lasix. She is home on Lasix and still getting Lasix orally. Just yesterday they started back sodium phosphate. She has not had any salty meals and in fact she is on a no added salt diet per the granddaughter. Couple days ago she felt just tired but that improved. Today she felt short of breath. Her saturations were down. She has not been on any oxygen and she was placed on room air and then EMS was called. She denies having chest pain. She has had some slight tightness with breathing. They all deny recent coughing or fevers. The swelling in her legs is still present but is improved from when she was recently hospitalized. [facility] Medical History (HFpEF) heart failure with preserved ejection fraction Acid reflux Anemia, unspecified Arthritis Bacteremia due to Gram-negative bacteria Bilateral lower extremity edema Breast cancer Cancer Cataracts, bilateral CHF (congestive heart failure) Chronic headaches DDD (degenerative disc disease), lumbar Diabetes Elevated d-dimer Elevated troponin (06/2021) Essential hypertension H/O transfusion of whole blood History of type 1 diabetes mellitus Hypercholesterolemia Hyperlipidemia Hypothyroidism Kidney disease Lower extremity edema Lymphedema Nonrheumatic mitral valve stenosis with insufficiency NSTEMI, initial episode of care Pancytopenia Segmental and somatic dysfunction of lumbar region Segmental and somatic dysfunction of pelvic region Segmental and somatic dysfunction of thoracic region Spinal stenosis Thrombocytopenia Thyroid disease Home Medications atorvastatin 40 mg tablet 40 mg PO QHS cholesterol 07/05/19 [History Last Taken 12/14/22] baclofen 5 mg tablet 5 mg PO DAILY muscle spasms 07/05/19 [History Last Taken 12/15/22] famotidine 40 mg tablet 40 mg PO DAILY gerd 07/05/19 [History Last Taken 12/15/22] gabapentin 300 mg capsule 300 mg PO DAILY neuropathy 07/05/19 [History Last Taken 12/15/22] metoprolol tartrate 25 mg tablet 25 mg PO BID heart rate 07/05/19 [History Last Taken 12/15/22] oxycodone-acetaminophen 5 mg-325 mg tablet 1 tab PO TID back pain 12/02/19 [History Last Taken 12/15/22] polyethylene glycol 3350 17 gram/dose oral powder (Miralax) 17 g PO DAILY stool softener 05/03/20 [History Last Taken 12/15/22] levothyroxine 137 mcg tablet 137 mcg PO DAILY #30 tabs 08/14/22 [Rx Last Taken 12/15/22] glimepiride 1 mg tablet 1 mg PO DAILY diabetes 09/12/22 [History Last Taken 12/15/22] furosemide 40 mg tablet (Lasix) 40 mg PO DAILY #30 tabs 12/07/22 [Rx Last Taken 12/15/22] isosorbide mononitrate 30 mg tablet,extended release 24 hr 30 mg PO DAILY #30 tabs 12/07/22 [Rx Last Taken 12/15/22] multivitamin with minerals 1 tab PO DAILY SUPPLEMENT 12/15/22 [History Last Taken 12/15/22] potassium, sodium phosphates 280 mg-160 mg-250 mg oral powder packet (Phos-NaK) 1 packet PO DAILY 12/15/22 [History Last Taken 12/15/22] Allergy/AdvReac Type Severity Reaction Status Date / Time piperacillin [From Zosyn] AdvReac Mild malaise, Verified 12/15/22 08:18 myalgias tazobactam [From Zosyn] AdvReac Mild malaise, Verified 12/15/22 08:18 myalgias Family History Grandfather CVA (cerebral vascular accident) Mother Hypertension Breast cancer Father Diabetes Heart disease Brother CVA (cerebral vascular accident) Diabetes Dementia Surgical History H/O mastectomy H/O tubal ligation History of cataract surgery History of hysterectomy Hx of section Hx of cholecystectomy Hx of colonoscopy Social History household members: none Smoking Status: Former smoker second hand exposure: No alcohol intake: never substance use type: does not use caffeine: Yes what type of physical activity do you participate in: none frequency: does not exercise ROS ROS ED Constitutional Constitutional ED: Denies chills or fever(s) ENT ENT ED: Denies rhinorrhea or sore throat Cardiovascular Cardiovascular: Denies chest pain Respiratory/Chest Respiratory/Chest: Reports dyspnea; Denies cough or sputum Gastrointestinal Gastrointestinal: Denies diarrhea, nausea or vomiting Genitourinary Genitourinary ED: Denies dysuria Musculoskeletal Musculoskeletal: Denies myalgias Integumentary Denies rash Neurologic Neurologic: Denies headache(s) or weakness Hematologic/Lymphatic Hematologic/Lymphatic: Denies easy bruising Allergic/Immunologic Allergic/Immunologic ED: Denies urticaria EXAM Physical Exam Narrative Exam Narrative: Patient is awake and alert. History is somewhat limited with patient as she is now on BiPAP. HEENT shows what appears to be some pallor. But no bruising. She is actually tolerating BiPAP quite well. Eyes do hint of some mild pallor. No reported history of black or bloody stools though. Neck shows no visible JVD Chest does have some coarse breath sounds more at the bases. No wheezing is heard. Saturations are 100% with her current BiPAP. Heart is regular. Is a little hard to hear murmurs over the BiPAP and breathing. She likely has aortic stenosis murmur in the background. Abdomen is soft it is not tender No suprapubic tenderness Extremities do show +2 edema but there is some wrinkling of the skin consistent with recent loss of fluid. Neurologically patient is awake and alert. Conversation is a little bit difficult due to BiPAP though. Const Vital Signs: 12/15/22 08:19 12/15/22 08:22 12/15/22 08:29 Temperature 98.8 F Temperature Source Temporal Pulse Rate 112 H 104 H Respiratory Rate 40 H 33 H Respiratory Effort Short of Breath Labored Accessory Muscle Use Head [place] Respiratory Depth Deep Respiratory Pattern Tachypnea Tachypnea Blood Pressure 156/115 H Blood Pressure Mean 128 Pulse Ox 100 100 Oxygen Delivery Method Non-Rebreather Non-Rebreather Oxygen Flow Rate (L/min) 10 10 Fraction of Inspired Oxygen (FIO2) 50 12/15/22 09:02 Temperature Temperature Source Pulse Rate 84 Respiratory Rate 27 H Respiratory Effort Respiratory Depth Respiratory Pattern Blood Pressure 105/64 Blood Pressure Mean 77 Pulse Ox 100 Oxygen Delivery Method Bi-pap Oxygen Flow Rate (L/min) Fraction of Inspired Oxygen (FIO2) MDM MDM MDM Narrative Medical decision making narrative: Patient CBC shows mild anemia at 10.2. White count is normal lites are normal. Electrolytes showed low sodium and chloride. Troponin is high at 371. She is denying any pain but did state that she had tightness with breathing. But that is gone. BNP is 738.9 which is her highest ever. My independent interpretation of the patient's single view chest x-ray shows cardiomegaly with increased markings throughout most consistent with CHF. Final reading was also reviewed. Patient was placed on BiPAP prior to me seeing her. She has done very well with this. I have talked to respiratory therapist to see if we can come off. Patient's heart rate is down. Her blood pressure is down a little bit but still normal. Her saturations are 100%. She is calm awake and alert. I did discuss the case with the hospitalist including the above results and past echo. Patient will be admitted. History & Record Review Additional record(s) reviewed:: Prior inpatient record, Prior ED visit and Prior labs Lab Data Attestation: I reviewed the patient's lab results. Labs: Laboratory Results - last 24 hr 12/15/22 12/15/22 12/15/22 08:10 08:10 08:10 WBC 10.2 RBC 3.03 L Hgb 10.2 L Hct 30.2 L MCV 99.7 H MCH 33.7 H MCHC 33.8 RDW Std Deviation 59.1 H RDW Coeff of [place] 16.1 H Plt Count 158 MPV 9.3 Immature Gran % (Auto) 0.700 Neut % (Auto) 65.8 Lymph % (Auto) 23.8 Bent % (Auto) 7.8 Eos % (Auto) 1.4 Baso % (Auto) 0.5 Absolute Neuts (auto) 6.7 Absolute Lymphs (auto) 2.43 Nucleated RBC % 0 Sodium 118 L* Potassium 3.5 Chloride 81 L Carbon Dioxide 25.0 Anion Gap 12 BUN 12 Creatinine 0.75 Estim Creat Clear Calc 34.30 Est GFR (MDRD) Af Amer 95 Est GFR (MDRD) Non-Af 79 BUN/Creatinine Ratio 16.1 Glucose 214 H Lactic Acid Calcium 7.8 L Troponin I High Sens 371 H* B-Natriuretic Peptide 738.9 H 12/15/22 08:50 WBC RBC Hgb Hct MCV MCH MCHC RDW Std Deviation RDW Coeff of [place] Plt Count MPV Immature Gran % (Auto) Neut % (Auto) Lymph % (Auto) Bent % (Auto) Eos % (Auto) Baso % (Auto) Absolute Neuts (auto) Absolute Lymphs (auto) Nucleated RBC % Sodium Potassium Chloride Carbon Dioxide Anion Gap BUN Creatinine Estim Creat Clear Calc Est GFR (MDRD) Af Amer Est GFR (MDRD) Non-Af BUN/Creatinine Ratio Glucose Lactic Acid 2.6 H* Calcium Troponin I High Sens B-Natriuretic Peptide Radiography Diagnostic Testing: Clinical Impression(s) from Imaging Studies Chest X-Ray 12/15/22 08:45 IMPRESSION: Progressive airspace disease in the right upper lobe as compared to prior study with persistent infiltrate and/or atelectasis in the left lower lobe. Findings are suggestive progressive CHF superimposed on left basilar infiltrate. There is blunting of the left costophrenic angle. Cardiomegaly. Electronically Signed: Micheal Guardado MD at 9:10 EST , EKG Initial EKG: Comments: My independent interpretation of the patient's EKG done for tachycardia and dyspnea shows sinus rhythm with tachycardic rate at 110. There is extremely variable baseline that makes interpretation difficult. There is indication of LVH. There are some ST changes but it is difficult to assess if this is due to LVH, strain, rate ischemia etc. Patient is denying any chest pain at this time. The EKG is similar to 1 from 05 December 2022 This patient has edema, congestion on x-ray, rales, high BNP and improvement after Lasix and BiPAP. I think this most likely represents congestive heart failure. I think pneumonia pulmonary embolus is less likely. Management Discussion w/another healthcare provider: Hospitalist Discharge Plan Triage Chief Complaint: Shortness of Breath ED Provider: Darrell Morse Dx/Rx/DC Orders Clinical Impression: Congestive heart failure, Hypoxia, Acute hyponatremia, Hypochloremia Prescriptions: No Action polyethylene glycol 3350 [Miralax] 17 gram/dose powder 17 g PO DAILY glimepiride 1 mg tablet 1 mg PO DAILY atorvastatin 40 MG tablet 40 mg PO QHS famotidine 40 MG tablet 40 mg PO DAILY gabapentin 300 MG capsule 300 mg PO DAILY metoprolol tartrate 25 MG tablet 25 mg PO BID baclofen 5 MG tablet 5 mg PO DAILY oxycodone-acetaminophen 5-325 mg tablet 1 tab PO TID isosorbide mononitrate 30 mg Tablet Extended Release 24 Hr 30 mg PO DAILY Qty: 30 1RF furosemide [Lasix] 40 mg tablet 40 mg PO DAILY Qty: 30 0RF potassium, sodium phosphates [Phos-NaK] 280-160-250 mg powder in packet 1 packet PO DAILY Label Comments: Take 1 Packet orally 3 times per Day for 90 Days multivitamin with minerals Tablet 1 tab PO DAILY levothyroxine 137 mcg tablet 137 mcg PO DAILY Qty: 30 3RF Primary Care Provider: Kurtis Ross Chi Referrals: Kurtis Ross Chi, MD [Primary Care Provider] - Disposition Disposition: Acute Care Hospital [facility]
--- NOTE | 2022-12-15 08:45 | RAD_ITS ---
STUDY: X-RAY CHEST REASON FOR EXAM: Female, 82 years old. SOB, Hypoxia TECHNIQUE: Single AP portable view of the chest. COMPARISON: Comparison is made with prior study dated December 07, 2022. FINDINGS: EKG electrodes are seen. Surgical clips are seen in the left axillary region. Since prior study, there has been progressive airspace disease in the right upper lobe as well as of the left lung base. Stable blunting of the left costophrenic angle. Findings may represent progressive CHF superimposed on left basilar infiltrate. There is moderate cardiac enlargement. Normal mediastinum and douglas. Normal visualized pulmonary arteries. There is atherosclerotic calcification of the aortic arch with tortuosity. There are diffuse degenerative changes of the visualized thoracic spine. Dextroscoliosis. Prior vertebroplasty of the lower dorsal vertebrae. Normal visualized ribs, clavicles, and shoulders. There is no demonstrated abnormality of the visualized soft tissue structures of the upper abdomen. RAD/Chest 1 View (Portable) IMPRESSION: Progressive airspace disease in the right upper lobe as compared to prior study with persistent infiltrate and/or atelectasis in the left lower lobe. Findings are suggestive progressive CHF superimposed on left basilar infiltrate. There is blunting of the left costophrenic angle. Cardiomegaly. Electronically Signed: Micheal Guardado MD at 9:10 EST ,
[2022-12-15 08:57] LABS: Absolute Lymphocyte Count 2.43 X10^3/uL (0.83-4.51); Absolute Neutrophil Count 6.7 X10^3/uL (2.0-7.7); Basophil# 0.05 X10^3/uL; Basophil% 0.5 % (0-1); Eosinophil# 0.14 X10^3/uL; Eosinophils% 1.4 % (0-5); Hematocrit 30.2 % (37-47); Hemoglobin 10.2 g/dL (12.0-15.0); Lymphocyte # 2.43 X10^3/ul (0.83-4.51); Lymphocyte % 23.8 % (19-41); Mean Corp Hgb Conc 33.8 g/dL (32-36); Mean Corpuscular Hgb 33.7 pg (27.0-32.0); Mean Corpuscular Volume 99.7 fL (81-99); Mean Platelet Vol. 9.3 fl (6.2-12.0); Monocyte% 7.8 % (0-10); NRBC Flagged by Analyzer 0 % (0-5); Neutrophil # 6.72 X10^3/uL (2.7-7.7); Neutrophil % 65.8 % (47-70); Platelet Count 158 K/mm3 (150-450); RBC Distribution Width CV 16.1 % (11.6-14.6); RBC Distribution Width SD 59.1 fl (35.1-43.9); Red Blood Count 3.03 M/mm3 (4.2-5.4); White Blood Count 10.2 K/mm3 (4.4-11.0)
[2022-12-15] MEDS: Furosemide 40 MG/4 ML Vial IV ×3 (09:00→21:38)
[2022-12-15 09:19] LABS: Anion Gap 12 (5-15); BUN 12 mg/dL (7-18); BUN/Creat Ratio 16.1 RATIO (10-20); Calcium,Total 7.8 mg/dL (8.5-10.1); Chloride 81 mmol/L (98-107); Creatinine, Serum 0.75 mg/dL (0.55-1.02); EST Glomerular Filtration Rate 79 mL/min (>60); Est Glom Filt Rate - Afr Amer 95 mL/min (>60); Glucose 214 mg/dL (74-106); Potassium 3.5 mmol/L (3.5-5.1); Sodium Level 118 mmol/L (136-145); Troponin-I HS 371 pg/mL (3.0-54.0)
[2022-12-15 09:21] LABS: BNP,B-Type NATRIURETIC PEPTIDE 738.9 pg/mL (0-100)
[2022-12-15 09:28] LABS: Lactic Acid 2.6 mmol/L (0.4-1.9)
[2022-12-15 12:55] LABS: Reflex Lactate? Y
[2022-12-15 13:09] LABS: Troponin-I HS 2847 pg/mL (3.0-54.0)
[2022-12-15] MEDS: 0.9% Saline Lock 10 ML Syringe IV ×2 (14:25→21:38)
[2022-12-15] MEDS: Potassium Chloride Oral Tablet 20 MEQ PO ×2 (14:26→18:01)
[2022-12-15 15:08] LABS: Lactic Acid 1.2 mmol/L (0.4-1.9); Troponin-I HS 3022 pg/mL (3.0-54.0)
--- NOTE | 2022-12-15 15:38 | CON.PCM.CA_ITS ---
Assessment & Plan Assessment/Plan (1) Shortness of breath: PLAN: The patient has progressive shortness of breath. At the moment this appears compatible with her underlying cardiovascular disease process with recurrent acute on chronic heart failure with preserved ejection fraction superimposed upon her underlying valvular heart disease with aortic valve stenosis/insufficiency. At this time she is being monitored. She has already undergone noninvasive valuation this day and recently with a transthoracic echocardiogram as noted. At the present time it would be reasonable to continue medical management. This would include IV diuretic therapy such as IV furosemide in addition to other medicines as deemed appropriate. Hopefully this will help her volume status and help her shortness of breath/dyspnea. (2) (HFpEF) heart failure with preserved ejection fraction: PLAN: The patient appears to have findings compatible with recurrent acute on chronic heart failure with preserved ejection fraction. At the present time she has already undergone previous noninvasive evaluation including recently as noted. Her medical therapy will include IV furosemide which is starting at 40 mg IV every 8 hours. She is also on other medications which appear to have included in the past isosorbide mononitrate at 30 mg p.o. daily and metoprolol tartrate at 25 mg p.o. twice daily. It does not appear she has been on any form of afterload reducing agents such as LIDIA inhibitor, ARB, Entresto, etc. (3) Aortic stenosis: PLAN: The patient does have aortic valve disease/stenosis. This may be a contributing factor to her recurrent symptoms and events. She has recently undergone evaluation for this with transthoracic echocardiogram. Depending upon her clinical course consideration will have to be given as to whether she requires additional invasive valuation which could lead to some form of intervention with her aortic valve either surgically or percutaneously. (4) Nonrheumatic mitral valve stenosis with insufficiency: PLAN: The patient is also been evaluated noninvasively recently and thought to have underlying mitral valve disease as well with both mitral valve stenosis and insufficiency. Again this may be a contributing factor to her recurrent acute on chronic heart failure with preserved ejection fraction. She will continue medical management. However, as noted above, consideration could be given as to whether or not she is a candidate for any further invasive evaluation that would lead to any form of mitral valve repair or replacement. (5) Non-ST elevation (NSTEMI) myocardial infarction: PLAN: The patient has abnormal cardiac enzymes. This may be secondary to her recurrent acute on chronic heart failure preserved ejection fraction. However underlying CAD with an acute coronary syndrome cannot necessarily be excluded. The patient's cardiac enzymes will be followed. Her ECG can be followed. Depending upon her clinical course consideration will be given as to whether or not she requires an additional evaluation with a transthoracic echocardiogram to reassess her left ventricular wall motion and systolic function. Also depending upon her clinical course consideration would be given as to whether or not she is a candidate for invasive evaluation such as diagnostic cardiac catheterization to evaluate for underlying CAD. In the interim she will continue medical therapy. This includes her medications noted above well at this her lipid-lowering therapy with atorvastatin 40 mg p.o. daily. (6) Hyperlipidemia: PLAN: The patient will continue lipid-lowering therapy with her atorvastatin 40 mg p.o. daily (7) Hyponatremia: PLAN: The patient is noted to be hyponatremic. The etiology may be multifactorial. This may be related to a combination of her acute on chronic heart failure preserved ejection fraction and her medical therapy with respect to volume changes, etc. It is noted the patient has been hyponatremic in the past as well during pr evious evaluation/episodes. At the moment the patient will continue medical therapy for her aforementioned condition with follow-up of her electrolytes. Addt'l Comments Overall, this is an 82-year-old frail and fragile appearing white female with multiple cardiovascular noncardiovascular conditions who presents for the aforementioned concerns. She will continue to be monitored and continue medical therapy at this time. However, depending upon her clinical course consideration might be given as to whether or not she would want to pursue further invasive valuation care or would be a candidate to be considered for further invasive evaluation or care. She does state that she does not believe she would want any form of surgical intervention at her age with her multiple comorbidities. Comment: The patient's case was discussed and reviewed with the patient as well as with Dr. Dean. Comment: Time spent in the patient's overall evaluation, examination, review of medical records, review of her radiologic studies/images, review of car diovascular studies, discussions, documentation, etc.: 60 minutes. HPI Consult Data Date of Consult: 12/15/22 HPI Narrative HPI Narrative: TORY LY, is a 82 year old white female who presents for cardiovascular consultation based upon concerns of progressive shortness of breath/dyspnea and subsequent findings of abnormal high-sensitivity troponin I levels, abnormal BT [employer], superimposed upon a history of a previous clinical course thought compatible with a non-ST segment elevation NE, recurrent heart failure with preserved ejection fraction, valvular heart disease, hyperlipidemia, diabetes mellitus, hypothyroidism, anemia, thrombocytopenia, and electrolyte disturbances with hyponatremia. It appears the patient was recently evaluated and cared for at [facility] was subsequently released on 12-07-2022 for concerns of hypoxia thought secondary to recurrent acute exacerbation of heart failure with preserved ejection fraction superimposed upon multiple comorbidities. Patient has been residing at the [facility] referred to is [facility] [place] [facility]. Apparently she has become progressively short of breath and dyspneic and thought to have findings compatible with recurrent acute on chronic heart failure with preserved ejection fraction. She was brought to the [facility] emergency department for further evaluation. There she was found to have abnormal high- sensitivity troponin I levels, and elevated BT [employer], and a sodium level of 118. Her ECG appeared to demonstrate evidence of sinus rhythm/sinus tachycardia with PVCs with left axis deviation with findings compatible with left ventricular hypertrophy and a septal NE pattern of indeterminate age cannot be excluded. Her chest x-ray was reviewed. It demonstrated a portable chest x-ray. It demonstrated malrotation. There did appear to be findings compatible with increased pulmonary vascularity compatible with CHF as well as absence of the left costophrenic angle compatible with a left pleural effusion and/or infiltrate. This appears similar to a previous chest x-ray performed on 12-07-2022. It is also noted the patient had a recent chest CTA performed on 12-05-2022 that reported findings concerning for the left lower lobe with persistent infiltrate and/or atelectasis and blunting of the costophrenic angle. At that time there was no comment on any great vessel disease or thromboembolic disease. It is also noted the patient has undergone previous transthoracic echocardiograms in the past in 2020, 2021, and recently on 12-05-2022. Her most recent study suggested her left ventricular systolic function to be normal with an LVEF 55% with findings of moderate mitral valve stenosis/insufficiency and moderate aortic valve stenosis with a calcified aortic root and a small pericardial effusion with no indications of cardiac tamponade as well as find ings compatible with a pleural effusion. At the present time the patient does admit to being more short of breath. She also admits to increasing edema in the lower extremities. She has denied ongoi ng chest discomfort. She does not recall any obvious palpitations nor does she recall any episodes of near syncope or syncope. She states she is tired and fatigued. She states at the F she does sit in the chair and she does get up and ambulate with a walker. She does not believe she has had any falling episodes. PENDING SALE TO [facility] Medical History (HFpEF) heart failure with preserved ejection fraction Acid reflux Anemia, unspecified Arthritis Bacteremia due to Gram-negative bacteria Bilateral lower extremity edema Breast cancer Cancer Cataracts, bilateral CHF (congestive heart failure) Chronic headaches DDD (degenerative disc disease), lumbar Diabetes Elevated d-dimer Elevated troponin (06/2021) Essential hypertension H/O transfusion of whole blood History of type 1 diabetes mellitus Hypercholesterolemia Hyperlipidemia Hypothyroidism Kidney disease Lower extremity edema Lymphedema Nonrheumatic mitral valve stenosis with insufficiency NSTEMI, initial episode of care Pancytopenia Segmental and somatic dysfunction of lumbar region Segmental and somatic dysfunction of pelvic region Segmental and somatic dysfunction of thoracic region Spinal stenosis Thrombocytopenia Thyroid disease Home Medications atorvastatin 40 mg tablet 40 mg PO QHS cholesterol 07/05/19 [History Last Taken 12/14/22] baclofen 5 mg tablet 5 mg PO DAILY muscle spasms 07/05/19 [History Last Taken 12/15/22] famotidine 40 mg tablet 40 mg PO DAILY gerd 07/05/19 [History Last Taken 12/15/22] gabapentin 300 mg capsule 300 mg PO DAILY neuropathy 07/05/19 [History Last Taken 12/15/22] metoprolol tartrate 25 mg tablet 25 mg PO BID heart rate 07/05/19 [History Last Taken 12/15/22] oxycodone-acetaminophen 5 mg-325 mg tablet 1 tab PO TID back pain 12/02/19 [History Last Taken 12/15/22] polyethylene glycol 3350 17 gram/dose oral powder (Miralax) 17 g PO DAILY stool softener 05/03/20 [History Last Taken 12/15/22] levothyroxine 137 mcg tablet 137 mcg PO DAILY #30 tabs 08/14/22 [Rx Last Taken 12/15/22] glimepiride 1 mg tablet 1 mg PO DAILY diabetes 09/12/22 [History Last Taken 12/15/22] furosemide 40 mg tablet (Lasix) 40 mg PO DAILY #30 tabs 12/07/22 [Rx Last Taken 12/15/22] isosorbide mononitrate 30 mg tablet,extended release 24 hr 30 mg PO DAILY #30 tabs 12/07/22 [Rx Last Taken 12/15/22] multivitamin with minerals 1 tab PO DAILY SUPPLEMENT 12/15/22 [History Last Taken 12/15/22] potassium, sodium phosphates 280 mg-160 mg-250 mg oral powder packet (Phos-NaK) 1 packet PO DAILY 12/15/22 [History Last Taken 12/15/22] Allergy/AdvReac Type Severity Reaction Status Date / Time piperacillin [From Zosyn] AdvReac Mild malaise, Verified 12/15/22 08:18 myalgias tazobactam [From Zosyn] AdvReac Mild malaise, Verified 12/15/22 08:18 myalgias Family History Grandfather CVA (cerebral vascular accident) Mother Hypertension Breast cancer Father Diabetes Heart disease Brother CVA (cerebral vascular accident) Diabetes Dementia Surgical History H/O mastectomy H/O tubal ligation History of cataract surgery History of hysterectomy Hx of section Hx of cholecystectomy Hx of colonoscopy Social History household members: none Smoking Status: Former smoker second hand exposure: No alcohol intake: never substance use type: does not use caffeine: Yes what type of physical activity do you participate in: none frequency: does not exercise ROS Constitutional Constitutional: Reports as per HPI Eyes Eyes: Reports as per HPI ENT HEENT: Reports as per HPI Cardiovascular Cardiovascular: Reports dyspnea and edema Respiratory/Chest Respiratory/Chest: Reports dyspnea Gastrointestinal Gastrointestinal: Reports as per HPI Genitourinary Genitourinary: Reports as per HPI Musculoskeletal Musculoskeletal: Reports as per HPI Integumentary Integumentary: Reports as per HPI Neurologic Neurologic: Reports as per HPI Physical Exam Const alert, oriented x3 and no apparent distress Orientation / Consciousness: awake HEENT normocephalic and head/scalp atraumatic Eyes PERRL, EOMs intact bilaterally, conjunctivae normal and no scleral icterus Neck full ROM and supple Carotids: delayed carotid upstroke Resp Auscultation: breath sounds absent left and diminished lung sounds left lower Cardio regular rate, regular rhythm and S1 normal heart sound Heart Sounds: murmur systolic II/ harsh late left sternal border, LVOT and sternal notch and abnormal sounds diminished A2 GI normal to inspection, nondistended, normoactive bowel sounds Extremity General Extremity: edema bilateral lower extremity Details: severe Psych mental status grossly normal Risk Stratification Risk Stratification Applicable: Yes Age >/= 65: Yes >/= 3 CAD Risk Factors (HTN, HLD, DM, family hx of CAD, or current smoker): Yes Aspirin Use in the Past 7 Days: No Severe Angina (>/= episodes in 24 hours): No EKG ST Changes >/= 0.5mm: No Positive Cardiac Marker: Yes JORDI Risk Stratification Score: 3 JORDI % Risk: 13% Risk Procedure Criteria Type of Procedure Procedure Type: Elective Elective Risks - COVID COVID Risk Discussion: The surgeon/proceduralist and patient have discussed in detail the risk of exposure to and/or potential harm posed by the COVID-19 virus with having a surgery/procedure at this time versus the risk of delaying the surgery/procedure. It is not possible to know either the risk of delaying the surgery or procedure or chance of getting an infection with perfect accuracy, but a joint decision was made between the patient and the surgeon/proceduralist to proceed at this time with the scheduled surgery/procedure as indicated on the consent form. Objective Data Vital Signs: Vital Signs Temp Pulse Resp BP Pulse Ox O2 Del Method O2 Flow Rate 98.6 F 87 16 116/67 98 Nasal Cannula 2 12/15/22 12:59 12/15/22 12:59 12/15/22 12:59 12/15/22 12:59 12/15/22 12:59 12/15/22 14:00 12/15/22 14:00 FiO2 50 12/15/22 08:29 Oxygen Flow Rate (L/min) 2 Oxygen Delivery Method Nasal Cannula Weight: 147 lb 0.773 oz Body Mass Index (BMI) 26.9 Lab / Micro Data Result Diagrams: 12/15/22 08:10 12/15/22 08:10 Labs: Laboratory Results - last 24 hr 12/15/22 08:10: WBC 10.2, RBC 3.03 L, Hgb 10.2 L, Hct 30.2 L, MCV 99.7 H, MCH 33.7 H, MCHC 33.8, RDW Std Deviation 59.1 H, RDW Coeff of [place] 16.1 H, Plt Count 158, MPV 9.3, Immature Gran % (Auto) 0.700, Neut % (Auto) 65.8, Lymph % (Auto) 23.8, [place] % (Auto) 7.8, Eos % (Auto) 1.4, Baso % (Auto) 0.5, Absolute Neuts (auto) 6.7, Absolute Lymphs (auto) 2.43, Nucleated RBC % 0 12/15/22 08:10: Sodium 118 L*, Potassium 3.5, Chloride 81 L, Carbon Dioxide 25.0, Anion Gap 12, BUN 12, Creatinine 0.75, Estim Creat Clear Calc 34.30, Est GFR (MDRD) Af Amer 95, Est GFR (MDRD) Non-Af 79, BUN/Creatinine Ratio 16.1, Glucose 214 H, Calcium 7.8 L, Troponin I High Sens 371 H* 12/15/22 08:10: B-Natriuretic Peptide 738.9 H 12/15/22 08:50: Lactic Acid 2.6 H* 12/15/22 12:35: Troponin I High Sens 2847 H* 12/15/22 14:05: Troponin I High Sens 3022 H* 12/15/22 14:05: Lactic Acid 1.2 Cardiology Labs/Tests 12/15/22 08:10: WBC 10.2, RBC 3.03 L, Hgb 10.2 L, Hct 30.2 L, MCV 99.7 H, MCH 33.7 H, MCHC 33.8, Plt Count 158, MPV 9.3, Immature Gran % (Auto) 0.700, Neut % (Auto) 65.8, Lymph % (Auto) 23.8, [place] % (Auto) 7.8, Eos % (Auto) 1.4, Baso % (Auto) 0.5, Absolute Neuts (auto) 6.7, Nucleated RBC % 0 12/15/22 08:10: Sodium 118 L*, Potassium 3.5, Chloride 81 L, Carbon Dioxide 25.0, Anion Gap 12, BUN 12, Creatinine 0.75, Est GFR (MDRD) Af Amer 95, Est GFR (MDRD) Non-Af 79, BUN/Creatinine Ratio 16.1, Glucose 214 H, Calcium 7.8 L 12/15/22 08:10: B-Natriuretic Peptide 738.9 H 12/15/22 08:50: Lactic Acid 2.6 H* 12/15/22 14:05: Lactic Acid 1.2 Rhythm: Sinus rhythm EKG: As noted above ECHO: 12-05-2022 Interpretation Summary The study was technically difficult. ? Left ventricular systolic function is normal. The estimated ejection fraction is 55 %. The left atrium is moderately enlarged. There is moderate mitral annular calcification. Extension of the mitral annular calcification onto the base of the posterior keysha ral valve leaflet. Severe diffuse mitral valve thickening. The mitral valve chordae are thickened and/or calcified. Moderate mitral valve stenosis. Moderate (2+) eccentric mitral valve insufficiency. Mild tricuspid valve insufficiency. Moderate aortic stenosis. Mild (1+) pulmonic valve insufficiency. Calcified aortic root. Small pericardial effusion. There are no echocardiographic indications of cardiac tamponade. Echolucency compatible with a pleural effusion. Right ventricular systolic pressure estimated to be 53 mmHg. Stage 2 diastolic dysfunction. Agitated saline contrast study considered faintly positive for a right to left interatrial shunt potentially compatible with a small PFO. Radiography Diagnostic Testing: Radiology Impression Chest X-Ray 12/15/22 08:45 IMPRESSION: Progressive airspace disease in the right upper lobe as compared to prior study with persistent infiltrate and/or atelectasis in the left lower lobe. Findings are suggestive progressive CHF superimposed on left basilar infiltrate. There is blunting of the left costophrenic angle. Cardiomegaly. Electronically Signed: Micheal Guardado MD at 9:10 EST ,
[2022-12-15 17:11] LABS: Bedside Glucose 150 mg/dL (74-106)
--- NOTE | 2022-12-15 19:46 | PCM.HP.STD ---
HPI - General General Date of Admission: 12/15/22 Date of Service: 12/15/22 HPI Narrative TORY LY, is a 82 F who presents urgency room at [facility] after being sent in from a local detention with complaints of shortness of breath this morning. Patient's pulse ox at the nursing was 86% on room air. Work-up in the emergency room showed a normal white blood cell count, hemoglobin was low at 10.2, sodium was low at 118, chloride was 81, glucose was 214, lactic acid was 2.6 and calcium was 7.8. Patient's troponin was elevated at 371, beta natruretic peptide was elevated at 738. Patient's chest x-ray showed progressive airspace disease in right upper lobe as compared with the prior study with persistent infiltrates and/or atelectasis in the left lower lobe, findings were suggestive of progressive CHF superimposed on left basilar infiltrate. There was cardiomegaly noted. Patient's EKG did not show acute injury pattern. Patient was somnolent and lethargic. She required low-flow nasal cannula oxygen. Patient was admitted for non-STEMI and hypoxia secondary to diastolic congestive heart failure and hyponatremia. Patient will receive IV Lasix, she will be seen in consultation by cardiology, enzymes will be cycled, BMP will be monitored, most likely she will need a repeat echocardiogram. Patient's last echocardiogram on 12/05/2022 showed an estimated ejection fraction of 55%, there was noted to be moderate mitral valve insufficiency, and moderate aortic stenosis. Moderate pulmonary hypertension was also noted. I talked at length with the patient's daughter and granddaughter by phone today, they stated the patient was a DNR CC arrest without intubation and that she would not want to undergo a cardiac catheterization. I relayed this to cardiology (Dr. Harding). [facility] Medical History (HFpEF) heart failure with preserved ejection fraction Acid reflux Anemia, unspecified Arthritis Bacteremia due to Gram-negative bacteria Bilateral lower extremity edema Breast cancer Cancer Cataracts, bilateral CHF (congestive heart failure) Chronic headaches DDD (degenerative disc disease), lumbar Diabetes Elevated d-dimer Elevated troponin (06/2021) Essential hypertension H/O transfusion of whole blood History of type 1 diabetes mellitus Hypercholesterolemia Hyperlipidemia Hypothyroidism Kidney disease Lower extremity edema Lymphedema Nonrheumatic mitral valve stenosis with insufficiency NSTEMI, initial episode of care Pancytopenia Segmental and somatic dysfunction of lumbar region Segmental and somatic dysfunction of pelvic region Segmental and somatic dysfunction of thoracic region Spinal stenosis Thrombocytopenia Thyroid disease Home Medications atorvastatin 40 mg tablet 40 mg PO QHS cholesterol 07/05/19 [History Last Taken 12/14/22] baclofen 5 mg tablet 5 mg PO DAILY muscle spasms 07/05/19 [History Last Taken 12/15/22] famotidine 40 mg tablet 40 mg PO DAILY gerd 07/05/19 [History Last Taken 12/15/22] gabapentin 300 mg capsule 300 mg PO DAILY neuropathy 07/05/19 [History Last Taken 12/15/22] metoprolol tartrate 25 mg tablet 25 mg PO BID heart rate 07/05/19 [History Last Taken 12/15/22] oxycodone-acetaminophen 5 mg-325 mg tablet 1 tab PO TID back pain 12/02/19 [History Last Taken 12/15/22] polyethylene glycol 3350 17 gram/dose oral powder (Miralax) 17 g PO DAILY stool softener 05/03/20 [History Last Taken 12/15/22] levothyroxine 137 mcg tablet 137 mcg PO DAILY #30 tabs 08/14/22 [Rx Last Taken 12/15/22] glimepiride 1 mg tablet 1 mg PO DAILY diabetes 09/12/22 [History Last Taken 12/15/22] furosemide 40 mg tablet (Lasix) 40 mg PO DAILY #30 tabs 12/07/22 [Rx Last Taken 12/15/22] isosorbide mononitrate 30 mg tablet,extended release 24 hr 30 mg PO DAILY #30 tabs 12/07/22 [Rx Last Taken 12/15/22] multivitamin with minerals 1 tab PO DAILY SUPPLEMENT 12/15/22 [History Last Taken 12/15/22] potassium, sodium phosphates 280 mg-160 mg-250 mg oral powder packet (Phos-NaK) 1 packet PO DAILY 12/15/22 [History Last Taken 12/15/22] Allergy/AdvReac Type Severity Reaction Status Date / Time piperacillin [From Zosyn] AdvReac Mild malaise, Verified 12/15/22 08:18 myalgias tazobactam [From Zosyn] AdvReac Mild malaise, Verified 12/15/22 08:18 myalgias Family History Grandfather CVA (cerebral vascular accident) Mother Hypertension Breast cancer Father Diabetes Heart disease Brother CVA (cerebral vascular accident) Diabetes Dementia Surgical History H/O mastectomy H/O tubal ligation History of cataract surgery History of hysterectomy Hx of section Hx of cholecystectomy Hx of colonoscopy Social History household members: none Smoking Status: Former smoker second hand exposure: No alcohol intake: never substance use type: does not use caffeine: Yes what type of physical activity do you participate in: none frequency: does not exercise Vital Signs Vital Signs Vital Signs: 12/15/22 08:19 12/15/22 08:22 12/15/22 08:29 Temperature 98.8 F Temperature Source Temporal Pulse Rate 112 H 104 H Respiratory Rate 40 H 33 H Respiratory Effort Short of Breath Labored Accessory Muscle Use Head [place] Respiratory Depth Deep Respiratory Pattern Tachypnea Tachypnea Blood Pressure 156/115 H Blood Pressure Mean 128 Blood Pressure Source Blood Pressure Position Blood Pressure Location Pulse Ox 100 100 Oxygen Delivery Method Non-Rebreather Non-Rebreather Oxygen Flow Rate (L/min) 10 10 Fraction of Inspired Oxygen (FIO2) 50 12/15/22 09:02 12/15/22 11:29 12/15/22 12:59 Temperature 98.7 F 98.6 F Temperature Source Temporal Oral Pulse Rate 84 81 87 Respiratory Rate 27 H 18 16 Respiratory Effort Respiratory Depth Respiratory Pattern Blood Pressure 105/64 90/54 L 116/67 Blood Pressure Mean 77 66 83 Blood Pressure Source Monitor Blood Pressure Position Semi-Fowlers Blood Pressure Location Left Arm Pulse Ox 100 100 98 Oxygen Delivery Method Bi-pap Bi-pap Nasal Cannula Oxygen Flow Rate (L/min) 2 Fraction of Inspired Oxygen (FIO2) 12/15/22 12:55 12/15/22 12:55 12/15/22 14:00 Temperature Temperature Source Pulse Rate Respiratory Rate 20 H Respiratory Effort Normal Non-Labored Normal Non-Labored Respiratory Depth Normal Normal Respiratory Pattern Normal Normal Blood Pressure Blood Pressure Mean Blood Pressure Source Blood Pressure Position Blood Pressure Location Pulse Ox 99 99 Oxygen Delivery Method Nasal Cannula Nasal Cannula Nasal Cannula Oxygen Flow Rate (L/min) 3 3 2 Fraction of Inspired Oxygen (FIO2) 12/15/22 17:21 Temperature 98.2 F Temperature Source Axillary Pulse Rate 91 Respiratory Rate 18 Respiratory Effort Respiratory Depth Respiratory Pattern Blood Pressure 108/64 Blood Pressure Mean 77 Blood Pressure Source Monitor Blood Pressure Position Semi-Fowlers Blood Pressure Location Right Arm Pulse Ox 98 Oxygen Delivery Method Nasal Cannula Oxygen Flow Rate (L/min) 2 Fraction of Inspired Oxygen (FIO2) Weight Weight: 66.7 kg Body Mass Index (BMI) 26.9 Physical Exam Const Constitutional Narrative: Patient is somnolent, she does respond to painful stimuli and some verbal cues, she appears older than her stated age General Appearance: well kempt and well developed HEENT normocephalic, head/scalp atraumatic and moist oral mucous membranes Eyes PERRL, EOMs intact bilaterally and conjunctivae normal Neck supple, no JVD, thyroid normal and no carotid bruits General: trachea midline Resp normal respiratory effort, no retractions, no use of accessory muscles and clear to auscultation bilaterally Auscultation: Negative for rales, rhonchi or wheezes Cardio regular rate, regular rhythm, S1 normal heart sound, S2 normal heart sound, no murmurs, no rub and no gallops GI normal to inspection, nondistended, normoactive bowel sounds, soft to palpation, non-tender and non-distended Extremity no clubbing, cyanosis or edema Skin no rashes or lesions noted General Skin Exam: no breakdown Neuro CN's II-XII intact bilaterally Psych Psych Narrative: Patient is somnolent, she does respond to painful stimuli Results Lab / Micro Data Result Diagrams: 12/15/22 08:10 12/16/22 06:36 Labs: Laboratory Results - last 24 hr 12/15/22 08:10: WBC 10.2, RBC 3.03 L, Hgb 10.2 L, Hct 30.2 L, MCV 99.7 H, MCH 33.7 H, MCHC 33.8, RDW Std Deviation 59.1 H, RDW Coeff of [place] 16.1 H, Plt Count 158, MPV 9.3, Immature Gran % (Auto) 0.700, Neut % (Auto) 65.8, Lymph % (Auto) 23.8, Meagher % (Auto) 7.8, Eos % (Auto) 1.4, Baso % (Auto) 0.5, Absolute Neuts (auto) 6.7, Absolute Lymphs (auto) 2.43, Nucleated RBC % 0 12/15/22 08:10: Sodium 118 L*, Potassium 3.5, Chloride 81 L, Carbon Dioxide 25.0, Anion Gap 12, BUN 12, Creatinine 0.75, Estim Creat Clear Calc 34.30, Est GFR (MDRD) Af Amer 95, Est GFR (MDRD) Non-Af 79, BUN/Creatinine Ratio 16.1, Glucose 214 H, Calcium 7.8 L, Troponin I High Sens 371 H* 12/15/22 08:10: B-Natriuretic Peptide 738.9 H 12/15/22 08:50: Lactic Acid 2.6 H* 12/15/22 12:35: Troponin I High Sens 2847 H* 12/15/22 14:05: Troponin I High Sens 3022 H* 12/15/22 14:05: Lactic Acid 1.2 12/15/22 16:49: POC Glucose 150 H Radiology Impression Chest X-Ray 12/15/22 08:45 IMPRESSION: Progressive airspace disease in the right upper lobe as compared to prior study with persistent infiltrate and/or atelectasis in the left lower lobe. Findings are suggestive progressive CHF superimposed on left basilar infiltrate. There is blunting of the left costophrenic angle. Cardiomegaly. Electronically Signed: Micheal Guardado MD at 9:10 EST , Assessment & Plan Assessment/Plan (1) Non-ST elevation (NSTEMI) myocardial infarction: PLAN: Plan 1. Non-ST elevation [place]-patient will be admitted to PCU, she will receive IV Lasix for CHF, cording the patient's family, she would not want a heart catheterization done at this time. Echocardiogram will be performed tomorrow, surgery will see the patient in consultation. #2 acute exacerbation of congestive heart failure with preserved ejection fraction-patient will receive IV Lasix, further medication adjustment by cardiology. #3 moderate aortic stenosis-patient's echocardiogram will be repeated, cardiology will be seeing the patient #4 essential hypertension-patient will remain on her present medications #5 hyponatremia-etiology unclear, possibly secondary to congestive heart failure, labs will be monitored #6 type 2 diabetes-patient's blood sugars will be monitored, sliding scale insulin will be given as needed #7 chronic pain secondary to degenerative joint disease of the lumbar spine with compression fractures-I have elected to reduce the patient's pain medication due to her lethargy today. #8 hypothyroidism-patient is on Synthroid #9 hypoxia secondary to #2-patient's pulse ox will be monitored #10 moderate pulmonary hypertension-patient will be given IV Lasix Again I discussed the patient's care with her granddaughter and daughter today by phone. Patient is a DNR CC arrest without intubation. Total clinical time spent by myself addressing the patient's medical problems, reviewing all of the data, and collaborating with patient's care team: 75 minutes Charges/Coding Visit Charges Inpatient E&M: 77099 Init Hosp L3
[2022-12-15] MEDS: Metoprolol Tartrate 25 MG Tablet PO (21:38)
[2022-12-15] MEDS: Atorvastatin Calcium 40 MG Tablet PO (21:38)
[2022-12-15] MEDS: oxyCODONE 5 MG Tablet PO (21:38)
[2022-12-15] MEDS: Heparin Injection (Vial) 5,000 UNIT/ML VIAL 5000 UNIT SC (21:39)
[2022-12-15 22:50] LABS: Bedside Glucose 122 mg/dL (74-106)
--- NOTE | 2022-12-15 22:50 | CPS ---
Pt refused to wear BiPAP at this time.
[2022-12-16] VITALS (11 sets, daily range): BP systolic 97–111; BP diastolic 57–69; PULSE 79–94; RESP 16–18; TEMP 36.4–37.2; O2SAT 96–99; BMI 26.6
[2022-12-16] MEDS: Levothyroxine 137 MCG Tablet PO (05:03)
[2022-12-16] MEDS: Furosemide 40 MG/4 ML Vial IV ×3 (05:03→22:00)
[2022-12-16] MEDS: 0.9% Saline Lock 10 ML Syringe IV ×3 (05:03→22:00)
--- NOTE | 2022-12-16 05:55 | EKG12_ITS ---
Test Reason : AM EKG Blood Pressure : / mmHG Vent. Rate : 088 BPM Atrial Rate : 088 BPM P-R Int : 174 ms QRS Dur : 112 ms QT Int : 434 ms P-R-T Axes : 048 -47 -76 degrees QTc Int : 525 ms Normal sinus rhythm Possible Left atrial enlargement Left axis deviation Left ventricular hypertrophy ( R in aVL , [place] product ) Confirmed by KUMAR DELGADO, MEKHI ([id number]), web content editor MONIQUE TERESA ([id number]) on 12/19/2022 8:09:43 AM Referred By: Confirmed By:MEKHI HEATH MD
--- NOTE | 2022-12-16 05:55 | ECHOD_ITS ---
Reason For Study: S/P NM Procedure This was a 2D Doppler, Color Flow transthoracic echocardiogram. The study was technically difficult. Exam performed in department. Left Ventricle Mildly dilated left ventricle. Apical false tendon noted. Moderately severe segmental systolic dysfunction (see wall motion). The estimated ejection fraction is 35 %. Stage 2 diastolic dysfunction. Mid-Anterior : Akinetic. Mid-Lateral : Akinetic. Mid-Posterior: Akinetic. Mid-Inferior: Akinetic. Mid-inferoseptal : Akinetic. Mid-anteroseptal : Akinetic. [place] : Akinetic. Right Ventricle Normal RV size. Normal systolic function. Atria The left atrium is moderately enlarged. Normal right atrium. No doppler evidence for ASD. Mitral Valve There is moderate mitral annular calcification. Extensionof the mitral annular calcification onto the mitral valve leaflets. Severe diffuse mitral valve thickening. The mitral valve chordae are thickened and/or calcified. The mitral papillary muscle appears thickened and/or calcified. Moderate mitral valve stenosis. Moderate (2+) eccentric mitral valve insufficiency. Tricuspid Valve Normal tricuspid valve. Mild tricuspid valve insufficiency. Right ventricular systolic pressure estimated to be 35 mmHg. Aortic Valve Trisinus/trileaflet aortic valve. Moderate to severe diffuse thickening, calcification, and partial restriction of the aortic valve leaflets. Moderate aortic stenosis. Pulmonic Valve The pulmonic valve is not well visualized. Mild (1+) pulmonic valve insufficiency. Great Vessels Normal sized aortic root. Calcified aortic root. Pericardium/Pleural Small pericardial effusion. There are no echocardiographic indications of cardiac tamponade. Echolucency c/w a pleural effusion. MMode/2D Measurements & Calculations LVIDd: 5.2 cm IVSd: 1.1 cm LVOT diam: 2.0 cm LVIDs: 3.6 cm LVPWd: 0.87 cm LVOT area: 3.3 cm2 RVDd: 3.4 cm FS: 30.6 % Ao root diam: 3.1 cm LAV(MOD-bp): 131.4 ml LA A4 area: 30.8 cm2 LAV(MOD-bp) Indexed: 78.3 ml/m2 LAV(MOD-sp2): 123.3 ml LAV(MOD-sp4): 123.8 ml LA dimension(2D): 4.7 cm RA A4 area: 19.7 cm2 Time Measurements MV dec time: 0.31 sec Doppler Measurements & Calculations MV E max mack: 151.6 cm/sec Lat Peak E' Mack: 4.2 cm/sec Med Peak E' Mack: 3.5 cm/sec MV A max mack: 174.1 cm/sec E/E' lat: 36.1 E/E' med: 43.2 MV E/A: 0.87 MV V2 max: 187.4 cm/sec MV dec slope: 536.5 cm/sec2 Ao V2 max: 234.4 cm/sec MV max P.1 mmHg Ao max P.0 mmHg MV V2 mean: 135.7 cm/sec Ao V2 mean: 173.0 cm/sec MV mean P.1 mmHg Ao mean P.5 mmHg MV V2 VTI: 47.0 cm Ao V2 VTI: 49.8 cm MVA(VTI): 1.3 cm2 AV (velocity ratio): 0.37 CHELITA(I,D): 1.2 cm2 CHELITA(V,D): 1.2 cm2 LV V1 max: 88.6 cm/sec MR max mack: 458.6 cm/sec SV(LVOT): 60.2 ml LV V1 max P.1 mmHg MR max P.3 mmHg LV V1 mean P.6 mmHg MR mean mack: 353.4 cm/sec LV V1 mean: 58.8 cm/sec MR mean P.4 mmHg LV V1 VTI: 18.4 cm MR VTI: 137.7 cm PA V2 max: 105.9 cm/sec TR max mack: 258.7 cm/sec PI dec slope: 279.2 cm/sec2 TR max P.8 mmHg ECHO/Echo Complete Interpretation Summary Mildly dilated left ventricle. Moderately severe segmental systolic dysfunction (see wall motion). The estimated ejection fraction is 35 %. Apical false tendon noted. The left atrium is moderately enlarged. There is moderate mitral annular calcification. Extensionof the mitral annular calcification onto the mitral valve leaflets. Severe diffuse mitral valve thickening. The mitral valve chordae are thickened and/or calcified. The mitral papillary muscle appears thickened and/or calcified. Moderate mitral valve stenosis. Moderate (2+) eccentric mitral valve insufficiency. Mild tricuspid valve insufficiency. Moderate aortic stenosis. Mild (1+) pulmonic valve insufficiency. Calcified aortic root. Small pericardial effusion. There are no echocardiographic indications of cardiac tamponade. Echolucency c/w a pleural effusion. Right ventricular systolic pressure estimated to be 35 mmHg. Stage 2 diastolic dysfunction. Comment: Based upon the 2D echocardiographic images of the left ventricle and u nderlying Takotsubo syndrome cannot necessarily be excluded. Ordering Physician: Hernan Harding Referring Physician: Kurtis Ross Chi Performed By: Cinthia Luu, BRYANT, RVT
[2022-12-16 06:46] LABS: Bedside Glucose 118 mg/dL (74-106)
[2022-12-16 09:10] LABS: Anion Gap 11 (5-15); BUN 16 mg/dL (7-18); BUN/Creat Ratio 18.3 RATIO (10-20); Calcium,Total 7.4 mg/dL (8.5-10.1); Chloride 85 mmol/L (98-107); Creatinine, Serum 0.87 mg/dL (0.55-1.02); EST Glomerular Filtration Rate 66 mL/min (>60); Est Glom Filt Rate - Afr Amer 80 mL/min (>60); Estimated Creatinine Clearance 39.43 ml/min; Glucose 113 mg/dL (74-106); Potassium 4.5 mmol/L (3.5-5.1); Sodium Level 119 mmol/L (136-145); Troponin-I HS 1799 pg/mL (3.0-54.0)
[2022-12-16] MEDS: Metoprolol Tartrate 25 MG Tablet PO ×2 (09:18→22:00)
[2022-12-16] MEDS: Heparin Injection (Vial) 5,000 UNIT/ML VIAL 5000 UNIT SC ×2 (09:18→22:00)
[2022-12-16] MEDS: Gabapentin 300 MG Capsule PO (09:18)
[2022-12-16] MEDS: Aspirin 81 MG TAB.CHEW PO (09:18)
[2022-12-16] MEDS: Potassium Chloride Oral Tablet 20 MEQ PO ×2 (09:18→16:27)
[2022-12-16] MEDS: Isosorbide Mononitrate 30 MG Tablet PO (09:19)
[2022-12-16] MEDS: Famotidine 20 MG Tablet 40 MG PO (09:19)
[2022-12-16] MEDS: oxyCODONE 5 MG Tablet PO ×2 (09:19→22:00)
[2022-12-16] MEDS: Insulin Lispro 100 UNIT/ML INSULN.PEN SC ×3 (10:43→22:00)
[2022-12-16 11:51] LABS: Bedside Glucose 185 mg/dL (74-106)
--- NOTE | 2022-12-16 12:23 | PN.CARD_ITS ---
Subjective Subjective The patient appears to be more awake and alert today. Her family members are with her. They states she has been more interactive. She does believe her breathing is somewhat improved compared to yesterday. Objective Data Vital Signs: Vital Signs Temp Pulse Resp BP Pulse Ox O2 Del Method O2 Flow Rate 97.8 F 92 18 111/59 L 96 Nasal Cannula 2 12/16/22 08:34 12/16/22 09:18 12/16/22 08:34 12/16/22 09:18 12/16/22 08:34 12/16/22 08:34 12/16/22 10:40 FiO2 50 12/15/22 08:29 Oxygen Flow Rate (L/min) 2 Oxygen Delivery Method Nasal Cannula Weight: 145 lb 15.136 oz Body Mass Index (BMI) 26.6 Intake & Output: Intake and Output for Last 24 Hours 12/14/22 12/15/22 12/16/22 23:59 23:59 23:59 Intake Total 120 / 120 120 / 120 Output Total 750 / 750 150 / 150 Balance -630 / -630 -30 / -30 Lab / Micro Data Result Diagrams: 12/15/22 08:10 12/16/22 06:36 Labs: Laboratory Results - last 24 hr 12/15/22 12:35: Troponin I High Sens 2847 H* 12/15/22 14:05: Troponin I High Sens 3022 H* 12/15/22 14:05: Lactic Acid 1.2 12/15/22 16:49: POC Glucose 150 H 12/15/22 21:37: POC Glucose 122 H 12/16/22 06:25: POC Glucose 118 H 12/16/22 06:36: Sodium 119 L*, Potassium 4.5, Chloride 85 L, Carbon Dioxide 23.0, Anion Gap 11, BUN 16, Creatinine 0.87, Estim Creat Clear Calc 39.43, Est GFR (MDRD) Af Amer 80, Est GFR (MDRD) Non-Af 66, BUN/Creatinine Ratio 18.3, Glucose 113 H, Calcium 7.4 L, Troponin I High Sens 1799 H* 12/16/22 10:39: POC Glucose 185 H Cardiology Labs/Tests 12/15/22 14:05: Lactic Acid 1.2 12/16/22 06:36: Sodium 119 L*, Potassium 4.5, Chloride 85 L, Carbon Dioxide 23.0, Anion Gap 11, BUN 16, Creatinine 0.87, Est GFR (MDRD) Af Amer 80, Est GFR (MDRD) Non-Af 66, BUN/Creatinine Ratio 18.3, Glucose 113 H, Calcium 7.4 L Rhythm: Sinus rhythm Physical Exam Const alert, oriented x3 and no apparent distress Orientation / Consciousness: awake HEENT normocephalic and head/scalp atraumatic Eyes PERRL, EOMs intact bilaterally, conjunctivae normal and no scleral icterus Neck full ROM and supple Carotids: delayed carotid upstroke Resp Auscultation: diminished lung sounds left lower Cardio regular rate, regular rhythm and S1 normal heart sound Heart Sounds: murmur systolic II/ harsh late left sternal border, LVOT and s ternal notch and abnormal sounds diminished A2 GI normal to inspection, nondistended, normoactive bowel sounds Extremity General Extremity: edema bilateral lower extremity Details: severe Psych mental status grossly normal Assessment & Plan Assessment/Plan (1) Shortness of breath: PLAN: The patient has progressive shortness of breath. At the moment this appears compatible with her underlying cardiovascular disease process with recurrent acute on chronic heart failure with preserved ejection fraction superimposed upon her underlying valvular heart disease with aortic valve stenosis/insufficiency. At this time she is being monitored. She has already undergone noninvasive valuation this day and recently with a transthoracic echocardiogram as noted. At the present time it would be reasonable to continue medical management. This would include IV diuretic therapy such as IV furosemide in addition to other medicines as deemed appropriate. (2) (HFpEF) heart failure with preserved ejection fraction: PLAN: The patient appears to have findings compatible with recurrent acute on chronic heart failure with preserved ejection fraction. At the present time she has already undergone previous noninvasive evaluation including recently as noted. Her medical therapy will include IV furosemide which is starting at 40 mg IV every 8 hours. She is also on other medications which appear to have included in the past isosorbide mononitrate at 30 mg p.o. daily and metoprolol tartrate at 25 mg p.o. twice daily. It does not appear she has been on any form of afterload reducing agents such as LIDIA inhibitor, ARB, Entresto, etc.. These agents can be considered as her clinical course progresses as deemed appropriate. (3) Aortic stenosis: PLAN: The patient does have aortic valve disease/stenosis. This may be a contributing factor to her recurrent symptoms and events. She has recently undergone evaluation for this with transthoracic echocardiogram. The patient and her family member state that the patient does not want to proceed with any further invasive evaluation/intervention/surgery from a cardiovascular standpoint. (4) Nonrheumatic mitral valve stenosis with insufficiency: PLAN: The patient is also been evaluated noninvasively recently and thought to have underlying mitral valve disease as well with both mitral valve stenosis and insufficiency. Again this may be a contributing factor to her recurrent acute on chronic heart failure with preserved ejection fraction. She will continue medical management. Again, as noted above, the patient and her family member state that there are no plans to proceed with any further invasive, intervention, or surgery from a cardiovascular standpoint. (5) Non-ST elevation (NSTEMI) myocardial infarction: PLAN: The patient has abnormal cardiac enzymes. This may be secondary to her recurrent acute on chronic heart failure preserved ejection fraction. However underlying CAD with an acute coronary syndrome cannot necessarily be excluded. Her cardiac enzymes have trended down. A transthoracic echocardiogram was requested to reassess her left ventricular wall motion and systolic function. Based upon the information noted above the plan is for continued conservative medical management. (6) Hyperlipidemia: PLAN: The patient will continue lipid-lowering therapy with her atorvastatin 40 mg p.o. daily (7) Hyponatremia: PLAN: The patient is noted to be hyponatremic. The etiology may be multifactorial. This may be related to a combination of her acute on chronic heart failure preserved ejection fraction and her medical therapy with respect to volume changes, etc. It is noted the patient has been hyponatremic in the past as well during previous evaluation/episodes. Her sodium level remains low. It is being followed as she undergoes medical management. Addt'l Comments Overall, the patient does appear to be somewhat more awake and alert today. She believes her breathing has improved. She is continuing medical therapy. Her vital signs and electrolytes are being followed. Both her and her family have stated that there is no plan for any further invasive cardiovascular evaluation or care. They have requested continue conservative medical management. Comment: Time spent the patient's overall evaluation, examination, review of medical records, discussion with the patient and family members present, and discussion with the hospital staff, along with documentation, etc.,: 40 minutes. Procedure Criteria Type of Procedure Procedure Type: Elective Elective Risks - COVID COVID Risk Discussion: The surgeon/proceduralist and patient have discussed in detail the risk of exposure to and/or potential harm posed by the COVID-19 virus with having a surgery/procedure at this time versus the risk of delaying the nasir rena/procedure. It is not possible to know either the risk of delaying the surgery or procedure or chance of getting an infection with perfect accuracy, but a joint decision was made between the patient and the surgeon/proceduralist to proceed at this time with the scheduled surgery/procedure as indicated on the consent form.
--- NOTE | 2022-12-16 15:35 | CASEMGMT ---
Social Work Note OTTO met with patient and introduced herself and role as [facility] Director [employer]. Patient laying in bed, agreeable to speak to SW. SW inquired about patient's discharge plan, patient reports she will be going back to the [place]. SW inquired about patient's length of stay there, patient unsure. SW inquired about contacting patient's daughter to review D/C plan, patient in agreement. OTTO contacted patient's daughter, Chloe, and introduced herself and role as [facility] SW. OTTO inquired about patient's plan at discharge. Chloe explained the patient has been at [facility] for about a week and the plan is to return as they are paying to keep patient's bed. Chloe explained the patient will return home from the [facility] once she has completed therapy services. OTTO met with tandem operator to review patient's possible D/C date. RN explained the patient will be here through the weekend. OTTO sent updates to [facility] via [employer]. Plan: return to [place] XIMENA Vega
--- NOTE | 2022-12-16 18:12 | PCM.PN.HOSP ---
Reason for Visit Reason for Visit: Diagnoses Hyperlipidemia, unspecified (12/15/22) Hypo-osmolality and hyponatremia (12/15/22) Non-ST elevation (NSTEMI) myocardial infarction (12/15/22) Nonrheumatic mitral (valve) insufficiency (12/15/22) Nonrheumatic mitral (valve) stenosis (12/15/22) Nonrheumatic aortic (valve) stenosis (12/15/22) Unspecified diastolic (congestive) heart failure (12/15/22) Shortness of breath (12/15/22) Subjective Subjective Patient was seen and examined today, her sodium was 119 today with an 85 chloride. She remains on IV Lasix at this time, she is on 2 L via nasal cannula and appears comfortable. She is alert today. Echocardiogram today showed reduced EF of 35% with moderate mitral valve insufficiency and moderate aortic stenosis. Objective Data Objective Data Vital Signs: Vital Signs Temp Pulse Resp BP Pulse Ox O2 Del Method O2 Flow Rate 98.7 F 88 16 97/59 L 97 Nasal Cannula 2 12/16/22 16:29 12/16/22 16:29 12/16/22 16:29 12/16/22 16:29 12/16/22 16:29 12/16/22 16:29 12/16/22 16:29 FiO2 50 12/15/22 08:29 Oxygen Flow Rate (L/min) 2 Oxygen Delivery Method Nasal Cannula Weight: 66.2 kg Body Mass Index (BMI) 26.6 Intake & Output: Intake and Output for Last 24 Hours 12/14/22 12/15/22 12/16/22 23:59 23:59 23:59 Intake Total 120 / 120 540 / 540 Output Total 750 / 750 600 / 600 Balance -630 / -630 -60 / -60 Lab / Micro Data Result Diagrams: 12/15/22 08:10 12/16/22 06:36 Labs: Laboratory Results - last 24 hr 12/15/22 21:37: POC Glucose 122 H 12/16/22 06:25: POC Glucose 118 H 12/16/22 06:36: Sodium 119 L*, Potassium 4.5, Chloride 85 L, Carbon Dioxide 23.0, Anion Gap 11, BUN 16, Creatinine 0.87, Estim Creat Clear Calc 39.43, Est GFR (MDRD) Af Amer 80, Est GFR (MDRD) Non-Af 66, BUN/Creatinine Ratio 18.3, Glucose 113 H, Calcium 7.4 L, Troponin I High Sens 1799 H* 12/16/22 10:39: POC Glucose 185 H Radiography Diagnostic Testing: Radiology Impression Echocardiogram 12/16/22 05:55 Interpretation Summary Mildly dilated left ventricle. Moderately severe segmental systolic dysfunction (see wall motion). The estimated ejection fraction is 35 %. Apical false tendon noted. The left atrium is moderately enlarged. There is moderate mitral annular calcification. Extensionof the mitral annular calcification onto the mitral valve leaflets. Severe diffuse mitral valve thickening. The mitral valve chordae are thickened and/or calcified. The mitral papillary muscle appears thickened and/or calcified. Moderate mitral valve stenosis. Moderate (2+) eccentric mitral valve insufficiency. Mild tricuspid valve insufficiency. Moderate aortic stenosis. Mild (1+) pulmonic valve insufficiency. Calcified aortic root. Small pericardial effusion. There are no echocardiographic indications of cardiac tamponade. Echolucency c/w a pleural effusion. Right ventricular systolic pressure estimated to be 35 mmHg. Stage 2 diastolic dysfunction. Comment: Based upon the 2D echocardiographic images of the left ventricle and underlying Takotsubo syndrome cannot necessarily be excluded. Ordering Physician: Hernan Harding Referring Physician: Kurtis Ross Chi Performed By: Cinthia Luu, BRYANT, RVT Physical Exam Const alert, oriented x3 and no apparent distress Constitutional Narrative: Patient is somnolent, she does respond to painful stimuli and some verbal cues, she appears older than her stated age General Appearance: well kempt and well developed HEENT head/scalp atraumatic and moist oral mucous membranes Eyes PERRL and conjunctivae normal Neck supple and no JVD General: trachea midline Resp normal respiratory effort, no retractions, no use of accessory muscles and clear to auscultation bilaterally Auscultation: Negative for rales, rhonchi or wheezes Cardio regular rate, regular rhythm, S1 normal heart sound and S2 normal heart sound GI normal to inspection, nondistended, normoactive bowel sounds, soft to palpation, non-tender and non-distended Extremity normal to inspection Skin no rashes or lesions noted General Skin Exam: no breakdown Neuro oriented x3, CN's II-XII intact bilaterally, moves all extremities and no focal motor deficits Sensorium / Orientation: awake, alert, oriented to person and oriented to place Psych affect normal Psych Narrative: Patient is somnolent, she does respond to painful stimuli Assessment & Plan Assessment/Plan (1) Non-ST elevation (NSTEMI) myocardial infarction: PLAN: Plan 1. Non-ST elevation OK-continue present medications, patient states that she does not want to undergo a cardiac catheterization. #2 acute exacerbation of congestive heart failure with decreased ejection fraction-patient will receive IV Lasix, further medication adjustment by cardiology. 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 Patient is a DNR CC arrest without intubation. Total clinical time spent by myself addressing the patient's medical problems, reviewing all of the data, and collaborating with patient's care team: 35 minutes Charges/Coding Visit Charges Inpatient E&M: 50136 Subs Hosp L2
[2022-12-16 18:21] LABS: Bedside Glucose 190 mg/dL (74-106)
[2022-12-16] MEDS: Atorvastatin Calcium 40 MG Tablet PO (22:01)
[2022-12-16 23:06] LABS: Bedside Glucose 151 mg/dL (74-106)
[2022-12-17] VITALS (12 sets, daily range): BP systolic 106–115; BP diastolic 51–65; PULSE 83–96; RESP 16–18; TEMP 36.5–36.9; O2SAT 89–99; BMI 27.0
[2022-12-17] MEDS: 0.9% Saline Lock 10 ML Syringe IV ×2 (05:34→13:39)
[2022-12-17] MEDS: Levothyroxine 137 MCG Tablet PO (05:35)
[2022-12-17] MEDS: Furosemide 40 MG/4 ML Vial IV ×3 (05:35→21:25)
[2022-12-17 07:01] LABS: Bedside Glucose 132 mg/dL (74-106)
[2022-12-17 07:46] LABS: Anion Gap 9 (5-15); BUN 22 mg/dL (7-18); BUN/Creat Ratio 21.2 RATIO (10-20); Calcium,Total 7.5 mg/dL (8.5-10.1); Chloride 86 mmol/L (98-107); Creatinine, Serum 1.04 mg/dL (0.55-1.02); EST Glomerular Filtration Rate 54 mL/min (>60); Est Glom Filt Rate - Afr Amer 65 mL/min (>60); Estimated Creatinine Clearance 32.99 ml/min; Glucose 129 mg/dL (74-106); Potassium 5.1 mmol/L (3.5-5.1); Sodium Level 119 mmol/L (136-145)
[2022-12-17] MEDS: Famotidine 20 MG Tablet 40 MG PO (09:15)
[2022-12-17] MEDS: oxyCODONE 5 MG Tablet PO ×3 (09:15→21:24)
[2022-12-17] MEDS: Aspirin 81 MG TAB.CHEW PO (09:15)
[2022-12-17] MEDS: Gabapentin 300 MG Capsule PO (09:15)
[2022-12-17] MEDS: Polyethylene Glycol 3350 17 GM PACKET PO (09:15)
[2022-12-17] MEDS: Heparin Injection (Vial) 5,000 UNIT/ML VIAL 5000 UNIT SC ×2 (09:15→21:25)
[2022-12-17] MEDS: Potassium Chloride Oral Tablet 20 MEQ PO ×2 (09:16→15:34)
[2022-12-17] MEDS: Metoprolol Tartrate 25 MG Tablet PO ×2 (09:16→21:24)
[2022-12-17] MEDS: Isosorbide Mononitrate 30 MG Tablet PO (09:16)
--- NOTE | 2022-12-17 09:54 | CON.PCM.RE_ITS ---
Assessment & Plan Assessment/Plan (1) Hyponatremia: PLAN: This is hypervolemic hyponatremia in the setting of congestive heart failure with reduced ejection fraction, pulmonary edema, peripheral edema. On top of it she has excessive fluid intake and reduced solid intake. PLAN: Plan Continue with Lasix drip No salt tablets due to congestive heart failure Limit oral free water intake Encourage appropriate p.o. fluid intake She asked me to get a hospice consult. She told me that she is accomplished person and would like to be home with the [facility]. HPI Consult Data Date of Consult: 12/17/22 HPI Narrative Reason for Consultation: Hyponatremia in the setting of congestive heart failure. HPI Narrative: TORY LY, is a 82 F who presents with shortness of breath, pulmonary edema. She was found to be hyponatremic with sodium 118. It is not new, she has chronic hyponatremia, most of the sodiums ranging in the upper 120s. She is edematous. She is not having altered mental status or seizures or headaches. She states that her daughter been asking her to drink a lot of fluids. Because of the pulmonary edema she is now receiving IV Lasix drip. Her sodium changed very little, today being 119. She states she continues to drink a lot of water as she been told. Admits to poor appetite, intermittent nausea and vomiting. Oral food intake is quite scant. [facility] Medical History (HFpEF) heart failure with preserved ejection fraction Acid reflux Anemia, unspecified Arthritis Bacteremia due to Gram-negative bacteria Bilateral lower extremity edema Breast cancer Cancer Cataracts, bilateral CHF (congestive heart failure) Chronic headaches DDD (degenerative disc disease), lumbar Diabetes Elevated d-dimer Elevated troponin (06/2021) Essential hypertension H/O transfusion of whole blood History of type 1 diabetes mellitus Hypercholesterolemia Hyperlipidemia Hypothyroidism Kidney disease Lower extremity edema Lymphedema Nonrheumatic mitral valve stenosis with insufficiency NSTEMI, initial episode of care Pancytopenia Segmental and somatic dysfunction of lumbar region Segmental and somatic dysfunction of pelvic region Segmental and somatic dysfunction of thoracic region Spinal stenosis Thrombocytopenia Thyroid disease Home Medications atorvastatin 40 mg tablet 40 mg PO QHS cholesterol 07/05/19 [History Last Taken 12/14/22] baclofen 5 mg tablet 5 mg PO DAILY muscle spasms 07/05/19 [History Last Taken 12/15/22] famotidine 40 mg tablet 40 mg PO DAILY gerd 07/05/19 [History Last Taken 12/15/22] gabapentin 300 mg capsule 300 mg PO DAILY neuropathy 07/05/19 [History Last Taken 12/15/22] metoprolol tartrate 25 mg tablet 25 mg PO BID heart rate 07/05/19 [History Last Taken 12/15/22] oxycodone-acetaminophen 5 mg-325 mg tablet 1 tab PO TID back pain 12/02/19 [History Last Taken 12/15/22] polyethylene glycol 3350 17 gram/dose oral powder (Miralax) 17 g PO DAILY stool softener 05/03/20 [History Last Taken 12/15/22] levothyroxine 137 mcg tablet 137 mcg PO DAILY #30 tabs 08/14/22 [Rx Last Taken 12/15/22] glimepiride 1 mg tablet 1 mg PO DAILY diabetes 09/12/22 [History Last Taken 12/15/22] furosemide 40 mg tablet (Lasix) 40 mg PO DAILY #30 tabs 12/07/22 [Rx Last Taken 12/15/22] isosorbide mononitrate 30 mg tablet,extended release 24 hr 30 mg PO DAILY #30 tabs 12/07/22 [Rx Last Taken 12/15/22] multivitamin with minerals 1 tab PO DAILY SUPPLEMENT 12/15/22 [History Last Taken 12/15/22] potassium, sodium phosphates 280 mg-160 mg-250 mg oral powder packet (Phos-NaK) 1 packet PO DAILY 12/15/22 [History Last Taken 12/15/22] Allergy/AdvReac Type Severity Reaction Status Date / Time piperacillin [From Zosyn] AdvReac Mild malaise, Verified 12/15/22 08:18 myalgias tazobactam [From Zosyn] AdvReac Mild malaise, Verified 12/15/22 08:18 myalgias Family History Grandfather CVA (cerebral vascular accident) Mother Hypertension Breast cancer Father Diabetes Heart disease Brother CVA (cerebral vascular accident) Diabetes Dementia Surgical History H/O mastectomy H/O tubal ligation History of cataract surgery History of hysterectomy Hx of section Hx of cholecystectomy Hx of colonoscopy Social History household members: none Smoking Status: Former smoker second hand exposure: No alcohol intake: never substance use type: does not use caffeine: Yes what type of physical activity do you participate in: none frequency: does not exercise ROS Constitutional Constitutional: Reports malaise and weakness ENT HEENT: Reports dry mouth Cardiovascular Cardiovascular: Reports dyspnea on exertion, edema and leg edema Respiratory/Chest Respiratory/Chest: Reports dyspnea on exertion, shortness of breath at rest and wheezing Gastrointestinal Gastrointestinal: Reports anorexia, nausea and vomiting Physical Exam Const alert, oriented x3 and average body habitus Orientation / Consciousness: oriented to person, oriented to place and oriented to time HEENT normocephalic Head and Scalp: atraumatic Neck no lymphadenopathy Resp Auscultation: crackles bilateral lower Cardio no rub GI non-tender Auscultation: normoactive bowel sounds Palpation: soft no CVA tenderness Skin Skin Narrative: Has extensive stasis dermatitis below both knees Psych cooperative Lab / Micro Data Attestation: I reviewed the patient's lab results. Result Diagrams: 12/15/22 08:10 12/17/22 06:39 Labs: Laboratory Results - last 24 hr 12/16/22 10:39: POC Glucose 185 H 12/16/22 16:26: POC Glucose 190 H 12/16/22 21:59: POC Glucose 151 H 12/17/22 06:39: Sodium 119 L*, Potassium 5.1, Chloride 86 L, Carbon Dioxide 24.0, Anion Gap 9, BUN 22 H, Creatinine 1.04 H, Estim Creat Clear Calc 32.99, Est GFR (MDRD) Af Amer 65, Est GFR (MDRD) Non-Af 54 L, BUN/Creatinine Ratio 21.2 H, Glucose 129 H, Calcium 7.5 L 12/17/22 06:39: POC Glucose 132 H Radiology Impression Echocardiogram 12/16/22 05:55 Interpretation Summary Mildly dilated left ventricle. Moderately severe segmental systolic dysfunction (see wall motion). The estimated ejection fraction is 35 %. Apical false tendon noted. The left atrium is moderately enlarged. There is moderate mitral annular calcification. Extensionof the mitral annular calcification onto the mitral valve leaflets. Severe diffuse mitral valve thickening. The mitral valve chordae are thickened and/or calcified. The mitral papillary muscle appears thickened and/or calcified. Moderate mitral valve stenosis. Moderate (2+) eccentric mitral valve insufficiency. Mild tricuspid valve insufficiency. Moderate aortic stenosis. Mild (1+) pulmonic valve insufficiency. Calcified aortic root. Small pericardial effusion. There are no echocardiographic indications of cardiac tamponade. Echolucency c/w a pleural effusion. Right ventricular systolic pressure estimated to be 35 mmHg. Stage 2 diastolic dysfunction. Comment: Based upon the 2D echocardiographic images of the left ventricle and underlying Takotsubo syndrome cannot necessarily be excluded. Ordering Physician: Hernan Harding Referring Physician: Kurtis Ross Chi Performed By: Cinthia Luu, DAIANACS, RVT
[2022-12-17] MEDS: Insulin Lispro 100 UNIT/ML INSULN.PEN SC ×3 (10:43→21:32)
[2022-12-17 12:25] LABS: Bedside Glucose 187 mg/dL (74-106)
--- NOTE | 2022-12-17 12:26 | PN.CARD_ITS ---
Subjective Subjective The patient is awake and alert although she appears somewhat more tired and fatigued than yesterday. Her family members are with her at this time. They also note that she is somewhat more tired appearing. The patient does not complain of any new acute symptoms although she still has her chronic shortness of breath and her chronic lower extremity edema. Objective Data Vital Signs: Vital Signs Temp Pulse Resp BP Pulse Ox O2 Del Method O2 Flow Rate 98.4 F 96 16 115/56 L 97 Nasal Cannula 2 12/17/22 09:09 12/17/22 09:16 12/17/22 09:09 12/17/22 09:16 12/17/22 09:26 12/17/22 09:32 12/17/22 09:32 FiO2 50 12/15/22 08:29 Oxygen Flow Rate (L/min) 2 Oxygen Delivery Method Nasal Cannula Weight: 147 lb 14.883 oz Body Mass Index (BMI) 27.0 Intake & Output: Intake and Output for Last 24 Hours 12/15/22 12/16/22 12/17/22 23:59 23:59 23:59 Intake Total 120 / 120 910 / 910 120 / 120 Output Total 750 / 750 725 / 725 125 / 125 Balance -630 / -630 185 / 185 -5 / -5 Lab / Micro Data Result Diagrams: 12/15/22 08:10 12/17/22 06:39 Labs: Laboratory Results - last 24 hr 12/16/22 16:26: POC Glucose 190 H 12/16/22 21:59: POC Glucose 151 H 12/17/22 06:39: Sodium 119 L*, Potassium 5.1, Chloride 86 L, Carbon Dioxide 24.0, Anion Gap 9, BUN 22 H, Creatinine 1.04 H, Estim Creat Clear Calc 32.99, Est GFR (MDRD) Af Amer 65, Est GFR (MDRD) Non-Af 54 L, BUN/Creatinine Ratio 21.2 H, Glucose 129 H, Calcium 7.5 L 12/17/22 06:39: POC Glucose 132 H 12/17/22 10:41: POC Glucose 187 H Cardiology Labs/Tests 12/17/22 06:39: Sodium 119 L*, Potassium 5.1, Chloride 86 L, Carbon Dioxide 24.0, Anion Gap 9, BUN 22 H, Creatinine 1.04 H, Est GFR (MDRD) Af Amer 65, Est GFR (MDRD) Non-Af 54 L, BUN/Creatinine Ratio 21.2 H, Glucose 129 H, Calcium 7.5 L Rhythm: Sinus rhythm Radiography Diagnostic Testing: Radiology Impression Echocardiogram 12/16/22 05:55 Interpretation Summary Mildly dilated left ventricle. Moderately severe segmental systolic dysfunction (see wall motion). The estimated ejection fraction is 35 %. Apical false tendon noted. The left atrium is moderately enlarged. There is moderate mitral annular calcification. Extensionof the mitral annular calcification onto the mitral valve leaflets. Severe diffuse mitral valve thickening. The mitral valve chordae are thickened and/or calcified. The mitral papillary muscle appears thickened and/or calcified. Moderate mitral valve stenosis. Moderate (2+) eccentric mitral valve insufficiency. Mild tricuspid valve insufficiency. Moderate aortic stenosis. Mild (1+) pulmonic valve insufficiency. Calcified aortic root. Small pericardial effusion. There are no echocardiographic indications of cardiac tamponade. Echolucency c/w a pleural effusion. Right ventricular systolic pressure estimated to be 35 mmHg. Stage 2 diastolic dysfunction. Comment: Based upon the 2D echocardiographic images of the left ventricle and underlying Takotsubo syndrome cannot necessarily be excluded. Ordering Physician: Hernan Harding Referring Physician: Kurtis Ross Chi Performed By: Cinthia Luu, BRYANT, RVT Physical Exam Const alert, oriented x3 and no apparent distress Orientation / Consciousness: awake HEENT normocephalic and head/scalp atraumatic Eyes PERRL, EOMs intact bilaterally, conjunctivae normal and no scleral icterus Neck full ROM and supple Carotids: delayed carotid upstroke Resp Auscultation: diminished lung sounds left lower Cardio regular rate, regular rhythm and S1 normal heart sound Heart Sounds: murmur systolic II/ harsh late left sternal border, LVOT and sternal notch and abnormal sounds diminished A2 GI normal to inspection, nondistended, normoactive bowel sounds Extremity General Extremity: edema bilateral lower extremity Details: severe Psych mental status grossly normal Assessment & Plan Assessment/Plan (1) Shortness of breath: PLAN: The patient has progressive shortness of breath. At the moment this appears compatible with her underlying cardiovascular disease process with recurrent acute on chronic heart failure with preserved ejection fraction superimposed upon her underlying valvular heart disease with aortic valve stenosis/insufficiency. At this time she is being monitored. She has already undergone noninvasive valuation this day and recently with a transthoracic echocardiogram as noted. At the present time it would be reasonable to continue medical management. This would include IV diuretic therapy such as IV furosemide in addition to other medicines as deemed appropriate. (2) (HFpEF) heart failure with preserved ejection fraction: PLAN: The patient appears to have a history of findings compatible with recurrent acute on chronic heart failure with preserved ejection fraction. At the present time she has already undergone previous noninvasive evaluation including recently as noted. A repeat transthoracic echocardiogram was performed. It now demonstrates that her overall LV systolic function has declined. Based upon her 2D echocardiographic images an underlying Takotsubo syndrome cannot necessarily be excluded. She will continue medical therapy. Her medical therapy will include IV furosemide which is starting at 40 mg IV every 8 hours. She is also on other medications which appear to have included in the past isosorbide mononitrate at 30 mg p.o. daily and metoprolol tartrate at 25 mg p.o. twice daily. It does not appear she has been on any form of afterload reducing agents such as LIDIA inhibitor, ARB, Entresto, etc.. These agents can be considered as her clinical course progresses as deemed appropriate. (3) Cardiomyopathy: PLAN: The patient now has findings compatible with left ventricular systolic wall motion abnormalities and diminished LV systolic function/LVEF. Based upon her echocardiographic images this may be compatible with a Takotsubo syndrome although underlying CAD cannot necessarily be excluded. At the moment the patient has chosen to continue conservative medical management. There are no plans for any additional cardiovascular diagnostic studies especially invasive studies/interventional studies or surgical intervention. (4) Aortic stenosis: PLAN: The patient does have aortic valve disease/stenosis. This may be a contributing factor to her recurrent symptoms and events. She has recently undergone evaluation for this with transthoracic echocardiogram . The patient and her family member state that the patient does not want to proceed with any further invasive evaluation/intervention/surgery from a cardiovascular standpoint. (5) Nonrheumatic mitral valve stenosis with insufficiency: PLAN: The patient is also been evaluated noninvasively recently and thought to have underlying mitral valve disease as well with both mitral valve stenosis and insufficiency. Again this may be a contributing factor to her recurrent acute on chronic heart failure with preserved ejection fraction. She will continue medical management. Again, as noted above, the patient and her family member state that there are no plans to proceed with any further invasive, intervention, or surgery from a cardiovascular standpoint. (6) Non-ST elevation (NSTEMI) myocardial infarction: PLAN: The patient has abnormal cardiac enzymes. This may be secondary to her recurrent acute on chronic heart failure preserved ejection fraction. However underlying CAD with an acute coronary syndrome cannot necessarily be excluded. Her cardiac enzymes have trended down. Her transthoracic echocardiogram is as noted. Based upon the information noted above the plan is for continued conservative medical management. (7) Hyperlipidemia: PLAN: The patient will continue lipid-lowering therapy with her atorvastatin 40 mg p.o. daily (8) Hyponatremia: PLAN: She has been evaluated by nephrology. There input was to continue conservative medical management with fluid restriction and IV furosemide without any oral supplementation of sodium. The nephrology evaluation is appreciated. Addt'l Comments The patient's case has been discussed and reviewed with the patient, her family members present, and Dr. Dean. Based upon the nephrology consultation it appears the patient has requested a hospice consultation. Comment: Time spent in the patient's evaluation, examination, review of medical records/other reports, documentation, discussion with the family members and the [facility] staff, etc.: 40 minutes. This note was generated using a voice recognition system and there may be incorrect words, spelling or punctuation that were not noted when reviewing the office note prior to saving. Procedure Criteria Type of Procedure Procedure Type: Elective Elective Risks - COVID COVID Risk Discussion: The surgeon/proceduralist and patient have discussed in detail the risk of exposure to and/or potential harm posed by the COVID-19 virus with having a surgery/procedure at this time versus the risk of delaying the surgery/procedure. It is not possible to know either the risk of delaying the surgery or procedure or chance of getting an infection with perfect accuracy, but a joint decision was made between the patient and the surgeon/proceduralist to proceed at this time with the scheduled surgery/procedure as indicated on the consent form.
[2022-12-17 16:55] LABS: Bedside Glucose 198 mg/dL (74-106)
[2022-12-17] MEDS: Acetaminophen 325 MG Tablet 650 MG PO (16:59)
--- NOTE | 2022-12-17 17:32 | PCM.PN.HOSP ---
Reason for Visit Reason for Visit: Diagnoses Hyperlipidemia, unspecified (12/15/22) Hypo-osmolality and hyponatremia (12/15/22) Non-ST elevation (NSTEMI) myocardial infarction (12/15/22) Nonrheumatic mitral (valve) insufficiency (12/15/22) Nonrheumatic mitral (valve) stenosis (12/15/22) Nonrheumatic aortic (valve) stenosis (12/15/22) Cardiomyopathy, unspecified (12/15/22) Unspecified diastolic (congestive) heart failure (12/15/22) Shortness of breath (12/15/22) Subjective Subjective Patient was seen and examined today, I talked with her granddaughter and daughter who were in the room at the time my examination. Patient is alert and does not complain of any shortness of breath, she states she had bad dreams last night, I discussed pain medication with the patient's family and the patient, patient's family requested her Oxy IR be increased to 3 times daily and I did that. Patient was seen by nephrology today who thought it was a hypervolemic hyponatremia, they recommended continuing Lasix drip and limiting oral free fluid intake. Nephrology also stated that the patient asked the animal husbandry teacher to order a hospice consult, I went over this with the patient's family by phone and they stated that they were in the room when the animal husbandry teacher had the discussion with the patient and they did not feel she needed a hospice consult. Objective Data Objective Data Vital Signs: Vital Signs Temp Pulse Resp BP Pulse Ox O2 Del Method O2 Flow Rate 97.7 F L 83 16 108/65 94 Nasal Cannula 2 12/17/22 13:36 12/17/22 13:36 12/17/22 13:36 12/17/22 13:36 12/17/22 15:30 12/17/22 15:30 12/17/22 15:30 FiO2 50 12/15/22 08:29 Oxygen Flow Rate (L/min) 2 Oxygen Delivery Method Nasal Cannula Weight: 67.1 kg Body Mass Index (BMI) 27.0 Intake & Output: Intake and Output for Last 24 Hours 12/15/22 12/16/22 12/17/22 23:59 23:59 23:59 Intake Total 120 / 120 910 / 910 440 / 440 Output Total 750 / 750 725 / 725 425 / 425 Balance -630 / -630 185 / 185 Lab / Micro Data Result Diagrams: 12/15/22 08:10 12/17/22 06:39 Labs: Laboratory Results - last 24 hr 12/16/22 16:26: POC Glucose 190 H 12/16/22 21:59: POC Glucose 151 H 12/17/22 06:39: Sodium 119 L*, Potassium 5.1, Chloride 86 L, Carbon Dioxide 24.0, Anion Gap 9, BUN 22 H, Creatinine 1.04 H, Estim Creat Clear Calc 32.99, Est GFR (MDRD) Af Amer 65, Est GFR (MDRD) Non-Af 54 L, BUN/Creatinine Ratio 21.2 H, Glucose 129 H, Calcium 7.5 L 12/17/22 06:39: POC Glucose 132 H 12/17/22 10:41: POC Glucose 187 H 12/17/22 15:32: POC Glucose 198 H Physical Exam Narrative alert, oriented x3 and no apparent distress Constitutional Narrative: Patient is somnolent, she does respond to painful stimuli and some verbal cues, she appears older than her stated age General Appearance: well kempt and well developed HEENT head/scalp atraumatic and moist oral mucous membranes Eyes PERRL and conjunctivae normal Neck supple and no JVD General: trachea midline Resp normal respiratory effort, no retractions, no use of accessory muscles and clear to auscultation bilaterally Auscultation: Negative for rales, rhonchi or wheezes Cardio regular rate, regular rhythm, S1 normal heart sound and S2 normal heart sound GI normal to inspection, nondistended, normoactive bowel sounds, soft to palpation, non-tender and non-distended Extremity normal to inspection Skin no rashes or lesions noted General Skin Exam: no breakdown Neuro oriented x3, CN's II-XII intact bilaterally, moves all extremities and no focal motor deficits Sensorium / Orientation: awake, alert, oriented to person and oriented to place Psych affect normal Psych Narrative: Patient is somnolent, she does respond to painful stimuli Assessment & Plan Assessment/Plan (1) Non-ST elevation (NSTEMI) myocardial infarction: PLAN: Plan 1. Non-ST elevation NM-continue present medications, patient states that she does not want to undergo a cardiac catheterization. #2 acute exacerbation of congestive heart failure with decreased ejection fraction-patient will receive IV Lasix, further medication adjustment by cardiology. #3 moderate aortic stenosis-patient's echocardiogram will be repeated, cardiology will be seeing the patient #4 essential hypertension-patient will remain on her present medications #5 hyponatremia-nephrology is following the patient, they feel that it is due to hypervolemia. 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 I also discussed baclofen with the family, [facility] (2.5 [facility] every [facility])-I stated that I was not in favor restarting this medication due to the sedating effects of the baclofen. Family understood. #8 hypothyroidism-patient is on Synthroid #9 hypoxia secondary to #2-patient's pulse ox will be monitored, she is currently on 2 L of nasal cannula oxygen #10 moderate pulmonary hypertension-patient will be given IV Lasix #11 chronic debility-patient's family wants [facility] to [facility] after she is discharged from the hospital here for further skilled care. Family states they are paying to hold her room there. Again I discussed the patient's care with her granddaughter and daughter today by phone. Patient is a DNR CC arrest without intubation. Total clinical time spent by myself addressing the patient's medical problems, reviewing all of the data, and collaborating with patient's care team: 35 minutes Charges/Coding Visit Charges Inpatient E&M: 47737 Subs Hosp L2
[2022-12-17] MEDS: Atorvastatin Calcium 40 MG Tablet PO (21:24)
[2022-12-17 21:55] LABS: Bedside Glucose 179 mg/dL (74-106)
[2022-12-18] VITALS (9 sets, daily range): BP systolic 109–125; BP diastolic 59–66; PULSE 87–101; RESP 15–18; TEMP 36.5–36.9; O2SAT 94–99; BMI 27.3
[2022-12-18] MEDS: Acetaminophen 325 MG Tablet 650 MG PO (00:07)
[2022-12-18] MEDS: Levothyroxine 137 MCG Tablet PO (05:08)
[2022-12-18] MEDS: Furosemide 40 MG/4 ML Vial IV ×3 (05:08→23:09)
[2022-12-18] MEDS: oxyCODONE 5 MG Tablet PO ×3 (05:08→21:40)
[2022-12-18] MEDS: 0.9% Saline Lock 10 ML Syringe IV ×3 (05:10→23:09)
[2022-12-18] MEDS: Insulin Lispro 100 UNIT/ML INSULN.PEN SC ×4 (06:41→21:41)
[2022-12-18 06:43] LABS: Anion Gap 9 (5-15); BUN 25 mg/dL (7-18); BUN/Creat Ratio 25.5 RATIO (10-20); Calcium,Total 8.1 mg/dL (8.5-10.1); Chloride 88 mmol/L (98-107); Creatinine, Serum 0.98 mg/dL (0.55-1.02); EST Glomerular Filtration Rate 58 mL/min (>60); Est Glom Filt Rate - Afr Amer 70 mL/min (>60); Glucose 169 mg/dL (74-106); Sodium Level 120 mmol/L (136-145)
--- NOTE | 2022-12-18 08:29 | PN.CARD_ITS ---
Subjective Subjective The patient is awake and alert at this time. She states she feels roughly the same as she did yesterday. She has had no obvious worsening of her shortness of breath or dyspnea. It is noted that her lower extremities appear less edematous than they have compared to her admission examination. Objective Data Vital Signs: Vital Signs Temp Pulse Resp BP Pulse Ox O2 Del Method O2 Flow Rate 98.2 F 88 16 109/66 95 Nasal Cannula 2 12/18/22 01:45 12/18/22 01:45 12/18/22 01:45 12/18/22 01:45 12/18/22 07:24 12/18/22 07:24 12/18/22 07:24 FiO2 50 12/15/22 08:29 Oxygen Flow Rate (L/min) 2 Oxygen Delivery Method Nasal Cannula Weight: 149 lb 4.047 oz Body Mass Index (BMI) 27.3 Intake & Output: Intake and Output for Last 24 Hours 12/16/22 12/17/22 12/18/22 23:59 23:59 23:59 Intake Total 910 / 910 740 / 740 Output Total 725 / 725 825 / 825 Balance 185 / 185 -85 / -85 Lab / Micro Data Result Diagrams: 12/15/22 08:10 12/18/22 05:04 Labs: Laboratory Results - last 24 hr 12/17/22 10:41: POC Glucose 187 H 12/17/22 15:32: POC Glucose 198 H 12/17/22 21:32: POC Glucose 179 H 12/18/22 05:04: Sodium 120 L, Potassium 5.0, Chloride 88 L, Carbon Dioxide 23.0, Anion Gap 9, BUN 25 H, Creatinine 0.98, Estim Creat Clear Calc 35.00, Est GFR (MDRD) Af Amer 70, Est GFR (MDRD) Non-Af 58 L, BUN/Creatinine Ratio 25.5 H, Glucose 169 H, Calcium 8.1 L Cardiology Labs/Tests 12/18/22 05:04: Sodium 120 L, Potassium 5.0, Chloride 88 L, Carbon Dioxide 23.0, Anion Gap 9, BUN 25 H, Creatinine 0.98, Est GFR (MDRD) Af Amer 70, Est GFR (MDRD) Non-Af 58 L, BUN/Creatinine Ratio 25.5 H, Glucose 169 H, Calcium 8.1 L Rhythm: Sinus rhythm Physical Exam Const alert, oriented x3 and no apparent distress Orientation / Consciousness: awake HEENT normocephalic and head/scalp atraumatic Eyes PERRL, EOMs intact bilaterally, conjunctivae normal and no scleral icterus Neck full ROM and supple Carotids: delayed carotid upstroke Resp Auscultation: diminished lung sounds left lower Cardio regular rate, regular rhythm and S1 normal heart sound Heart Sounds: murmur systolic II/ harsh late left sternal border, LVOT and sternal notch and abnormal sounds diminished A2 GI normal to inspection, nondistended, normoactive bowel sounds Extremity General Extremity: edema bilateral lower extremity Details: moderate Psych mental status grossly normal Assessment & Plan Assessment/Plan (1) Shortness of breath: PLAN: The patient has progressive shortness of breath. At the moment this appears compatible with her underlying cardiovascular disease process with recurrent acute on chronic heart failure with preserved ejection fraction superimposed upon her underlying valvular heart disease with aortic valve stenosis/insufficiency. At this time she is being monitored. She has already undergone noninvasive valuation this day and recently with a tra nsthoracic echocardiogram as noted. At the present time it would be reasonable to continue medical management. This would include IV diuretic therapy such as IV furosemide in addition to other medicines as deemed appropriate. Her IV diuretics will eventually need to be changed to oral diuretics. (2) (HFpEF) heart failure with preserved ejection fraction: PLAN: The patient appears to have a history of findings compatible with recurrent acute on chronic heart failure with preserved ejection fraction. At the present time she has already undergone previous noninvasive evaluation including recently as noted. A repeat transthoracic echocardiogram was performed. It now demonstrates that her overall LV systolic function has declined. Based upon her 2D echocardiogr aphic images an underlying Takotsubo syndrome cannot necessarily be excluded. She will continue medical therapy. Her medical therapy will include IV furosemide which is starting at 40 mg IV every 8 hours. Again, as her clinical course progresses her IV diuretics will need to be changed to oral diuretics. She is also on other medications which appear to have included in the past isosorbide mononitrate at 30 mg p.o. daily and metoprolol tartrate at 25 mg p.o. twice daily. It does not appear she has been on any form of afterload reducing agents such as LIDIA inhibitor, ARB, Entresto, etc.. These agents can be considered as her clinical course progresses as deemed appropriate. (3) Cardiomyopathy: PLAN: The patient now has findings compatible with left ventricular systolic wall motion abnormalities and diminished LV systolic function/LVEF. Based upon her echocardiographic images this may be compatible with a Takotsubo syndrome although underlying CAD cannot necessarily be excluded. At the moment the patient has chosen to continue conservative medical managem ent. There are no plans for any additional cardiovascular diagnostic studies especially invasive studies/interventional studies or surgical intervention. (4) Aortic stenosis: PLAN: The patient does have aortic valve disease/stenosis. This may be a contributing factor to her recurrent symptoms and events. She has recently undergone evaluation for this with transthoracic echocardiogram. The patient and her family member state that the patient does not want to proceed with any further invasive evaluation/intervention/surgery from a cardiovascular standpoint. (5) Nonrheumatic mitral valve stenosis with insufficiency: PLAN: The patient is also been evaluated noninvasively recently and thought to have underlying mitral valve disease as well with both mitral valve stenosis and insufficiency. Again this may be a contributing factor to her recurrent acute on chronic heart failure with preserved ejection fraction. She will continue medical management. Again, as noted above, the patient and her family member state that there are no plans to proceed with any further invasive, intervention, or surgery from a cardiovascular standpoint. (6) Non-ST elevation (NSTEMI) myocardial infarction: PLAN: The patient has abnormal cardiac enzymes. This may be secondary to her recurrent acute on chronic heart failure preserved ejection fraction. However underlying CAD with an acute coronary syndrome cannot necessarily be excluded. Her cardiac enzymes have trended down. Her transthoracic echocardiogram is as noted. Based upon the information noted above the plan is for continued conservative medical management. (7) Hyperlipidemia: PLAN: The patient will continue lipid-lowering therapy with her atorvastatin 40 mg p.o. daily (8) Hyponatremia: PLAN: She has been evaluated by nephrology. There input was to continue conservative medical management with fluid restr iction and IV furosemide without any oral supplementation of sodium. Her sodium level is somewhat improved today to 120. She will continue medical therapy with IV diuretics with eventual adjustment to oral diuretics, etc. Addt'l Comments The patient's case was discussed and reviewed with the patient. Comment: Time spent the patient's evaluation, examination, review of medical records, discussion, placing orders, documentation, etc.: 37 minutes. Procedure Criteria Type of Procedure Procedure Type: Elective Elective Risks - COVID COVID Risk Discussion: The surgeon/proceduralist and patient have discussed in detail the risk of exposure to and/or potential harm posed by the COVID-19 virus with having a nasir rena/procedure at this time versus the risk of delaying the surgery/procedure. It is not possible to know either the risk of delaying the surgery or procedure or chance of getting an infection with perfect accuracy, but a joint decision was made between the patient and the surgeon/proceduralist to proceed at this time with the scheduled surgery/procedure as indicated on the consent form.
[2022-12-18 08:30] LABS: Bedside Glucose 185 mg/dL (74-106)
--- NOTE | 2022-12-18 08:57 | CASEMGMT ---
OTTO sent updates to [facility]. [employer] SPEECH AND HEARING DIRECTOR
[2022-12-18] MEDS: Famotidine 20 MG Tablet 40 MG PO (08:59)
[2022-12-18] MEDS: Polyethylene Glycol 3350 17 GM PACKET PO (08:59)
[2022-12-18] MEDS: Potassium Chloride Oral Tablet 20 MEQ PO ×2 (09:00→17:51)
[2022-12-18] MEDS: Isosorbide Mononitrate 30 MG Tablet PO (09:00)
[2022-12-18] MEDS: Metoprolol Tartrate 25 MG Tablet PO ×2 (09:00→21:42)
[2022-12-18] MEDS: Aspirin 81 MG TAB.CHEW PO (09:00)
[2022-12-18] MEDS: Gabapentin 300 MG Capsule PO (09:05)
[2022-12-18] MEDS: Heparin Injection (Vial) 5,000 UNIT/ML VIAL 5000 UNIT SC ×2 (09:05→21:41)
[2022-12-18 12:11] LABS: Bedside Glucose 199 mg/dL (74-106)
--- NOTE | 2022-12-18 12:42 | PHA.DC.MR ---
Pharmacy Service has performed discharge medication reconciliation for this patient prior to discharge to [facility]. Home Medications atorvastatin 40 mg tablet 40 mg PO QHS cholesterol 07/05/19 baclofen 5 mg tablet 5 mg PO DAILY muscle spasms 07/05/19 famotidine 40 mg tablet 40 mg PO DAILY gerd 07/05/19 gabapentin 300 mg capsule 300 mg PO DAILY neuropathy 07/05/19 metoprolol tartrate 25 mg tablet 25 mg PO BID heart rate 07/05/19 oxycodone-acetaminophen 5 mg-325 mg tablet 1 tab PO TID back pain 12/02/19 polyethylene glycol 3350 17 gram/dose oral powder (Miralax) 17 g PO DAILY stool softener 05/03/20 levothyroxine 137 mcg tablet 137 mcg PO DAILY #30 tabs 08/14/22 glimepiride 1 mg tablet 1 mg PO DAILY diabetes 09/12/22 furosemide 40 mg tablet (Lasix) 40 mg PO DAILY #30 tabs 12/07/22 isosorbide mononitrate 30 mg tablet,extended release 24 hr 30 mg PO DAILY #30 tabs 12/07/22 multivitamin with minerals 1 tab PO DAILY SUPPLEMENT 12/15/22 potassium, sodium phosphates 280 mg-160 mg-250 mg oral powder packet (Phos-NaK) 1 packet PO DAILY 12/15/22 The patient's discharge medication list was reviewed for discrepancies and discrepancies were resolved.
--- NOTE | 2022-12-18 13:57 | PCM.PN.REN ---
Subjective Subjective No new complaints Objective Data Objective Data Vital Signs: Vital Signs Temp Pulse Resp BP Pulse Ox O2 Del Method O2 Flow Rate 98.4 F 87 16 122/60 H 99 Nasal Cannula 2 12/18/22 12:19 12/18/22 12:19 12/18/22 12:19 12/18/22 12:19 12/18/22 12:19 12/18/22 12:19 12/18/22 12:19 FiO2 50 12/15/22 08:29 Oxygen Flow Rate (L/min) 2 Oxygen Delivery Method Nasal Cannula Weight: 67.7 kg Body Mass Index (BMI) 27.3 Intake & Output: Intake and Output for Last 24 Hours 12/16/22 12/17/22 12/18/22 23:59 23:59 23:59 Intake Total 910 / 910 740 / 740 120 / 120 Output Total 725 / 725 825 / 825 650 / 650 Balance 185 / 185 -85 / -85 -530 / -530 Lab / Micro Data Result Diagrams: 12/15/22 08:10 12/18/22 05:04 Labs: Laboratory Results - last 24 hr 12/17/22 15:32: POC Glucose 198 H 12/17/22 21:32: POC Glucose 179 H 12/18/22 05:04: Sodium 120 L, Potassium 5.0, Chloride 88 L, Carbon Dioxide 23.0, Anion Gap 9, BUN 25 H, Creatinine 0.98, Estim Creat Clear Calc 35.00, Est GFR (MDRD) Af Amer 70, Est GFR (MDRD) Non-Af 58 L, BUN/Creatinine Ratio 25.5 H, Glucose 169 H, Calcium 8.1 L 12/18/22 06:40: POC Glucose 185 H 12/18/22 11:49: POC Glucose 199 H Physical Exam Narrative Alert awake oriented x 3 no obvious distress no pallor no icterus no JVD s1s2 no murmurs lungs clear abdomen soft no organomegaly no edema no cyanosis Assessment & Plan Assessment/Plan (1) Acute hyponatremia: PLAN: Presumably due to hypervolemic hyponatremia. Poor oral intake. She is tolerating IV Lasix. Sodium remains low. Discussed with pharmacy. We do have some doses of tolvaptan. We will give 15 mg today. I will also add salt tablets just in case. Do not plan to discharge her on salt tablets. Discussed with hospitalist.
[2022-12-18] MEDS: TOLVAPTAN 15 MG TABLET PO (14:28)
--- NOTE | 2022-12-18 16:29 | PN_ITS ---
Subjective Subjective Patient seen and examined. She had no active complaints today. She states she felt much better. She denied any fever, chills, coughing, chest pain, palpitations, dizziness, abdominal pain, diarrhea or vomiting. Review of systems otherwise negative. His sodium remains low at 120. Objective Data Objective Data Vital Signs: Vital Signs Temp Pulse Resp BP Pulse Ox O2 Del Method O2 Flow Rate 98.4 F 87 16 122/60 H 99 Nasal Cannula 2 12/18/22 12:19 12/18/22 12:19 12/18/22 12:19 12/18/22 12:19 12/18/22 12:19 12/18/22 14:36 12/18/22 14:36 FiO2 50 12/15/22 08:29 Oxygen Flow Rate (L/min) 2 Oxygen Delivery Method Nasal Cannula Weight: 149 lb 4.047 oz Body Mass Index (BMI) 27.3 Intake & Output: Intake and Output for Last 24 Hours 12/16/22 12/17/22 12/18/22 23:59 23:59 23:59 Intake Total 910 / 910 740 / 740 120 / 120 Output Total 725 / 725 825 / 825 650 / 650 Balance 185 / 185 -85 / -85 -530 / -530 Lab / Micro Data Result Diagrams: 12/15/22 08:10 12/18/22 05:04 Labs: Laboratory Results - last 24 hr 12/17/22 15:32: POC Glucose 198 H 12/17/22 21:32: POC Glucose 179 H 12/18/22 05:04: Sodium 120 L, Potassium 5.0, Chloride 88 L, Carbon Dioxide 23.0, Anion Gap 9, BUN 25 H, Creatinine 0.98, Estim Creat Clear Calc 35.00, Est GFR (MDRD) Af Amer 70, Est GFR (MDRD) Non-Af 58 L, BUN/Creatinine Ratio 25.5 H, Glucose 169 H, Calcium 8.1 L 12/18/22 06:40: POC Glucose 185 H 12/18/22 11:49: POC Glucose 199 H Physical Exam Const alert, oriented x3 and no apparent distress Constitutional Narrative: frail HEENT normocephalic, head/scalp atraumatic and moist oral mucous membranes Eyes PERRL and EOMs intact bilaterally Neck no lymphadenopathy, supple and no JVD Lymph Lymphatic: no lymphadenopathy noted Resp normal respiratory effort, normal air movement and clear to auscultation bilaterally Resp Narrative: on 2L of oxygen by nasal canula Cardio regular rate, regular rhythm, S1 normal heart sound, S2 normal heart sound and no murmurs GI normal to inspection, nondistended, normoactive bowel sounds, soft to palpation, non-tender and non-distended Extremity normal capillary refill Extremity Narrative: 1+bipedal pitting edema Skin General Skin Exam: no breakdown Neuro CN's II-XII intact bilaterally, no focal motor deficits and no sensory deficits noted Coordination / Balance: [id number] test normal Motor Exam: strength 5/5 throughout Psych Appearance: appropriate Assessment & Plan Assessment/Plan (1) Non-ST elevation (NSTEMI) myocardial infarction: (2) Shortness of breath: (3) CHF (congestive heart failure), NYHA class III: PLAN: Plan #Nonstemi * refused cardiac cath * cardiology on board * for conservative management * on aspirin, high intensity statin and imdur * #Acute exacerbation of HFrEF * on IV lasix. cardiology on board * #Moderate aortic stenosis: stable #Hyponatremia: * sodium is 120 today. Nephrology on board. thinks this is due to hypervolemia. Management as per nephrology * now on sodium tablets #Hypertension:on metoprolol. 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 On Oxy IR. #Hypothyroidism: on synthroid #Debility due to above mentioned medical conditions * awaiting placement * DVT prophylaxis: heparin Charges/Coding Visit Charges Inpatient E&M: 74750 Subs Hosp L2
[2022-12-18 16:50] LABS: Bedside Glucose 193 mg/dL (74-106)
[2022-12-18] MEDS: Sodium Chloride 1 GM Tablet 2 GM PO (17:51)
[2022-12-18] MEDS: Glucerna Shake 120 ML LIQUID PO (17:52)
[2022-12-18] MEDS: Atorvastatin Calcium 40 MG Tablet PO (21:41)
[2022-12-18 23:00] LABS: Bedside Glucose 218 mg/dL (74-106)
[2022-12-19] VITALS (9 sets, daily range): BP systolic 115–124; BP diastolic 50–67; PULSE 97–107; RESP 16–18; TEMP 36.6–37.2; O2SAT 96–98
--- NOTE | 2022-12-19 03:00 | NURSING ---
This nurse attempted to wean patient off of oxygen by taking O2 off of patient while this nurse stood at the bedside. Pt had been 99% on 2L, when the 2L was removed patient slowly desated to 88% on RA. Pt was placed back on 2L NC and quickly came up to 98%.
[2022-12-19] MEDS: Insulin Lispro 100 UNIT/ML INSULN.PEN SC ×4 (06:43→21:38)
[2022-12-19] MEDS: Furosemide 40 MG/4 ML Vial IV (06:44)
[2022-12-19] MEDS: Levothyroxine 137 MCG Tablet PO (06:44)
[2022-12-19] MEDS: oxyCODONE 5 MG Tablet PO ×3 (06:44→21:37)
[2022-12-19] MEDS: 0.9% Saline Lock 10 ML Syringe IV ×2 (06:44→21:38)
[2022-12-19 07:22] LABS: Absolute Lymphocyte Count 1.26 X10^3/uL (0.83-4.51); Absolute Neutrophil Count 8.9 X10^3/uL (2.0-7.7); Basophil# 0.04 X10^3/uL; Basophil% 0.3 % (0-1); Eosinophil# 0.11 X10^3/uL; Eosinophils% 0.9 % (0-5); Hematocrit 26.5 % (37-47); Lymphocyte # 1.26 X10^3/ul (0.83-4.51); Lymphocyte % 10.8 % (19-41); Mean Platelet Vol. 9.7 fl (6.2-12.0); Monocyte# 1.19 X10^3/uL; Monocyte% 10.2 % (0-10); NRBC Flagged by Analyzer 0.5 % (0-5); Neutrophil # 8.94 X10^3/uL (2.7-7.7); Neutrophil % 76.4 % (47-70); Platelet Count 100 K/mm3 (150-450); RBC Distribution Width CV 16.5 % (11.6-14.6); RBC Distribution Width SD 59.4 fl (35.1-43.9); Red Blood Count 2.65 M/mm3 (4.2-5.4); White Blood Count 11.7 K/mm3 (4.4-11.0)
[2022-12-19 07:25] LABS: Bedside Glucose 162 mg/dL (74-106)
[2022-12-19 07:44] LABS: Anion Gap 9 (5-15); BUN 27 mg/dL (7-18); BUN/Creat Ratio 29.2 RATIO (10-20); Calcium,Total 8.1 mg/dL (8.5-10.1); Chloride 93 mmol/L (98-107); Creatinine, Serum 0.92 mg/dL (0.55-1.02); EST Glomerular Filtration Rate 62 mL/min (>60); Est Glom Filt Rate - Afr Amer 75 mL/min (>60); Estimated Creatinine Clearance 37.29 ml/min; Glucose 159 mg/dL (74-106); Potassium 5.7 mmol/L (3.5-5.1); Sodium Level 126 mmol/L (136-145)
[2022-12-19] MEDS: Gabapentin 300 MG Capsule PO (08:32)
[2022-12-19] MEDS: Sodium Chloride 1 GM Tablet 2 GM PO ×2 (08:33→17:41)
[2022-12-19] MEDS: Isosorbide Mononitrate 30 MG Tablet PO (08:33)
[2022-12-19] MEDS: Heparin Injection (Vial) 5,000 UNIT/ML VIAL 5000 UNIT SC ×2 (08:33→21:38)
[2022-12-19] MEDS: Aspirin 81 MG TAB.CHEW PO (08:33)
[2022-12-19] MEDS: Metoprolol Tartrate 25 MG Tablet PO ×2 (08:34→21:38)
[2022-12-19] MEDS: Glucerna Shake 120 ML LIQUID PO ×2 (08:34→17:40)
[2022-12-19] MEDS: Polyethylene Glycol 3350 17 GM PACKET PO (08:34)
[2022-12-19] MEDS: Famotidine 20 MG Tablet 40 MG PO (08:35)
[2022-12-19] MEDS: Sodium Polystyrene Sulfonate 15 GM/60 ML UDC 30 GM PO (08:39)
--- NOTE | 2022-12-19 09:00 | PCM.PN.CARD ---
Subjective Subjective The patient states she feels tired this morning. She does not complain of any acute chest discomfort. She does admit that her breathing has improved overall since her admission to the hospital. Objective Data Vital Signs: Vital Signs Temp Pulse Resp BP Pulse Ox O2 Del Method O2 Flow Rate 99.0 F 107 H 17 115/50 L 96 Nasal Cannula 2 12/19/22 08:28 12/19/22 08:34 12/19/22 08:28 12/19/22 08:34 12/19/22 08:28 12/19/22 08:28 12/19/22 05:53 FiO2 50 12/15/22 08:29 Oxygen Flow Rate (L/min) 2 Oxygen Delivery Method Nasal Cannula Weight: 149 lb 4.047 oz Body Mass Index (BMI) 27.3 Intake & Output: Intake and Output for Last 24 Hours 12/17/22 12/18/22 12/19/22 23:59 23:59 23:59 Intake Total 740 / 740 360 / 360 Output Total 825 / 825 900 / 900 400 / 400 Balance -85 / -85 -540 / -540 -400 / -400 Lab / Micro Data Result Diagrams: 12/19/22 06:55 12/19/22 06:55 Labs: Laboratory Results - last 24 hr 12/18/22 11:49: POC Glucose 199 H 12/18/22 16:28: POC Glucose 193 H 12/18/22 21:38: POC Glucose 218 H 12/19/22 06:42: POC Glucose 162 H 12/19/22 06:55: Sodium 126 L, Potassium 5.7 H, Chloride 93 L, Carbon Dioxide 24.0, Anion Gap 9, BUN 27 H, Creatinine 0.92, Estim Creat Clear Calc 37.29, Est GFR (MDRD) Af Amer 75, Est GFR (MDRD) Non-Af 62, BUN/Creatinine Ratio 29.2 H, Glucose 159 H, Calcium 8.1 L 12/19/22 06:55: WBC 11.7 H, RBC 2.65 L, Hgb 9.0 L, Hct 26.5 L, MCV 100.0 H, MCH 34.0 H, MCHC 34.0, RDW Std Deviation 59.4 H, RDW Coeff of [place] 16.5 H, Plt Count 100 L, MPV 9.7, Immature Gran % (Auto) 1.400 H, Neut % (Auto) 76.4 H, Lymph % (Auto) 10.8 L, [place] % (Auto) 10.2 H, Eos % (Auto) 0.9, Baso % (Auto) 0.3, Absolute Neuts (auto) 8.9 H, Absolute Lymphs (auto) 1.26, Nucleated RBC % 0.5 Cardiology Labs/Tests 12/19/22 06:55: Sodium 126 L, Potassium 5.7 H, Chloride 93 L, Carbon Dioxide 24.0, Anion Gap 9, BUN 27 H, Creatinine 0.92, Est GFR (MDRD) Af Amer 75, Est GFR (MDRD) Non-Af 62, BUN/Creatinine Ratio 29.2 H, Glucose 159 H, Calcium 8.1 L 12/19/22 06:55: WBC 11.7 H, RBC 2.65 L, Hgb 9.0 L, Hct 26.5 L, MCV 100.0 H, MCH 34.0 H, MCHC 34.0, Plt Count 100 L, MPV 9.7, Immature Gran % (Auto) 1.400 H, Neut % (Auto) 76.4 H, Lymph % (Auto) 10.8 L, [place] % (Auto) 10.2 H, Eos % (Auto) 0.9, Baso % (Auto) 0.3, Absolute Neuts (auto) 8.9 H, Nucleated RBC % 0.5 Rhythm: Sinus rhythm Physical Exam Const alert, oriented x3 and no apparent distress Orientation / Consciousness: awake HEENT normocephalic and head/scalp atraumatic Eyes PERRL, EOMs intact bilaterally, conjunctivae normal and no scleral icterus Neck full ROM and supple Carotids: delayed carotid upstroke Resp Auscultation: diminished lung sounds left lower Cardio regular rate, regular rhythm and S1 normal heart sound Heart Sounds: murmur systolic II/ harsh late left sternal border, LVOT and sternal notch and abnormal sounds diminished A2 GI normal to inspection, nondistended, normoactive bowel sounds Extremity General Extremity: edema bilateral lower extremity Details: moderate Psych mental status grossly normal Assessment & Plan Assessment/Plan (1) Shortness of breath: PLAN: The patient has progressive shortness of breath. At the moment this appears compatible with her underlying cardiovascular disease process with recurrent acute on chronic heart failure with preserved ejection fraction superimposed upon her underlying valvular heart disease with aortic valve stenosis/insufficiency. At this time she is being monitored. She has already undergone noninvasive valuation this day and recently with a transthoracic echocardiogram as noted. She is continuing medical therapy. On her current medical therapy she does appear to be somewhat improved with respect to her respiratory status. (2) (HFpEF) heart failure with preserved ejection fraction: PLAN: The patient appears to have a history of findings compatible with recurrent acute on chronic heart failure with preserved ejection fraction. At the present time she has already undergone previous noninvasive evaluation including recently as noted. A repeat transthoracic echocardiogram was performed. It now demonstrates that her overall LV systolic function has declined. Based upon her 2D echocardiographic images an underlying Takotsubo syndrome cannot necessarily be excluded. She will continue medical therapy. Her medical therapy will include IV furosemide which is starting at 40 mg IV every 8 hours. Again, as her clinical course progresses her IV diuretics will need to be changed to oral diuretics. She is also on other medications which appear to have included in the past isosorbide mononitrate at 30 mg p.o. daily and metoprolol tartrate at 25 mg p.o. twice daily. It does not appear she has been on any form of afterload reducing agents such as LIDIA inhibitor, ARB, Entresto, etc.. These agents can be considered as her clinical course progresses as deemed appropriate. (3) Cardiomyopathy: PLAN: The patient now has findings compatible with left ventricular systolic wall motion abnormalities and diminished LV systolic function/LVEF. Based upon her echocardiographic images this may be compatible with a Takotsubo syndrome although underlying CAD cannot necessarily be excluded. At the moment the patient has chosen to continue conservative medical management. There are no plans for any additional cardiovascular diagnostic studies especially invasive studies/interventional studies or surgical intervention. (4) Aortic stenosis: PLAN: The patient does have aortic valve disease/stenosis. This may be a contributing factor to her recurrent symptoms and events. She has recently undergone evaluation for this with transthoracic echocardiogram. The patient and her family member state that the patient does not want to proceed with any further invasive evaluation/intervention/surgery from a cardiovascular standpoint. (5) Nonrheumatic mitral valve stenosis with insufficiency: PLAN: The patient is also been evaluated noninvasively recently and thought to have underlying mitral valve disease as well with both mitral valve stenosis and insufficiency. Again this may be a contributing factor to her recurrent acute on chronic heart failure with preserved ejection fraction. She will continue medical management. Again, as noted above, the patient and her family member state that there are no plans to proceed with any further invasive, intervention, or surgery from a cardiovascular standpoint. (6) Non-ST elevation (NSTEMI) myocardial infarction: PLAN: The patient has abnormal cardiac enzymes. This may be secondary to her recurrent acute on chronic heart failure preserved ejection fraction. However underlying CAD with an acute coronary syndrome cannot necessarily be excluded. Her cardiac enzymes have trended down. Her transthoracic echocardiogram is as noted. Based upon the information noted above the plan is for continued conservative medical management. (7) Hyperlipidemia: PLAN: The patient will continue lipid-lowering therapy with her atorvastatin 40 mg p.o. daily (8) Hyponatremia: PLAN: She has been evaluated by nephrology. Her sodium level has improved to 126. She is being followed by nephrology with respect to her electrolyte disturbances. Addt'l Comments The patient's case was discussed and reviewed with the patient as well as with her daughter who was present at the time. Overall the plan is for continued conservative medical management and eventual return to the [facility]. Comment: Time spent the patient's evaluation, examination, review of medical records, documentation, discussion with the patient and her daughter, etc.: 37 minutes. Procedure Criteria Type of Procedure Procedure Type: Elective Elective Risks - COVID COVID Risk Discussion: The surgeon/proceduralist and patient have discussed in detail the risk of exposure to and/or potential harm posed by the COVID-19 virus with having a surgery/procedure at this time versus the risk of delaying the surgery/procedure. It is not possible to know either the risk of delaying the surgery or procedure or chance of getting an infection with perfect accuracy, but a joint decision was made between the patient and the surgeon/proceduralist to proceed at this time with the scheduled surgery/procedure as indicated on the consent form.
--- NOTE | 2022-12-19 11:05 | PN.RENAL_ITS ---
Subjective Subjective Somewhat sleepy. No new complaints otherwise. Objective Data Objective Data Vital Signs: Vital Signs Temp Pulse Resp BP Pulse Ox O2 Del Method O2 Flow Rate 99.0 F 107 H 17 115/50 L 96 Nasal Cannula 2 12/19/22 08:28 12/19/22 08:34 12/19/22 08:28 12/19/22 08:34 12/19/22 08:28 12/19/22 08:40 12/19/22 08:40 FiO2 50 12/15/22 08:29 Oxygen Flow Rate (L/min) 2 Oxygen Delivery Method Nasal Cannula Weight: 67.7 kg Body Mass Index (BMI) 27.3 Intake & Output: Intake and Output for Last 24 Hours 12/17/22 12/18/22 12/19/22 23:59 23:59 23:59 Intake Total 740 / 740 360 / 360 Output Total 825 / 825 900 / 900 400 / 400 Balance -85 / -85 -540 / -540 -400 / -400 Lab / Micro Data Result Diagrams: 12/19/22 06:55 12/19/22 06:55 Labs: Laboratory Results - last 24 hr 12/18/22 11:49: POC Glucose 199 H 12/18/22 16:28: POC Glucose 193 H 12/18/22 21:38: POC Glucose 218 H 12/19/22 06:42: POC Glucose 162 H 12/19/22 06:55: Sodium 126 L, Potassium 5.7 H, Chloride 93 L, Carbon Dioxide 24.0, Anion Gap 9, BUN 27 H, Creatinine 0.92, Estim Creat Clear Calc 37.29, Est GFR (MDRD) Af Amer 75, Est GFR (MDRD) Non-Af 62, BUN/Creatinine Ratio 29.2 H, Glucose 159 H, Calcium 8.1 L 12/19/22 06:55: WBC 11.7 H, RBC 2.65 L, Hgb 9.0 L, Hct 26.5 L, MCV 100.0 H, MCH 34.0 H, MCHC 34.0, RDW Std Deviation 59.4 H, RDW Coeff of [place] 16.5 H, Plt Count 100 L, MPV 9.7, Immature Gran % (Auto) 1.400 H, Neut % (Auto) 76.4 H, Lymph % (Auto) 10.8 L, [place] % (Auto) 10.2 H, Eos % (Auto) 0.9, Baso % (Auto) 0.3, Absolute Neuts (auto) 8.9 H, Absolute Lymphs (auto) 1.26, Nucleated RBC % 0.5 Physical Exam Narrative Alert awake oriented x 3 no obvious distress no pallor no icterus no JVD s1s2 no murmurs lungs clear abdomen soft no organomegaly no edema no cyanosis Const alert, oriented x3 and average body habitus Orientation / Consciousness: oriented to person, oriented to place and oriented to time HEENT normocephalic Neck no lymphadenopathy Resp Auscultation: crackles bilateral lower Cardio no rub GI non-tender Auscultation: normoactive bowel sounds Palpation: soft no CVA tenderness Skin Skin Narrative: Has extensive stasis dermatitis below both knees Psych cooperative Assessment & Plan Assessment/Plan (1) Acute hyponatremia: PLAN: Presumably due to hypervolemic hyponatremia. Poor oral intake. She is tolerating IV Lasix. We will give her a dose of tolvaptan yesterday along with some salt tablets. Sodium has improved. Blood pressure is okay. Volume status is better. Can change Lasix to 40 mg twice daily at the time of discharge. Stop salt tablets at the time of discharge Hyperkalemia. Etiology unclear. Creatinine remains normal. Bicarbonate is okay. She has received 1 dose of Kayexalate this morning. Discussed with hospitalist
[2022-12-19 11:30] LABS: Bedside Glucose 200 mg/dL (74-106)
--- NOTE | 2022-12-19 13:28 | PN_ITS ---
Subjective Subjective Patient seen and examined. Daughter was by her bedside. She looked quite frail today. SHe denied any fever, chills, shortness of breath, cough, chest pain, or any other symptoms. Her potassium is 5.7 today. She has remained hemodynamically stable. Objective Data Objective Data Vital Signs: Vital Signs Temp Pulse Resp BP Pulse Ox O2 Del Method O2 Flow Rate 99.0 F 107 H 17 115/50 L 96 Nasal Cannula 2 12/19/22 08:28 12/19/22 08:34 12/19/22 08:28 12/19/22 08:34 12/19/22 08:42 12/19/22 08:40 12/19/22 08:42 FiO2 50 12/15/22 08:29 Oxygen Flow Rate (L/min) 2 Oxygen Delivery Method Nasal Cannula Weight: 149 lb 4.047 oz Body Mass Index (BMI) 27.3 Intake & Output: Intake and Output for Last 24 Hours 12/17/22 12/18/22 12/19/22 23:59 23:59 23:59 Intake Total 740 / 740 360 / 360 240 / 240 Output Total 825 / 825 900 / 900 775 / 775 Balance -85 / -85 -540 / -540 -535 / -535 Lab / Micro Data Result Diagrams: 12/19/22 06:55 12/19/22 06:55 Labs: Laboratory Results - last 24 hr 12/18/22 16:28: POC Glucose 193 H 12/18/22 21:38: POC Glucose 218 H 12/19/22 06:42: POC Glucose 162 H 12/19/22 06:55: Sodium 126 L, Potassium 5.7 H, Chloride 93 L, Carbon Dioxide 24.0, Anion Gap 9, BUN 27 H, Creatinine 0.92, Estim Creat Clear Calc 37.29, Est GFR (MDRD) Af Amer 75, Est GFR (MDRD) Non-Af 62, BUN/Creatinine Ratio 29.2 H, Glucose 159 H, Calcium 8.1 L 12/19/22 06:55: WBC 11.7 H, RBC 2.65 L, Hgb 9.0 L, Hct 26.5 L, MCV 100.0 H, MCH 34.0 H, MCHC 34.0, RDW Std Deviation 59.4 H, RDW Coeff of [place] 16.5 H, Plt Count 100 L, MPV 9.7, Immature Gran % (Auto) 1.400 H, Neut % (Auto) 76.4 H, Lymph % (Auto) 10.8 L, [place] % (Auto) 10.2 H, Eos % (Auto) 0.9, Baso % (Auto) 0.3, Absolute Neuts (auto) 8.9 H, Absolute Lymphs (auto) 1.26, Nucleated RBC % 0.5 12/19/22 11:02: POC Glucose 200 H Physical Exam Const alert, oriented x3 and no apparent distress Constitutional Narrative: frail General Appearance: well kempt and well developed HEENT normocephalic, head/scalp atraumatic and moist oral mucous membranes Eyes PERRL, EOMs intact bilaterally and conjunctivae normal Neck no lymphadenopathy, supple, no JVD, thyroid normal and no carotid bruits General: trachea midline Lymph Lymphatic: no lymphadenopathy noted Resp normal respiratory effort, normal air movement, no retractions, no use of accessory muscles and clear to auscultation bilaterally Resp Narrative: on 2L of oxygen by nasal canula Auscultation: Negative for rales, rhonchi or wheezes Cardio regular rate, regular rhythm, S1 normal heart sound, S2 normal heart sound, no murmurs, no rub and no gallops GI normal to inspection, nondistended, normoactive bowel sounds, soft to palpation, non-tender and non-distended Extremity normal to inspection, normal capillary refill and no clubbing, cyanosis or edema Extremity Narrative: 1+bipedal pitting edema Skin no rashes or lesions noted General Skin Exam: no breakdown Neuro oriented x3, CN's II-XII intact bilaterally, moves all extremities, no focal motor deficits and no sensory deficits noted Sensorium / Orientation: awake, alert, oriented to person and oriented to place Coordination / Balance: [id number] test normal Motor Exam: strength 5/5 throughout Psych affect normal Psych Narrative: frail Appearance: appropriate Assessment & Plan Assessment/Plan (1) Non-ST elevation (NSTEMI) myocardial infarction: (2) Shortness of breath: (3) CHF (congestive heart failure), NYHA class III: PLAN: Plan #Nonstemi * refused cardiac cath * cardiology on board * for conservative management * on aspirin, high intensity statin and imdur * #Acute exacerbation of HFrEF * on IV lasix. cardiology on board * switch to PO lasix today * #Hyperkalmia: K is 5.7 today. DC potassium supplements. Give kayexalate and trend potassium #Moderate aortic stenosis: stable #Hyponatremia: * sodium is up to 126 today. * nephrology on boared. Was started on salt tablets * Per nephro, doesnt need salt tablets at discharge * #Hypertension:on metoprolol. 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 On Oxy IR. #Hypothyroidism: on synthroid #Debility due to above mentioned medical conditions * awaiting placement * DVT prophylaxis: heparin Charges/Coding Visit Charges Inpatient E&M: 36565 Subs Hosp L2
[2022-12-19 14:29] LABS: Anion Gap 6 (5-15); BUN 30 mg/dL (7-18); Calcium,Total 8.2 mg/dL (8.5-10.1); Chloride 94 mmol/L (98-107); Creatinine, Serum 1.11 mg/dL (0.55-1.02); EST Glomerular Filtration Rate 50 mL/min (>60); Est Glom Filt Rate - Afr Amer 60 mL/min (>60); Estimated Creatinine Clearance 30.91 ml/min; Glucose 229 mg/dL (74-106); Potassium 5.3 mmol/L (3.5-5.1); Sodium Level 127 mmol/L (136-145)
--- NOTE | 2022-12-19 15:45 | CASEMGMT ---
OTTO placed a green sheet on patient's chart in the event patient is ready for discharge today. Keiry BUENO
[2022-12-19 17:11] LABS: Bedside Glucose 212 mg/dL (74-106)
[2022-12-19] MEDS: Furosemide 40 MG Tablet PO (17:41)
[2022-12-19] MEDS: Atorvastatin Calcium 40 MG Tablet PO (21:38)
[2022-12-19 23:06] LABS: Bedside Glucose 170 mg/dL (74-106)
[2022-12-20] VITALS (9 sets, daily range): BP systolic 108–125; BP diastolic 50–63; PULSE 92–104; RESP 16–18; TEMP 36.4–37.8; O2SAT 95–99
[2022-12-20 05:46] LABS: Absolute Lymphocyte Count 0.96 X10^3/uL (0.83-4.51); Absolute Neutrophil Count 7.4 X10^3/uL (2.0-7.7); Basophil# 0.03 X10^3/uL; Basophil% 0.3 % (0-1); Eosinophil# 0.08 X10^3/uL; Eosinophils% 0.8 % (0-5); Hematocrit 26.2 % (37-47); Hemoglobin 8.3 g/dL (12.0-15.0); Lymphocyte # 0.96 X10^3/ul (0.83-4.51); Mean Corp Hgb Conc 31.7 g/dL (32-36); Mean Corpuscular Hgb 33.9 pg (27.0-32.0); Mean Corpuscular Volume 106.9 fL (81-99); Mean Platelet Vol. 9.4 fl (6.2-12.0); Monocyte# 1.03 X10^3/uL; Monocyte% 10.7 % (0-10); NRBC Flagged by Analyzer 0.4 % (0-5); Neutrophil # 7.42 X10^3/uL (2.7-7.7); Neutrophil % 77.1 % (47-70); POSITIVE COUNT YES; POSITIVE MORPHOLOGY YES; Platelet Count 93 K/mm3 (150-450); RBC Distribution Width CV 17.4 % (11.6-14.6); RBC Distribution Width SD 67.1 fl (35.1-43.9); Red Blood Count 2.45 M/mm3 (4.2-5.4); White Blood Count 9.6 K/mm3 (4.4-11.0)
[2022-12-20 05:47] LABS: Differential Indicated SCAN CRITERIA MET
[2022-12-20 06:15] LABS: Anisocytosis 1+; Macrocytosis 2+; Platelet Estimate MOD DEC (ADEQ)
[2022-12-20] MEDS: Levothyroxine 137 MCG Tablet PO (06:33)
[2022-12-20] MEDS: Insulin Lispro 100 UNIT/ML INSULN.PEN SC ×4 (06:34→21:51)
[2022-12-20] MEDS: oxyCODONE 5 MG Tablet PO ×3 (06:34→21:56)
[2022-12-20 07:20] LABS: Bedside Glucose 166 mg/dL (74-106)
[2022-12-20 07:57] LABS: Anion Gap 6 (5-15); BUN 34 mg/dL (7-18); BUN/Creat Ratio 29.3 RATIO (10-20); Calcium,Total 8.2 mg/dL (8.5-10.1); Chloride 97 mmol/L (98-107); Creatinine, Serum 1.16 mg/dL (0.55-1.02); EST Glomerular Filtration Rate 47 mL/min (>60); Est Glom Filt Rate - Afr Amer 57 mL/min (>60); Estimated Creatinine Clearance 29.57 ml/min; Glucose 165 mg/dL (74-106); Potassium 5.6 mmol/L (3.5-5.1); Sodium Level 129 mmol/L (136-145)
[2022-12-20] MEDS: Aspirin 81 MG TAB.CHEW PO (08:06)
[2022-12-20] MEDS: Glucerna Shake 120 ML LIQUID PO ×3 (08:06→16:50)
[2022-12-20] MEDS: Gabapentin 300 MG Capsule PO (08:07)
[2022-12-20] MEDS: Sodium Chloride 1 GM Tablet 2 GM PO ×2 (08:07→16:52)
[2022-12-20] MEDS: Heparin Injection (Vial) 5,000 UNIT/ML VIAL 5000 UNIT SC ×2 (09:39→21:50)
[2022-12-20] MEDS: Isosorbide Mononitrate 30 MG Tablet PO (09:39)
[2022-12-20] MEDS: Furosemide 40 MG Tablet PO ×2 (09:40→17:00)
[2022-12-20] MEDS: Famotidine 20 MG Tablet 40 MG PO (09:40)
[2022-12-20] MEDS: 0.9% Saline Lock 10 ML Syringe IV ×2 (09:40→21:57)
[2022-12-20] MEDS: Polyethylene Glycol 3350 17 GM PACKET PO (09:40)
[2022-12-20] MEDS: Metoprolol Tartrate 25 MG Tablet PO ×2 (09:40→21:52)
--- NOTE | 2022-12-20 11:07 | CASEMGMT ---
Updates were sent to [place] via [employer]. Keiry Main AGRICULTURE WORKER CONSULTANT
[2022-12-20 11:25] LABS: Bedside Glucose 156 mg/dL (74-106)
--- NOTE | 2022-12-20 13:39 | PN_ITS ---
Subjective Subjective Patient seen and examined. She had no active complaints and was working with PT/OT. Daughter was by her bedside. Her potassium is still elevated at 5.6 today. Review of systems is otherwise negative. Objective Data Objective Data Vital Signs: Vital Signs Temp Pulse Resp BP Pulse Ox O2 Del Method O2 Flow Rate 97.6 F L 99 16 113/50 L 99 Nasal Cannula 2 12/20/22 09:30 12/20/22 09:40 12/20/22 09:30 12/20/22 09:40 12/20/22 09:30 12/20/22 09:30 12/20/22 09:30 FiO2 50 12/15/22 08:29 Oxygen Flow Rate (L/min) 2 Oxygen Delivery Method Nasal Cannula Weight: 149 lb 4.047 oz Body Mass Index (BMI) 27.3 Intake & Output: Intake and Output for Last 24 Hours 12/18/22 12/19/22 12/20/22 23:59 23:59 23:59 Intake Total 360 / 360 360 / 360 Output Total 900 / 900 1075 / 1075 200 / 200 Balance -540 / -540 -715 / -715 -200 / -200 Lab / Micro Data Result Diagrams: 12/20/22 05:24 12/20/22 05:24 Labs: Laboratory Results - last 24 hr 12/19/22 13:52: Sodium 127 L, Potassium 5.3 H, Chloride 94 L, Carbon Dioxide 27. 0, Anion Gap 6, BUN 30 H, Creatinine 1.11 H, Estim Creat Clear Calc 30.91, Est GFR (MDRD) Af Amer 60, Est GFR (MDRD) Non-Af 50 L, BUN/Creatinine Ratio 27.0 H, Glucose 229 H, Calcium 8.2 L 12/19/22 16:43: POC Glucose 212 H 12/19/22 21:30: POC Glucose 170 H 12/20/22 05:24: WBC 9.6, RBC 2.45 L, Hgb 8.3 L, Hct 26.2 L, MCV 106.9 H D, MCH 33.9 H, MCHC 31.7 L D, RDW Std Deviation 67.1 H, RDW Coeff of [place] 17.4 H, Plt Count 93 L, MPV 9.4, Immature Gran % (Auto) 1.100 H, Neut % (Auto) 77.1 H, Lymph % (Auto) 10.0 L, [place] % (Auto) 10.7 H, Eos % (Auto) 0.8, Baso % (Auto) 0.3, Absolute Neuts (auto) 7.4, Absolute Lymphs (auto) 0.96, Nucleated RBC % 0.4, [place] Estimate MOD DEC, Anisocytosis 1+, Macrocytosis 2+ 12/20/22 05:24: Sodium 129 L, Potassium 5.6 H, Chloride 97 L, Carbon Dioxide 26.0, Anion Gap 6, BUN 34 H, Creatinine 1.16 H, Estim Creat Clear Calc 29.57, Est GFR (MDRD) Af Amer 57 L, Est GFR (MDRD) Non-Af 47 L, BUN/Creatinine Ratio 29.3 H, Glucose 165 H, Calcium 8.2 L 12/20/22 06:32: POC Glucose 166 H 12/20/22 11:01: POC Glucose 156 H Physical Exam Const alert, oriented x3 and no apparent distress Constitutional Narrative: frail General Appearance: well kempt and well developed HEENT normocephalic, head/scalp atraumatic and moist oral mucous membranes Eyes PERRL, EOMs intact bilaterally and conjunctivae normal Neck no lymphadenopathy, supple, no JVD, thyroid normal and no carotid bruits General: trachea midline Lymph Lymphatic: no lymphadenopathy noted Resp normal respiratory effort, normal air movement, no retractions, no use of accessory muscles and clear to auscultation bilaterally Resp Narrative: on 2L of oxygen by nasal canula Auscultation: Negative for rales, rhonchi or wheezes Cardio regular rate, regular rhythm, S1 normal heart sound, S2 normal heart sound, no m urmurs, no rub and no gallops GI normal to inspection, nondistended, normoactive bowel sounds, soft to palpation, non-tender and non-distended Extremity normal to inspection, normal capillary refill and no clubbing, cyanosis or edema Skin no rashes or lesions noted General Skin Exam: no breakdown Neuro oriented x3, CN's II-XII intact bilaterally, moves all extremities, no focal motor deficits and no sensory deficits noted Sensorium / Orientation: awake, alert, oriented to person and oriented to place Coordination / Balance: [id number] test normal Motor Exam: strength 5/5 throughout Psych affect normal Psych Narrative: frail Appearance: appropriate Assessment & Plan Assessment/Plan (1) Non-ST elevation (NSTEMI) myocardial infarction: (2) Shortness of breath: (3) CHF (congestive heart failure), NYHA class III: PLAN: Plan #Nonstemi * refused cardiac cath * cardiology on board * for conservative management * on aspirin, high intensity statin and imdur * #Acute exacerbation of HFrEF * now on PO lasix. stable. * #Hyperkalemia: * potassium is 5.6 today. Kayexalate ordered. * Hasnt had a bowel movement. Will give enema to help with bowel movement. #Moderate aortic stenosis: stable #Hyponatremia: * sodium is up to 129 today. * nephrology on board. * Per nephro, doesnt need salt tablets at discharge * #Hypertension:on metoprolol. #Type 2 diabetes mellitus: on ISS. 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 On Oxy IR. #Hypothyroidism: on synthroid #Debility due to above mentioned medical conditions * awaiting placement * DVT prophylaxis: heparin Disposition: for dc to [facility] once hyperkalemia has resolved. Charges/Coding Visit Charges Inpatient E&M: 48817 Subs Hosp L2
[2022-12-20] MEDS: Sodium Polystyrene Sulfonate 15 GM/60 ML UDC 30 GM PO (13:50)
--- NOTE | 2022-12-20 16:15 | CHAPLAIN ---
Type of Pastoral Visit ___ Initial Visit ___ Follow-up Visit ___ On-call Visit ___ General Patient Visit ___ Spiritual Assessment ___ Family Conference ___ Bereavement ___ Rapid Response ___ Code Blue ___ Other (describe below) Pastoral Care Referral From ___ Patient ___ Family ___ Nurse ___ Physician ___ Corporate Technical Recruiter ___ Commercial Print Salesman ___ Other (describe below) Sacrament/Intervention ___ Active listening ___ Anointing ___ Gnosticist ___ Bereavement ___ Communion ___ Beth exploration ___ ___ Life review ___ Prayer ___ Reconciliation ___ Sacrament of Sick ___ Supportive presence ___ Wedding ___ Other (describe below) Pastoral Comments patient is sleeping and did not awaken when this oracle brm developer entered room; left a calling card
[2022-12-20 17:20] LABS: Bedside Glucose 206 mg/dL (74-106)
--- NOTE | 2022-12-20 18:08 | PN.RENAL_ITS ---
Subjective Subjective no new events Objective Data Objective Data Vital Signs: Vital Signs Temp Pulse Resp BP Pulse Ox O2 Del Method O2 Flow Rate 98.3 F 92 18 108/53 L 99 Nasal Cannula 2 12/20/22 15:17 12/20/22 15:17 12/20/22 15:17 12/20/22 15:17 12/20/22 15:17 12/20/22 15:17 12/20/22 15:17 FiO2 50 12/15/22 08:29 Oxygen Flow Rate (L/min) 2 Oxygen Delivery Method Nasal Cannula Weight: 67.7 kg Body Mass Index (BMI) 27.3 Intake & Output: Intake and Output for Last 24 Hours 12/18/22 12/19/22 12/20/22 23:59 23:59 23:59 Intake Total 360 / 360 360 / 360 100 / 100 Output Total 900 / 900 1075 / 1075 200 / 200 Balance -540 / -540 -715 / -715 -100 / -100 Lab / Micro Data Result Diagrams: 12/20/22 05:24 12/20/22 05:24 Labs: Laboratory Results - last 24 hr 12/19/22 21:30: POC Glucose 170 H 12/20/22 05:24: WBC 9.6, RBC 2.45 L, Hgb 8.3 L, Hct 26.2 L, MCV 106.9 H D, MCH 33.9 H, MCHC 31.7 L D, RDW Std Deviation 67.1 H, RDW Coeff of [place] 17.4 H, Plt Count 93 L, MPV 9.4, Immature Gran % (Auto) 1.100 H, Neut % (Auto) 77.1 H, Lymph % (Auto) 10.0 L, [place] % (Auto) 10.7 H, Eos % (Auto) 0.8, Baso % (Auto) 0.3, Absolute Neuts (auto) 7.4, Absolute Lymphs (auto) 0.96, Nucleated RBC % 0.4, Platelet Estimate MOD DEC, Anisocytosis 1+, Macrocytosis 2+ 12/20/22 05:24: Sodium 129 L, Potassium 5.6 H, Chloride 97 L, Carbon Dioxide 26.0, Anion Gap 6, BUN 34 H, Creatinine 1.16 H, Estim Creat Clear Calc 29.57, Est GFR (MDRD) Af Amer 57 L, Est GFR (MDRD) Non-Af 47 L, BUN/Creatinine Ratio 29.3 H, Glucose 165 H, Calcium 8.2 L 12/20/22 06:32: POC Glucose 166 H 12/20/22 11:01: POC Glucose 156 H 12/20/22 16:48: POC Glucose 206 H Physical Exam Narrative Alert awake oriented x 3 no obvious distress no pallor no icterus no JVD s1s2 no murmurs lungs clear abdomen soft no organomegaly no edema no cyanosis Const alert, oriented x3 and average body habitus Orientation / Consciousness: oriented to person, oriented to place and oriented to time HEENT normocephalic Neck no lymphadenopathy Resp Auscultation: crackles bilateral lower Cardio no rub GI non-tender Auscultation: normoactive bowel sounds Palpation: soft no CVA tenderness Skin Skin Narrative: Has extensive stasis dermatitis below both knees Psych cooperative Assessment & Plan Assessment/Plan (1) Acute hyponatremia: PLAN: Presumably due to hypervolemic hyponatremia. Poor oral intake. sodium is better. Lasix to PO. dc salt tablets at the time of discharge Hyperkalemia. K is high. dw hospitalist. has not had bowel movement yet. getting enema today. Discussed with hospitalist
--- NOTE | 2022-12-20 19:32 | PCM.PN.CARD ---
Subjective Subjective The patient appeared to be somewhat more tired today. She did not voice any new acute complaints other than being tired. Objective Data Vital Signs: Vital Signs Temp Pulse Resp BP Pulse Ox O2 Del Method O2 Flow Rate 98.3 F 92 18 108/53 L 99 Nasal Cannula 2 12/20/22 15:17 12/20/22 15:17 12/20/22 15:17 12/20/22 15:17 12/20/22 15:17 12/20/22 15:17 12/20/22 15:17 FiO2 50 12/15/22 08:29 Oxygen Flow Rate (L/min) 2 Oxygen Delivery Method Nasal Cannula Weight: 149 lb 4.047 oz Body Mass Index (BMI) 27.3 Intake & Output: Intake and Output for Last 24 Hours 12/18/22 12/19/22 12/20/22 23:59 23:59 23:59 Intake Total 360 / 360 360 / 360 200 / 200 Output Total 900 / 900 1075 / 1075 500 / 500 Balance -540 / -540 -715 / -715 -300 / -300 Lab / Micro Data Result Diagrams: 12/20/22 05:24 12/20/22 05:24 Labs: Laboratory Results - last 24 hr 12/19/22 21:30: POC Glucose 170 H 12/20/22 05:24: WBC 9.6, RBC 2.45 L, Hgb 8.3 L, Hct 26.2 L, MCV 106.9 H D, MCH 33.9 H, MCHC 31.7 L D, RDW Std Deviation 67.1 H, RDW Coeff of [place] 17.4 H, Plt Count 93 L, MPV 9.4, Immature Gran % (Auto) 1.100 H, Neut % (Auto) 77.1 H, Lymph % (Auto) 10.0 L, [place] % (Auto) 10.7 H, Eos % (Auto) 0.8, Baso % (Auto) 0.3, Absolute Neuts (auto) 7.4, Absolute Lymphs (auto) 0.96, Nucleated RBC % 0.4, Platelet Estimate MOD DEC, Anisocytosis 1+, Macrocytosis 2+ 12/20/22 05:24: Sodium 129 L, Potassium 5.6 H, Chloride 97 L, Carbon Dioxide 26.0, Anion Gap 6, BUN 34 H, Creatinine 1.16 H, Estim Creat Clear Calc 29.57, Est GFR (MDRD) Af Amer 57 L, Est GFR (MDRD) Non-Af 47 L, BUN/Creatinine Ratio 29.3 H, Glucose 165 H, Calcium 8.2 L 12/20/22 06:32: POC Glucose 166 H 12/20/22 11:01: POC Glucose 156 H 12/20/22 16:48: POC Glucose 206 H Cardiology Labs/Tests 12/20/22 05:24: WBC 9.6, RBC 2.45 L, Hgb 8.3 L, Hct 26.2 L, MCV 106.9 H D, MCH 33.9 H, MCHC 31.7 L D, Plt Count 93 L, MPV 9.4, Immature Gran % (Auto) 1.100 H, Neut % (Auto) 77.1 H, Lymph % (Auto) 10.0 L, [place] % (Auto) 10.7 H, Eos % (Auto) 0.8, Baso % (Auto) 0.3, Absolute Neuts (auto) 7.4, Nucleated RBC % 0.4 12/20/22 05:24: Sodium 129 L, Potassium 5.6 H, Chloride 97 L, Carbon Dioxide 26.0, Anion Gap 6, BUN 34 H, Creatinine 1.16 H, Est GFR (MDRD) Af Amer 57 L, Est GFR (MDRD) Non-Af 47 L, BUN/Creatinine Ratio 29.3 H, Glucose 165 H, Calcium 8.2 L Rhythm: Sinus rhythm Physical Exam Const alert, oriented x3 and no apparent distress Orientation / Consciousness: awake HEENT normocephalic and head/scalp atraumatic Eyes PERRL, EOMs intact bilaterally, conjunctivae normal and no scleral icterus Neck full ROM and supple Carotids: delayed carotid upstroke Resp Auscultation: diminished lung sounds left lower Cardio regular rate, regular rhythm and S1 normal heart sound Heart Sounds: murmur systolic II/ harsh late left sternal border, LVOT and sternal notch and abnormal sounds diminished A2 GI normal to inspection, nondistended, normoactive bowel sounds Extremity General Extremity: edema bilateral lower extremity Details: moderate Psych mental status grossly normal Assessment & Plan Assessment/Plan (1) Shortness of breath: PLAN: The patient has progressive shortness of breath. She does believe that her shortness of breath has improved during her hospitalization. She is continuing conservative medical therapy which has included diuretic therapy. (2) (HFpEF) heart failure with preserved ejection fraction: PLAN: The patient appears to have a history of findings compatible with recurrent acute on chronic heart failure with preserved ejection fraction. At the present time she has already undergone previous noninvasive evaluation including recently as noted. A repeat transthoracic echocardiogram was performed. It now demonstrates that her overall LV systolic function has declined. Based upon her 2D echocardiographic images an underlying Takotsubo syndrome cannot necessarily be excluded. She will continue conservative medical therapy which includes her diuretics changing from IV to oral forms. (3) Cardiomyopathy: PLAN: The patient now has findings compatible with left ventricular systolic wall motion abnormalities and diminished LV systolic function/LVEF. Based upon her echocardiographic images this may be compatible with a Takotsubo syndrome although underlying CAD cannot necessarily be excluded. At the moment the patient has chosen to continue conservative medical management. There are no plans for any additional cardiovascular diagnostic studies especially invasive studies/interventional studies or surgical intervention. (4) Aortic stenosis: PLAN: The patient does have aortic valve disease/stenosis. This may be a contributing factor to her recurrent symptoms and events. She has recently undergone evaluation for this with transthoracic echocardiogram. The patient and her family member state that the patient does not want to proceed with any further invasive evaluation/intervention/surgery from a cardiovascular standpoint. (5) Nonrheumatic mitral valve stenosis with insufficiency: PLAN: The patient is also been evaluated noninvasively recently and thought to have underlying mitral valve disease as well with both mitral valve stenosis and insufficiency. Again this may be a contributing factor to her recurrent acute on chronic heart failure with preserved ejection fraction. She will continue medical management. Again, as noted above, the patient and her family member state that there are no plans to proceed with any further invasive, intervention, or surgery from a cardiovascular standpoint. (6) Non-ST elevation (NSTEMI) myocardial infarction: PLAN: The patient has abnormal cardiac enzymes. This may be secondary to her recurrent acute on chronic heart failure preserved ejection fraction. However underlying CAD with an acute coronary syndrome cannot necessarily be excluded. Her cardiac enzymes have trended down. Her transthoracic echocardiogram is as noted. Based upon the information noted above the plan is for continued conservative medical management. (7) Hyperlipidemia: PLAN: The patient will continue lipid-lowering therapy with her atorvastatin 40 mg p.o. daily (8) Hyponatremia: PLAN: She has been evaluated by nephrology. Her sodium level has improved to 127. She is being followed by nephrology with respect to her electrolyte disturbances. The nephrology input is most appreciated Addt'l Comments The patient's case was discussed and reviewed with the patient. Comment: Time spent in the patient's overall evaluation, examination, review of medical records, discussion, documentation, etc.: 35 minutes Procedure Criteria Type of Procedure Procedure Type: Elective Elective Risks - COVID COVID Risk Discussion: The surgeon/proceduralist and patient have discussed in detail the risk of exposure to and/or potential harm posed by the COVID-19 virus with having a surgery/procedure at this time versus the risk of delaying the surgery/procedure. It is not possible to know either the risk of delaying the surgery or procedure or chance of getting an infection with perfect accuracy, but a joint decision was made between the patient and the surgeon/proceduralist to proceed at this time with the scheduled surgery/procedure as indicated on the consent form.
[2022-12-20] MEDS: Atorvastatin Calcium 40 MG Tablet PO (21:51)
[2022-12-20 23:05] LABS: Bedside Glucose 206 mg/dL (74-106)
[2022-12-21 03:35] VITALS: BP 121/53; PULSE 96; RESP 16; TEMP 36.5; O2SAT 97
[2022-12-21 05:30] LABS: Absolute Lymphocyte Count 0.76 X10^3/uL (0.83-4.51); Absolute Neutrophil Count 5.3 X10^3/uL (2.0-7.7); Basophil# 0.03 X10^3/uL; Basophil% 0.4 % (0-1); Eosinophil# 0.07 X10^3/uL; Hematocrit 24.8 % (37-47); Hemoglobin 8.1 g/dL (12.0-15.0); Lymphocyte # 0.76 X10^3/ul (0.83-4.51); Lymphocyte % 10.7 % (19-41); Mean Corp Hgb Conc 32.7 g/dL (32-36); Mean Corpuscular Hgb 33.6 pg (27.0-32.0); Mean Corpuscular Volume 102.9 fL (81-99); Mean Platelet Vol. 9.7 fl (6.2-12.0); Monocyte# 0.83 X10^3/uL; Monocyte% 11.7 % (0-10); NRBC Flagged by Analyzer 0.3 % (0-5); Neutrophil # 5.32 X10^3/uL (2.7-7.7); Neutrophil % 75.2 % (47-70); POSITIVE COUNT YES; Platelet Count 79 K/mm3 (150-450); RBC Distribution Width CV 17.2 % (11.6-14.6); RBC Distribution Width SD 63.5 fl (35.1-43.9); Red Blood Count 2.41 M/mm3 (4.2-5.4); White Blood Count 7.1 K/mm3 (4.4-11.0)
[2022-12-21 05:56] LABS: ALB/GLOB Ratio 0.6 RATIO (0.9-2.4); AST(SGOT) 320 U/L (15-37); Alanine Aminotransfer ALT/SGPT 50 U/L (13-56); Albumin, Serum 2.1 g/dL (3.2-5.0); Alkaline Phosphatase 304 U/L (45-117); Anion Gap 6 (5-15); BUN 37 mg/dL (7-18); BUN/Creat Ratio 41.3 RATIO (10-20); Calcium,Total 8.2 mg/dL (8.5-10.1); Chloride 97 mmol/L (98-107); EST Glomerular Filtration Rate 64 mL/min (>60); Est Glom Filt Rate - Afr Amer 77 mL/min (>60); Estimated Creatinine Clearance 38.12 ml/min; Globulin 3.8 g/dL (2.2-4.2); Glucose 183 mg/dL (74-106); Potassium 4.5 mmol/L (3.5-5.1); Protein, Total 5.9 g/dL (6.4-8.2); Sodium Level 134 mmol/L (136-145)
[2022-12-21] MEDS: Levothyroxine 137 MCG Tablet PO (06:41)
[2022-12-21] MEDS: oxyCODONE 5 MG Tablet PO ×2 (06:42→13:34)
[2022-12-21] MEDS: Insulin Lispro 100 UNIT/ML INSULN.PEN SC ×2 (06:42→11:52)
[2022-12-21 07:11] LABS: Bedside Glucose 194 mg/dL (74-106)
[2022-12-21] MEDS: Glucerna Shake 120 ML LIQUID PO ×2 (08:39→11:57)
[2022-12-21] MEDS: Sodium Chloride 1 GM Tablet 2 GM PO (08:40)
[2022-12-21] MEDS: Aspirin 81 MG TAB.CHEW PO (08:40)
[2022-12-21] MEDS: Gabapentin 300 MG Capsule PO (08:44)
[2022-12-21 08:47] VITALS: O2SAT 98
[2022-12-21 09:35] VITALS: BP 140/62; PULSE 100; RESP 16; TEMP 36.4; O2SAT 99
--- NOTE | 2022-12-21 09:37 | TREXTCAR_ITS ---
Diet Diet Order/Speech Therapy: 12/18/22 15:35 Diet: Consistent Carb - Calorie Controlled Dietary Modifications:: Sodium Restricted Type of Dietary Supplement:: Ensure Pudding Fluid restriction:: 1250 mL Diet Comments: ensure/fortified pudding BID w/ lunch and dinner How many daily calories?: 1600 calorie Routine Orders/Code Status Enema Type: Fleetz Enema Frequency: Daily PRN Suppository Type: Dulcolax 10mg Suppository Frequency: Daily PRN O2 Frequency: PRN Keep PO Greater than or Equal to (%): 90 Wound(s) LLE: Wound Type: Abrasion Therapies Weight Bearing: Weight bearing as tolerated Physical Therapy: Eval and Treat Occupational Therapy: Eval and Treat Problem/Diagnosis (1) Shortness of breath: Status: Acute Code(s): R06.02 - Shortness of breath (2) (HFpEF) heart failure with preserved ejection fraction: Status: Chronic Code(s): I50.30 - Unspecified diastolic (congestive) heart failure (3) Cardiomyopathy: Status: Acute Code(s): I42.9 - Cardiomyopathy, unspecified (4) Aortic stenosis: Status: Acute Code(s): I35.0 - Nonrheumatic aortic (valve) stenosis (5) Nonrheumatic mitral valve stenosis with insufficiency: Status: Chronic Code(s): I34.2 - Nonrheumatic mitral (valve) stenosis; I34.0 - Nonrheumatic mitral (valve) insufficiency (6) Non-ST elevation (NSTEMI) myocardial infarction: Status: Acute Code(s): I21.4 - Non-ST elevation (NSTEMI) myocardial infarction (7) Hyperlipidemia: Status: Acute Code(s): E78.5 - Hyperlipidemia, unspecified (8) Hyponatremia: Status: Acute Code(s): E87.1 - Hypo-osmolality and hyponatremia Plan #Nonstemi * refused cardiac cath * cardiology on board * for conservative management * on aspirin, high intensity statin and imdur * #Acute exacerbation of HFrEF * now on PO lasix. stable. * #Hyperkalemia: * potassium is 5.6 today. Kayexalate ordered. * Hasnt had a bowel movement. Will give enema to help with bowel movement. #Moderate aortic stenosis: stable #Hyponatremia: * sodium is up to 129 today. * nephrology on board. * Per nephro, doesnt need salt tablets at discharge * #Hypertension:on metoprolol. #Type 2 diabetes mellitus: on ISS. 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 On Oxy IR. #Hypothyroidism: on synthroid #Debility due to above mentioned medical conditions * awaiting placement * DVT prophylaxis: heparin Disposition: for dc to [facility] once hyperkalemia has resolved. Allergies/Procedures Done in Hospital Allergies piperacillin [From Zosyn] Adverse Reaction (Mild, Verified 12/15/22 08:18) malaise, myalgias tazobactam [From Zosyn] Adverse Reaction (Mild, Verified 12/15/22 08:18) malaise, myalgias Procedures: 2-D Echocardiogram Type of Care/Length of Stay Estimated LOS: Convalescent Care Less Than 30 days Type of Care Needed: Skilled Rehab Potential: Fair Prognosis: Fair Additional Orders/Day of Discharge Day of Discharge: 12/21/22 Dietary and Speech Recommendations Dietitian Recommendations/Changes: 1600 jennifer Cardiac/ Sodium-restricted diet---1250ml/day FR per physician Will change ONS to 120 ml glucerna shake w/ medpass 3 times per day instead of with meals. Will add ensure/fortified pudding BID w/ meals as tolerated. Discharge Plan Admission Admit Date/Time: 12/15/22 10:51 Primary Reason for Your Visit: NONSTEMI, HEART FAILURE Attending Provider: Marcie Jackson Primary Care Provider: Kurtis Ross Chi Consulting Providers: Hernan Harding ; Zahra Gomez ; Garth Dean Instructions Patient Instructions: Heart Attack Dc, ED Heart Failure, Congestive (CHF) Discharge Orders/Prescriptions Prescriptions: New furosemide 40 mg Tablet 40 mg PO BIDLX Qty: 60 1RF aspirin 81 mg Tablet,Chewable 81 mg PO DAILYCM Qty: 30 1RF Continued polyethylene glycol 3350 [Miralax] 17 gram/dose powder 17 g PO DAILY glimepiride 1 mg tablet 1 mg PO DAILY atorvastatin 40 MG tablet 40 mg PO QHS famotidine 40 MG tablet 40 mg PO DAILY gabapentin 300 MG capsule 300 mg PO DAILY metoprolol tartrate 25 MG tablet 25 mg PO BID baclofen 5 MG tablet 5 mg PO DAILY oxycodone-acetaminophen 5-325 mg tablet 1 tab PO TID isosorbide mononitrate 30 mg Tablet Extended Release 24 Hr 30 mg PO DAILY Qty: 30 1RF multivitamin with minerals Tablet 1 tab PO DAILY levothyroxine 137 mcg tablet 137 mcg PO DAILY Qty: 30 3RF Discontinued furosemide [Lasix] 40 mg tablet 40 mg PO DAILY Qty: 30 0RF potassium, sodium phosphates [Phos-NaK] 280-160-250 mg powder in packet 1 packet PO DAILY Label Comments: Take 1 Packet orally 3 times per Day for 90 Days Referrals / Follow Up: Kurtis Ross Chi, MD [Primary Care Provider] - Within 2 Weeks Disposition Disposition (needs filled in before D/C Order can be placed): [facility]
[2022-12-21] MEDS: Heparin Injection (Vial) 5,000 UNIT/ML VIAL 5000 UNIT SC (10:17)
[2022-12-21 10:18] VITALS: BP 132/58; PULSE 101
[2022-12-21] MEDS: Metoprolol Tartrate 25 MG Tablet PO (10:18)
[2022-12-21] MEDS: Famotidine 20 MG Tablet 40 MG PO (10:18)
[2022-12-21] MEDS: Furosemide 40 MG Tablet PO (10:18)
[2022-12-21] MEDS: Isosorbide Mononitrate 30 MG Tablet PO (10:18)
[2022-12-21] MEDS: Polyethylene Glycol 3350 17 GM PACKET PO (10:19)
[2022-12-21] MEDS: 0.9% Saline Lock 10 ML Syringe IV (10:19)
--- NOTE | 2022-12-21 11:27 | CASEMGMT ---
Patient is ready for discharge back to [facility]. RN said patient's family asked for a script from the Dr for the Oxycodone as the Nurse Practitioner is out of the building today. SW asked physician and prescription was written. [facility] called [facility] and arranged for patient to get picked up at via wheelchair. [facility] notified RN, attendance secretary, [facility], and patient's daughter Chloe. [facility] sent orders, d/c med list, COVID test, and prescription for Oxycodone to [facility] via [facility]. Plan: d/c back to [facility] under skilled level of care. [facility] transported via wheelchair van. 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
--- NOTE | 2022-12-21 12:11 | CHAPLAIN ---
Type of Pastoral Visit _x__ Initial Visit ___ Follow-up Visit ___ On-call Visit ___ General Patient Visit ___ Spiritual Assessment ___ Family Conference ___ Bereavement ___ Rapid Response ___ Code Blue ___ Other (describe below) Pastoral Care Referral From _x__ Patient ___ Family ___ Nurse ___ Physician ___ Film Inspector ___ Adding Machine Servicer ___ Other (describe below) Sacrament/Intervention ___ Active listening ___ Anointing ___ Bahai ___ Bereavement ___ Communion ___ Beth exploration ___ ___ Life review _x__ Prayer ___ Reconciliation ___ Sacrament of Sick _x__ Supportive presence ___ Wedding ___ Other (describe below) Pastoral Comments patient appeared to be sleeping but was awakened easily by calling her name; pt stated just say a prayer and expressed that she was just fine; asked a couple of questions to assess need for any other support; no needs evidenced
[2022-12-21 12:16] LABS: Bedside Glucose 199 mg/dL (74-106)
[2022-12-21 14:00] VITALS: BP 132/58; PULSE 99; RESP 16; TEMP 36.6; O2SAT 98
--- NOTE | 2022-12-21 14:37 | NURSING ---
12/21/22@1400- REPORT CALLED TO MICHELE AT THE [facility].
--- NOTE | 2022-12-21 15:34 | DS.PCM_ITS ---
Providers Date of Admission: 12/15/22 Date of Discharge: 12/21/22 Primary Care Physician: Dr. Kurtis Ross MD Consultations 12/15/22 12:22 Consult: Cardiology Routine Consulting Provider: Hernan Harding Reason for Consult: CHF, elevated troponin EMERGENT Consult: No Notified: Yes Date Notified: 12/15/22 Time Notified: 11:06 Method of Notification: Verbal 12/16/22 18:32 Consult: Nephrology Routine Consulting Provider: Zahra Gomez Reason for Consult: hyponatremia EMERGENT Consult: No Notified: Yes Date Notified: 12/16/22 Time Notified: 18:32 Method of Notification: Verbal Reason For Visit: CHF, RESP FAILURE Diagnosis Discharge Diagnosis (1) Shortness of breath: Status: Acute Code(s): R06.02 - Shortness of breath (2) (HFpEF) heart failure with preserved ejection fraction: Status: Chronic Code(s): I50.30 - Unspecified diastolic (congestive) heart failure (3) Cardiomyopathy: Status: Acute Code(s): I42.9 - Cardiomyopathy, unspecified (4) Aortic stenosis: Status: Acute Code(s): I35.0 - Nonrheumatic aortic (valve) stenosis (5) Nonrheumatic mitral valve stenosis with insufficiency: Status: Chronic Code(s): I34.2 - Nonrheumatic mitral (valve) stenosis; I34.0 - Nonrheumatic mitral (valve) insufficiency (6) Non-ST elevation (NSTEMI) myocardial infarction: Status: Acute Code(s): I21.4 - Non-ST elevation (NSTEMI) myocardial infarction (7) Hyperlipidemia: Status: Acute Code(s): E78.5 - Hyperlipidemia, unspecified (8) Hyponatremia: Status: Acute Code(s): E87.1 - Hypo-osmolality and hyponatremia Plan #Nonstemi * refused cardiac cath * cardiology on board * for conservative management * on aspirin, high intensity statin and imdur * #Acute exacerbation of HFrEF * now on PO lasix. stable. * #Hyperkalemia: * potassium is 5.6 today. Kayexalate ordered. * Hasnt had a bowel movement. Will give enema to help with bowel movement. #Moderate aortic stenosis: stable #Hyponatremia: * sodium is up to 129 today. * nephrology on board. * Per nephro, doesnt need salt tablets at discharge * #Hypertension:on metoprolol. #Type 2 diabetes mellitus: on ISS. 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 On Oxy IR. #Hypothyroidism: on synthroid #Debility due to above mentioned medical conditions * awaiting placement * DVT prophylaxis: heparin Disposition: for dc to [facility] once hyperkalemia has resolved. Medications at Discharge Home Medications atorvastatin 40 mg tablet 40 mg PO QHS cholesterol 07/05/19 baclofen 5 mg tablet 5 mg PO DAILY muscle spasms 07/05/19 famotidine 40 mg tablet 40 mg PO DAILY gerd 07/05/19 gabapentin 300 mg capsule 300 mg PO DAILY neuropathy 07/05/19 metoprolol tartrate 25 mg tablet 25 mg PO BID heart rate 07/05/19 oxycodone-acetaminophen 5 mg-325 mg tablet 1 tab PO TID back pain 12/02/19 polyethylene glycol 3350 17 gram/dose oral powder (Miralax) 17 g PO DAILY stool softener 05/03/20 levothyroxine 137 mcg tablet 137 mcg PO DAILY #30 tabs 08/14/22 glimepiride 1 mg tablet 1 mg PO DAILY diabetes 09/12/22 isosorbide mononitrate 30 mg tablet,extended release 24 hr 30 mg PO DAILY #30 tabs 12/07/22 multivitamin with minerals 1 tab PO DAILY SUPPLEMENT 12/15/22 aspirin 81 mg chewable tablet 81 mg PO DAILYCM #30 tabs 12/21/22 furosemide 40 mg tablet 40 mg PO BIDLX #60 tabs 12/21/22 oxycodone 5 mg tablet 5 mg PO TID PRN Pain, Severe 4 days #12 tabs 12/21/22 Hospital Course Operations None Procedures 2-D Echocardiogram Summary of Care Provided Minutes Spent on Discharge: 45 Hospital Course: Patient is an 82-year-old female with a past medical history as outlined was admitted through the ED from her [place] [facility] with a complaint of shortness of breath which started on the day of admission. She was found to be saturating at 86% on room air. On admission hip troponin was elevated at 371 and BNP was also elevated at 738. Chest x-ray showed progressive airspace disease in right upper lobe suggestive of CHF superimposed on left basilar infiltrate as well as cardiomegaly. EKG did not show any acute ST changes. She had had 2D echocardiogram done on 12/05/2022 which showed moderate mitral valve insufficiency and EF of 55% with moderate aortic stenosis and moderate pulmonary hypertension. She was admitted and managed for non-STEMI as well as acute exacerbation of heart failure with preserved ejection fraction and hyponatremia. Sodium was 118. The sodium been in the low was thought to be due to fluid overload. Nephrology and cardiology were consulted. She had repeat 2D echo w [facility] showed EF of 35% and stage II diastolic dysfunction as well as left ventricular severe segmental systolic dysfunction and akinesia of the cates. She was diuresed with IV Lasix. Patient and family did not want any further work-up further non-STEMI and refused a cardiac cath. His shortness of breath gradually improved and she felt much better. His sodium gradually came upwards. She was started on salt tablets by nephrology. Hospital course was complicated by hyperkalemia with potassium going as high as 5.6. This resolved with several doses of Kayexalate. Her potassium supplements were discontinued. Patient remained stable and was to alf facility on 12/21/2022. She is follow- up with her primary care doctor and follow-up with cardiology as well as nephrology. Of note per nephrology recommendations she was not placed on sodium tablets at time of discharge. Patient seen and examined prior to discharge. She had no active complaints. Daughter was by her bedside. She had an uneventful night and review of systems otherwise negative. Labs and vitals reviewed. Home medication reviewed and reconciled. Physical Exam Const alert, oriented x3 and no apparent distress Constitutional Narrative: frail General Appearance: cooperative, comfortable, well kempt and well developed Orientation / Consciousness: awake HEENT normocephalic, head/scalp atraumatic, hearing grossly normal bilaterally and moist oral mucous membranes Mouth: oral and palatal mucosa normal Eyes PERRL, EOMs intact bilaterally and conjunctivae normal Neck no lymphadenopathy, supple, no JVD, thyroid normal and no carotid bruits General: trachea midline Lymph Lymphatic: no lymphadenopathy noted Resp normal respiratory effort, normal air movement, no retractions, no use of accessory muscles and clear to auscultation bilaterally Resp Narrative: on 2L of oxygen by nasal canula Auscultation: Negative for rales, rhonchi or wheezes Cardio regular rate, regular rhythm, S1 normal heart sound, S2 normal heart sound, no murmurs, no rub and no gallops GI normal to inspection, nondistended, normoactive bowel sounds, soft to palpation, non-tender and non-distended Extremity normal to inspection, full ROM, normal capillary refill and no clubbing, cyanosis or edema Skin no rashes or lesions noted General Skin Exam: no breakdown Neuro oriented x3, CN's II-XII intact bilaterally, moves all extremities, no focal motor deficits and no sensory deficits noted Sensorium / Orientation: awake, alert, oriented to person and oriented to place Coordination / Balance: [id number] test normal Motor Exam: strength 5/5 throughout Psych affect normal Psych Narrative: frail Appearance: appropriate Weight / BMI Weight Weight: 149 lb 4.047 oz Body Mass Index (BMI) 27.3 ABG / Lab / Microbiology Data Result Diagrams: 12/21/22 04:57 12/21/22 04:57 Laboratory: Laboratory Results - last 24 hr 12/20/22 16:48: POC Glucose 206 H 12/20/22 21:49: POC Glucose 206 H 12/21/22 04:57: WBC 7.1, RBC 2.41 L, Hgb 8.1 L, Hct 24.8 L, MCV 102.9 H, MCH 33.6 H, MCHC 32.7, RDW Std Deviation 63.5 H, RDW Coeff of [place] 17.2 H, Plt Count 79 L, MPV 9.7, Immature Gran % (Auto) 1.000 H, Neut % (Auto) 75.2 H, Lymph % (Auto) 10.7 L, [place] % (Auto) 11.7 H, Eos % (Auto) 1.0, Baso % (Auto) 0.4, Absolute Neuts (auto) 5.3, Absolute Lymphs (auto) 0.76 L, Nucleated RBC % 0.3 12/21/22 04:57: Sodium 134 L, Potassium 4.5, Chloride 97 L, Carbon Dioxide 31.0, Anion Gap 6, BUN 37 H, Creatinine 0.90, Estim Creat Clear Calc 38.12, Est GFR (MDRD) Af Amer 77, Est GFR (MDRD) Non-Af 64, BUN/Creatinine Ratio 41.3 H, Glucose 183 H, Calcium 8.2 L, Total Bilirubin 1.60 H, AST 320 H, ALT 50, Alkaline Phosphatase 304 H, Total Protein 5.9 L, Albumin 2.1 L, Globulin 3.8, Albumin/Globulin Ratio 0.6 L 12/21/22 06:40: POC Glucose 194 H 12/21/22 11:51: POC Glucose 199 H Microbiology: Microbiology 12/21/22 10:37 Nasal Secretion SARS-CoV-2 Antigen (Rapid) - Final D/C Instructions Discharge Diet: Low fat / Low cholesterol Discharge Activity: Return to Normal Activity Weight Bearing Status: Weight bearing as tolerated Call your doctor if you observe: Fever of 101 or Higher, Shortness of breath, Dizziness, Swelling in the ankles, Chest pain and Increased palpitations (irregular heartbeat) Meaningful Use Info Meaningful Use Diagnoses (Choose all that apply): CHF CHF LIDIA/ARB ordered at discharge?: No Reason LIDIA/ARB not ordered?: Not indicated Documented LVEF (%): 35 Discharge Plan Admission Admit Date/Time: 12/15/22 10:51 Primary Reason for Your Visit: NONSTEMI, HEART FAILURE Attending Provider: Marcie Jackson Primary Care Provider: Kurtis Ross Chi Consulting Providers: Hernan Harding ; Zahra Gomez ; Garth Dean Instructions Patient Instructions: Heart Attack Dc, ED Heart Failure, Congestive (CHF) Discharge Orders/Prescriptions Prescriptions: New furosemide 40 mg Tablet 40 mg PO BIDLX Qty: 60 1RF aspirin 81 mg Tablet,Chewable 81 mg PO DAILYCM Qty: 30 1RF oxycodone 5 mg Tablet 5 mg PO TID PRN (Reason: Pain, Severe) 4 Days Qty: 12 0RF Continued polyethylene glycol 3350 [Miralax] 17 gram/dose powder 17 g PO DAILY glimepiride 1 mg tablet 1 mg PO DAILY atorvastatin 40 MG tablet 40 mg PO QHS famotidine 40 MG tablet 40 mg PO DAILY gabapentin 300 MG capsule 300 mg PO DAILY metoprolol tartrate 25 MG tablet 25 mg PO BID baclofen 5 MG tablet 5 mg PO DAILY oxycodone-acetaminophen 5-325 mg tablet 1 tab PO TID isosorbide mononitrate 30 mg Tablet Extended Release 24 Hr 30 mg PO DAILY Qty: 30 1RF multivitamin with minerals Tablet 1 tab PO DAILY levothyroxine 137 mcg tablet 137 mcg PO DAILY Qty: 30 3RF Discontinued furosemide [Lasix] 40 mg tablet 40 mg PO DAILY Qty: 30 0RF potassium, sodium phosphates [Phos-NaK] 280-160-250 mg powder in packet 1 packet PO DAILY Label Comments: Take 1 Packet orally 3 times per Day for 90 Days Referrals / Follow Up: Kurtis Ross Chi, MD [Primary Care Provider] - Within 2 Weeks Disposition Disposition (needs filled in before D/C Order can be placed): [facility] Charges/Coding Visit Charges Inpatient E&M: 32026 Disch Hosp >30min
== END 2022-12-21 14:11 | disposition skilled nursing facility (03) | DRG 280 ==
LOC: ED 11:19 → PCU 11:50
PROVIDERS: Family Medicine; Internal Medicine Cardiovascular Disease; Admitting Provider Internal Medicine; Emergency Provider Emergency Medicine; PCP Family Medicine Geriatric Medicine; Visit Provider Student in an Organized Health Care Education/Training Program
DX: I21.4 Non-ST elevation (NSTEMI) myocardial infarction (principal); I50.23 Acute on chronic systolic (congestive) heart failure; E87.1 Hypo-osmolality and hyponatremia; I42.9 Cardiomyopathy, unspecified; M48.56XA Collapsed vertebra, not elsewhere classified, lumbar region, initial encounter for fracture; I27.20 Pulmonary hypertension, unspecified; E11.9 Type 2 diabetes mellitus without complications; I11.0 Hypertensive heart disease with heart failure; E03.9 Hypothyroidism, unspecified; E78.00 Pure hypercholesterolemia, unspecified; I25.10 Atherosclerotic heart disease of native coronary artery without angina pectoris; I08.0 Rheumatic disorders of both mitral and aortic valves; E87.5 Hyperkalemia; M51.36 Other intervertebral disc degeneration, lumbar region; I25.2 Old myocardial infarction; X58.XXXA Exposure to other specified factors, initial encounter; G89.29 Other chronic pain; R09.02 Hypoxemia; R53.81 Other malaise; Z79.84 Long term (current) use of oral hypoglycemic drugs; Z79.891 Long term (current) use of opiate analgesic; Z79.899 Other long term (current) drug therapy; Z87.891 Personal history of nicotine dependence; Z66 Do not resuscitate
CPT/HCPCS: 36415; 71045; 80048; 80053; 82962; 83605; 83880; 84484; 85025; 87426; 93005; 93306; 94002; 94762; 97110; 97116; 97163; 97166; 97530; 97535; 97802; 99252; 99285; A4216; G0463; J1940